=== PATIENT | male | born 1935 | race Caucasian/White ===

== ENCOUNTER 2016-06-16 11:21 | Emergency (ER) | payer OTHER, BC ==
[~2016-06-16] VITALS: Ht 182.9 cm; Wt 63.7 kg
[~2016-06-16 11:21] MED LIST: ASCA500 PO; CMD25 PO; METO50TA7 PO; MULT-506 PO
[2016-06-16 11:26] VITALS: TEMP 36.5; Ht 182.9 cm; Wt 63.7 kg
[2016-06-16] MEDS ORDERED: ASCO500T16 PO (11:44)
[2016-06-16] MEDS ORDERED: TAMS0.4C38 PO (11:44)
[2016-06-16] MEDS ORDERED: WARF-280 PO ×2 (11:44)
--- NOTE | 2016-06-16 12:15 | EMERGENCY ROOM VISIT NOTE ---
History Report prepared by Cindy: Terrence Freitas Under the Supervision of: Dr. Tonie Kaur M.D. First contact with patient: 11:52 Chief Complaint: URINARY SYMPTOMS Stated Complaint: URINATION PROBLEM History of Present Illness The patient is a 81 year old male who presents to the Emergency Room with complaints of urinary symptoms that began two days ago. He rates his current pain a 4/10 in severity. He states that today his symptoms are improving, but they are still present. He has been having increased trouble voiding his urine. He denies any fevers, vomiting, hematuria, and burning with urination. The patient has a past medical history of BPH. He takes Flomax daily. Source of History: patient Onset: two days ago Position: other () Symptom Intensity: Quality: pressure Timing: other (improving) Associated Symptoms: + abdominal pain, No fevers, No vomiting Note: He denies hematuria or urinary burning. Review of Systems See HPI for pertinent positives & negatives. A total of 10 systems reviewed and were otherwise negative. Past Medical & Surgical Medical Problems: (1) BPH (benign prostatic hyperplasia) Family History Omitted secondary to age. Social History Smoking Status: Never Smoker Smokeless Tobacco Use: No Marital Status: Housing Status: lives with family Occupation Status: retired Current/Historical Medications Scheduled Ascorbic Acid (Ascorbic Acid), 1,000 MG PO DAILY Metoprolol Succ (Toprol Xl) (Toprol-Xl), 50 MG PO QAM Multivitamin (Multivitamin), 1 TAB PO DAILY Tamsulosin Hcl (Flomax), 0.4 MG PO QPM Warfarin Sodium (Warfarin Sodium), 3.75 MG PO 2XWK Warfarin Sodium (Warfarin Sodium), 2.5 MG PO 5XWK Allergies Coded Allergies: No Known Allergies (Unverified , 06/16/16) Physical Exam Vital Signs Date Time Temp Pulse Resp B/P Pulse Ox O2 Delivery O2 Flow Rate FiO2 06/16/16 14:25 98 20 115/68 95 06/16/16 13:26 101 20 110/71 95 Room Air 06/16/16 11:26 36.5 123 18 101/65 96 Room Air Physical Exam Vital signs reviewed. General: Well-appearing elderly male, in no significant distress. HEENT: No scleral icterus, PERRLA, neck supple. Atraumatic. Cardiovascular: Regular rate and rhythm, no extra sounds. Pulmonary: Clear to auscultation bilaterally, normal work of breathing. Abdomen: Soft, nontender, mild distention in the suprapubic abdomen, positive bowel sounds. Musculoskeletal: Atraumatic, no peripheral edema. Neurologic: Patient awake alert and oriented x 3, full strength in all 4 extremities. Cranial nerves 2 through 12 grossly intact. Skin: Warm, dry, no rash Medical Decision & Procedures Laboratory Results Test 06/16/16 12:30 Urine Color DK YELLOW Urine Appearance CLEAR (CLEAR) Urine pH 5.5 (4.5-7.5) Urine Specific [place] 1.019 (1.000-1.030) Urine Protein NEG (NEG) Urine Glucose (UA) NEG (NEG) Urine Ketones TRACE (NEG) Urine Occult Blood TRACE (NEG) Urine Nitrite NEG (NEG) Urine Bilirubin NEG (NEG) Urine Urobilinogen NEG (NEG) Urine Leukocyte Esterase NEG (NEG) Urine WBC (Auto) 1-5 /hpf (0-5) Urine RBC (Auto) 5-10 /hpf (0-4) Urine Hyaline Casts (Auto) 1-5 /lpf (0-5) Urine Epithelial Cells (Auto) 10-20 /lpf (0-5) Urine Bacteria (Auto) NEG (NEG) Laboratory results per my review. ED Course 1152: Past medical records reviewed. The patient was evaluated in room C8. A complete history and physical examination was performed. 1400: Upon reevaluation, the patient appeared to have improvement of his symptoms. I discussed findings with him. He verbalized agreement of the treatment plan. He was discharged home. Medical Decision Differential diagnoses include BPH, UTI, prostatitis, diverticulitis, and kidney stone. This patient was evaluated and appeared to be in no significant distress. IV access was obtained and laboratory work was drawn. A bladder scan was performed and revealed significant urinary retention. A Strong catheter was placed and greater than 1 L was drained. The patient was discharged with a Strong catheter in place. There is no evidence of infection at this time. The patient was advised to follow-up with his urologist within the next week. He will return to the ER for worsening of symptoms or any medical concerns. Impression Primary Impression: Urinary retention Scribe Attestation The scribe's documentation has been prepared under my direction and personally reviewed by me in its entirety. I confirm that the note above accurately reflects all work, treatment, procedures, and medical decision making performed by me. Departure Information Dispostion Home / Self-Care Referrals Ruel Draper D.O. (PCP) Neal Sanchez MD, Urology Forms HOME CARE DOCUMENTATION FORM, IMPORTANT VISIT INFORMATION Patient Instructions My [facility] Additional Instructions Diagnosis: Urinary retention Strong catheter care as directed. Please follow-up with urology this week for reevaluation. Return to the emergency department for worsening of symptoms or any medical concerns.
[2016-06-16 12:57] LABS: URINE APPEARANCE CLEAR (CLEAR); URINE BILIRUBIN NEG (NEG); URINE COLOR DK YELLOW; URINE NITRITE NEG (NEG); URINE PH 5.5 (4.5-7.5); URINE SPECIFIC GRAVITY 1.019 (1.000-1.030); UROBILINOGEN NEG (NEG); ZZURINE CULT IF INDIC CATH NO
[2016-06-16 12:58] LABS: MANUAL MICROSCOPIC REQUIRED? NO; REVIEW REQ? NO
[2016-06-16 14:25] VITALS: BP 115/68; PULSE 98; O2SAT 95
[2016-07-30] MEDS ORDERED: LISINOPRIL HCTZ PO (13:45)
[2016-07-30] MEDS ORDERED: DUTA0.5C PO (13:45)
[2016-07-30] MEDS ORDERED: OMEG10007 PO (13:45)
[2016-08-13] MEDS ORDERED: PHEN-775 PO (09:30)
[2016-08-13] MEDS ORDERED: OXYC-57 PO (09:30)
== END 2016-06-16 14:30 | disposition home or self-care (01) ==
LOC: C.EDB 11:22 → C.EDC 14:30
DX: R33.9 Retention of urine, unspecified (principal); N40.0 Benign prostatic hyperplasia without lower urinary tract symptoms; R31.9 Hematuria, unspecified; I48.91 Unspecified atrial fibrillation; Z79.01 Long term (current) use of anticoagulants; Z79.899 Other long term (current) drug therapy

== ENCOUNTER 2016-06-16 15:47 | Emergency (ER) | payer OTHER, BC ==
[~2016-06-16] VITALS: Ht 182.9 cm; Wt 63.2 kg
[~2016-06-16 15:47] MED LIST changes: +ASCO500T16 PO; +TAMS0.4C38 PO; +WARF-280 PO
[2016-06-16 15:49] VITALS: TEMP 36.8; Ht 182.9 cm; Wt 63.2 kg
--- NOTE | 2016-06-16 16:56 | EMERGENCY ROOM VISIT NOTE ---
History Report prepared by Cindy: Ivan Garland Under the Supervision of: Dr. Rosa Knapp D.O. First contact with patient: 16:21 Chief Complaint: HEMATURIA Stated Complaint: URINARY PROBLEMS, BLOOD Nursing Triage Summary: pt was here earlier for urinary retention, had catheter placed, now has hematuria, wants evaluated. History of Present Illness The patient is an 81 year old male who presents to the Emergency Room with complaints of acute hematuria that he noticed earlier today. The patient had a catheter placed earlier today for urinary retention secondary to BPH. There were no complications initially. There was no blood when the catheter was first placed. He noticed blood in the catheter bag when he got home. The patient denies pain associated with the catheter or abdominal pain. He denies fevers or nausea. He is on Coumadin for a history of atrial fibrillation, last INR 2.4. He follows up with Urology for enlarged prostate. Source of History: patient Onset: today Position: other (urinary) Quality: other (hematuria) Timing: other (acute) Associated Symptoms: No fevers, No nausea Review of Systems See HPI for pertinent positives & negatives. A total of 10 systems reviewed and were otherwise negative. Past Medical & Surgical Medical Problems: (1) BPH (benign prostatic hyperplasia) Family History No pertinent family history Social History Smoking Status: Never Smoker Marital Status: Housing Status: lives with family Occupation Status: retired Current/Historical Medications Scheduled Ascorbic Acid (Ascorbic Acid), 1,000 MG PO DAILY Metoprolol Succ (Toprol Xl) (Toprol-Xl), 50 MG PO QAM Multivitamin (Multivitamin), 1 TAB PO DAILY Tamsulosin Hcl (Flomax), 0.4 MG PO QPM Warfarin Sodium (Warfarin Sodium), 3.75 MG PO 2XWK Warfarin Sodium (Warfarin Sodium), 2.5 MG PO 5XWK Allergies Coded Allergies: No Known Allergies (Unverified , 06/16/16) Physical Exam Vital Signs Date Time Temp Pulse Resp B/P Pulse Ox O2 Delivery O2 Flow Rate FiO2 06/16/16 20:12 98 128/80 99 06/16/16 19:02 104 18 135/84 97 Room Air 06/16/16 15:49 36.8 127 18 104/71 99 Room Air Physical Exam GENERAL: alert, well appearing, well nourished, no distress, non-toxic EYE EXAM: normal conjunctiva, PERRL and EOM's grossly intact OROPHARYNX: no exudate, no erythema, lips, buccal mucosa, and tongue normal and mucous membranes are moist NECK: supple, no nuchal rigidity, no adenopathy, non-tender LUNGS: Clear to auscultation. Normal chest wall mechanics HEART: no murmurs, S1 normal and S2 normal ABDOMEN: abdomen soft, non-tender, normo-active bowel sounds, no masses, no rebound or guarding. BACK: Back is symmetrical on inspection and there is no deformity, no midline tenderness, no CVA tenderness. SKIN: no rashes and no bruising UPPER EXTREMITIES: upper extremities are grossly normal. LOWER EXTREMITIES: No pitting edema. NEURO EXAM: Normal sensorium, cranial nerves II-XII grossly intact, normal speech, no gross weakness of arms, no gross weakness of legs. Gross sensation intact. GENITOURINARY: Gross hematuria noted in leg bag. Normal circumcised male genitalia. No inguinal lymphadenopathy. Medical Decision & Procedures ER Provider Diagnostic Interpretation: CT:Per my review, radiologist interpretation. ABDOMEN AND PELVIS CT WITHOUT CONTRAST CT DOSE: 276.33 mGy.cm HISTORY: Hematuria hematuria, s/p catheter placement TECHNIQUE: Multiaxial CT images of the abdomen and pelvis were performed without contrast. COMPARISON STUDY: None. FINDINGS: Minimal interstitial infiltrative change left and to lesser extent right base. Liver is unremarkable in configuration. Kidneys negative for calcification or hydronephrosis. The bowel pattern is considered nonobstructive throughout. There is atherosclerotic change of the abdominal aorta as well as iliac vasculature. There is been placement of a Strong catheter. There is mild bladder wall thickening. Bowel pattern within the pelvis is unremarkable. There is no evidence for abnormal collection. There are no obstructive characteristics. IMPRESSION: 1. Strong catheter. 2. Mild bladder wall thickening. 3. Otherwise negative abdomen and pelvis 4. Minimal interstitial infiltrative change left and to lesser extent right base. Electronically signed by: Juan Cowart M.D. 06/16/2016 6:32 PM Dictated Date/Time: 06/16/2016 6:31 PM Laboratory Results 06/16/16 17:10 Red Blood Count 4.18, Mean Corpuscular Volume 97.4, Mean Corpuscular Hemoglobin 33.0, Mean Corpuscular Hemoglobin Concent 33.9, Mean Platelet Volume 11.0, Neutrophils (%) (Auto) 83.3, Lymphocytes (%) (Auto) 9.6, Monocytes (%) (Auto) 6.1, Eosinophils (%) (Auto) 0.6, Basophils (%) (Auto) 0.2, Neutrophils # (Auto) 4.34, Lymphocytes # (Auto) 0.50, Monocytes # (Auto) 0.32, Eosinophils # (Auto) 0.03, Basophils # (Auto) 0.01 06/16/16 17:10 Test 06/16/16 17:10 White Blood Count 5.21 K/uL (4.8-10.8) Red Blood Count 4.18 M/uL (4.7-6.1) Hemoglobin 13.8 g/dL (14.0-18.0) Hematocrit 40.7 % (42-52) Mean Corpuscular Volume 97.4 fL (80-100) Mean Corpuscular Hemoglobin 33.0 pg (25-34) Mean Corpuscular Hemoglobin Concent 33.9 g/dl (32-36) Platelet Count 129 K/uL (130-400) Mean Platelet Volume 11.0 fL (7.4-10.4) Neutrophils (%) (Auto) 83.3 % Lymphocytes (%) (Auto) 9.6 % Monocytes (%) (Auto) 6.1 % Eosinophils (%) (Auto) 0.6 % Basophils (%) (Auto) 0.2 % Neutrophils # (Auto) 4.34 K/uL (1.4-6.5) Lymphocytes # (Auto) 0.50 K/uL (1.2-3.4) Monocytes # (Auto) 0.32 K/uL (0.11-0.59) Eosinophils # (Auto) 0.03 K/uL (0-0.5) Basophils # (Auto) 0.01 K/uL (0-0.2) RDW Standard Deviation 45.1 fL (36.4-46.3) RDW Coefficient of Variation 12.7 % (11.5-14.5) Immature Granulocyte % (Auto) 0.2 % Immature Granulocyte # (Auto) 0.01 K/uL (0.00-0.02) Prothrombin Time 15.4 SECONDS (9.0-12.0) Prothromb Time International Ratio 1.4 (0.9-1.1) Anion Gap 7.0 mmol/L (3-11) Est Creatinine Clear Calc Drug Dose 42.4 ml/min Estimated GFR () 64.9 Estimated GFR (Non- 56.0 BUN/Creatinine Ratio 13.8 (10-20) Calcium Level 8.9 mg/dl (8.5-10.1) Laboratory results per my review. ED Course 1635: The patient was evaluated in room B8. A complete history and physical exam was performed. 1757: The catheter bag now has light pink-colored urine without clots. He still has no pain on repeat examination. Updated him on all of the results thus far. 1906: No change in patient's condition. Catheter now draining gross hematuria once again. We'll re-irrigate. 1932: Discussed with Dr. Perdue, discussed patient's 2 visits to the ER today , labs and imaging, as well as drainage and the patient's catheter. He does not recommend placement of 3-way catheter and CBI at this time. States as long as the catheter is draining, patient can be discharged home in close follow-up in the office. Devises he should continue his regular medications and no new adjustments should be made patient's Coumadin regimen or additional bridging medication given. 1942: Discussed with patient and family conversation with urology. They verbalized understanding were agreeable with plan. Medical Decision Differential diagnosis includes traumatic catheter placement, mass, false track , kidney stone, UTI, nephritic syndrome, acute renal failure. Patient well-appearing here and has no complaints other than noticing gross hematuria draining into the Strong catheter. No pain, no fevers, no vomiting. Labs reassuring. Patient was alerted that his INR is subtherapeutic and will need close follow-up. Patient not given any bridging doses of Lovenox or additional Coumadin due to gross hematuria. Patient aware that this needs close follow-up with cardiology and discussion with urology. Encouraged patient to continue adequate oral intake and hydration and close follow-up as recommended by urology. Patient is aware that his case was discussed with urology and all labs and imaging were reviewed as well as attempts at irrigating to help improve hematuria. Discussed with patient and family at bedside symptoms to watch and return for, continued used of routine medications , adequate hydration, they verbalized understanding and were agreeable with plan. No evidence of renal failure, acute infection, stone, hydronephrosis, or abnormal placement of the catheter. No evidence of bacteremia/sepsis. Urinalysis sent upon original placement of catheter revealed no evidence of infection. Patient with stable vital signs, well-appearing throughout her time in the emergency room. Consults Time Called: 1926 Consulting Physician: Dr. Perdue Returned Call: 1932 Advised patient does not need CBI or 3-way catheter at this time. Can be discharged to close follow-up in the office. Impression Primary Impression: Hematuria Additional Impression: Strong catheter in place Scribe Attestation The scribe's documentation has been prepared under my direction and personally reviewed by me in its entirety. I confirm that the note above accurately reflects all work, treatment, procedures, and medical decision making performed by me. Departure Information Dispostion Home / Self-Care Referrals Ruel Draper D.O. (PCP) Patient Instructions [facility] Additional Instructions Please drink plenty of water to stay well-hydrated. Please continue regular medications as prescribed including her Coumadin. Please continue to monitor for any new or concerning symptoms including fevers, vomiting, abdominal pain, back pain. If you notice any new symptoms, noticed that the catheter is not draining appropriately, if you have any other concerns please return the emergency room. Please follow-up with urology the beginning of next week. Problem Qualifiers
[2016-06-16 17:21] LABS: BASO % 0.2 %; BASO ABS # 0.01 K/uL (0-0.2); COMPLETE YES; EOS % 0.6 %; HEMATOCRIT 40.7 % (42-52); IG% 0.2 %; LYMPH % 9.6 %; MEAN CELL VOLUME 97.4 fL (80-100); MEAN CORPUSCULAR HGB CONC 33.9 g/dl (32-36); MONO % 6.1 %; NEUT % 83.3 %; PLATELET COUNT 129 K/uL (130-400); RED BLOOD COUNT 4.18 M/uL (4.7-6.1); WHITE BLOOD COUNT 5.21 K/uL (4.8-10.8)
[2016-06-16 17:29] LABS: INR 1.4 (0.9-1.1); PROTHROMBIN TIME (PATIENT) 15.4 SECONDS (9.0-12.0)
[2016-06-16 17:35] LABS: BUN/CREATININE RATIO 13.8 (10-20); CALCIUM 8.9 mg/dl (8.5-10.1); CREATININE 1.2 mg/dl (0.60-1.40); POTASSIUM 4.1 mmol/L (3.5-5.1)
--- NOTE | 2016-06-16 18:34 | DIAGNOSTIC IMAGING REPORT ---
ABDOMEN AND PELVIS CT WITHOUT CONTRAST CT DOSE: 276.33 mGy.cm HISTORY: Hematuria hematuria, s/p catheter placement TECHNIQUE: Multiaxial CT images of the abdomen and pelvis were performed without contrast. COMPARISON STUDY: None. FINDINGS: Minimal interstitial infiltrative change left and to lesser extent right base. Liver is unremarkable in configuration. Kidneys negative for calcification or hydronephrosis. The bowel pattern is considered nonobstructive throughout. There is atherosclerotic change of the abdominal aorta as well as iliac vasculature. There is been placement of a Strong catheter. There is mild bladder wall thickening. Bowel pattern within the pelvis is unremarkable. There is no evidence for abnormal collection. There are no obstructive characteristics. IMPRESSION: 1. Strong catheter. 2. Mild bladder wall thickening. 3. Otherwise negative abdomen and pelvis 4. Minimal interstitial infiltrative change left and to lesser extent right base. Electronically signed by: Juan Cowart M.D. 06/16/2016 6:32 PM Dictated Date/Time: 06/16/2016 6:31 PM
[2016-06-16 20:12] VITALS: BP 128/80; PULSE 98; O2SAT 99
[2016-07-30] MEDS ORDERED: DUTA0.5C PO (13:45)
[2016-07-30] MEDS ORDERED: LISINOPRIL HCTZ PO (13:45)
[2016-07-30] MEDS ORDERED: OMEG10007 PO (13:45)
[2016-08-13] MEDS ORDERED: PHEN-775 PO (09:30)
[2016-08-13] MEDS ORDERED: OXYC-57 PO (09:30)
== END 2016-06-16 20:14 | disposition home or self-care (01) ==
LOC: C.EDB 15:48
DX: R31.9 Hematuria, unspecified (principal); I48.91 Unspecified atrial fibrillation; N40.0 Benign prostatic hyperplasia without lower urinary tract symptoms; Z79.01 Long term (current) use of anticoagulants; Z79.899 Other long term (current) drug therapy

== ENCOUNTER 2016-08-13 08:09 | Day surgery (SDC) | payer OTHER, BC ==
[2016-07-30 13:46] VITALS: BMI 19.0
--- NOTE | 2016-07-30 14:20 | PAT Medication Instructions ---
Service Date Jul 30, 2016. Current Home Medication List Ascorbic Acid (Ascorbic Acid), 1,000 MG PO QAM Dutasteride (Avodart), 0.5 MG PO QAM Fish Oil ([place]-3), 1 CAP PO TID Metoprolol Succ (Toprol Xl) (Toprol-Xl), 50 MG PO QAM Multivitamin (Multivitamin), 1 TAB PO QAM Tamsulosin Hcl (Flomax), 0.4 MG PO QPM Warfarin Sodium (Warfarin Sodium), 3.75 MG PO 2XWK Warfarin Sodium (Warfarin Sodium), 2.5 MG PO 5XWK [Lisinopril Hctz], 1 TAB PO QAM Medication Instructions For Your Scheduled Surgery - Follow surgeon/carousel operator instructions: Warfarin Sodium (Warfarin Sodium), 3.75 MG PO 2XWK Warfarin Sodium (Warfarin Sodium), 2.5 MG PO 5XWK - Hold the following medications starting 08/13/16: Fish Oil ([place]-3), 1 CAP PO TID - Hold the following medications the morning of surgery: [Lisinopril Hctz], 1 TAB PO QAM Multivitamin (Multivitamin), 1 TAB PO QAM Ascorbic Acid (Ascorbic Acid), 1,000 MG PO QAM Dutasteride (Avodart), 0.5 MG PO QAM - Take the following medications the morning of surgery with a sip of water: Metoprolol Succ (Toprol Xl) (Toprol-Xl), 50 MG PO QAM - Take the following medications as scheduled the night before surgery: Tamsulosin Hcl (Flomax), 0.4 MG PO QPM If you have any questions please call us at [phone] or [phone] or [phone]
--- NOTE | 2016-07-30 14:46 | DIAGNOSTIC IMAGING REPORT ---
CHEST PREADMISSION(PA/LAT) CLINICAL HISTORY: PAT preoperative evaluation COMPARISON STUDY: No previous studies for comparison. FINDINGS: The bones soft tissues and hemidiaphragms are normal. The cardiomediastinal silhouette is normal. The lungs are clear. The pulmonary vasculature is normal. IMPRESSION: Negative chest. Electronically signed by: Juan Cowart M.D. 07/30/2016 2:45 PM Dictated Date/Time: 07/30/2016 2:45 PM
[2016-07-30 15:00] LABS: BASO % 0.2 %; BASO ABS # 0.01 K/uL (0-0.2); COMPLETE YES; HEMATOCRIT 37.8 % (42-52); MEAN CELL VOLUME 94.5 fL (80-100); MEAN CORPUSCULAR HGB CONC 33.9 g/dl (32-36); MEAN PLATELET VOLUME 10.5 fL (7.4-10.4); MONO % 7.2 %; NEUT % 70.6 %; PLATELET COUNT 236 K/uL (130-400); WHITE BLOOD COUNT 5.25 K/uL (4.8-10.8)
[2016-07-30 15:04] LABS: URINE APPEARANCE CLOUDY (CLEAR); URINE BILIRUBIN NEG (NEG); URINE COLOR YELLOW; URINE EPITHELIAL CELL AUTO >30 /lpf (0-5); URINE NITRITE NEG (NEG); URINE PH 5.5 (4.5-7.5); UROBILINOGEN NEG (NEG)
[2016-07-30 15:05] LABS: MANUAL MICROSCOPIC REQUIRED? NO; REVIEW REQ? YES
[2016-07-30 15:58] LABS: BUN/CREATININE RATIO 14.6 (10-20); CREATININE 0.96 mg/dl (0.60-1.40)
[~2016-08-13] VITALS: Ht 180.3 cm; Wt 62.2 kg
[~2016-08-13 08:09] MED LIST changes: -ASCA500 PO; +ATROPINE SULFATE 0.1 MG/ML 5ML SYR IV PRN; +CIPROFLOXACIN / D5W 400 MG IV SCH; -CMD25 PO; +DUTA0.5C PO; +EpHEDrine SULFATE INJ 50 MG/ML AMP IV PRN; +FENTANYL CITRATE INJ 50 MCG/1 ML 2 ML VIAL IV PRN; +GENTAMICIN INJ 120 MG in DEXTROSE 5% 100ML 100 ML IV SCH; +HYDROmorphone INJ 1 MG/ML SYR IV PRN; +LACTATED RINGER'S 1000ML 1,000 ML IV SCH; +LISINOPRIL HCTZ PO; +OMEG10007 PO; +ONDANSETRON INJ 2 MG/ML 2 ML VIAL IV PRN
[2016-08-13] MEDS ORDERED: PROPOFOL IV EMULSION 10 MG/ML 20 ML VIAL IV ONE (08:55)
[2016-08-13] MEDS ORDERED: LIDOCAINE 2% 20 MG/ML 5ML SYR ONE (08:55)
[2016-08-13] MEDS ORDERED: FENTANYL CITRATE INJ 50 MCG/1 ML 2 ML VIAL ONE (08:55)
[2016-08-13 09:02] VITALS: BP 138/74; PULSE 77; TEMP 36.4; O2SAT 100; Ht 180.3 cm; Wt 62.2 kg
[2016-08-13] MEDS ORDERED: ONDANSETRON INJ 2 MG/ML 2 ML VIAL ONE (09:15)
[2016-08-13 09:20] LABS: INR 1.4 (0.9-1.1); PARTIAL THROMBOPLASTIN RATIO 1.2; PROTHROMBIN TIME (PATIENT) 14.9 SECONDS (9.0-12.0)
--- NOTE | 2016-08-13 09:24 | History & Physical Bridge Note ---
H&P Re-Evaluation Bridge Note: I have examined the patient, reviewed the History & Physical and in the interval since the performance of the History & Physical I have noted the following changes of clinical significance: No changes noted
[2016-08-13] MEDS ORDERED: PHEN-775 PO (09:30)
[2016-08-13] MEDS ORDERED: OXYC-57 PO (09:30)
--- NOTE | 2016-08-13 09:31 | Discharge Instructions ---
Discharge Instructions Date of Service Aug 13, 2016. Admission Reason for Admission: Benign Prostate Hypertrophy Discharge Discharge Diagnosis / Problem: BPH s/p GLTURP, bipolar TURP, bladder tumor s/p biopsy and fulguration Discharge Goals Goal(s): Improve function, Improve disease control, Therapeutic intervention Activity Recommendations Activity Limitations: per Instructions/Follow-up section Lifting Limitations: no more than 25 pounds, gradually increase as tolerated ( x 3-5 days) Exercise/Sports Limitations: rest today, gradually increase as tolerated (x3-5 days) May Resume Sexual Activity: after follow-up appointment Shower/Bathe: tomorrow (no tub bath with gallegos in place) . Instructions / Follow-Up Instructions / Follow-Up Complete Macrobid as provided Follow-up appointments as scheduled Discharge Diet Recommended Diet: Regular Diet (good fluid intake) Procedures Procedures Performed: GLTURP, bipolar TURP and button vaporization, bladder biopsy and fulguration Pending Studies Studies pending at discharge: yes List of pending studies: Pathology reports Medical Emergencies . Who to Call and When: Medical Emergencies: If at any time you feel your situation is an emergency, please call 911 immediately. . Non-Emergent Contact Non-Emergency issues call your: Urologist Call Non-Emergent contact if: you have a fever, temperature is above 101, your pain is not controlled, your pain is worsening, your pain is unusual for you, your pain is concerning you, wound has increased pain, you have any medication questions . . "Provider Documentation" section prepared by Neal Sanchez. . VTE Core Measure Inpt VTE Proph given/why not?: SCD's [place] Drug Monitoring Program Search Results: patient reviewed within database, no issues identified
[2016-08-13] MEDS ORDERED: BELLADONNA/OPIUM SUPP 60 MG SUPP PR ONE ×2 (09:46→10:18)
[2016-08-13] MEDS ORDERED: PHENYLEPHRINE 100MCG/ML 5ML SYR ONE ×2 (09:50→10:45)
[2016-08-13] MEDS ORDERED: DEXAMETHASONE SOD INJ 4 MG/ML VIAL ONE (09:59)
[2016-08-13] MEDS ORDERED: EpHEDrine SULFATE 50MG/5ML SYR ONE (10:49)
--- NOTE | 2016-08-13 11:35 | [facility] Post Operative Brief Note ---
Immediate Operative Summary Operative Date Aug 13, 2016. Pre-Operative Diagnosis Benign Prostatic Hypertrophy with urinary obstruction Post-Operative Diagnosis Benign Prostatic Hypertrophy with urinary retention and small bladder tumor Procedure(s) Performed GLTURP, bipolar TURP and button vaporization, bladder biopsy and fulguration Surgeon Dr Hamzah Sanchez Gas Collection System Operator Surgeon(s) NA Estimated Blood Loss 50 ml Findings Small bladder tumor superolateral to R UO, open fossa after resection with excellent hemostasis Specimens A. Right bladder neck tumor B. Posterior bladder wall C. Prostate chips Drains 26 fr 15 cc H2O Anesthesia GALMA Complication(s) None Disposition Recovery Room / PACU
--- NOTE | 2016-08-13 11:44 | [facility] Operative Report ---
Operative Report Operative Date Aug 13, 2016. Pre-Operative Diagnosis Benign Prostatic Hypertrophy with urinary obstruction Post-Operative Diagnosis BPH, retention, small bladder tumor Procedure(s) Performed Cystoscopy, bladder biopsy, fulguration, GLTURP, bipolar TURP and button vaporization of prostate Surgeon Dr Hamzah Sanchez Bicycle Fitter Surgeon(s) NA Estimated Blood Loss 50 ml Findings Small papillary BT superolateral to R UO, posterior wall edema likely due to gallegos, open fossa after resection, 38K J used Specimens A. Right bladder neck tumor B. Posterior bladder wall C. Prostate chips Drains 26 fr 15 cc H2O Anesthesia GALMA Complication(s) None Disposition Recovery Room / PACU Indications BPH and retention with indwelling gallegos Description of Procedure Cipro and Gent used IV, SCDs. Patient has been Rxed for prior UTI with Macrobid , currently taking. Gallegos removed, GALMA used, placed in dorsal lithotomy. GL laser scope introduced with visual obturator showing an enlarged, inflamed prostate with median lobe and trilobar intravesical extension. Small papillary BT noted superolateral to R UO, posterior wall edema appreciated, grade 3 trabeculation with cellules. Cold cup used to biopsy tumor, sent as R bladder tumor as well as posterior wall edema - sent separately. Bugbee used to fulgurate area after switching to Mannitol. Due to bleeding from prostate GLTURP was started. UOs noted in good position, uninjured throughout the case. Circumferential vaporization using the GL scope between 80 and 120 W was performed, but had to switch to bipolar TUR due to arterial bleeding. Median lobe resected flush with trigone, intravesical prostate resected and prostate chips irrigated free (sent for path as prostate chips). Bipolar button used to open prostatic fossa and obtain hemostasis. GLTURP was restarted for a portion but again TUR was required for hemostasis. Case was completed with bipolar TURP and button, button for majority of case. Areas of bladder biopsy were further fulgurated to ensure hemostasis, no bladder injury or perforation appreciated. After meticulous hemostasis fossa noted to be open and unobstructed. Gallegos placed with clear return, 15 cc H2O in balloon, isovolemic return, no tissue remaining in bladder. B&O provided then to RR in stable condition. I attest to the content of the Intraoperative Record and any orders documented therein. Any exceptions are noted below.
[2016-08-13] MEDS ORDERED: PHENAZOPYRIDINE HCL 200 MG TAB PO PRN (11:45)
[2016-08-13] MEDS ORDERED: OXYCODONE/ACETAMINOPHEN 5-325 TAB PO PRN (11:45)
[2016-08-13 11:58] VITALS: BP 137/71; PULSE 76; TEMP 36.5; O2SAT 99
--- NOTE | 2016-08-13 12:06 | Anesthesiology Progress Note ---
Anesthesia Post Op Note Date & Time Aug 13, 2016 at 12:06 Vital Signs Pain Intensity: 0 Vital Signs Past 12 Hours Date Time Temp Pulse Resp B/P (MAP) Pulse Ox O2 Delivery O2 Flow Rate FiO2 08/13/16 11:52 117/72 08/13/16 11:48 36.5 08/13/16 11:47 66 16 100 08/13/16 11:47 66 16 08/13/16 11:42 67 13 08/13/16 11:42 67 13 100 08/13/16 11:41 125/76 08/13/16 11:37 72 18 08/13/16 11:37 75 18 100 08/13/16 11:36 131/70 08/13/16 11:32 71 16 08/13/16 11:32 73 16 100 08/13/16 11:31 125/74 08/13/16 11:27 75 16 08/13/16 11:27 73 16 100 08/13/16 11:26 128/86 08/13/16 11:22 83 20 08/13/16 11:22 88 20 96 08/13/16 11:21 131/76 08/13/16 11:17 83 18 08/13/16 11:17 89 18 139/95 100 08/13/16 11:12 36.4 79 16 139/95 100 Mask 10 08/13/16 09:02 36.4 77 18 138/74 (95) 100 Room Air Notes Mental Status: alert / awake / arousable, participated in evaluation Pt Amnestic to Procedure: Yes Nausea / Vomiting: adequately controlled Pain: adequately controlled Airway Patency, RR, SpO2: stable & adequate BP & HR: stable & adequate Hydration State: stable & adequate Anesthetic Complications: no major complications apparent
[2016-08-13 12:30] VITALS: BP 127/66; PULSE 68; O2SAT 98
[2016-08-13 13:00] VITALS: BP 128/71; PULSE 80; TEMP 36.5; O2SAT 100
== END 2016-08-13 13:15 | disposition home or self-care (01) ==
LOC: C.ACU 08:09
PROVIDERS: ATTEND Urology
DX: N40.1 Benign prostatic hyperplasia with lower urinary tract symptoms (principal); N30.80 Other cystitis without hematuria; N41.1 Chronic prostatitis; R33.9 Retention of urine, unspecified; I10 Essential (primary) hypertension; Z87.440 Personal history of urinary (tract) infections; Z82.49 Family history of ischemic heart disease and other diseases of the circulatory system

== ENCOUNTER 2016-08-15 18:59 | Emergency (ER) | payer OTHER, BC ==
[~2016-08-15] VITALS: Ht 182.9 cm; Wt 63.0 kg
[~2016-08-15 18:59] MED LIST changes: -ATROPINE SULFATE 0.1 MG/ML 5ML SYR IV PRN; -CIPROFLOXACIN / D5W 400 MG IV SCH; -EpHEDrine SULFATE INJ 50 MG/ML AMP IV PRN; -FENTANYL CITRATE INJ 50 MCG/1 ML 2 ML VIAL IV PRN; -GENTAMICIN INJ 120 MG in DEXTROSE 5% 100ML 100 ML IV SCH; -HYDROmorphone INJ 1 MG/ML SYR IV PRN; -LACTATED RINGER'S 1000ML 1,000 ML IV SCH; -ONDANSETRON INJ 2 MG/ML 2 ML VIAL IV PRN; +OXYC-57 PO; +PHEN-775 PO
[2016-08-15 19:07] VITALS: TEMP 36.9; Ht 182.9 cm; Wt 63.0 kg
--- NOTE | 2016-08-15 19:09 | EMERGENCY ROOM VISIT NOTE ---
History Report prepared by Cindy: Yahaira Osborn Under the Supervision of: Dr. Scout Madrid M.D. 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 The patient states that he tripped today and fell to the ground and hit the back of his head on the concrete in the garage. He complains of pain where he cut the back of his head and notes that he was able to get up very shortly after the fall. He denies any history of falls and notes that he usually takes Coumadin but is off of it due to a prostate procedure 2 days ago. The patient notes a history of atrial fibrillation. He denies any loss of consciousness, chest pain, shortness of breath, headache, neck pain, hematuria, arm pain, leg pain, and weakness. 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 He denies any arm pain, leg pain. Review of Systems See HPI for pertinent positives & negatives. A total of 10 systems reviewed and were otherwise negative. Past Medical & Surgical Medical Problems: (1) BPH (benign prostatic hyperplasia) Family History No pertinent family history Social History Smoking Status: Former Smoker Marital Status: Housing Status: lives with family Occupation Status: retired Current/Historical Medications Scheduled Ascorbic Acid (Ascorbic Acid), 1,000 MG PO QAM Dutasteride (Avodart), 0.5 MG PO QAM Fish Oil ([place]-3), 1 CAP PO TID Hctz/Lisinopril (Lisinopril/Hctz 10/12.5 Mg), 1 TAB PO DAILY Metoprolol Succ (Toprol Xl) (Toprol-Xl), 50 MG PO QAM Multivitamin (Multivitamin), 1 TAB PO QAM Tamsulosin Hcl (Flomax), 0.4 MG PO QPM Warfarin Sodium (Warfarin Sodium), 3.75 MG PO 2XWK Warfarin Sodium (Warfarin Sodium), 2.5 MG PO 5XWK Scheduled PRN Oxycodone/Acetaminophen 5MG/325MG (Percocet 5MG/325MG), 1 TABLET PO Q4H PRN for Pain Phenazopyridine Hcl (Pyridium), 200 MG PO TID PRN for Bladder pain Allergies Coded Allergies: No Known Allergies (Unverified , 08/15/16) Physical Exam Vital Signs Date Time Temp Pulse Resp B/P (MAP) Pulse Ox O2 Delivery O2 Flow Rate FiO2 08/15/16 20:29 92 20 118/68 98 08/15/16 19:07 36.9 109 18 115/76 96 Room Air Physical Exam GENERAL: Patient is well appearing and in no acute distress. HEENT: 3.5 curving laceration with minimal bleeding of the left parietal scalp, mucous membranes moist, no nasal congestion, no scleral icterus. NECK: No stridor, no adenopathy, no meningismus, trachea is midline. LUNGS: No dyspnea. Clear to auscultation and equal bilaterally. No wheeze, no rhonchi. HEART: Irregular heartbeat. No murmurs, rubs, gallops appreciated. ABDOMEN: Soft, nontender, bowel sounds positive, no masses appreciated, no peritonitis. BACK: No midline tenderness, no CVA tenderness EXTREMITIES: Normal motion all extremities, no cyanosis, no edema. NEUROLOGIC: Alert and oriented, no acute motor or sensory deficits, no focal weakness, cranial nerves grossly intact. GCS 15. SKIN: No rash, no jaundice, no diaphoresis. Medical Decision & Procedures ER Provider Diagnostic Interpretation: Radiology results and stated below per my review and radiologist interpretation: CT OF THE HEAD WITHOUT CONTRAST FINDINGS: No acute intracranial hemorrhage, midline shift or mass effect is present. Ventricular system is unremarkable for age. There is moderate atrophy. Basilar cisterns are patent. There are no extra axial collections. There is a small left scalp contusion with no calvarial fracture. IMPRESSION: 1. No acute intracranial findings. 2. Left scalp contusion. No calvarial fracture. Electronically signed by: Mario Stokes M.D. 08/15/2016 7:39 PM Dictated Date/Time: 08/15/2016 7:38 PM Medications Administered Medications (Trade) Dose Ordered Sig/Nik Route Start Time Stop Time Status Last Admin Dose Admin Lidocaine/ Epinephrine (Xylocaine/Epine 1% Inj) 20 ml ONE ONCE INFIL 08/15/16 19:15 08/15/16 19:16 DC 08/15/16 19:21 20 ML Procedure Location: Scalp Total length: 3.5cm Complexity: Simple Verbal consent was obtained after the risks and benefits were explained, including but not limited to bleeding, scarring, infection, pain, and bone/ nerve damage. At this time, the risks of the procedure are less than the risks of NOT performing the procedure. A time out was taken and the correct patient and site identified. The scalp was prepped with betadine. The target area was anesthetized with 4 ml of 1% lidocaine without epinephrine. Copious irrigation was performed using saline. The skin was re-prepped with betadine, the hair cleared from the wound, and a sterile field set. The wound was explored for foreign bodies and none found. Debridement was not performed. The wound edges were approximated using 9 surgical peter in the standard fashion. Hemostasis and excellent approximation was achieved. Antibacterial ointment and a sterile dressing applied. Detailed wound care instructions and signs and symptoms of infection reviewed with the the patient. No complications and the patient tolerated the procedure well. ED Course 1899: The patient was evaluated in room C6. A complete history and physical exam was performed. 1914: Lidocaine/Epinephrine 20ml INFIL. 2002: I stapled the patient's head laceration. See procedure note. 2016: Reevaluated the patient. Discussed results and discharge instructions: He verbalized understanding and agreement. The patient is ready for discharge. Medical Decision Medication Reconciliation: I attest that I have personally reviewed the patient 's current medication list. Blood pressure screening: Patient was found to have normal blood pressure on screening and does not require follow-up. Pleasant 81 yr old male with mechanical fall (per him and ) who arrives for evaluation of posterior left scalp laceration. Fortuitously off Coumadin post prostate surgery a few days ago. Recent surgery may be why not as quite on feet though he is adamant no syncope, cp, sob, weakness, lightheadedness, etc. He has no neck pain, no TTP nor any neuro deficits. He is stable and in no distress. CT head negative. [place] placed in scalp with wound care discussed. Impression Primary Impression: Fall Additional Impressions: Scalp laceration Head injury, closed Scribe Attestation The scribe's documentation has been prepared under my direction and personally reviewed by me in its entirety. I confirm that the note above accurately reflects all work, treatment, procedures, and medical decision making performed by me. Departure Information Dispostion Home / Self-Care Referrals Ruel Draper D.O. (PCP) Forms HOME CARE DOCUMENTATION FORM, IMPORTANT VISIT INFORMATION Patient Instructions ED Laceration Scalp Stitch Or Stap, My [facility] Additional Instructions Peter will need to be removed by ED or Primary Provider in 7 to 10 days. Problem Qualifiers
[2016-08-15] MEDS ORDERED: LISI-729 PO (19:14)
[2016-08-15] MEDS ORDERED: LIDOCAINE/EPINEPHRINE 1% 20 ML VIAL INFIL ONE (19:15)
[2016-08-15] MEDS ORDERED: LSN/10125 PO (19:17)
--- NOTE | 2016-08-15 19:41 | DIAGNOSTIC IMAGING REPORT ---
CT OF THE HEAD WITHOUT CONTRAST CLINICAL HISTORY: fall, left scalp injury COMPARISON STUDY: No previous studies for comparison. CT DOSE: 601.98 mGy.cm TECHNIQUE: Helical axial images of the head were obtained without IV contrast. Automated exposure control was utilized for the study. FINDINGS: No acute intracranial hemorrhage, midline shift or mass effect is present. Ventricular system is unremarkable for age. There is moderate atrophy. Basilar cisterns are patent. There are no extra axial collections. There is a small left scalp contusion with no calvarial fracture. IMPRESSION: 1. No acute intracranial findings. 2. Left scalp contusion. No calvarial fracture. Electronically signed by: Mario Stokes M.D. 08/15/2016 7:39 PM Dictated Date/Time: 08/15/2016 7:38 PM
[2016-08-15 20:29] VITALS: BP 118/68; PULSE 92; O2SAT 98
== END 2016-08-15 20:30 | disposition home or self-care (01) ==
LOC: EDBD 18:59 → C.EDC 19:00
DX: S01.01XA Laceration without foreign body of scalp, initial encounter (principal); W01.198A Fall on same level from slipping, tripping and stumbling with subsequent striking against other object, initial encounter; I48.91 Unspecified atrial fibrillation; N40.0 Benign prostatic hyperplasia without lower urinary tract symptoms; Z87.891 Personal history of nicotine dependence; Z79.01 Long term (current) use of anticoagulants; Z79.899 Other long term (current) drug therapy

== ENCOUNTER 2023-01-12 18:27 | Inpatient (IN) ==
--- OUTSIDE RECORDS SUMMARY | 2023-01-12 18:33 | External Medical Summary | Summary of Care ---
Author Name Unknown Organization [facility] Address [address] [place] [address] Phone [phone] Care Team Providers Care Occupational Safety And Health Manager Name Role Phone Eulogio Garvin MD Primary Care Provider + Reason for Visit * Reason Comments Dosage Adjustment In Person (Anticoag Cl inic) Encounter Details Date Type Department Care Team (Latest Contact Info) Description 01/01/2023 11:00 AM EST Anticoagulation Pharmacy, [facility] [address] [place] [address] Pharmacist1, [facility] [address] [place] [address] Chronic atrial fibrillation (HCC)*; Anticoagulation management encounter; retirement current use of anticoagulant therapy Allergies Active Allergy Reactions Criticality Noted Date Comments Environmental 11/09/2008 documented as of this encounter (statuses as of 01/01/2023) Medications Medication Sig Dispensed Refills Start Date End Date Status MULTIVITAMINS PO TABS one daily 0 02/25/2007 Active VITAMIN C 500 MG PO TABS Take 1 Tablet by mouth in the morning. 0 Active omega-3 1000 MG CAPS Take by mouth 3 times a day. 0 Active Albuterol Sulfate HFA 108 (90 Base) MCG/ACT Inhalation Aerosol SolutionIndicatio ns:Mild intermittent reactive airway disease without complication Inhale by mouth 2 Puffs every 6 hours as needed for Cough, Shortness of Breath or Wheezing. 18 g 2 08/08/2021 Active Loratadine 10 MG Oral Tablet (Claritin) Take 1 Tablet by mouth daily as needed for Rhinitis. 0 Active T.E.D. Below Knee/S-Regular Wear stockings during the day. Take off at night. Compression 20-30 mmHg 2 Each 1 12/14/2021 Active Vitamin B Complex Oral Tablet Take 1 Tablet by mouth in the morning. 0 Active Furosemide 20 MG Oral Tablet (Lasix)Indication s:HTN, goal below 130/80,Leg edema Take 1 Tablet by mouth once a day on Saturday, Saturday, and Saturday only. 40 Tablet 3 08/01/2022 Active Dutasteride 0.5 MG Oral Capsule (Avodart)Indicati ons:Elevated prostate specific antigen (PSA) Take 1 Capsule by mouth every morning. 90 Capsule 3 08/01/2022 Active Warfarin Sodium 2.5 MG Oral Tablet (Coumadin)Indicat ions:Chronic atrial fibrillation (HCC) Take 1.5 tab by mouth Tues, Thur, Sat. Take 1 tab by mouth all other days. Or as directed by the anticoagulation clinic. For afib 120 Tablet 3 08/01/2022 Active Rosuvastatin Calcium 10 MG Oral Tablet (Crestor)Indicati ons:Mild vascular dementia without behavioral disturbance, psychotic disturbance, mood disturbance, or anxiety (HCC),HTN, goal below 130/80 Take 1 Tablet by mouth every night at bedtime. 90 Tablet 3 10/20/2022 Active Donepezil HCl 10 MG Oral Tablet (Aricept) Take 1 Tablet by mouth in the morning. Take with largest meal of the day.. 90 Tablet 2 11/20/2022 Active Metoprolol Succinate ER 25 MG Oral Tablet Extended Release 24 Hour (Toprol XL) Take 1.5 Tablets by mouth in the morning. 1325 Tablet 3 12/12/2022 Active Spironolactone 25 MG Oral Tablet (Aldactone) Take 0.5 Tablets by mouth in the morning. 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 HTN, goal below 130/80 12/05/2011 Anticoagulation management encounter 07/24/2010 retirement current use of anticoagulant therapy 0 07/24/2010 Overview: ICD-10 update of inactive term Elevated prostate specific antigen (PSA) 009 BPH without obstruction/lower urinary tract symp toms 03/03/2008 documented as of this encounter (statuses as of 01/01/2023) Resolved Problems Problem Noted Date Diagnosed Date Resolved Date UNILAT INGUINAL HERNIA- LEFT 07/31/2010 06/12/2017 Atrial fibrillation 07/24/2010 12/20/19 19 Benign neoplasm of colon 03/03/2008 FAMILY HX-GI MALIGNANCY 08/21/200511/13 Overview: Colonoscopy 08/13/05--tubular adenomas --repeat 3-5 years. documented as of this encounter (statuses as of 01/01/2023) Immunizations Name Administration Dates Next Due COVID-19 mRNA, LNP-s, No Pre serve, 2-Dose Series (Moderna) 04/13/2021,12/12/2020,04/08/2020,03/11 Covid-19, Mrna, Lnp-s, Pf, B ivalent, 30 Mcg, IM, 12 yrs and above ([facility]) 10/23/2021 DTaP HIB - Dipth/Tet/Acell Pert/HIB 07/12/2004 H1N1 2009 Influenza, IM 02/02/2009 HEP A - Hepatitis A (Adult > 18 yrs) 08/18/2007, 02/25/2007 Pneumococcal Conjugate Vacc, 13 Valent (Prevnar) 06/20/2015 Pneumococcal Conjugate Vacci ne, 7 Valent 01/11/2003 Pneumococcal Polysaccharide PPV23 (Pneumovax) 07/12/2005 SEASONAL INFLUENZA, PF, 6 M & Above, IM , (FLULAVAL or FLUZONE) 11/18/2017 Season Influenza, Quad, PF, Adjuvanted, 65+ Yrs, IM (FLUAD) 10/16/2019 Seasonal Influenza, Quadriva lent Hd (Fluzone Hd) 10/20/2020 Seasonal Influenza, Quadriva lent, No Preserve, IM 10/30/2016,12/08/2015,12/16/2014 Seasonal Influenza, Split, I IV3, With Preserve, Inj 12/10/2013,11/03/2012,11/06/2011,12/28,12/14/2009,10/19/2008,12/06/2007 ,11/11/2006 Seasonal Influenza, Trivalen t, Adjuvanted, 65+ yrs 11/12/2018 Seasonal Influenza, Trivalen t, High Dose, No Preserve, IM 11/01/2021 TD - Tetanus/Diptheria (ADULT) 05/12/2006,1994 TDAP (age 10 and older)(Boostrix) 03/09/2016 Varicella Zoster Vaccine (Adult) 04/11/2006 Zoster Vaccine Recombinant (Shingrix) 10/05/2018 ,08/05/2018 documented as of this encounter Social History Tobacco Use Types Packs/Day Years Used Date Smoking Tobacco: Former Cigarettes Q uit: 02/11/1962 Smokeless Tobacco: Never Alcohol Use Standard Drinks/Week Comments Yes 11.7 (1 standard drink = 0.6 oz pure alcohol) wine- 2-3 glass a day PHQ-2 Answer Date Recorded PHQ Adult Total Score 0 11/21/2021 Hunger Vital Sign Answer Date Recorded Within the past 12 months, y ou worried that your food would run out before you got the money to buy more. Never true 11/10/19 22 Within the past 12 months, t he food you bought just didn't last and you didn't have money to get more. Never true 11/09/2021 Sex and Gender Information Value Date Recorded Sex Assigned at Male 06/16/2018 10:42 AM EDT Gender Identity Male 06/16/2018 10:42 AM EDT Sexual Orientation Straight 06/16/2018 10 :42 AM EDT Job Start Date Occupation Industry Not on file Not on file Not on file documented as of this encounter Progress Notes * Stanley Webb RPh - 01/01/2023 11:19 AM EST Images from the original note were not included. Medication Therapy Disease Management - Anticoagulation Geovanny Thompson 1935 Description (Takes at 7AM every day) Patient Findings Negatives: Signs/symptoms of thrombosis, Signs/symptoms of bleeding, Change in health, Change in alcohol use, Change in activity, Upcoming invasive procedure, Missed doses, Extra doses, Change in medications, Change in diet/appetite, Bruising INR Result As of 01/01/2023 INR goal: 2.0-3.0 INR used for dosin.3 (01/01/2023) Warfarin Plan As of 01/01/2023 Full warfarin instructions: 01/01: Hold; Otherwise 2.5 mg every Mon, Fri; 1.25 mg all other days Next INR check: 02/01/2023 Repeat PT/INR in 4 week(s) Weekly dose: decreased Stanley Lincoln RPh, CACP, CDE Clinical Pharmacist Medication Therapy Management Clinic 01/01/2023 11:20 AM documented in this encounter Plan of Treatment Upcoming Encounters Date Type Department Care Team (Late st Contact Info) Description 02/01/2023 11:00 AM EST Anticoagulation Pharmacy, [facility] [address] [facility] [address] [place] [address] Pharmacist1, [facility] [address] [facility] [place] [id number] 03/06/2023 4:40 PM EST Office Visit General Internal Medicine [facility] [place] [address] [facility] [place] [phone] Eulogio Garvin MD [address] [facility] [place] [address] 03/11/2023 1:20 PM EST Office Visit Neurology [facility] [address] [facility] [place] [address] Renae Gandara PA-C [address] [facility] [place] [phone] 03/27/2023 4:20 PM EST Telemedicine Neurology, [place] Gibran Byrne [address] [place] [address] [place] [address] Poncho Wu MD [address] [facility] [address] 05/23/2023 10:00 AM EDT Office Visit Neurology [facility] [address] [facility] [place] [address] Renae Gandara PA-C [address] [facility] [place] [address] 06/13/2023 10:00 AM EDT Office Visit Cardiology, [facility] [address] [place] [address] Clara Fernandez PA-C [address] [place] [phone] 06/18/2023 10:20 AM EDT [facility] [address] [place] [address] Chuck Adame, [address] [place] [address] Health Maintenance Due Date Last Done Comments COVID-19 Vaccine (2022- season) 2022 10/23/2021, 04/13/2021, 12/12/2020, Additional history exists Influenza Vaccine (FLU shot) (#1) 2022 11/01/2021, 11/01/2021, 10/20/2020, Additional history exists Depression Screening 11/21/2022 11/21/2021 Albumin/Creatinine Ratio 11/21/2024 11/21/2021, 11/11 DTaP,Tdap,and Td Vaccines (4 - Td or Tdap) 03/09/2026 03/09/2016, 05/12/2006, 07/12/2004, Additional history exists Pneumococcal Vaccine: 65+ Years Completed 06/20/2015, 07/12/2005 Zoster Vaccines Completed 10/05/2018, 07/13, 04/11/2006 GARDASIL-HPV IMMUNIZATION SERIES Aged Out No longer eligible based on patient's age to complete this topic Hepatitis B Aged Out No longer eligi ble based on patient's age to complete this topic MENINGOCOCCAL (MENACTRA/MENVEO) Aged Out No longer eligible based on patient's age to complete this topic documented as of this encounter Medical Devices Implanted Type Area Compensation And Benefits Manager Device Identifier Shelf Expiration Date Model / Serial / Lot Mesh 3dmax 3.1x5.3in t Med - [id number] Implanted:Qty: 1 on 05/12/2018 by Jose Angel Parson MD at OR [facility] Right: Groin CR BARD : DAVOL 12/08/2022 [id number] / / [id number] Description:RIH repair documented as of this encounter Procedures Procedure Name Priority Date/Time Associated Diagnosis Comments INR FINGERSTICK, POINT OF CARE STAT 01/01/2023 10:53 AM EST Chronic atrial fibrillation (HCC) Anticoagulation management encounter terminal 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 anticoagulant therapy documented in this encounter Results * INR FINGERSTICK, POINT OF CARE (01/01/2023 10:53 AM EST) Fingerstick INR 4.3 INR 3 11:07 AM EST [facility] Blood 01/01/2023 10:5 3 AM EST 01/01/2023 11:07 AM EST Narrative [facility] - 01/01/2023 11:07 AM EST Therapeutic ranges for non-operative patients: Prophylaxsis/treatment of DVT: (Range:2.0-3.0) Treatment of pulmonary embolism:(Range:2.0-3.0) Prevention of systemic embolism from: -tissue heart valves -acute myocardial infarction -valvular heart disease -atrial fibrillation (Range: 2.0-3.0) Mechanical prosthetic valves: (Range: 2.5-3.5) Stanley Bhat RPh LAB POINT OF CARE TE ST DOCKED DEVICE UNSOLICITED RESULTS [facility] [place], [place] [id number] documented in this encounter Visit Diagnoses Diagnosis Chronic atrial fibrillation (HCC)- Primary Atrial fibrillation Anticoagulation management encounter Encounter for therapeutic drug monitoring terminal 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 anticoagulant therapy documented in this encounter Advance Directives Latest Code Status on File Code Status Date Activated Date Inactivated Comments Full Code 05/12/2018 9:34 AM 05/12/2018 4:54 PM This or yoanna reflects the patients wishes and were consensually agreed upon. Care Teams Occupational Safety And Health Manager Relationship Specialty Start Date End Date Eulogio Garvin MD [address] [place] [address] PCP - General Internal Medicine 11/30/20 documented as of this encounter
--- OUTSIDE RECORDS SUMMARY | 2023-01-12 18:33 | External Medical Summary | Summary of Care ---
Author Name Unknown Organization [facility] Address [address] [place] [address] Phone [phone] Care Team Providers Care Exceptional Student Education Aide Name Role Phone Eulogio Garvin MD Primary Care Provider + Reason for Visit * Reason Onset Date Comments Films 09/07/2022 Encounter Details Date Type Department Care Team Description 09/07/2022 Telephone Radiology Film File [address], [place] [id number] Caity Rm MD [address] [place] [address] Films Allergies Active Allergy Reactions Severity Noted Date Comments Environmental 11/09/2008 documented as of this encounter (statuses as of 09/07/2022) Medications Medication Sig Dispensed Refills Start Date End Date Status MULTIVITAMINS PO TABS one daily 0 02/25/2007 Active VITAMIN C 500 MG PO TABS Take 1 Tablet by mouth in the morning. 0 Active omega-3 1000 MG CAPS Take by mouth 3 times a day. 0 Active Albuterol Sulfate HFA 108 (90 Base) MCG/ACT Inhalation Aerosol SolutionIndication s:Mild intermittent reactive airway disease without complication Inhale by mouth 2 Puffs every 6 hours as needed for Cough, Shortness of Breath or Wheezing. 18 g 2 08/08/2021 Active Loratadine 10 MG Oral Tablet (Claritin) Take 1 Tablet by mouth daily as needed for Rhinitis. 0 Active Fluticasone Propionate 50 MCG/ACT Nasal Suspension (Flonase) Administer 1 [place] into nostril daily as needed for Rhinitis. 0 Active T.E.D. Below Knee/S-Regular Wear stockings during the day. Take off at night. Compression 20-30 mmHg 2 Each 1 12/14/2021 Active Vitamin B Complex Oral Tablet Take 1 Tablet by mouth in the morning. 0 Active Furosemide 20 MG Oral Tablet (Lasix)Indications :HTN, goal below 130/80,Leg edema Take 1 Tablet by mouth once a day on Saturday, Saturday, and Saturday only. 40 Tablet 3 08/01/2022 Active Metoprolol Succinate ER 50 MG Oral Tablet Extended Release 24 Hour (toPROL XL)Indications:HTN , goal below 130/80,Chronic atrial fibrillation (HCC) Take 1 Tablet by mouth in the morning. 90 Tablet 3 08/01/2022 Active Potassium Chloride [place] ER 10 MEQ Oral Tablet Extended ReleaseIndications :HTN, goal below 130/80,Leg edema,Chronic atrial fibrillation (HCC) Take 1 Tablet by mouth once a day on Saturday, Saturday, and Saturday only. With furosemide 40 Tablet 3 08/01/2022 Active Dutasteride 0.5 MG Oral Capsule (Avodart)Indicatio ns:Elevated prostate specific antigen (PSA) Take 1 Capsule by mouth every morning. 90 Capsule 3 08/01/2022 Active Warfarin Sodium 2.5 MG Oral Tablet (Coumadin)Indicati ons:Chronic atrial fibrillation (HCC) Take 1.5 tab by mouth Tues, Thur, Sat. Take 1 tab by mouth all other days. Or as directed by the anticoagulation clinic. For afib 120 Tablet 3 08/01/2022 Active Memantine HCl 5 MG Oral Tablet (Namenda) Take 1 Tablet by mouth 2 times a day with morning and evening meals. 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 HTN, goal below 130/80 12/05/2011 Anticoagulation management encounter skilled nursing current use of anticoagulant t herapy 07/24/2010 Overview: ICD-10 update of inactive term Elevated prostate specific antigen (PSA) 11/09/2008 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 documented as of this encounter (statuses as of 09/07/2022) Immunizations Name Administration Dates Next Due COVID-19 mRNA, LNP-s, No Pre serve, 2-Dose Series (Moderna) 04/13/2021,12/12/2020,04/08/2020,03/11 Covid-19, Mrna, Lnp-s, Pf, B ivalent, 30 Mcg, IM, 12 yrs and above (Percolate) 10/23/2021 DTaP HIB - Dipth/Tet/Acell Pert/HIB 07/12/2004 H1N1 2009 Influenza, IM 02/02/2009 HEP A - Hepatitis A (Adult > 18 yrs) 08/18/2007, 02/25/2007 Pneumococcal Conjugate Vacc, 13 Valent (Prevnar) 06/20/2015 Pneumococcal Conjugate Vacci ne, 7 Valent 01/11/2003 Pneumococcal Polysaccharide PPV23 (Pneumovax) 07/12/2005 Seasonal Influenza, Quadriva lent Hd (Fluzone Hd) 10/20/2020 Seasonal Influenza, Quadriva lent, No Preserve, 6 Mons & Above, IM 11/18/2017 Seasonal Influenza, Quadriva lent, No Preserve, Adjuvanted, 65+ Yrs, IM 10/16/2019 Seasonal Influenza, Quadriva lent, No Preserve, IM [...] pure alcohol) wine- 2-3 glass a day Food Insecurity Answer Date Recorded Within the past 12 months, y ou worried that your food would run out before you got money to buy more. Never true 11/09/2021 Within the past 12 months, t he food you bought just didn't last and you didn't have money to get more. Never true 11/09/2021 Sex Assigned at Date Recorded Male 06/16/2018 10:42 AM EDT Job Start Date Occupation Industry Not on file Not on file Not on file documented as of this encounter Miscellaneous Notes * Telephone Encounter - VAHE Juarez - 09/07/2022 9:55 AM EDT Patient requested for 04-27-22 Image(s) and report(s) be prepared and available for pickup at [facility] [employer] created and reports printed and placed at [employer] front office developer with Release of Information form Patient notified that disc ready for pickup - Spouse Lianne Thompson will be picking up disc documented in this encounter Plan of Treatment Upcoming Encounters Date Type Specialty Care Team Description 10/05/2022 Anticoagulation Pharmacy Pharmacist1, [facility] [address] [facility] [place] [address] 12/17/2022 Office Visit Cardiology Clara Fernandez PA-C [address] [place] [address] 03/06/2023 Office Visit Internal Medicine Eulogio Garvin MD [address] [facility] [place] [address] 03/11/2023 Office Visit Neurology Renae Gandara PA-C [address] [facility] [address] [place] [address] 03/27/2023 Telemedicine Neurology Poncho Wu MD [address] [place] [address] 06/18/2023 Office Visit Neurology Chuck Adame DO [address] [place] [address] Health Maintenance Due Date Last Done Comments Influenza Vaccine (FLU shot) (#1) 2022 11/01/2021, 10/20/2020, 10/16/2019, Additional history exists Depression Screening, Annual for Pts 12 and Over 11/21/2022 11/21/2021 Albumin/Creatinine Ratio 11/21/2024 11/21/2021, 11/11 DTaP,Tdap,and Td Vaccines (4 - Td or Tdap) 03/09/2026 03/09/2016, 05/12/2006, 07/12/2004, Additional history exists Pneumococcal Vaccine: 65+ Years Completed 06/20/2015, 07/12/2005 Zoster Vaccines Completed 10/05/2018, 07/13, 04/11/2006 COVID-19 Vaccine Completed 10/23/2021, 04/2021, 12/12/2020, Additional history exists GARDASIL-HPV IMMUNIZATION SERIES Aged Out No longer eligible based on patient's age to complete this topic Hepatitis B Aged Out No longer eligi ble based on patient's age to complete this topic MENINGOCOCCAL (MENACTRA/MENVEO) Aged Out No longer eligible based on patient's age to complete this topic documented as of this encounter Medical Devices Implanted Type Area Senior Program Analyst Device Identifier Shelf Expiration Date Model / Serial / Lot Mesh 3dmax 3.1x5.3in t Med - [id number] Implanted:Qty: 1 on 05/12/2018 by Jose Angel Parson MD at OR [facility] Right: Groin CR BARD : DAVOL 12/08/2022 [id number] / / [id number] Description:RIH repair documented as of this encounter Advance Directives Latest Code Status on File Code Status Date Activated Date Inactivated Comments Full Code 05/12/2018 9:34 AM 05/12/2018 4:54 PM This or yoanna reflects the patients wishes and were consensually agreed upon. Care Teams Exceptional Student Education Aide Relationship Specialty Start Date End Date Eulogio Garvin MD [address] [place] [phone] PCP - General Internal Medicine 11/30/20 documented as of this encounter
--- OUTSIDE RECORDS SUMMARY | 2023-01-12 18:33 | External Medical Summary | Summary of Care ---
Author Name Unknown Organization [facility] Address [address] [place] [address] Phone [phone] Care Team Providers Care Retail Loan Officer Name Role Phone Eulogio Garvin MD Primary Care Provider + Reason for Referral * Evaluate & Treat - Unlimited Visits (Within 10 days (routine)) - Authorized Specialty Diagnoses / Procedures Referred By Vin colin Referred To Contact Neurology Diagnoses Memory loss Vascular dementia without behavioral disturbance (HCC) AD (Alzheimer's disease) (HCC) Renae Gandara PA-C [address] [facility] [place] [address] Referral ID Status Reason Start Date Expiration Date Visits Requested Visits Authorized [id number] Authorized Specialty Services Required 09/06/[phone] Question Answer Referral Priority Within 10 days (routine) [facility] NEUROLOGY REFERRAL QUESTIONS Memory/Cognition Does the patient's condition allow them to wait to be seen by a specialist or should they be seen by first available provider? Or is this a follow up with established provider? Specialist Comments Dr Carrillo or his PA for evaluation of the new memory medications Reason for Visit * Reason Comments Return Neuro Encounter Details Date Type Department Care Team Description 09/06/2022 Office Visit Neurology State Jennifer Orellana [address] [place] [place] [address] Renae Gandara PA-C 200 [facility] [place] [phone] Memory loss*; Vascular dementia without behavioral disturbance (HCC); AD (Alzheimer's disease) (HCC) Allergies Active Allergy Reactions Severity Noted Date Comments Environmental 11/09/2008 documented as of this encounter (statuses as of 09/06/2022) Medications Medication Sig Dispensed Refills Start Date End Date Status MULTIVITAMINS PO TABS one daily 0 8 Active VITAMIN C 500 MG PO TABS Take 1 Tablet by mouth in the morning. 0 Active omega-3 1000 MG CAPS Take by mouth 3 times a day. 0 Active Albuterol Sulfate HFA 108 (90 Base) MCG/ACT Inhalation Aerosol SolutionIndicati ons:Mild intermittent reactive airway disease without complication Inhale by mouth 2 Puffs every 6 hours as needed for Cough, Shortness of Breath or Wheezing. 18 g 2 2 Active Loratadine 10 MG Oral Tablet (Claritin) Take 1 Tablet by mouth daily as needed for Rhinitis. 0 Active Fluticasone Propionate 50 MCG/ACT Nasal Suspension (Flonase) Administer 1 Hubert into nostril daily as needed for Rhinitis. 0 Active T.E.D. Below Knee/S-Regular Wear stockings during the day. Take off at night. Compression 20-30 mmHg 2 Each 1 2 Active Vitamin B Complex Oral Tablet Take 1 Tablet by mouth in the morning. 0 Active Furosemide 20 MG Oral Tablet (Lasix)Indicatio ns:HTN, goal below 130/80,Leg edema Take 1 Tablet by mouth once a day on Saturday, Saturday, and Saturday only. 40 Tablet 3 3 Active Metoprolol Succinate ER 50 MG Oral Tablet Extended Release 24 Hour (toPROL XL)Indications:H TN, goal below 130/80,Chronic atrial fibrillation (HCC) Take 1 Tablet by mouth in the morning. 90 Tablet 3 3 Active Potassium Chloride Belen ER 10 MEQ Oral Tablet Extended ReleaseIndicatio ns:HTN, goal below 130/80,Leg edema,Chronic atrial fibrillation (HCC) Take 1 Tablet by mouth once a day on Saturday, Saturday, and Saturday only. With furosemide 40 Tablet 3 3 Active Dutasteride 0.5 MG Oral Capsule (Avodart)Indicat ions:Elevated prostate specific antigen (PSA) Take 1 Capsule by mouth every morning. 90 Capsule 3 3 Active Warfarin Sodium 2.5 MG Oral Tablet (Coumadin)Indica tions:Chronic atrial fibrillation (HCC) Take 1.5 tab by mouth Tues, Thur, Sat. Take 1 tab by mouth all other days. Or as directed by the anticoagulation clinic. For afib 120 Tablet 3 3 Active Memantine HCl 5 MG Oral Tablet (Namenda) Take 1 Tablet by mouth 2 times a day with morning and evening meals. 180 Tablet 2 3 Active Memantine HCl 5 MG Oral Tablet (Namenda) Take 1 Tablet by mouth 2 times a day with morning and evening meals. 60 Tablet 2 3 023 Discontinued documented as of this encounter (statuses as of 09/06/2022) Active Problems Problem Noted Date 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, psychotic disturbance, mood disturbance, or anxiety 08/01/2022 Bilateral leg edema 12/14/2021 Pulmonary hypertension 11/21/2021 Reactive airway disease 08/08/2021 Chronic atrial fibrillation 12/19/2018 History of bladder cancer 08/17/2016 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 HTN, goal below 130/80 12/05/2011 Anticoagulation management encounter intermodal customer service current use of anticoagulant t herapy 07/24/2010 Overview: ICD-10 update of inactive term Elevated prostate specific antigen (PSA) 11/09/2008 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 documented as of this encounter (statuses as of 09/06/2022) Immunizations Name Administration Dates Next Due COVID-19 mRNA, LNP-s, No Pre serve, 2-Dose Series (Moderna) 04/13/2021,12/12/2020,04/08/2020,03/11 Covid-19, Mrna, Lnp-s, Pf, B ivalent, 30 Mcg, IM, 12 yrs and above (Pfizer) 10/23/2021 DTaP HIB - Dipth/Tet/Acell Pert/HIB 07/12/2004 [...] on file documented as of this encounter Last Filed Vital Signs Vital Sign Reading Time Taken Comments Blood Pressure 124/74 09/06/2022 10:39 AM EDT Pulse 86 09/06/2022 10:39 AM EDT Temperature 35.9 C (96.6 F) 09/06/2022 1 0:39 AM EDT Respiratory Rate - - Oxygen Saturation 100% 09/06/2022 10: 39 AM EDT Inhaled Oxygen Concentration - - Weight 66.6 kg (146 lb 12.8 oz) 023 10:39 AM EDT Height - - Body Mass Index 20.47 08/01/2022 1:51 PM EDT documented in this encounter Progress Notes * Renae Gandara PA-C - 09/06/2022 10:43 AM EDT HISTORY & PHYSICAL EXAMINATION - NEUROLOGY Name: Geovanny Thompson Date: 09/06/2022 Time: 10:43 AM Referring Provider: Eulogio Garvin MD Chief Complaint: Chief Complaint Patient presents with Return Neuro This is a 87 year old right handed gentleman returns today for follow up for dementia. HPI & Source of HPI The patient and spouse was the historian, and they are reliable. He has been having increased memory issues for several years. It was slow and progressive. He is still able to use the computer and read the newspapers on line and likes to play games on line. He no longer drives because he doesn't like their new car so driving is a non issue. His takes care of all the financials and day to day issues at home. He does help with some takes around the house. He sleeps very well usually goes to bed around 7:30 pm and awakes about 5-7 am but doesn't always getout of bed when he wakes. He has lost some weight over the years but no sudden weight loss in the past year. He had an MRI which showed a lot of white matter changes and some volume loss. 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 He is not getting up at night or wandering from home. No REM behavior or hallucinations. Non smoker, wine nightly, minimal caffeine no other drugs They are here today to obtain a referral for the new dementia medication. He is still doing well and is still able to play card and board games. He is no longer driving. Denies CP, SOB, abdominal pain, N, V, vision changes, falls. I have reviewed the patient's medications and allergies, past medical, surgical, social and family history, updating these as appropriate. See Histories section of the electronic medical record for adisplay of this information. Patient Active Problem List Diagnosis Code BPH without obstruction/lower urinary tract symptoms N40.0 Elevated prostate specific antigen (PSA) R97.20 Anticoagulation management encounter Z51.81, Z79.01 intermodal customer service current use of anticoagulant therapy Z79.01 HTN, goal below 130/80 I10 Mixed hypertriglyceridemia E78.2 History of bladder cancer Z85.51 Chronic atrial fibrillation (HCC) I48.20 Reactive airway disease J45.909 Pulmonary hypertension (HCC) I27.20 Bilateral leg edema R60.0 Mild vascular dementia without behavioral disturbance, psychotic disturbance, mood disturbance,or anxiety (HCC) F01.A0 Family History Problem Relation Age of Onset Cancer Father oral cancer Heart Disorder Mother Hypertension Mother Heart Disorder Grandmother (Maternal) Hypertension Grandmother (Maternal) Cancer Grandmother (Paternal) Medications: Are you taking your medications? yes Current Outpatient Medications Medication Sig Dispense Refill MULTIVITAMINS PO TABS one daily VITAMIN C 500 MG PO TABS Take 1 Tablet by mouth in the morning. omega-3 1000 MG CAPS Take by mouth 3 times a day. Albuterol Sulfate HFA 108 (90 Base) MCG/ACT Inhalation Aerosol Solution Inhale by mouth 2 Puffsevery 6 hours as needed for Cough, Shortness of Breath or Wheezing. 18 g 2 T.E.D. Below Knee/S-Regular Wear stockings during the day. Take off at night. Compression 20-30mmHg 2 Each 1 Vitamin B Complex Oral Tablet Take 1 Tablet by mouth in the morning. Furosemide 20 MG Oral Tablet (Lasix) Take 1 Tablet by mouth once a day on Saturday, Saturday, and Saturday only. 40 Tablet 3 Metoprolol Succinate ER 50 MG Oral Tablet Extended Release 24 Hour (toPROL XL) Take 1 Tablet bymouth in the morning. 90 Tablet 3 Potassium Chloride Belen ER 10 MEQ Oral Tablet Extended Release Take 1 Tablet by mouth once a day on Saturday, Saturday, and Saturday only. With furosemide 40 Tablet 3 Dutasteride 0.5 MG Oral Capsule (Avodart) Take 1 Capsule by mouth every morning. 90 Capsule 3 Warfarin Sodium 2.5 MG Oral Tablet (Coumadin) Take 1.5 tab by mouth Tues, Thur, Sat. Take 1 tabby mouth all other days. Or as directed by the anticoagulation clinic. For afib 120 Tablet 3 Memantine HCl 5 MG Oral Tablet (Namenda) Take 1 Tablet by mouth 2 times a day with morning and evening meals. 180 Tablet 2 Loratadine 10 MG Oral Tablet (Claritin) Take 1 Tablet by mouth daily as needed for Rhinitis. (Patient not taking: Reported on 09/06/2022) Fluticasone Propionate 50 MCG/ACT Nasal Suspension (Flonase) Administer 1 Hubert into nostril daily as needed for Rhinitis. (Patient not taking: Reported on 09/06/2022) No current facility-administered medications for this visit. Review of patient's allergies indicates: Allergen Reactions Environmental Review of Systems: A total number of 10 systems were reviewed pertinent negative and positives not addressed in HPI are listed in the following review. Physical Exam: Constitutional: BP 124/74 (BP Site: Right Arm, BP Position: Sitting, BP Cuff Size: Regular) | Pulse86 | Temp 35.9 C (96.6 F) (Tympanic) | Wt 66.6 kg (146 lb 12.8 oz) | SpO2 100% | BMI 20.47 kg/m | BSA 1.83 m , appearance nourished, healthy and normal Ears, Nose, Mouth and Throat: mucous membranes moist, no injection and skin normal, eyes normal Cardiovascular: normal S-1 and S-2 and regular rate and rhythm Respiratory: clear to auscultation (CTA) and no rales, ronchi or wheeze Musculoskeletal: no peripheral edema Skin: normal and intact Eyes: extraocular muscles intact (EOMI) NEUROLOGIC EXAMINATION: Mental status: Alert and interactive Oriented to person Speech fluent with no evidence of aphasia Cranial Nerves Normal findings for Cranial Nerves II - XII Gait/Stance: Posture normal. Gait normal: with steady with steps, base, arm swing and tandem gait. Motor: Negative for pronator drift of out stretched arms with eyes closed. Strength: Normal - 5/5 all extremities LABORATORY: Recent labs reviewed Review of prior Studies: MRI brain -Generalized parenchymal volume loss and sequelae of chronic small vessel ischemic gliosis without evidence of an acute intracranial abnormality nor suspicious lesion. Severe left maxillary sinusitis. Impression: Geovanny Thompson is a 87 year old gentleman with a history of vascular/Alzheimers dementia . His neurologic examination today reveals no new focal deficit. The history and examination are suggestive of diagnosis/problem list. Testing and Referrals ordered: referral ICD-10-CM 1. Memory loss R41.3 2. Vascular dementia without behavioral disturbance ([facility]) F01.50 3. AD (Alzheimer's disease) ([facility]) G30.9 F02.80 1. Return after evaluation with Dr Carrillo referral placed 2. Continue Namenda 5 mg (1 tab) twice daily - Aricept was not used because of his appetite and weight loss but his weight is now stable 3. Continue to keep as mentally and physically active as possible 4. Watch for wandering from home, and other safety issues 5. disabilities caregiver fatigue she will be seeing her PCP for advise 6. PCP for medical management 7. Call with questions concerns. Medical Decision Making (determined by lowest of 2 of 3 elements): The medical decision making element of the number and complexity of problems addressed includedat least 2 or more stable chronic illnesses (level 4). The medical decision making element of risk of complications, morbidity, and mortality of patient management is moderate (level 4) due to prescription drug management (moderate risk). The medical decision making element of the amount and complexity of data reviewed and analyzed included an independent interpretation of a test (level 4 at least). When 2 of 3 reach level 4, thenthis element is considered extensive (level 5). I personally spent a total of 30 minutes. This time was for a new office or established visit and was on the same calendar day. Education / Consultation - Topics covered as I spent 20 minutes, which is greater than 50% of this visit, counseling the patient on: 1. Diagnostic Results 2. Prognosis 3. Importance of compliance with chosen treatment options 4. Risk factor reductions 5. Patient and family education Consulted with physician: Faustino Harrison DO was available for direct supervision. Copy of note sent to PCP and Referring Provider. Total time of visit: 30 minutes. Renae Gandara PA-C Neurology Werner Guardado [place] 200 [facility] [place] [address] 09/06/2022 10:43 AM documented in this encounter Nursing Notes * Oumou Rios LPN - 09/06/2022 10:39 AM EDT Return patient documented in this encounter Plan of Treatment Upcoming Encounters Date Type Specialty Care Team Description 10/05/2022 Anticoagulation Pharmacy Pharmacist1, [facility] [address] [facility] [place] [address] 12/17/2022 Office Visit Cardiology Clara Fernandez PA-C [address] [place] [address] 03/06/2023 Office Visit Internal Medicine Eulogio Garvin MD [address] [facility] [address] [facility] [address] 03/11/2023 Office Visit Neurology Renae Gandara PA-C [address] [facility] [address] [place] [address] 03/27/2023 Telemedicine Neurology Poncho Wu MD [address] [place] [address] 06/18/2023 Office Visit Neurology Chuck Adame DO [address] [place] [address] Scheduled Referrals Name Type Priority Associated Diagnoses Orde r Schedule NEUROLOGY REFERRAL OP Referral Within 10 days (routine) Memory loss Vascular dementia without behavioral disturbance (HCC) AD (Alzheimer's disease) (HCC) Ordered: 09/06/2022 Health Maintenance Due Date Last Done Comments [...] this encounter Medical Devices Implanted Type Area Ink Jet Operator Device Identifier Shelf Expiration Date Model / Serial / Lot Mesh 3dmax 3.1x5.3in t Med - [id number] Implanted:Qty: 1 on 05/12/2018 by Jose Angel Parson MD at OR [facility] Right: Groin CR BARD : BLAYNE 12/08/2022 [id number] / / [id number] Description:RIH repair documented as of this encounter Visit Diagnoses Diagnosis Memory loss- Primary Vascular dementia without behavioral disturbance (HCC) Vascular dementia, uncomplicated AD (Alzheimer's disease) (HCC) Alzheimer's disease documented in this encounter Advance Directives Latest Code Status on File Code Status Date Activated Date Inactivated Comments Full Code 05/12/2018 9:34 AM 05/12/2018 4:54 PM This or yoanna reflects the patients wishes and were consensually agreed upon. Care Teams Retail Loan Officer Relationship Specialty Start Date End Date Eulogio Garvin MD [address] [place] [address] [place] [address] PCP - General Internal Medicine 11/30/20 documented as of this encounter"
--- OUTSIDE RECORDS SUMMARY | 2023-01-12 18:33 | External Medical Summary | Summary of Care ---
Author Name Unknown Organization [facility] Address [address] [place] [address] Phone [phone] Care Team Providers Care Cutter Helper Name Role Phone Eulogio Garvin MD Primary Care Provider + Reason for Visit * Reason Comments Outpatient Testing Encounter Details Date Type Department Care Team (Late st Contact Info) Description 01/07/2023 8:40 AM EST Laboratory Laboratory [facility] [address] [place] [id number] [facility] Lab [facility] [address] [facility] [place] [address] Chronic atrial fibrillation (HCC) Allergies Active Allergy Reactions Criticality Noted Date Comments Environmental 11/09/2008 documented as of this encounter (statuses as of 01/07/2023) Medications Medication Sig Dispensed Refills Start Date [...] as of this encounter (statuses as of 01/07/2023) Active Problems Problem Noted Date Diagnosed Date 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, psychotic disturbance, mood disturbance, or anxiety 08/01/2022 Bilateral leg edema 12/14/2021 Pulmonary hypertension 11/21/2021 Reactive airway disease 08/08/2021 Chronic atrial fibrillation 12/19/2018 History of bladder cancer 08/17/2016 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 HTN, goal below 130/80 12/05/2011 Anticoagulation management encounter 07/24/2010 skilled nursing current use of anticoagulant therapy 0 07/24/2010 Overview: ICD-10 update of inactive term Elevated prostate specific antigen (PSA) 009 BPH without obstruction/lower urinary tract symp toms 03/03/2008 documented as of this encounter (statuses as of 01/07/2023) Resolved Problems Problem Noted Date Diagnosed Date Resolved Date UNILAT INGUINAL HERNIA- LEFT 07/31/2010 06/12/2017 Atrial fibrillation 07/24/2010 12/20/19 19 Benign neoplasm of colon 03/03/2008 FAMILY HX-GI MALIGNANCY 08/21/200511/13 Overview: Colonoscopy 08/13/05--tubular adenomas --repeat 3-5 years. documented as of this encounter (statuses as of 01/07/2023) Immunizations Name Administration Dates Next Due COVID-19 mRNA, LNP-s, No Pre serve, 2-Dose Series (Moderna) 04/13/2021,12/12/2020,04/08/2020,03/11 Covid-19, Mrna, Lnp-s, Pf, B ivalent, 30 Mcg, IM, 12 yrs and above (Axxana) 10/23/2021 DTaP HIB - Dipth/Tet/Acell Pert/HIB 07/12/2004 [...] on file documented as of this encounter Plan of Treatment Upcoming Encounters Date Type Department Care Team (Late st Contact Info) Description 02/01/2023 11:00 AM EST Anticoagulation Pharmacy, State Jennifer Orellana [address] [place] [address] Pharmacist1, [facility] [address] [place] [address] 03/06/2023 4:40 PM EST Office Visit General Internal Medicine [facility] [address] [place] [address] Eulogio Garvin MD 200 [facility] [place] [address] 03/11/2023 1:20 PM EST Office Visit Neurology [facility] [place] [address] [facility] [place] [address] Renae Gandara PA-C 200 [facility] [place] [address] 03/27/2023 4:20 PM EST [facility] [address] [place] [address] [place] [address] Poncho Wu MD [address] [place] [address] 05/23/2023 10:00 AM EDT Office Visit Neurology [facility] 200 [facility] [place] [address] Renae Gandara PA-C 200 [facility] [place] [address] 06/13/2023 10:00 AM EDT Office Visit Cardiology, [facility] [address] [facility] [place] [address] Clara Fernandez [facility]C [facility] [place] [address] 06/18/2023 10:20 AM EDT Office Visit Neurology, [place] [address] [place] [address] Chuck Adame DO [address] [place], [place] [id number] Pending Results Name Type Priority Associated Diagnoses Date /Time BASIC METABOLIC PANEL Lab Routine Chronic atrial fibrillation (HCC) 01/07/2023 8:10 AM EST Health Maintenance Due Date Last Done Comments COVID-19 Vaccine ( season) 2022 10/23/2021, 04/13/2021, 12/12/2020, Additional history [...] this encounter Medical Devices Implanted Type Area Barrel Stave Inspector Device Identifier Shelf Expiration Date Model / Serial / Lot Mesh 3dmax 3.1x5.3in t Med - [id number] Implanted:Qty: 1 on 05/12/2018 by Jose Angel Parson MD at OR [facility] Right: Groin CR BARD : DAVOL 12/08/2022 [id number] / / [id number] Description:RIH repair documented as of this encounter Visit Diagnoses Diagnosis Chronic atrial fibrillation (HCC) Atrial fibrillation documented in this encounter Advance Directives Latest Code Status on File Code Status Date Activated Date Inactivated Comments Full Code 05/12/2018 9:34 AM 05/12/2018 4:54 PM This or yoanna reflects the patients wishes and were consensually agreed upon. Care Teams Cutter Helper Relationship Specialty Start Date End Date Eulogio Garvin MD 200 [facility] [place] [address] PCP - General Internal Medicine 11/30/20 documented as of this encounter
--- OUTSIDE RECORDS SUMMARY | 2023-01-12 18:33 | External Medical Summary | Summary of Care ---
Author Name Unknown Organization [facility] Address [address] [place] [address] Phone [phone] Care Team Providers Care Medical Coding Instructor Name Role Phone Eulogio Garvin MD Primary Care Provider + Reason for Visit * Reason Comments Dosage Adjustment In Person (Anticoag Cl inic) Encounter Details Date Type Department Care Team Description 10/05/2022 Anticoagulation Pharmacy, [facility] 200 [facility] [place] [address] Pharmacist1, [facility] 200 [facility] [place] [address] Chronic atrial fibrillation (HCC)*; Anticoagulation management encounter; nursing home current use of anticoagulant therapy Allergies Active Allergy Reactions Severity Noted Date Comments Environmental 11/09/2008 documented as of this encounter (statuses as of 10/05/2022) Medications Medication Sig Dispensed Refills Start Date [...] 50 MCG/ACT Nasal Suspension (Flonase) Administer 1 [place] into nostril daily as needed for Rhinitis. 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, psychotic disturbance, mood disturbance, or anxiety 08/01/2022 Bilateral leg edema 12/14/2021 Pulmonary hypertension 11/21/2021 Reactive airway disease 08/08/2021 Chronic atrial fibrillation 12/19/2018 History of bladder cancer 08/17/2016 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 HTN, goal below 130/80 12/05/2011 Anticoagulation management encounter nursing home current use of anticoagulant t herapy 07/24/2010 Overview: ICD-10 update of inactive term Elevated prostate specific antigen (PSA) 11/09/2008 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 documented as of this encounter (statuses as of 10/05/2022) Immunizations Name Administration Dates Next Due COVID-19 mRNA, LNP-s, No Pre serve, 2-Dose Series (Moderna) 04/13/2021,12/12/2020,04/08/2020,03/11 Covid-19, Mrna, Lnp-s, Pf, B ivalent, 30 Mcg, IM, 12 yrs and above (tagga) 10/23/2021 DTaP HIB - Dipth/Tet/Acell Pert/HIB 07/12/2004 H1N1 2009 Influenza, IM 02/02/2009 HEP A - Hepatitis A (Adult > 18 yrs) 08/18/2007, 02/25/2007 Pneumococcal Conjugate Vacc, 13 Valent (Prevnar) 06/20/2015 Pneumococcal Conjugate Vacci ne, 7 Valent 01/11/2003 Pneumococcal Polysaccharide PPV23 (Pneumovax) 07/12/2005 Season Influenza, Quad, PF, Adjuvanted, 65+ Yrs, IM (FLUAD) 10/16/2019 Seasonal Influenza, PF, 6 mo ns & Above, IM , (Flulaval) 11/18/2017 Seasonal Influenza, Quadriva lent Hd (Fluzone Hd) [...] of this encounter Progress Notes * Stanley Lincoln V, [facility] - 10/05/2022 10:45 AM EDT Images from the original note were not included. Medication Therapy Disease Management - Anticoagulation Geovanny Thompson 1935 Description (Takes at 7AM every day) Patient Findings Negatives: Signs/symptoms of thrombosis, Signs/symptoms of bleeding, Change in health, Change in alcohol use, Change in activity, Upcoming invasive procedure, Missed doses, Extra doses, Change in medications, Change in diet/appetite, Bruising INR Result As of 10/05/2022 INR goal: 2.0-3.0 INR used for dosin.5 (10/05/2022) Warfarin Plan As of 10/05/2022 Full warfarin instructions: 10/05: 5 mg; Otherwise 1.25 mg every Sun, Lulu; 2.5 mg all other days Next INR check: 11/06/2022 Repeat PT/INR in 4 week(s) Weekly dose: not changed Stanley Lincoln RPh, DIONNA, CDE Clinical Pharmacist [facility] 10/05/2022 10:51 AM documented in this encounter Plan of Treatment Upcoming Encounters Date Type Specialty Care Team Description 11/06/2022 Anticoagulation Pharmacy Pharmacist1, [facility] Sp [address] [place] [address] 12/17/2022 Office Visit Cardiology Clara Fernandez PA-C [address] [place] [address] 03/06/2023 Office Visit Internal Medicine Eulogio Garvin MD [address] [place] [address] 03/11/2023 Office Visit Neurology Renae Gandara PA-C [address] [place] [address] 03/27/2023 Telemedicine Neurology Poncho Wu MD [address] [place] [address] 06/18/2023 Office Visit Neurology Chuck Adame DO [address] [place] [address] Health Maintenance Due Date Last [...] this encounter Medical Devices Implanted Type Area Improvement Rn Device Identifier Shelf Expiration Date Model / Serial / Lot Mesh 3dmax 3.1x5.3in Rht Med - [id number] Implanted:Qty: 1 on 05/12/2018 by Jose Angel Parson MD at OR [facility] Right: Groin CR BARD : DAVOL 12/08/2022 [id number] / / [id number] Description:RIH repair documented as of this encounter Procedures Procedure Name Priority Date/Time Associated Diagnosis Comments INR FINGERSTICK, POINT OF CARE STAT 10/05/2022 10:48 AM EDT Chronic atrial fibrillation (HCC) Anticoagulation management encounter intermediate teacher current use of anticoagulant therapy documented in this encounter Results * INR FINGERSTICK, POINT OF CARE (10/05/2022 10:48 AM EDT) Fingerstick INR 1.5 INR 10:50 AM EDT [facility] 56-02 Blood 10/05/2022 10:4 8 AM EDT 10/05/2022 10:[address] [facility] 56-02 - 10/05/2022 10:50 AM EDT Therapeutic ranges for non-operative patients: Prophylaxsis/treatment of DVT: (Range:2.0-3.0) Treatment of pulmonary embolism:(Range:2.0-3.0) Prevention of systemic embolism from: -tissue heart valves -acute myocardial infarction -valvular heart disease -atrial fibrillation (Range: 2.0-3.0) Mechanical prosthetic valves: (Range: 2.5-3.5) Stanley Lincoln V, [facility] LAB POINT OF CARE TE ST DOCKED DEVICE UNSOLICITED RESULTS [facility] 56-[address] [place], [place] [address] [address] documented in this encounter Visit Diagnoses Diagnosis Chronic atrial fibrillation (HCC)- Primary Atrial fibrillation Anticoagulation management encounter Encounter for therapeutic drug monitoring intermediate teacher current use of anticoagulant therapy documented in this encounter Advance Directives Latest Code Status on File Code Status Date Activated Date Inactivated Comments Full Code 05/12/2018 9:34 AM 05/12/2018 4:54 PM This or yoanna reflects the patients wishes and were consensually agreed upon. Care Teams Medical Coding Instructor Relationship Specialty Start Date End Date Eulogio Garvin MD [facility] [address] PCP - General Internal Medicine 11/30/20 documented as of this encounter
--- OUTSIDE RECORDS SUMMARY | 2023-01-12 18:33 | External Medical Summary | Summary of Care ---
Author Name Unknown Organization [facility] Address [address] [place] [address] Phone [phone] Care Team Providers Care Shop Mechanic Name Role Phone Eulogio Garvin MD Primary Care Provider + Reason for Visit * Reason Comments Dosage Adjustment In Person (Anticoag Cl inic) Encounter Details Date Type Department Care Team Description 11/06/2022 Anticoagulation Pharmacy, [facility] 200 [facility] [place] [address] Pharmacist1, [facility] 200 [facility] [place] [address] Chronic atrial fibrillation (HCC)*; Anticoagulation management encounter; halfway current use of anticoagulant therapy Allergies Active Allergy Reactions Severity Noted Date Comments Environmental 11/09/2008 documented as of this encounter (statuses as of 11/06/2022) Medications Medication Sig Dispensed Refills Start Date [...] Active Rosuvastatin Calcium 10 MG Oral Tablet (Crestor)Indicatio ns:Mild vascular dementia without behavioral disturbance, psychotic disturbance, mood disturbance, or anxiety (HCC),HTN, goal below 130/80 Take 1 Tablet by mouth every night at bedtime. 90 Tablet 3 10/20/2022 Active Memantine HCl 5 MG Oral Tablet (Namenda) Decrease to 1 tab daily for 5 days then stop 5 Tablet 0 11/05/2022 Active Donepezil HCl 5 MG Oral Tablet (Aricept) Take 1 tablet with largest meal of the day. 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, psychotic disturbance, mood disturbance, or anxiety 08/01/2022 Bilateral leg edema 12/14/2021 Pulmonary hypertension 11/21/2021 Reactive airway disease 08/08/2021 Chronic atrial fibrillation 12/19/2018 History of bladder cancer 08/17/2016 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 HTN, goal below 130/80 12/05/2011 Anticoagulation management encounter halfway current use of anticoagulant t herapy 07/24/2010 Overview: ICD-10 update of inactive term Elevated prostate specific antigen (PSA) 11/09/2008 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 documented as of this encounter (statuses as of 11/06/2022) Immunizations Name Administration Dates Next Due COVID-19 [...] encounter Progress Notes * Stanley Lincoln V, [facility] - 11/06/2022 11:38 AM EDT Images from the original note were not included. Medication Therapy Disease Management - Anticoagulation Geovanny Thompson 1935 Description (Takes at 7AM every day) Patient Findings Negatives: Signs/symptoms of thrombosis, Signs/symptoms of bleeding, Change in health, Change in alcohol use, Change in activity, Upcoming invasive procedure, Missed doses, Extra doses, Change in medications, Change in diet/appetite, Bruising INR Result As of 11/06/2022 INR goal: 2.0-3.0 INR used for dosin.8 (11/06/2022) Warfarin Plan As of 11/06/2022 Full warfarin instructions: 11/07: Hold; 11/08: Hold; Otherwise 1.25 mg every Sun, Lulu; 2.5 mg all other days Next INR check: 12/04/2022 Repeat PT/INR in 4 week(s) Weekly dose: not changed Stanley Lincoln RPh, CACP, CDE Clinical Pharmacist Medication Therapy Management Clinic 11/06/2022 11:45 AM documented in this encounter Plan of Treatment Upcoming Encounters Date Type Specialty Care Team Description 11/20/2022 Office Visit Neurology Renae Gandara PA-C [address] [place] [address] [address] 12/04/2022 Anticoagulation Pharmacy Pharmacist1, [facility] [address] [place] [address] 12/17/2022 Office Visit Cardiology Clara Fernandez PA-C [address] [place] [address] 03/06/2023 Office Visit Internal Medicine Eulogio Garvin MD [address] [place] [address] [address] 03/11/2023 Office Visit Neurology Renae Gandara PA-C [address] [place] [address] [address] 03/27/2023 Telemedicine Neurology Poncho Wu MD [address] [place] [address] 06/18/2023 Office Visit Neurology Chuck Adame, DO [address] [place] [address] Health Maintenance Due Date Last Done Comments Influenza Vaccine (FLU shot) (#1) 2022 11/01/2021, 10/20/2020, 10/16/2019, Additional history exists Depression Screening 11/21/2022 11/21/2021 [...] this encounter Medical Devices Implanted Type Area Cafe Lead Device Identifier Shelf Expiration Date Model / Serial / Lot Mesh 3dmax 3.1x5.3in t Med - [id number] Implanted:Qty: 1 on 05/12/2018 by Jose Angel Parson MD at OR [facility] Right: Groin CR BARD : DAVOL 12/08/2022 [id number] / / [id number] Description:RIH repair documented as of this encounter Procedures Procedure Name Priority Date/Time Associated Diagnosis Comments INR FINGERSTICK, POINT OF CARE STAT 11/06/2022 11:42 AM EDT Chronic atrial fibrillation (HCC) Anticoagulation management encounter halfway current use of anticoagulant therapy documented in this encounter Results * INR FINGERSTICK, POINT OF CARE (11/06/2022 11:42 AM EDT) Fingerstick INR 4.8 INR 11:49 AM EDT [facility] 56-02 Blood 11/06/2022 11:4 2 AM EDT 11/06/2022 11:49 AM EDT Narrative [facility] 56-02 - 11/06/2022 11:49 AM EDT Therapeutic ranges for non-operative patients: Prophylaxsis/treatment of DVT: (Range:2.0-3.0) Treatment of pulmonary embolism:(Range:2.0-3.0) Prevention of systemic embolism from: -tissue heart valves -acute myocardial infarction -valvular heart disease -atrial fibrillation (Range: 2.0-3.0) Mechanical prosthetic valves: (Range: 2.5-3.5) Stanley Latonia V, RPh LAB POINT OF CARE TE ST DOCKED DEVICE UNSOLICITED RESULTS Performing Organization Address City/State/[facility] Co de Phone Number [facility] 56-02 [address] [facility] [address] documented in this encounter Visit Diagnoses Diagnosis Chronic atrial fibrillation (HCC)- Primary Atrial fibrillation Anticoagulation management encounter Encounter for therapeutic drug monitoring halfway current use of anticoagulant therapy documented in this encounter Advance Directives Latest Code Status on File Code Status Date Activated Date Inactivated Comments Full Code 05/12/2018 9:34 AM 05/12/2018 4:54 PM This or yoanna reflects the patients wishes and were consensually agreed upon. Care Teams Shop Mechanic Relationship Specialty Start Date End Date Eulogio Gar[facility] MD 200 [facility] [address] PCP - General Internal Medicine 11/30/20 documented as of this encounter
--- OUTSIDE RECORDS SUMMARY | 2023-01-12 18:33 | External Medical Summary ---
Author Name Unknown Address Unknown Organization K09:[facility] [address] Laboratory Report Ordering Provider Test Date Status NAVI RUBIO V 01/01/2023 10:53:09 Final Therapeutic ranges for non-o perative patients:
Prophylaxsis/treatment of DVT: (Range:2.0-3.0)
Treatment of pulmonary embolism:(Range:2.0-3.0)
Prevention of systemic embolism from:
-tissue heart valves
-acute myocardial infarction
-valvular heart disease
-atrial fibrillation
(Range: 2.0-3.0)
Mechanical prosthetic valves: (Range: 2.5-3.5) Observation Date Value Abnormality Reference (Units ) Status INR in Capillary blood by Coagulation assay 01/01/2023 10:53:09 4.3 (INR) Final Performing Location [facility] [address]
--- OUTSIDE RECORDS SUMMARY | 2023-01-12 18:33 | External Medical Summary ---
Author Name Unknown Address Unknown Organization K09:[facility] [place] [address] Laboratory Report Ordering Provider Test Date Status NAVI RUBIO V 10/05/2022 10:48:33 Final Therapeutic ranges for non-o perative patients:
Prophylaxsis/treatment of DVT: (Range:2.0-3.0)
Treatment of pulmonary embolism:(Range:2.0-3.0)
Prevention of systemic embolism from:
-tissue heart valves
-acute myocardial infarction
-valvular heart disease
-atrial fibrillation
(Range: 2.0-3.0)
Mechanical prosthetic valves: (Range: 2.5-3.5) Observation Date Value Abnormality Reference (Units ) Status INR in Capillary blood by Coagulation assay 10/05/2022 10:48:33 1.5 (INR) Final Performing Location [facility] [place] [facility] [address]
--- OUTSIDE RECORDS SUMMARY | 2023-01-12 18:33 | External Medical Summary | Summary of Care ---
Author Name Unknown Organization [facility] Address [address] [place] [address] Phone [phone] Care Team Providers Care Furnace Process Plant Operator Name Role Phone Eulogio Garvin MD Primary Care Provider + Reason for Visit * Reason Comments Dosage Adjustment In Person (Anticoag Cl inic) Encounter Details Date Type Department Care Team (Latest Contact Info) Description 12/04/2022 10:50 AM EDT Anticoagulation Pharmacy, [facility] 200 [place] [address] Pharmacist1, [facility] 200 [place] [address] Chronic atrial fibrillation (HCC)*; Anticoagulation management encounter; keno terminal operator current use of anticoagulant therapy Allergies Active Allergy Reactions Criticality Noted Date Comments Environmental 11/09/2008 documented as of this encounter (statuses as of 12/04/2022) Medications Medication Sig Dispensed Refills Start Date [...] then stop 5 Tablet 0 11/05/2022 Active Additional Information Patient not taking.Reported on 11/20/2022 Donepezil HCl 10 MG Oral Tablet (Aricept) Take 1 Tablet by mouth in the morning. Take with largest meal of the day.. 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 HTN, goal below 130/80 12/05/2011 Anticoagulation management encounter 07/24/2010 correction current use of anticoagulant therapy 0 07/24/2010 Overview: ICD-10 update of inactive term Elevated prostate specific antigen (PSA) 009 BPH without obstruction/lower urinary tract symp toms 03/03/2008 documented as of this encounter (statuses as of 12/04/2022) Resolved Problems Problem Noted Date Diagnosed Date Resolved Date UNILAT INGUINAL HERNIA- LEFT 07/31/2010 06/12/2017 Atrial fibrillation 07/24/2010 12/20/19 19 Benign neoplasm of colon 03/03/2008 FAMILY HX-GI MALIGNANCY 08/21/200511/13 Overview: Colonoscopy 08/13/05--tubular adenomas --repeat 3-5 years. documented as of this encounter (statuses as of 12/04/2022) Immunizations Name Administration Dates Next Due COVID-19 mRNA, LNP-s, No Pre serve, 2-Dose Series (Moderna) 04/13/2021,12/12/2020,04/08/2020,03/11 Covid-19, Mrna, Lnp-s, Pf, B ivalent, 30 Mcg, IM, 12 yrs and above ([employer] Funding) 10/23/2021 DTaP HIB - Dipth/Tet/Acell Pert/HIB 07/12/2004 [...] of this encounter Progress Notes * Stanley Bhat RPh - 12/04/2022 10:50 AM EDT Images from the original note were not included. Medication Therapy Disease Management - Anticoagulation Geovanny Thompson 1935 Description (Takes at 7AM every day) Patient Findings Negatives: Signs/symptoms of thrombosis, Signs/symptoms of bleeding, Change in health, Change in alcohol use, Change in activity, Upcoming invasive procedure, Missed doses, Extra doses, Change in medications, Change in diet/appetite, Bruising INR Result As of 12/04/2022 INR goal: 2.0-3.0 INR used for dosin.1 (12/04/2022) Warfarin Plan As of 12/04/2022 Full warfarin instructions: 12/04: Hold; Otherwise 2.5 mg every Mon, Wed, Fri; 1.25 mg all other days Next INR check: 01/01/2023 Repeat PT/INR in 4 week(s) Weekly dose: decreased Stanley Lincoln RPh, CACP, CDE Clinical Pharmacist Medication Therapy Management [facility] 12/04/2022 10:57 AM documented in this encounter Plan of Treatment Upcoming Encounters Date Type Department Care Team (Late st Contact Info) Description 12/12/2022 11:30 AM EDT Office Visit Cardiology, [facility] [address] [address] Saeed Mendieta MD [address] [place] [address] 01/01/2023 11:00 AM EST Anticoagulation Pharmacy, [facility] 200 [facility] [place] [address] Pharmacist1, [facility] [address] ON LICENSE OF [facility] [place] [address] 03/06/2023 4:40 PM EST Office Visit General Internal Medicine [facility] 200 [facility] [place] [address] Eulogio Garvin MD [address] [facility] [place] [address] 03/11/2023 1:20 PM EST Office Visit Neurology [facility] [address] [place] [address] Renae Gandara PA-C 200 [facility] [place] [address] 03/27/2023 4:20 PM EST [facility] [address] [place] [address] [place] [address] Poncho Wu MD [address] [place] [address] 05/23/2023 10:00 AM EDT Office Visit Neurology [facility] [address] [place] [address] Renae Gandara PA-C 200 [facility] [place] [address] 06/18/2023 10:20 AM EDT [facility] [address] [place] [address] Chuck Adame DO [address] [place] [address] Health Maintenance Due Date Last Done Comments COVID-19 Vaccine (2022-24 season) 2022 10/23/2021, 04/13/2021, 12/12/2020, Additional history [...] this encounter Medical Devices Implanted Type Area Lacrosse Coach Device Identifier Shelf Expiration Date Model / Serial / Lot Mesh 3dmax 3.1x5.3in Rht Med - [id number] Implanted:Qty: 1 on 05/12/2018 by Jose Angel Parson MD at OR [facility] Right: Groin CR BARD : DAVOL 12/08/2022 [id number] / / [id number] Description:RIH repair documented as of this encounter Procedures Procedure Name Priority Date/Time Associated Diagnosis Comments INR FINGERSTICK, POINT OF CARE STAT 12/04/2022 10:52 AM EDT Chronic atrial fibrillation (HCC) Anticoagulation management encounter keno terminal operator current use of anticoagulant therapy documented in this encounter Results * INR FINGERSTICK, POINT OF CARE (12/04/2022 10:52 AM EDT) Fingerstick INR 4.1 INR 10:59 AM EDT [facility] 56[facility]02 Blood 12/04/2022 10:5 2 AM EDT 12/04/2022 10:59 AM EDT Narrative [facility] 56-02 - 12/04/2022 10:59 AM EDT Therapeutic ranges for non-operative patients: Prophylaxsis/treatment of DVT: (Range:2.0-3.0) Treatment of pulmonary embolism:(Range:2.0-3.0) Prevention of systemic embolism from: -tissue heart valves -acute myocardial infarction -valvular heart disease -atrial fibrillation (Range: 2.0-3.0) Mechanical prosthetic valves: (Range: 2.5-3.5) Stanley Latonia V, RPh LAB POINT OF CARE TE ST DOCKED DEVICE UNSOLICITED RESULTS [facility] 56-02 200 [facility] [address] documented in this encounter Visit Diagnoses Diagnosis Chronic atrial fibrillation (HCC)- Primary Atrial fibrillation Anticoagulation management encounter Encounter for therapeutic drug monitoring correction current use of anticoagulant therapy documented in this encounter Advance Directives Latest Code Status on File Code Status Date Activated Date Inactivated Comments Full Code 05/12/2018 9:34 AM 05/12/2018 4:54 PM This or yoanna reflects the patients wishes and were consensually agreed upon. Care Teams Furnace Process Plant Operator Relationship Specialty Start Date End Date [facility]ulogio Garvin MD 200 [facility] [address] PCP - General Internal Medicine 11/30/20 documented as of this encounter
--- OUTSIDE RECORDS SUMMARY | 2023-01-12 18:33 | External Medical Summary | Summary of Care ---
Author Name Unknown Organization [facility] Address [address] [place] [address] Phone [phone] Care Team Providers Care Switchboard Operator Supervisor Name Role Phone Eulogio Garvin MD Primary Care Provider + Reason for Visit * Reason Comments Dosage Adjustment In Person (Anticoag Cl inic) Encounter Details Date Type Department Care Team Description 08/31/2022 Anticoagulation Pharmacy, [facility] [address] [facility] [place] [address] Pharmacist1, [facility] [address] [place] [address] Chronic atrial fibrillation (HCC)* Allergies Active Allergy Reactions Severity Noted Date Comments Environmental 11/09/2008 documented as of this encounter (statuses as of 08/31/2022) Medications Medication Sig Dispensed Refills Start Date [...] 50 MCG/ACT Nasal Suspension (Flonase) Administer 1 [place] into nostril daily as needed for Rhinitis. [...] morning and evening meals. 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, psychotic disturbance, mood disturbance, or anxiety 08/01/2022 Bilateral leg edema 12/14/2021 Pulmonary hypertension 11/21/2021 Reactive airway disease 08/08/2021 Chronic atrial fibrillation 12/19/2018 History of bladder cancer 08/17/2016 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 HTN, goal below 130/80 12/05/2011 Anticoagulation management encounter [facility] current use of anticoagulant t herapy 07/24/2010 Overview: ICD-10 update of inactive term Elevated prostate specific antigen (PSA) 11/09/2008 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 documented as of this encounter (statuses as of 08/31/2022) Immunizations Name Administration Dates Next Due COVID-19 mRNA, LNP-s, No Pre serve, 2-Dose Series (Moderna) 04/13/2021,12/12/2020,04/08/2020,03/11 Covid-19, Mrna, Lnp-s, Pf, B ivalent, 30 Mcg, IM, 12 yrs and above (Naymit) 10/23/2021 DTaP HIB - Dipth/Tet/Acell Pert/HIB 07/12/2004 [...] encounter Progress Notes * Stanley Lincoln V, [facility] - 08/31/2022 10:54 AM EDT Medication Therapy Disease Management - Anticoagulation Geovanny Thompson 1935 Description (Takes at 7AM every day) Patient Findings Negatives: Signs/symptoms of thrombosis, Signs/symptoms of bleeding, Change in health, Change in alcohol use, Change in activity, Upcoming invasive procedure, Missed doses, Extra doses, Change in medications, Change in diet/appetite, Bruising INR Result As of 08/31/2022 INR goal: 2.0-3.0 INR used for dosin.4 (08/31/2022) Warfarin Plan As of 08/31/2022 Full warfarin instructions: 1.25 mg every Sun, Lulu; 2.5 mg all other days No change documented: Stanley Bhat RPh Next INR check: 10/05/2022 Repeat PT/INR in 5 week(s) Weekly dose: not changed Stanley Lincoln RPh, CACP, CDE Clinical Pharmacist Medication Therapy Management [facility] 08/31/2022 10:59 AM documented in this encounter Plan of Treatment Upcoming Encounters Date Type Specialty Care Team Description 09/06/2022 [facility] Visit Neurology [facility] [address] 10/05/2022 Anticoagulation Pharmacy Pharmacist, [facility] [address] [facility] [address] 12/17/2022 Office Visit Cardiology Clara Fernandez PA-C [address] [place] [address] 03/06/2023 Office Visit Internal Medicine [facility] [address] Health Maintenance Due Date Last Done Comments [...] this encounter Medical Devices Implanted Type Area Certified Medical Biller Device Identifier Shelf Expiration Date Model / Serial / Lot Mesh 3dmax 3.1x5.3in Rht Med - [id number] Implanted:Qty: 1 on 05/12/2018 by Jose Angel Parson MD at OR [facility] Right: Groin CR BARD : DAVOL 12/08/2022 [id number] / / [id number] Description:RIH repair documented as of this encounter Procedures Procedure Name Priority Date/Time Associated Diagnosis Comments INR FINGERSTICK, POINT OF CARE YURY 08/31/2022 10:58 AM EDT documented in this encounter Results * INR FINGERSTICK, POINT OF CARE (08/31/2022 10:58 AM EDT) Fingerstick INR 2.4 INR 11:07 AM EDT [facility] Blood 08/31/2022 10:5 8 AM EDT 08/31/2022 11:07 AM EDT Narrative [facility]- - 08/31/2022 11:07 AM EDT Therapeutic ranges for non-operative patients: Prophylaxsis/treatment of DVT: (Range:2.0-3.0) Treatment of pulmonary embolism:(Range:2.0-3.0) Prevention of systemic embolism from: -tissue heart valves -acute myocardial infarction -valvular heart disease -atrial fibrillation (Range: 2.0-3.0) Mechanical prosthetic valves: (Range: 2.5-3.5) [facility] Pharmacist1 LAB POINT OF C ARE TEST DOCKED DEVICE UNSOLICITED RESULTS [facility] [address] [place] [address] documented in this encounter Visit Diagnoses Diagnosis Chronic atrial fibrillation (HCC)- Primary Atrial fibrillation documented in this encounter Advance Directives Latest Code Status on File Code Status Date Activated Date Inactivated Comments Full Code 05/12/2018 9:34 AM 05/12/2018 4:54 PM This or yoanna reflects the patients wishes and were consensually agreed upon. Care Teams Switchboard Operator Supervisor Relationship Specialty Start Date End Date Eulogio Garvin MD [address] [place] [address] PCP - General Internal Medicine 11/30/20 documented as of this encounter
--- OUTSIDE RECORDS SUMMARY | 2023-01-12 18:33 | External Medical Summary | Summary of Care ---
Author Name Unknown Organization [facility] Address [address] [place] [address] Phone [phone] Care Team Providers Care Oracle Pl Sql Developer Name Role Phone Eulogio Garvin MD Primary Care Provider + Reason for Visit * Reason Comments Follow Up Encounter Details Date Type Department Care Team (Late st Contact Info) Description 12/12/2022 11:30 AM EDT Office Visit Cardiology, [facility] [address] [place] [id number] Saeed Mendieta MD [address] [place] [id number] Chronic atrial fibrillation (HCC)* Allergies Active Allergy Reactions Criticality Noted Date Comments Environmental 11/09/2008 documented as of this encounter (statuses as of 12/12/2022) Medications Medication Sig Dispensed Refills Start Date [...] Saturday only. 40 Tablet 3 3 Active Dutasteride 0.5 MG Oral Capsule (Avodart)Indicati [...] For afib 120 Tablet 3 3 Active Rosuvastatin Calcium 10 MG Oral Tablet (Crestor)Indicati ons:Mild vascular dementia without behavioral disturbance, psychotic disturbance, mood disturbance, or anxiety (HCC),HTN, goal below 130/80 Take 1 Tablet by mouth every night at bedtime. 90 Tablet 3 3 Active Donepezil HCl 10 MG Oral Tablet (Aricept) Take 1 Tablet by mouth in the morning. Take with largest meal of the day.. 90 Tablet 2 3 Active Metoprolol Succinate ER 25 MG Oral Tablet Extended Release 24 Hour (Toprol XL) Take 1.5 Tablets by mouth in the morning. 1325 Tablet 3 3 Active Spironolactone 25 MG Oral Tablet (Aldactone) Take 0.5 Tablets by mouth in the morning. 50 Tablet 3 3 Active Metoprolol Succinate ER 50 MG Oral Tablet Extended Release 24 Hour (toPROL XL)Indications:HT N, goal below 130/80,Chronic atrial fibrillation (HCC) Take 1 Tablet by mouth in the morning. 90 Tablet 3 3 12/13/19 23 Discontinu ed(Medicat ion/Dose Changed) Potassium Chloride Belen ER 10 MEQ Oral Tablet Extended ReleaseIndication s:HTN, goal below 130/80,Leg edema,Chronic atrial fibrillation (HCC) Take 1 Tablet by mouth once a day on Saturday, Saturday, and Saturday only. 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, psychotic disturbance, mood disturbance, or anxiety 08/01/2022 Bilateral leg edema 12/14/2021 Pulmonary hypertension 11/21/2021 Reactive airway disease 08/08/2021 Chronic atrial fibrillation 12/19/2018 History of bladder cancer 08/17/2016 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 HTN, goal below 130/80 12/05/2011 Anticoagulation management encounter 07/24/2010 [facility] current use of anticoagulant therapy 0 07/24/2010 Overview: ICD-10 update of inactive term Elevated prostate specific antigen (PSA) 009 BPH without obstruction/lower urinary tract symp toms 03/03/2008 documented as of this encounter (statuses as of 12/12/2022) Resolved Problems Problem Noted Date Diagnosed Date Resolved Date UNILAT INGUINAL HERNIA- LEFT 07/31/2010 06/12/2017 Atrial fibrillation 07/24/2010 12/20/19 19 Benign neoplasm of colon 03/03/2008 FAMILY HX-GI MALIGNANCY 08/21/200511/13 Overview: Colonoscopy 08/13/05--tubular adenomas --repeat 3-5 years. documented as of this encounter (statuses as of 12/12/2022) Immunizations Name Administration Dates Next Due COVID-19 [...] Cigarettes Q uit: 02/11/1962 Smokeless Tobacco: Never Tobacco Cessation:Counseling Given: Not Answered Alcohol Use Standard Drinks/Week Comments Yes 11.7 [...] Sign Reading Time Taken Comments Blood Pressure 122/60 12/12/2022 11:29 AM EDT Pulse 66 12/12/2022 11:29 AM EDT Temperature - - Respiratory Rate 18 12/12/2022 11:29 AM EDT Oxygen Saturation - - Inhaled Oxygen Concentration - - Weight 68.1 kg (150 lb 3.2 oz) 12/12/2022 11:29 AM EDT Height - - Body Mass Index 20.95 08/01/2022 1:51 PM EDT documented in this encounter Progress Notes * Saeed Mendieta MD - 12/12/2022 11:30 AM EDT December 12, 2022 Cardiology Follow Up Referring Provider: PCP: [place] [address] [phone] Chief Complaint: Follow-up atrial fibrillation, diastolic heart failure SUBJECTIVE: Geovanny Thompson is a 87 year old year old male with ongoing cardiac issues 1. Chronic atrial fibrillation 2. Hypertension 3. Chronic diastolic heart failure with preserved ejection fraction 4. Vascular dementia/Alzheimer's disease Patient presents today for evaluation on request. He is accompanied by his Lianne Concerns raised regarding possible increase diastolic edema. Lower extremity edema has resolved butslight increase in weight and abdominal distention. No chest pains, shortness of breath, tachy palpitations. Occasional night sweats. Feels "cold" No fevers or chills. A Complete Review of Systems is as stated above or negative. Patient Active Problem List Diagnosis Code BPH without obstruction/lower urinary tract symptoms N40.0 Elevated prostate specific antigen (PSA) R97.20 Anticoagulation management encounter Z51.81, Z79.01 [facility] current use of anticoagulant therapy Z79.01 HTN, goal below 130/80 I10 Mixed hypertriglyceridemia E78.2 History of bladder cancer Z85.51 Chronic atrial fibrillation (HCC) I48.20 Reactive airway disease J45.909 Pulmonary hypertension (HCC) I27.20 Bilateral leg edema R60.0 Mild vascular dementia without behavioral disturbance, psychotic disturbance, mood disturbance, or anxiety (HCC) F01.A0 Review of patient's allergies indicates: Allergen Reactions Environmental Current Outpatient Medications Medication Sig Dispense Refill MULTIVITAMINS PO TABS one daily VITAMIN C 500 MG PO TABS Take 1 Tablet by mouth in the morning. omega-3 1000 MG CAPS Take by mouth 3 times a day. Albuterol Sulfate HFA 108 (90 Base) MCG/ACT Inhalation Aerosol Solution Inhale by mouth 2 Puffs every 6 hours as needed for Cough, Shortness of Breath or Wheezing. 18 g 2 T.E.D. Below Knee/S-Regular Wear stockings during the day. Take off at night. Compression 20-30 mmHg 2 Each 1 Vitamin B Complex Oral Tablet Take 1 Tablet by mouth in the morning. Furosemide 20 MG Oral Tablet (Lasix) Take 1 Tablet by mouth once a day on Saturday, Saturday, and Saturday only. 40 Tablet 3 Dutasteride 0.5 MG Oral Capsule (Avodart) Take 1 Capsule by mouth every morning. 90 Capsule 3 Warfarin Sodium 2.5 MG Oral Tablet (Coumadin) Take 1.5 tab by mouth , , Sat. Take 1 tab by mouth all other days. Or as directed by the anticoagulation clinic. For afib 120 Tablet 3 Rosuvastatin Calcium 10 MG Oral Tablet (Crestor) Take 1 Tablet by mouth every night at bedtime. 90 Tablet 3 Donepezil HCl 10 MG Oral Tablet (Aricept) Take 1 Tablet by mouth in the morning. Take with largest meal of the day.. 90 Tablet 2 Metoprolol Succinate ER 25 MG Oral Tablet Extended Release 24 Hour (Toprol XL) Take 1.5 Tablets by mouth in the morning. 1325 Tablet 3 Spironolactone 25 MG Oral Tablet (Aldactone) Take 0.5 Tablets by mouth in the morning. 50 Tablet 3 Loratadine 10 MG Oral Tablet (Claritin) Take 1 Tablet by mouth daily as needed for Rhinitis. (Patient not taking: Reported on 09/06/2022) No current facility-administered medications for this visit. OBJECTIVE/PHYSICAL EXAMINATION: BP 122/60 (BP Site: Left Arm, BP Position: Sitting, BP Cuff Size: Regular) | Pulse 66 | Resp 18 | Wt 68.1 kg (150 lb 3.2 oz) | BMI 20.95 kg/m | BSA 1.85 m General: Age appropriate malein no acute distress Head: normocephalic, no masses, lesions, tenderness or abnormalities Eyes: conjunctiva are pink and non-injected, sclera clear Throat: clear Nares: without discharge Neck: supple, no adenopathy, normal jugular venous pulse, no hepatojugular reflux, no carotid bruits Chest: normal shape and normal respiratory effort Lungs: clear to auscultation and percussion Cardiac Exam: - irregular irregular no murmur, gallop or rub - normal S-1, normal S-2 Abdomen: abdomen soft, non-tender, no abnormal masses, no hepatosplenomegaly, no abdominal bruit, no femoral bruit no hepatojugular reflux Musculoskeletal: no gait disturbance, no joint inflammation, no deforming arthritis Extremities: no edema, no cyanosis, pulses intact 2+/4 Neuro: grossly normal exam with reduced short-term memory Data: Lipid Panel Results: Results for orders placed or performed in visit on 04/05/11 LIPID PANEL Result Value Ref Range HOURS FASTING 12 hours Triglycerides 207 (H) <200 mg/dL Cholesterol 215 (H) <200 mg/dL HDL Cholesterol 56 40 - 59 mg/dL Cholesterol-HDL Ratio 3.8 LDL Cholesterol 118 0 - 129 mg/dL Results for orders placed or performed in visit on 08/30/22 LIPID PANEL WITH DIRECT LDL IF TG IS HIGH Result Value Ref Range Triglycerides 136 <=174 mg/dL Cholesterol 176 <200 mg/dL HDL Cholesterol 74 >39 mg/dL Non-HDL Cholesterol 102 <=159 mg/dL LDL Cholesterol 75 <=129 mg/dL Echocardiogram September 07, 2021 The qualitative LV ejection fraction is 60-64% (normal). The aortic valve is moderately calcified. There is aortic valve sclerosis without stenosis. Mild aortic valve regurgitation is present. Mild mitral regurgitation is present. Moderate tricuspid regurgitation is present. The estimated pulmonary artery systolic pressure is 38mm Hg. Compared to last available study changes are noted as follows: Mild pulmonary hypertension now present. ASSESSMENT: 87 year old year old male With issues as follows Chronic long-term persistent atrial fibrillation with heart rates trending slightly lower 2. Chronic diastolic heart failure currently compensated on exam PLAN: Will reduce metoprolol succinate to 37.5 mg per day given relative bradycardia on exam Discontinue potassium supplement Add spironolactone 12.5 mg 3 days per week with furosemide BMP 3 weeks Continue follow weights DISPOSITION: Return routinely 6 months Saeed Mendieta MD Cardiology, [facility] [address] [facility] [place] [address] I spent a total of 30-39 minutes (exact time 30 mins) on the date of service in preparation, delivery, and documentation of the care provided to Geovanny Thompson excluding any time spent in the performance of separately billed services. documented in this encounter Nursing Notes * Sheila Lipscomb CMA - 12/12/2022 11:24 AM EDT Examination Room: 14 Name: Geovanny Thompson Date of : (1935). Reason for Visit: 6M f/u Interim Hospitalization(s): none Problems/Concerns: Discuss fluid status. States LE edema is well-controlled with zipper compressionstockings. Chest Pain/SOB: denies [facility] Discussed: Not applicable [facility] is a way you can talk to your provider online through e-mail. Would you like to sign up? I can activate it for you? ALREADY ACTIVE Patient was instructed to not get up on the exam table until directed and assisted by their provider; patient is to remain seated in the chair/ wheelchair/ exam table for fall prevention and safety reasons. Patient is aware to have assistance to step down off exam table with personnel. Patient voiced full comprehension of instructions. documented in this encounter Plan of Treatment Upcoming Encounters Date Type Department Care Team (Late st Contact Info) Description 01/01/2023 11:00 AM EST Anticoagulation Pharmacy, [facility] [address] [facility] [place] [address] Pharmacist1, [facility] [address] [place] [address] 03/06/2023 4:40 PM EST Office Visit General Internal Medicine [facility] [address] [place] [address] Eulogio Garvin MD [address] [place] [address] 03/11/2023 1:20 PM EST Office Visit Neurology [facility] [address] [place] [address] Renae Gandara PA-C [address] [place] [address] 03/27/2023 4:20 PM EST [facility] Gibran Byrne [address] [place] [address] [place] [id number] Poncho Wu MD [address] [place] [address] 05/23/2023 10:00 AM EDT Office Visit Neurology [facility] [address] [place] [address] Renae Gandara PA-C 200 [facility] [place] [address] 06/13/2023 10:00 AM EDT Office Visit Cardiology, [facility] [address] [place] [address] Clara Fernandez PA-C [address] [address] 06/18/2023 10:20 AM EDT [facility] [address] [place] [address] Chuck Adame DO [address] [place] [address] Scheduled Orders Name Type Priority Associated Diagnoses Orde r Schedule BASIC METABOLIC PANEL Lab Routine Chronic atrial fibrillation (HCC) Expected: 01/02/2023 (Approximate), Expires: 12/13/2023 Health Maintenance Due Date Last Done Comments [...] this encounter Medical Devices Implanted Type Area Bobbin Drier Device Identifier Shelf Expiration Date Model / Serial / Lot Mesh 3dmax 3.1x5.3in t Med - [id number] Implanted:Qty: 1 on 05/12/2018 by Jose Angel Parson MD at OR [facility] Right: Groin CR BARD : DAVOL 12/08/2022 [id number] / / [id number] Description:RIH repair documented as of this encounter Visit Diagnoses Diagnosis Chronic atrial fibrillation (HCC)- Primary Atrial fibrillation documented in this encounter Advance Directives Latest Code Status on File Code Status Date Activated Date Inactivated Comments Full Code 05/12/2018 9:34 AM 05/12/2018 4:54 PM This or yoanna reflects the patients wishes and were consensually agreed upon. Care Teams Oracle Pl Sql Developer Relationship Specialty Start Date End Date Eulogio Garvin MD 200 [facility] [place] [address] PCP - General Internal Medicine 11/30/20 documented as of this encounter
--- OUTSIDE RECORDS SUMMARY | 2023-01-12 18:33 | External Medical Summary | Summary of Care ---
Author Name Unknown Organization [facility] Address [address] [place] [address] Phone [phone] Care Team Providers Care Svp Research And Strategic Analysis Name Role Phone Eulogio Garvin MD Primary Care Provider + Reason for Visit * Reason Comments Return Neuro Memory Loss Encounter Details Date Type Department Care Team Description 11/20/2022 Office Visit Neurology [facility] [place] [place] [address] [facility] [place] [address] Renae Gandara PA-C 200 [place] [address] Vascular dementia without behavioral disturbance (HCC)*; AD (Alzheimer's disease) (HCC) Allergies Active Allergy Reactions Severity Noted Date Comments Environmental 11/09/2008 documented as of this encounter (statuses as of 11/20/2022) Medications Medication Sig Dispensed Refills Start Date [...] Active Rosuvastatin Calcium 10 MG Oral Tablet (Crestor)Indicat ions:Mild vascular dementia without behavioral disturbance, psychotic disturbance, mood disturbance, or anxiety (HCC),HTN, goal below 130/80 Take 1 Tablet by mouth every night at bedtime. 90 Tablet 3 3 Active Memantine HCl 5 MG Oral Tablet (Namenda) Decrease to 1 tab daily for 5 days then stop 5 Tablet 0 3 Active Additional Information Patient not taking.Reported on 11/20/2022 Donepezil HCl 10 MG Oral Tablet (Aricept) Take 1 Tablet by mouth in the morning. Take with largest meal of the day.. 90 Tablet 2 3 Active Donepezil HCl 5 MG Oral Tablet (Aricept) Take 1 tablet with largest meal of the day. 30 Tablet 2 3 023 Discontinued documented as of this encounter (statuses as of 11/20/2022) Active Problems Problem Noted Date 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, psychotic disturbance, mood disturbance, or anxiety 08/01/2022 Bilateral leg edema 12/14/2021 Pulmonary hypertension 11/21/2021 Reactive airway disease 08/08/2021 Chronic atrial fibrillation 12/19/2018 History of bladder cancer 08/17/2016 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 HTN, goal below 130/80 12/05/2011 Anticoagulation management encounter residential current use of anticoagulant t herapy 07/24/2010 Overview: ICD-10 update of inactive term Elevated prostate specific antigen (PSA) 11/09/2008 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 documented as of this encounter (statuses as of 11/20/2022) Immunizations Name Administration Dates Next Due COVID-19 mRNA, LNP-s, No Pre serve, 2-Dose Series (Moderna) 04/13/2021,12/12/2020,04/08/2020,03/11 Covid-19, Mrna, Lnp-s, Pf, B ivalent, 30 Mcg, IM, 12 yrs and above ([employer]) 10/23/2021 DTaP HIB - Dipth/Tet/Acell Pert/HIB 07/12/2004 [...] Sign Reading Time Taken Comments Blood Pressure 126/70 11/20/2022 10:31 AM EDT Pulse 73 11/20/2022 10:31 AM EDT Temperature 36.3 C (97.3 F) 11/20/2022 10:31 AM E DT Respiratory Rate 16 11/20/2022 10:31 AM EDT Oxygen Saturation - - Inhaled Oxygen Concentration - - Weight 69.2 kg (152 lb 8 oz) 11/20/2022 10:31 AM EDT Height - - Body Mass Index 21.27 08/01/2022 1:51 PM EDT documented in this encounter Progress Notes * Renae Gandara PA-C - 11/20/2022 10:32 AM EDT HISTORY & PHYSICAL EXAMINATION - NEUROLOGY Name: Geovanny Thompson Date: 11/20/2022 Time: 10:32 AM Referring Provider: Eulogio Garvin MD Chief Complaint: Chief Complaint Patient presents with Return Neuro Memory Loss This is a 87 year old right [...] wine nightly, minimal caffeine no other drugs He is still doing well and is still able to play card and board games. He is no longer driving. He was started on Aricept 5 mg and is doing well on it. wants to increase it if possible. Is weight has been stable no GI upset. Denies CP, SOB, abdominal pain, N, V, [...] (PSA) R97.20 Anticoagulation management encounter Z51.81, Z79.01 residential current use of anticoagulant therapy Z79.01 HTN, goal below 130/80 I10 Mixed hypertriglyceridemia E78.2 History of bladder cancer Z85.51 Chronic atrial fibrillation (HCC) I48.20 Reactive airway disease J45.909 Pulmonary hypertension (HCC) I27.20 Bilateral leg edema R60.0 Mild vascular dementia without behavioral disturbance, psychotic disturbance, mood disturbance, or anxiety (HCC) F01.A0 Family History Problem Relation Age of Onset Cancer Father oral cancer Heart Disorder Mother Hypertension Mother Heart Disorder Grandmother (Maternal) Hypertension Grandmother (Maternal) Cancer Grandmother (Paternal) Medications: Are you taking your medications? yes Current Outpatient Medications Medication Sig Dispense Refill Donepezil HCl 10 MG Oral Tablet (Aricept) Take 1 Tablet by mouth in the morning. Take with largest meal of the day.. 90 Tablet 2 MULTIVITAMINS PO TABS one daily VITAMIN C 500 MG PO TABS Take 1 Tablet by mouth in the morning. omega-3 1000 MG CAPS Take by mouth 3 times a day. Albuterol Sulfate HFA 108 (90 Base) MCG/ACT Inhalation Aerosol Solution Inhale by mouth 2 Puffs every 6 hours as needed for Cough, Shortness of Breath or Wheezing. 18 g 2 Loratadine 10 MG Oral Tablet (Claritin) Take 1 Tablet by mouth daily as needed for Rhinitis. (Patient not taking: Reported on 09/06/2022) T.E.D. Below Knee/S-Regular Wear stockings during the [...] 24 Hour (toPROL XL) Take 1 Tablet by mouth in the morning. 90 Tablet 3 Potassium Chloride Belen ER 10 MEQ Oral Tablet Extended Release Take 1 Tablet by mouth once a day onSaturday, Saturday, and Saturday only. With furosemide 40 [...] every night at bedtime. 90 Tablet 3 Memantine HCl 5 MG Oral Tablet (Namenda) Decrease to 1 tab daily for 5 days then stop (Patient not taking: Reported on 11/20/2022) 5 Tablet 0 No current facility-administered medications for this visit. Review of patient's allergies indicates: Allergen Reactions Environmental Review of Systems: A total number of 10 systems were reviewed pertinent negative and positives not addressed in HPI are listed in the following review. Physical Exam: Constitutional: BP 126/70 | Pulse 73 | Temp 36.3 C (97.3 F) (Tympanic) | Resp 16 | Wt 69.2 kg (152 lb 8 oz) | BMI 21.27 kg/m | BSA 1.86 m , appearance nourished and healthy Ears, Nose, Mouth and Throat: mucous membranes moist, no injection and skin normal, eyes normal Cardiovascular: normal S-1 and S-2 and regular rate and rhythm Respiratory: clear to auscultation (CTA) and no rales, ronchi or wheeze Musculoskeletal: non pitting peripheral edema Skin: normal and intact Eyes: extraocular muscles intact (EOMI) NEUROLOGIC EXAMINATION: Mental status: Alert and interactive Oriented to full date and location Oriented to person Speech fluent with no evidence of aphasia Cranial Nerves Normal findings for Cranial Nerves II - XII Coordination: rapid alternating movements are intact: Bilateral and on [id number] Gait/Stance: Posture normal. Gait normal: with steady with steps, base, arm swing, and tandem gait. Motor: Negative for pronator drift of out stretched arms with eyes closed. Strength: Normal - 5/5 all extremities LABORATORY: Recent labs reviewed Review of prior Studies: No recent imaging available. Impression: Geovanny Thompson is a 87 year old gentleman with a history of dementia. His neurologicexamination today reveals no focal deficit. The history and examination are suggestive of diagnosis/problem list. Testing and Referrals ordered: none ICD-10-CM 1. Vascular dementia without behavioral disturbance (HCC) F01.50 2. AD (Alzheimer's disease) (HCC) G30.9 F02.80 Return in 6 months or sooner if needed Increase Aricept from 5 mg (1 tab) with largest meal of day to Aricept 10 mg (1 tab) Continue to monitor weight Keep physically and mentally active as possible Watch for wandering, leaving water running, leaving stove on PCP for medical management Call with questions concerns Medical Decision Making (determined by lowest of 2 of 3 elements): The medical decision making element of the number and complexity of problems addressed included at least 2 or more stable chronic illnesses [...] When 2 of 3 reach level 4, then this element is considered extensive (level 5). I personally spent a total of 30 minutes. This time was for a new office or established visit and was on the same calendar day. Education / Consultation - Topics covered as I spent 20 minutes, which is greater than 50% of this visit, counseling the patient on: Diagnostic Results Prognosis Risks and benefits of treatment options Risk factor reductions Patient and family education Consulted with physician: Faustino Harrison DO was available for direct supervision. Copy of note sent to PCP and Referring Provider. Total time of visit: 30 minutes. Renae Gandara PA-C [facility] [place] [address] [facility] [place] [address] 11/20/2022 10:32 AM documented in this encounter Nursing Notes * Samantha Rosen MED ASSIST - 11/20/2022 10:29 AM EDT Chief Complaint Patient presents with Return Neuro Memory Loss documented in this encounter Plan of Treatment Upcoming Encounters Date Type Specialty Care Team Description 12/04/2022 Anticoagulation Pharmacy Pharmacist1, [facility] [address] [facility] [place] [address] 12/12/2022 Office Visit Cardiology Saeed Mendieta MD [address] [place] [address] 03/06/2023 Office Visit Internal Medicine Eulogio Garvin MD [address] [facility] [address] [facility] [address] 03/11/2023 Office Visit Neurology Renae Gandara PA-C [address] [facility] [address] [place] [address] 03/27/2023 Telemedicine Neurology Poncho Wu MD [address] [place] [address] 05/23/2023 Office Visit Neurology Renae Gandara PA-C [address] [facility] [place] [address] 06/18/2023 Office Visit Neurology Chuck Adame DO [address] [place] [address] Health Maintenance Due Date Last [...] this encounter Medical Devices Implanted Type Area Crew Team Member Device Identifier Shelf Expiration Date Model / Serial / Lot Mesh 3dmax 3.1x5.3in t Med - [id number] Implanted:Qty: 1 on 05/12/2018 by Jose Angel Parson MD at OR [facility] Right: Groin CR BARD : DAVOL 12/08/2022 [id number] / / [id number] Description:RIH repair documented as of this encounter Visit Diagnoses Diagnosis Vascular dementia without behavioral disturbance (HCC)- Primary Vascular dementia, uncomplicated AD (Alzheimer's disease) (HCC) Alzheimer's disease documented in this encounter Advance Directives Latest Code Status on File Code Status Date Activated Date Inactivated Comments Full Code 05/12/2018 9:34 AM 05/12/2018 4:54 PM This or yoanna reflects the patients wishes and were consensually agreed upon. Care Teams Svp Research And Strategic Analysis Relationship Specialty Start Date End Date Eulogio Garvin MD 200 [place] [address] PCP - General Internal Medicine 11/30/20 documented as of this encounter"
--- OUTSIDE RECORDS SUMMARY | 2023-01-12 18:33 | External Medical Summary ---
Author Name Unknown Address Unknown Organization K09:[facility] [place] [address] Laboratory Report Ordering Provider Test Date Status NAVI RUBIO V 11/06/2022 11:42:01 Final Therapeutic ranges for non-o perative patients:
Prophylaxsis/treatment of DVT: (Range:2.0-3.0)
Treatment of pulmonary embolism:(Range:2.0-3.0)
Prevention of systemic embolism from:
-tissue heart valves
-acute myocardial infarction
-valvular heart disease
-atrial fibrillation
(Range: 2.0-3.0)
Mechanical prosthetic valves: (Range: 2.5-3.5) Observation Date Value Abnormality Reference (Units ) Status INR in Capillary blood by Coagulation assay 11/06/2022 11:42:01 4.8 (INR) Final Performing Location [facility] [place] [address]
--- OUTSIDE RECORDS SUMMARY | 2023-01-12 18:33 | External Medical Summary | Summary of Care ---
Author Name Unknown Organization [facility] Address [address] [place] [address] Phone [phone] Care Team Providers Care Administrative Resources Associate Name Role Phone Eulogio Garvin MD Primary Care Provider + Reason for Visit * Reason Onset Date Comments Test Results 01/07/2023 Encounter Details Date Type Department Care Team (Late st Contact Info) Description [facility] [address] [place] [facility] [place] [address] Saeed Mendieta MD [address] [place] [place] [address] Test Results Allergies Active Allergy Reactions Criticality Noted Date [...] below 130/80 12/05/2011 Anticoagulation management encounter 07/24/2010 intermediate current use of anticoagulant therapy 0 07/24/2010 [...] 30 Mcg, IM, 12 yrs and above ([employer]) 10/23/2021 DTaP HIB - Dipth/Tet/Acell Pert/HIB 07/12/2004 [...] encounter Miscellaneous Notes * Telephone Encounter - Samantha Griffith CMA - 01/07/2023 10:18 AM EST Portal message sent. * Telephone Encounter - Samantha Griffith CMA - 01/07/2023 10:17 AM EST ----- Message from Saeed Mendieta MD sent at 01/07/2023 10:12 AM EST ----- Electrolytes are normal. Continue current medications documented in this encounter Plan of Treatment Upcoming Encounters Date Type Department Care Team (Late st Contact Info) Description 02/01/2023 11:00 AM EST Anticoagulation Pharmacy, [facility] [address] [facility] [place] [address] Pharmacist1, [facility] [address] [place] [address] 03/06/2023 4:40 PM EST Office Visit General Internal Medicine [facility] [address] [facility] [place] [address] Eulogio Garvin MD [address] [facility] [place] [address] 03/11/2023 1:20 PM EST Office Visit Neurology [facility] [address] [facility] [place] [address] Renae Gandara PA-C [address] [facility] [place] [address] 03/27/2023 4:20 PM EST Telemedicine Neurology, [place] Gibran Byrne [address] [place] [address] [place] [address] Poncho Wu MD [address] [place] [address] 05/23/2023 10:00 AM EDT Office Visit Neurology [facility] [address] [place] [address] [address] Renae Gandara PA-C [address] [place] [address] [address] [address] 06/13/2023 10:00 AM EDT Office Visit Cardiology, [facility] [address] [place] [address] Clara Fernandez, PABLO [address] [place] [address] 06/18/2023 10:20 AM EDT Office Visit Neurology, [place] [address] [place] [address] Chuck Adame, [address] [place] [address] Health Maintenance Due Date Last Done Comments [...] this encounter Medical Devices Implanted Type Area Linux Developer Device Identifier Shelf Expiration Date Model / Serial / Lot Mesh 3dmax 3.1x5.3in t Med - [id number] Implanted:Qty: 1 on 05/12/2018 by Jose Angel Parson MD at OR [facility] Right: Groin CR BARD : DAVOL 12/08/2022 [id number] / / [id number] Description:RIH repair documented as of this encounter Advance Directives Latest Code Status on File Code Status Date Activated Date Inactivated Comments Full Code 05/12/2018 9:34 AM 05/12/2018 4:54 PM This or yoanna reflects the patients wishes and were consensually agreed upon. Care Teams Administrative Resources Associate Relationship Specialty Start Date End Date Eulogio Garvin MD 200 [facility], [place] [id number] PCP - General Internal Medicine 11/30/20 documented as of this encounter
--- OUTSIDE RECORDS SUMMARY | 2023-01-12 18:33 | External Medical Summary ---
Author Name Unknown Address Unknown Organization K09[facility] [place] [address] Laboratory Report Ordering Provider Test Date Status NAVI RUBIO V 12/04/2022 10:52:53 Final Therapeutic ranges for non-o perative patients:
Prophylaxsis/treatment of DVT: (Range:2.0-3.0)
Treatment of pulmonary embolism:(Range:2.0-3.0)
Prevention of systemic embolism from:
-tissue heart valves
-acute myocardial infarction
-valvular heart disease
-atrial fibrillation
(Range: 2.0-3.0)
Mechanical prosthetic valves: (Range: 2.5-3.5) Observation Date Value Abnormality Reference (Units ) Status INR in Capillary blood by Coagulation assay 12/04/2022 10:52:53 4.1 (INR) Final Performing Location [facility] [place] [address]
--- OUTSIDE RECORDS SUMMARY | 2023-01-12 18:33 | External Medical Summary ---
Author Name Unknown Address Unknown Organization K09:[facility] [place] [address] Laboratory Report Ordering Provider Test Date Status SIM NASSAR 01/07/2023 08:10:14 Final Observation Date Value Abnormality Reference (Units ) Status BUN 01/07/2023 08:10:14 13 6-20 (mg/dL) Final Creatinine 01/07/2023 08:10:14 1.0 0.6-1.2 (mg/dL) Final Glomerular filtration rate/1.73 sq M.predicted [Volume Rate/Area] in Serum, Plasma or Blood by Creatinine-based formula (CKD-EPI) 01/07/2023 08:10:14 72 >=60 (mL/min) Final eGFR is calculated based on the CKD-EPI 2020 equation SODIUM 01/07/2023 08:10:14 141 135-146 (m mol/L) Final Potassium 01/07/2023 08:10:14 4.4 3.5-5.1 (m mol/L) Final Cl 01/07/2023 08:10:14 104 98-107 (mm ol/L) Final CO2 01/07/2023 08:10:14 28 22-32 (mmo l/L) Final Anion gap 01/07/2023 08:10:14 9 7-15 (mmol /L) Final Glucose 01/07/2023 08:10:14 95 70-120 (mg /dL) Final Calcium 01/07/2023 08:10:14 9.2 8.4-10.2 ( mg/dL) Final Performing Location [facility] [place] [address]
--- OUTSIDE RECORDS SUMMARY | 2023-01-12 18:34 | External Medical Summary | Summary of Care ---
Author Name Unknown Organization [facility] Address [address] [place] [address] Phone [phone] Care Team Providers Care Slitter Creaser Slotter Helper Name Role Phone Eulogio Garvin MD Primary Care Provider + Reason for Visit * Reason Onset Date Comments Appointment 08/30/2022 Encounter Details Date Type Department Care Team Description 08/30/2022 Telephone Neurology [facility] 200 [facility] [place] [address] Renae Gandara PA-C [address] [facility] [place] [address] Appointment Allergies Active Allergy Reactions Severity Noted Date Comments Environmental 11/09/2008 documented as of this encounter (statuses as of 08/30/2022) Medications Medication Sig Dispensed Refills Start Date [...] 50 MCG/ACT Nasal Suspension (Flonase) Administer 1 [place] into nostril daily as needed for Rhinitis. 0 Active T.E.D. Below Knee/S-Regular Wear stockings during the day. Take off at night. Compression 20-30 mmHg 2 Each 1 12/14/2021 Active Vitamin B Complex Oral Tablet Take 1 Tablet by mouth in the morning. 0 Active Memantine HCl 5 MG Oral Tablet (Namenda) Take 1 Tablet by mouth 2 times a day with morning and evening meals. 60 Tablet 2 07/16/2022 Active Furosemide 20 MG Oral Tablet (Lasix)Indications [...] For afib 120 Tablet 3 08/01/2022 Active documented as of this encounter (statuses as of 08/30/2022) Active Problems Problem Noted Date 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, psychotic disturbance, mood disturbance, or anxiety 08/01/2022 Bilateral leg edema 12/14/2021 Pulmonary hypertension 11/21/2021 Reactive airway disease 08/08/2021 Chronic atrial fibrillation 12/19/2018 History of bladder cancer 08/17/2016 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 HTN, goal below 130/80 12/05/2011 Anticoagulation management encounter [facility] current use of anticoagulant t herapy 07/24/2010 Overview: ICD-10 update of inactive term Elevated prostate specific antigen (PSA) 11/09/2008 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 documented as of this encounter (statuses as of 08/30/2022) Immunizations Name Administration Dates Next Due COVID-19 mRNA, LNP-s, No Pre serve, 2-Dose Series ([employer]) 04/13/2021,12/12/2020,04/08/2020,03/11 Covid-19, Mrna, Lnp-s, Pf, B ivalent, 30 Mcg, IM, 12 yrs and above ([employer]) 10/23/2021 DTaP HIB - Dipth/Tet/Acell Pert/HIB 07/12/2004 [...] as of this encounter Miscellaneous Notes * Addendum Note - JORDON Brandt - 08/30/2022 9:08 AM EDT Addended by: KYLEE NUÑEZ on: 08/30/2022 09:08 AM Modules accepted: Orders * Telephone Encounter - VAHE Ramirez - 08/30/2022 9:05 AM EDT Pt was never cancelled! He was seen in June and was to come back in 6 mths which is Nov and he's scheduled for that. There are no other appointments that were scheduled or cancelled. Nursing can you call pt to see what refills he needs? * Telephone Encounter - Mikaela Tasha Olvera - 08/30/2022 7:35 AM EDT Pt came in and wanted to know why their appt had been canceled and pushed out another 9 weeks. Pt stated that they did not cancel their appt. Placed on wait list Pt is concerned that medication will be renewed. Please add refills documented in this encounter Plan of Treatment Upcoming Encounters Date Type Specialty Care Team Description 08/31/2022 Anticoagulation Pharmacy Pharmacist1, [facility] [place] [address] 12/17/2022 Office Visit Cardiology Clara Fernandez PA-C [address] [place] [address] 01/10/2023 Office Visit Neurology Renae Gandara PA-C [address] [facility] [place] [address] 03/06/2023 Office Visit Internal Medicine Eulogio Garvin MD [address] [facility] [place] [address] Health Maintenance Due Date Last Done Comments [...] this encounter Medical Devices Implanted Type Area Cloth Shrinking Supervisor Device Identifier Shelf Expiration Date Model / Serial / Lot Mesh 3dmax 3.1x5.3in Rht Med - [id number] Implanted:Qty: 1 on 05/12/2018 by Jose Angel Parson MD at OR [facility] Right: Groin CR BARD : DAVOL 12/08/2022 [id number] / / [id number] Description:RIH repair documented as of this encounter Advance Directives Latest Code Status on File Code Status Date Activated Date Inactivated Comments Full Code 05/12/2018 9:34 AM 05/12/2018 4:54 PM This or yoanna reflects the patients wishes and were consensually agreed upon. Care Teams Slitter Creaser Slotter Helper Relationship Specialty Start Date End Date Eulogio Garvin MD [address] [place] [address], [place] [address] PCP - General Internal Medicine 11/30/20 documented as of this encounter
--- OUTSIDE RECORDS SUMMARY | 2023-01-12 18:34 | External Medical Summary | Summary of Care ---
Author Name Unknown Organization [facility] Address [address] [place] [address] Phone [phone] Care Team Providers Care Ground Water Contractor Name Role Phone Eulogio Garvin MD Primary Care Provider + Reason for Visit * Reason Onset Date Comments Appointment 08/30/2022 Encounter Details Date Type Department Care Team Description 08/30/2022 Telephone Neurology [facility] [place] 200 [facility] [place] [address] Renae Montoya PA-C 200 [facility] [place] [address] Appointment Allergies Active Allergy Reactions Severity Noted [...] 50 MCG/ACT Nasal Suspension (Flonase) Administer 1 [place] into nostril daily as needed for Rhinitis. [...] and evening meals. 60 Tablet 2 3 Active Memantine HCl 5 MG Oral Tablet (Namenda) Take 1 Tablet by mouth 2 times a day with morning and evening meals. 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, psychotic disturbance, mood disturbance, or anxiety 08/01/2022 Bilateral leg edema 12/14/2021 Pulmonary hypertension 11/21/2021 Reactive airway disease 08/08/2021 Chronic atrial fibrillation 12/19/2018 History of bladder cancer 08/17/2016 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 HTN, goal below 130/80 12/05/2011 Anticoagulation management encounter assisted current use of anticoagulant t herapy 07/24/2010 [...] 30 Mcg, IM, 12 yrs and above ([employer]) 10/23/2021 DTaP HIB - Dipth/Tet/Acell Pert/HIB 07/12/2004 [...] encounter Miscellaneous Notes * Addendum Note - Renae Montoya PA-C - 08/31/2022 9:54 AM EDTAddended by: RENAE OMNTOYA on: 08/31/2022 09:54 AM Modules accepted: Orders * Addendum Note - Samantha Nuñez, MED ASSIST - 08/30/2022 9:08 AM EDT Addended by: SAMANTHA NUÑEZ on: 08/30/2022 09:08 AM Modules accepted: [...] he needs? * Telephone Encounter - Mikaela Olvera - 08/30/2022 7:35 AM EDT Pt [...] Care Team Description 08/31/2022 Anticoagulation Pharmacy Pharmacist1, [facility] [address] [place] [address] 09/06/2022 Office Visit Neurology Renae Montoya PA-C [address] [place] [address] 12/17/2022 Office Visit Cardiology Clara Fernandez PA-C [address] [place] [address] 03/06/2023 Office Visit Internal Medicine Eulogio Garvin MD [address] [place] [address] Health Maintenance Due Date Last Done Comments [...] this encounter Medical Devices Implanted Type Area Tack Cleaner Device Identifier Shelf Expiration Date Model / Serial / Lot Mesh 3dmax 3.1x5.3in t Med - [id number] Implanted:Qty: 1 on 05/12/2018 by Jose Angel Parson MD at OR [facility] Right: Groin CR BARD : DAVOL 12/08/2022 [id number] / / [id number] Description:RIH repair documented as of this encounter Advance Directives Latest Code Status on File Code Status Date Activated Date Inactivated Comments Full Code 05/12/2018 9:34 AM 05/12/2018 4:54 PM This or yoanna reflects the patients wishes and were consensually agreed upon. Care Teams Ground Water Contractor Relationship Specialty Start Date End Date Eulogio Garvin MD [address] [place] [address], [place] [address] PCP - General Internal Medicine 11/30/20 documented as of this encounter
--- OUTSIDE RECORDS SUMMARY | 2023-01-12 18:34 | External Medical Summary | Summary of Care ---
Author Name Unknown Organization [facility] Address [address] [place] [address] Phone [phone] Care Team Providers Care Barrel Line Operator Name Role Phone Eulogio Garvin MD Primary Care Provider + Reason for Visit * Reason Onset Date Comments Appointment 08/30/2022 Encounter Details Date Type Department Care Team Description 08/30/2022 Telephone Neurology [facility] [place] 200 [facility] [place] [address] Renae Gandara PA-C 200 [facility] [place] [address] Appointment Allergies Active Allergy Reactions Severity Noted [...] 50 MCG/ACT Nasal Suspension (Flonase) Administer 1 [place] into nostril daily as needed for Rhinitis. [...] goal below 130/80 12/05/2011 Anticoagulation management encounter shelter current use of anticoagulant t herapy 07/24/2010 [...] 30 Mcg, IM, 12 yrs and above ([email or web address]) 10/23/2021 DTaP HIB - Dipth/Tet/Acell Pert/HIB 07/12/2004 [...] Miscellaneous Notes * Telephone Encounter - VAHE Ramirez - [...] Anticoagulation Pharmacy [facility]1, [facility] [place] [address] 12/17/2022 Office Visit Cardiology Clara Fernandez PA-C [address] [place] [address] 01/10/2023 Office Visit Neurology Renae Gandara PA-C 200 [facility] [place] [address] 03/06/2023 Office Visit Internal Medicine Eulogio Garvin MD 200 [facility] [place] [address] Health Maintenance Due Date Last Done Comments [...] this encounter Medical Devices Implanted Type Area Computational Biologist Device Identifier Shelf Expiration Date Model / Serial / Lot Mesh 3dmax 3.1x5.3in Rht Med - [id number] Implanted:Qty: 1 on 05/12/2018 by Jose Angel Parson MD at OR [facility] Right: Groin CR BARD : DAVOL 12/08/2022 [id number] / / [id number] Description:RIH repair documented as of this encounter Advance Directives Latest Code Status on File Code Status Date Activated Date Inactivated Comments Full Code 05/12/2018 9:34 AM 05/12/2018 4:54 PM This or yoanna reflects the patients wishes and were consensually agreed upon. Care Teams Barrel Line Operator Relationship Specialty Start Date End Date Eulogio Garvin MD [address] [place] [address], [place] [address] PCP - General Internal Medicine 11/30/20 documented as of this encounter
--- OUTSIDE RECORDS SUMMARY | 2023-01-12 18:34 | External Medical Summary ---
Author Name Unknown Address Unknown Organization K09:[facility] [place] [address] Laboratory Report Ordering Provider Test Date Status NAVI RUBIO V 08/03/2022 11:06:59 Final Therapeutic ranges for non-o perative patients:
Prophylaxsis/treatment of DVT: (Range:2.0-3.0)
Treatment of pulmonary embolism:(Range:2.0-3.0)
Prevention of systemic embolism from:
-tissue heart valves
-acute myocardial infarction
-valvular heart disease
-atrial fibrillation
(Range: 2.0-3.0)
Mechanical prosthetic valves: (Range: 2.5-3.5) Observation Date Value Abnormality Reference (Units ) Status INR in Capillary blood by Coagulation assay 08/03/2022 11:06:59 2.7 (INR) Final Performing Location [facility] [place] [address]
--- OUTSIDE RECORDS SUMMARY | 2023-01-12 18:34 | External Medical Summary ---
Author Name Unknown Address Unknown Organization K01:[facility] [place] - [address] [facility] [address] Laboratory Report Ordering Provider Test Date Status DO DRAAGNIJEOMA 08/30/2022 07:30:46 Final Observation Date Value Abnormality Reference (Units ) Status Triglyceride 08/30/2022 07:30:46 136 <=174 ( mg/dL) Final Triglyceride Reference Range s (mg/dL):
<150 Acceptable
150-174 Borderline high
175-499 High
>=500 Very high Cholesterol 08/30/2022 07:30:46 176 <200 (mg /dL) Final Total Cholesterol Reference Ranges (mg/dL):
<200 Desirable
200-239 Borderline high
>=240 High HDL 08/30/2022 07:30:46 74 >39 (mg/dL ) Final HDL Cholesterol Reference Ra nges (mg/dL):
>=60 High (Desirable)
<50 Low (Undesirable) For Females
<40 Low (Undesirable) For Males NON-HDL CHOLESTEROL 08/30/2022 07:30:46 102 <=159 (mg/dL) Final Non-HDL Cholesterol Referenc e Range (mg/dL):
<100 Target level for high risk ASCVD patient
<130 Optimal for general population
130-159 Near optimal for general population
160-189 Borderline High
190-219 High
>=220 Very High LDL, (calculated) 08/30/2022 07:30:46 75 <= 129 (mg/dL) Final LDL Cholesterol Reference Ra nges (mg/dL):
<70 Target level for high risk ASCVD patient
<100 Optimal for general population
100-129 Near optimal for general population
130-159 Borderline high
160-189 High
>=190 Very high Performing Location [facility] [place] - [address] [facility] [address]
--- OUTSIDE RECORDS SUMMARY | 2023-01-12 18:34 | External Medical Summary | Summary of Care ---
Author Name Unknown Organization [facility] Address [address] [place] [address] Phone [phone] Care Team Providers Care Court Operations Clerk Name Role Phone Eulogio Garvin MD Primary Care Provider + Reason for Visit * Reason Comments Outpatient Testing Encounter Details Date Type Department Care Team Description 08/30/2022 Laboratory [facility] [place] [address] [place] [address] [place], Lab Scenery [address] [place], [place] [address] HTN, goal below 130/80; Mixed hypertriglyceridemia Allergies Active Allergy Reactions Severity Noted Date [...] 50 MCG/ACT Nasal Suspension (Flonase) Administer 1 [place] into nostril daily as needed for Rhinitis. [...] goal below 130/80 12/05/2011 Anticoagulation management encounter custodial current use of anticoagulant t herapy 07/24/2010 [...] 30 Mcg, IM, 12 yrs and above ([employer]) 10/23/2021 DTaP HIB - Dipth/Tet/Acell Pert/HIB 07/12/2004 [...] Anticoagulation Pharmacy Pharmacist1, [facility] [address] [place] [address] 12/17/2022 Office Visit Cardiology Clara Fernandez PA-C [address] [place] [address] 01/10/2023 Office Visit Neurology Renae Gandara PA-C [address] [place] [address] [address] 03/06/2023 [facility] 200 [place] [address] Pending Results Name Type Priority Associated Diagnoses Date /Time COMPREHENSIVE METABOLIC PANEL Lab Routine HTN, goal below 130/80 Mixed hypertriglyceridemia 08/30/2022 7:30 AM EDT LIPID PANEL WITH DIRECT LDL IF TG IS HIGH Lab Routine HTN, goal below 130/80 Mixed hypertriglyceridemia 08/30/2022 7:30 AM EDT Health Maintenance Due Date Last Done Comments [...] this encounter Medical Devices Implanted Type Area Packing Machine Tender Device Identifier Shelf Expiration Date Model / Serial / Lot Mesh 3dmax 3.1x5.3in t Med - [id number] Implanted:Qty: 1 on 05/12/2018 by Jose Angel Parson MD at OR [facility] Right: Groin CR BARD : DAVOL 12/08/2022 [id number] / / [id number] Description:RIH repair documented as of this encounter Visit Diagnoses Diagnosis HTN, goal below 130/80 Unspecified essential hypertension Mixed hypertriglyceridemia Mixed hyperlipidemia documented in this encounter Advance Directives Latest Code Status on File Code Status Date Activated Date Inactivated Comments Full Code 05/12/2018 9:34 AM 05/12/2018 4:54 PM This or yoanna reflects the patients wishes and were consensually agreed upon. Care Teams Court Operations Clerk Relationship Specialty Start Date End Date Eulogio Garvin MD [address] [place] [address], [place] [address] PCP - General Internal Medicine 11/30/20 documented as of this encounter
--- OUTSIDE RECORDS SUMMARY | 2023-01-12 18:34 | External Medical Summary | Summary of Care ---
Author Name Unknown Organization [facility] Address [address] [place] [address] Phone [phone] Care Team Providers Care Political Geographer Name Role Phone Eulogio Garvin MD Primary Care Provider + Reason for Visit * Reason Comments Dosage Adjustment In Person (Anticoag Cl inic) Encounter Details Date Type Department Care Team Description 08/03/2022 Anticoagulation Pharmacy, [facility] 200 [place] [address] Pharmacist1, [facility] 200 [facility] [place] [address] Chronic atrial fibrillation (HCC)*; Anticoagulation management encounter; [facility] current use of anticoagulant therapy Allergies Active Allergy Reactions Severity Noted Date Comments Environmental 11/09/2008 documented as of this encounter (statuses as of 08/03/2022) Medications Medication Sig Dispensed Refills Start Date [...] MCG/ACT Nasal Suspension (Flonase) Administer 1 [place] into nostril daily as needed for Rhinitis. 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, psychotic disturbance, mood disturbance, or anxiety 08/01/2022 Bilateral leg edema 12/14/2021 Pulmonary hypertension 11/21/2021 Reactive airway disease 08/08/2021 Chronic atrial fibrillation 12/19/2018 History of bladder cancer 08/17/2016 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 HTN, goal below 130/80 12/05/2011 Anticoagulation management encounter termite helper current use of anticoagulant t herapy 07/24/2010 Overview: ICD-10 update of inactive term Elevated prostate specific antigen (PSA) 11/09/2008 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 documented as of this encounter (statuses as of 08/03/2022) Immunizations Name Administration Dates Next Due COVID-19 mRNA, LNP-s, No Pre serve, 2-Dose Series (Moderna) 04/13/2021,12/12/2020,04/08/2020,03/11 Covid-19, Mrna, Lnp-s, Pf, B ivalent, 30 Mcg, IM, 12 yrs and above ([employer]) 10/23/2021 DTaP HIB - Dipth/Tet/Acell Pert/HIB 07/12/2004 [...] Notes * Stanley Lincoln V, [facility] - 08/03/2022 11:01 AM EDT Medication Therapy Disease Management - Anticoagulation Geovanny Thompson 1935 Description (Takes at 7AM every day) Patient Findings Negatives: Signs/symptoms of thrombosis, Signs/symptoms of bleeding, Change in health, Change in alcohol use, Change in activity, Upcoming invasive procedure, Missed doses, Extra doses, Change in medications, Change in diet/appetite, Bruising INR Result As of 08/03/2022 INR goal: 2.0-3.0 INR used for dosin.7 (08/03/2022) Warfarin Plan As of 08/03/2022 Full warfarin instructions: 1.25 mg every Sun, Lulu; 2.5 mg all other days No change documented: Stanley Bhat RPh Next INR check: 08/31/2022 Repeat PT/INR in 4 week(s) Weekly dose: not changed Stanley Lincoln RPh, CACP, CDE Clinical Pharmacist Medication Therapy Management [facility] 08/03/2022 11:08 AM documented in this encounter Plan of Treatment Upcoming Encounters Date Type Specialty Care Team Description 08/31/2022 Anticoagulation Pharmacy Pharmacist1, [facility] 200 [facility] [place] [address] 12/17/2022 Office Visit Cardiology Clara Fernandez PA-C [address] [place] [address] 01/10/2023 Office Visit Neurology Renae Gandara PA-C 200 [facility] [place] [address] 03/06/2023 Office Visit Internal Medicine Eulogio Garvin MD 200 [place] [address] Health Maintenance Due Date Last Done Comments Depression Screening, Annual for Pts 12 and Over 11/21/2022 11/21/2021 Albumin/Creatinine Ratio 11/21/2024 11/21/2021, 11/11 DTaP,Tdap,and Td Vaccines (4 - Td or Tdap) 03/09/2026 03/09/2016, 05/12/2006, 07/12/2004, Additional history exists Pneumococcal Vaccine: 65+ Years Completed 06/20/2015, 07/12/2005 Zoster Vaccines Completed 10/05/2018, 07/13, 04/11/2006 COVID-19 Vaccine Completed 10/23/2021, 04/2021, 12/12/2020, Additional history exists Influenza Vaccine (FLU shot) Completed , 10/20/2020, 10/16/2019, Additional history exists GARDASIL-HPV IMMUNIZATION SERIES Aged Out No longer eligible based on patient's age to complete this topic Hepatitis B Aged Out No longer eligi ble based on patient's age to complete this topic MENINGOCOCCAL (MENACTRA/MENVEO) Aged Out No longer eligible based on patient's age to complete this topic documented as of this encounter Medical Devices Implanted Type Area Senior Front End Developer Device Identifier Shelf Expiration Date Model / Serial / Lot Mesh 3dmax 3.1x5.3in Rht Med - [id number] Implanted:Qty: 1 on 05/12/2018 by Jose Angel Parson MD at OR [facility] Right: Groin CR BARD : DAVOL 12/08/2022 [id number] / / [id number] Description:RIH repair documented as of this encounter Procedures Procedure Name Priority Date/Time Associated Diagnosis Comments INR FINGERSTICK, POINT OF CARE STAT 08/03/2022 11:06 AM EDT Chronic atrial fibrillation (HCC) Anticoagulation management encounter termite helper current use of anticoagulant therapy documented in this encounter Results * INR FINGERSTICK, POINT OF CARE (08/03/2022 11:06 AM EDT) Fingerstick INR 2.7 INR 11:08 AM EDT [facility] Blood 08/03/2022 11:0 6 AM EDT 08/03/2022 11:08 AM EDT Narrative [facility] - 08/03/2022 11:08 AM EDT Therapeutic ranges for non-operative patients: Prophylaxsis/treatment of DVT: (Range:2.0-3.0) Treatment of pulmonary embolism:(Range:2.0-3.0) Prevention of systemic embolism from: -tissue heart valves -acute myocardial infarction -valvular heart disease -atrial fibrillation (Range: 2.0-3.0) Mechanical prosthetic valves: (Range: 2.5-3.5) Stanley Lincoln V [facility] LAB POINT OF CARE TE ST DOCKED DEVICE UNSOLICITED RESULTS [facility]02 200 [place] [address] documented in this encounter Visit Diagnoses Diagnosis Chronic atrial fibrillation (HCC)- Primary Atrial fibrillation Anticoagulation management encounter Encounter for therapeutic drug monitoring [facility] current use of anticoagulant therapy documented in this encounter Advance Directives Latest Code Status on File Code Status Date Activated Date Inactivated Comments Full Code 05/12/2018 9:34 AM 05/12/2018 4:54 PM This or yoanna reflects the patients wishes and were consensually agreed upon. Care Teams Political Geographer Relationship Specialty Start Date End Date Eulogio Garvin MD 200 [facility] [address] PCP - General Internal Medicine 11/30/20 documented as of this encounter
--- OUTSIDE RECORDS SUMMARY | 2023-01-12 18:34 | External Medical Summary | Summary of Care ---
Author Name Unknown Organization [facility] Address [address] [place] [address] Phone [phone] Care Team Providers Care Chief Engineer'S Helper Name Role Phone Eulogio Garvin MD Primary Care Provider + Reason for Visit * Reason Onset Date Comments Appointment 08/30/2022 Encounter Details Date Type Department Care Team Description 08/30/2022 Telephone Neurology [facility] [place] 200 [facility] [place] [address] Renae Gandara PA-C 200 [facility] [place] [address] Appointment Allergies Active Allergy Reactions Severity Noted [...] 50 MCG/ACT Nasal Suspension (Flonase) Administer 1 [place] into nostril daily as needed for Rhinitis. [...] goal below 130/80 12/05/2011 Anticoagulation management encounter [facility] current use of anticoagulant t herapy 07/24/2010 [...] 30 Mcg, IM, 12 yrs and above ([employer]) 10/23/2021 DTaP HIB - Dipth/Tet/Acell Pert/HIB 07/12/2004 [...] encounter Miscellaneous Notes * Telephone Encounter - Mikaela Olvera - [...] Care Team Description 08/31/2022 Anticoagulation Pharmacy Pharmacist1, [facility] [address] [place] [address] 12/17/2022 Office Visit Cardiology Clara Fernandez PA-C [address] [place] [address] 01/10/2023 Office Visit Neurology Renae Gandara PA-C 200 [facility] [place] [address] 03/06/2023 Office Visit Internal Medicine Eulogio Garvin MD 200 [facility] [place] [address] Health Maintenance Due Date Last Done Comments [...] encounter Medical Devices Implanted Type Area Senior Compliance Officer Device Identifier Shelf Expiration Date Model / Serial / Lot Mesh 3dmax 3.1x5.3in t Med - [id number] Implanted:Qty: 1 on 05/12/2018 by Jose Angel Parson MD at OR [facility] Right: Alli THOMAS BARD : BLAYNE 12/08/2022 [id number] / / [id number] Description:RIH repair documented as of this encounter Advance Directives Latest Code Status on File Code Status Date Activated Date Inactivated Comments Full Code 05/12/2018 9:34 AM 05/12/2018 4:54 PM This or yoanna reflects the patients wishes and were consensually agreed upon. Care Teams Chief Engineer'S Helper Relationship Specialty Start Date End Date Eulogio Garvin MD [address] [place] [address], [place] [address] PCP - General Internal Medicine 11/30/20 documented as of this encounter
--- OUTSIDE RECORDS SUMMARY | 2023-01-12 18:34 | External Medical Summary | Summary of Care ---
Author Name Unknown Organization [facility] Address [address] [place] [address] Phone [phone] Care Team Providers Care National Secretary Name Role Phone Eulogio Garvin MD Primary Care Provider + Reason for Visit * Reason Comments Follow Up 6 month follow up. Suyapa luna presents with concerns for nasal congestion and cough since baby sitting his grandson over the weekend. Patient states other smith he has been doing well. Denied any other concerns. Encounter Details Date Type Department Care Team Description 08/01/2022 Office Visit General Internal Medicine Werner [facility] [place] [facility] [address] [place] [address] Eulogio Garvin MD [address] [place] [address] HTN, goal below 130/80*; Chronic atrial fibrillation (HCC); Mild vascular dementia without behavioral disturbance, psychotic disturbance, mood disturbance, or anxiety (HCC); Leg edema; Mixed hypertriglyceridemia; Elevated prostate specific antigen (PSA); Acute URI Allergies Active Allergy Reactions Severity Noted Date Comments Environmental 11/09/2008 documented as of this encounter (statuses as of 08/01/2022) Medications Medication Sig Dispensed Refills Start Date [...] 50 MCG/ACT Nasal Suspension (Flonase) Administer 1 [place] into nostril daily as needed for Rhinitis. [...] evening meals. 60 Tablet 2 3 Active Furosemide 20 MG Oral Tablet (Lasix)Indication [...] For afib 120 Tablet 3 3 Active dutasteride (AVODART) 0.5 MG Capsule Take 1 Capsule by mouth every morning. 0 7 08/02/19 23 Discontinu ed(Refill) Furosemide 20 MG Oral Tablet (Lasix)Indication s:HTN, goal below 130/80,Leg edema,Atrial fibrillation (HCC) Take by mouth 1 Tablet once a day on Saturday, Saturday, and Saturday only . 40 Tablet 3 2 08/02/19 23 Discontinu ed(Refill) Potassium Chloride Belen ER 10 MEQ Oral Tablet Extended ReleaseIndication s:HTN, goal below 130/80,Leg edema Take by mouth 1 Tablet once a day on Saturday, Saturday, and Saturday only . With furosemide 40 Tablet 3 2 08/02/19 23 Discontinu ed(Refill) Warfarin Sodium 2.5 MG Oral Tablet (Coumadin)Indicat ions:Chronic atrial fibrillation (HCC) Take 1.5 tab by mouth Tues, Thur, Sat. Take 1 tab by mouth all other days. Or as directed by the anticoagulation clinic. For afib 120 Tablet 3 2 08/02/19 23 Discontinu ed(Refill) Metoprolol Succinate ER 50 MG Oral Tablet Extended Release 24 Hour (toPROL XL)Indications:At rial fibrillation (HCC),HTN, goal below 130/80 Take by mouth 1 Tablet in the morning. 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 documented as of this encounter (statuses as of 08/01/2022) Immunizations Name Administration Dates Next Due COVID-19 mRNA, LNP-s, No Pre serve, 2-Dose Series (Moderna) 04/13/2021,12/12/2020,04/08/2020,03/11 Covid-19, Mrna, Lnp-s, Pf, B ivalent, 30 Mcg, IM, 12 yrs and above (Vocent) 10/23/2021 DTaP HIB - Dipth/Tet/Acell Pert/HIB 07/12/2004 [...] Sign Reading Time Taken Comments Blood Pressure 126/68 08/01/2022 1:51 PM EDT Pulse 84 08/01/2022 1:51 PM EDT Temperature 36.4 C (97.6 F) 08/01/2022 1:51 PM ED T Respiratory Rate - - Oxygen Saturation 99% 08/01/2022 1:51 PM EDT Inhaled Oxygen Concentration - - Weight 65 kg (143 lb 4.8 oz) 08/01/2022 1:51 PM EDT Height 180.3 cm (5' 11") 08/01/2022 1:51 PM EDT Body Mass Index 19.99 08/01/2022 1:51 PM EDT documented in this encounter Progress Notes * Eulogio Garvin MD - 08/01/2022 2:08 PM EDT Chief Complaint Patient presents with Follow Up 6 month follow up. Patient presents with concerns for nasal congestion and cough since baby sittinghis grandson over the weekend. Patient states other smith he has been doing well. Denied any other concerns. SUBJECTIVE: Geovanny Thompson is a 87 year old male with PMH as below who presents for follow up htn, atrial fib, elevated psa. No cp, sob, coleman. Just getting over uri he and had started last weekend after babysitting grandkids who are/were ill. All getting better. No fevers. Memory decreased, dx with dementia, taking Namenda and seeing neurology. Doesn't drive, no wondering, getting lost. handles finances. No other concerns. 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 omega-3 1000 MG CAPS Take by mouth 3 times a day. Loratadine 10 MG Oral Tablet (Claritin) Take 1 Tablet by mouth daily as needed for Rhinitis. T.E.D. Below Knee/S-Regular Wear stockings during the day. Take off at night. Compression 20-30mmHg 2 Each 1 Vitamin B Complex Oral Tablet Take 1 Tablet by mouth in the morning. Memantine HCl 5 MG Oral Tablet (Namenda) Take 1 Tablet by mouth 2 times a day with morning and evening meals. 60 Tablet 2 Furosemide 20 MG Oral Tablet (Lasix) Take [...] anticoagulation clinic. For afib 120 Tablet 3 Albuterol Sulfate HFA 108 (90 Base) MCG/ACT Inhalation Aerosol Solution Inhale by mouth 2 Puffsevery 6 hours as needed for Cough, Shortness of Breath or Wheezing. 18 g 2 Fluticasone Propionate 50 MCG/ACT Nasal Suspension (Flonase) Administer 1 [place] into nostril daily as needed for Rhinitis. No current facility-administered medications for this visit. Review of patient's allergies indicates: Allergen Reactions Environmental There are no preventive care reminders to display for this patient. ROS: CONSTITUTIONAL: No change in weight, No weakness and No fevers, sweats, or chills EYE: No recent significant change in vision and No eye pain, redness, discharge EARS: No ear pain, No drainage, No tinnitus or vertigo and No recent change in hearing PULMONARY: No wheezing, No rales, No shortness of breath, No recent change in breathing and very mild cough with uri CARDIOVASCULAR: No chest pain, No shortness of breath, No dyspnea on exertion, No orthopnea, No paroxysmal nocturnal dyspnea, No edema, No palpitations and No syncope GASTROINTESTINAL: No abdominal pain, No change in bowel habits, No significant heartburn, No significant change in appetite, No nausea, vomiting, diarrhea, or constipation, No hematemesis, No blood in stools or black tarry stools, No abdominal bloating or early satiety and No dysphagia ALL OTHER SYSTEMS NEGATIVE I reviewed social, PMH, PSH, and family history and updated where needed. 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 Tobacco Use Smoking status: Former Types: Cigarettes Quit date: 02/11/1962 Years since quittin.5 Smokeless tobacco: Never Vaping Use Vaping Use: Never used Substance and Sexual Activity Alcohol use: Yes Alcohol/week: 11.7 standard drinks Types: 14 5 oz of wine per week Comment: wine- 2-3 glass a day Drug use: No Sexual activity: Yes Other Topics Concern Not on file Social History Narrative Not on file Social Determinants of Health Financial Resource Strain: Not on file Food Insecurity: No Food Insecurity Worried About Running Out of Food in the Last Year: Never true Ran Out of Food in the Last Year: Never true Transportation Needs: Not on file Physical Activity: Not on file Stress: Not on file Social Connections: Not on file Intimate Partner Violence: Not on file Housing Stability: Not on file Past Medical History: Diagnosis Date Atrial fibrillation (HCC) 07/24/2010 BPH W/O OBST OR OTHER LOW URINARY SX 03/03/2008 Diverticulosis of colon 08/13/05 HTN, goal below 130/80 12/05/2011 LONG-TERM USE OF ANTICOAGULANTS 07/24/2010 Malignant neoplasm of bladder neck (HCC) 08/17/2016 Mild vascular dementia without behavioral disturbance, psychotic disturbance, mood disturbance,or anxiety (HCC) 08/01/2022 Past Surgical History: Procedure Laterality Date COLONOSCOPY, DIAGNOSTIC (RECTUM) 10/01/2013 diverticulosis COLONOSCOPY, DIAGNOSTIC (RECTUM) 10/01/2013 COLONOSCOPY FLEXIBLE PROXIMAL DIAGNOSTIC performed by Yunior Hart MD at ENDOSCOPY [facility] COLONOSCOPY, GI REFERRAL OP 08/13/05 3-5 year repeat colonoscopy COLORECTAL CANCER SCREEN; COLON 08/23/08 diverticulosis LAP;REPAIR RECURRENT HERNIA Right 05/12/2018 LAPAROSCOPIC REPAIR INGUINAL HERNIA RECURRENT performed by Jose Angel Parson MD at OR [facility] REPAIR INITIAL INGUINAL HERNIA REDUCIBLE AGE 5 OR MORE 10/05/2010 Left Inguinal hernia repair with mesh 10/05/2010 Dr West [facility] THROAT SURGERY PROCEDURE NEC 1940 Tonsils and adnoids removed 1939 Family History Problem Relation Age of Onset Cancer Father oral cancer Heart Disorder Mother Hypertension Mother Heart Disorder Grandmother (Maternal) Hypertension Grandmother (Maternal) Cancer Grandmother (Paternal) OBJECTIVE: PHYSICAL EXAM: BP 126/68 | Pulse 84 | Temp 36.4 C (97.6 F) | Ht 1.803 m (5' 11") | Wt 65 kg (143 lb 4.8 oz) | SpO2 99% | BMI 19.99 kg/m | BSA 1.8 m General: alert, healthy and no distress Head: Normocephalic, No masses, lesions, tenderness or abnormalities Eye Exam: conjunctiva are pink and non-injected, sclera clear Ears: External ears normal, Canals clear, TM's Normal Heart: no murmur, no gallops, irregularly irregular, PMI non-displaced, S-1 normal and S-2 normal Lungs: normal respiratory rate and rhythm, lungs clear to auscultation Psych: normal affect, no flight of ideas or tangential thought, good eye contact, no pressured speech I reviewed last inr, gfr, cbc, tsh, lft ASSESSMENT: I10 HTN, goal below 130/80 (primary encounter diagnosis) I48.20 Chronic atrial fibrillation (HCC) F01.A0 Mild vascular dementia without behavioral disturbance, psychotic disturbance, mood disturbance, or anxiety (HCC) R60.0 Leg edema E78.2 Mixed hypertriglyceridemia R97.20 Elevated prostate specific antigen (PSA) J06.9 Acute URI PLAN: HTN, goal below 130/80 (Primary) - Furosemide 20 MG Oral Tablet (Lasix); Take 1 Tablet by mouth once a day on Saturday, Saturday, andSaturday only. - Metoprolol Succinate ER 50 MG Oral Tablet Extended Release 24 Hour (toPROL XL); Take 1 Tablet by mouth in the morning. - Potassium Chloride Belen ER 10 MEQ Oral Tablet Extended Release; Take 1 Tablet by mouth once a dayon Saturday, Saturday, and Saturday only. With furosemide - COMPREHENSIVE METABOLIC PANEL; Future; Expected date: 08/01/2022 - LIPID PANEL WITH DIRECT LDL IF TG IS HIGH; Future; Expected date: 08/01/2022 Buffy metoprolol, lasix Labs soon Chronic atrial fibrillation (HCC) - Metoprolol Succinate ER 50 MG Oral Tablet Extended Release 24 Hour (toPROL XL); Take 1 Tablet by mouth in the morning. - Potassium Chloride Belen ER 10 MEQ Oral Tablet Extended Release; Take 1 Tablet by mouth once a dayon Saturday, Saturday, and Saturday only. With furosemide - Warfarin Sodium 2.5 MG Oral Tablet (Coumadin); Take 1.5 tab by mouth Tues, Thur, Sat. Take 1 tab by mouth all other days. Or as directed by the anticoagulation clinic. For afib Cont med Sees cardiology Mild vascular dementia without behavioral disturbance, psychotic disturbance, mood disturbance, or anxiety (HCC) Cont memantine Follow Follow up neurology Leg edema - Furosemide 20 MG Oral Tablet (Lasix); Take 1 Tablet by mouth once a day on Saturday, Saturday, andSaturday only. - Potassium Chloride Belen ER 10 MEQ Oral Tablet Extended Release; Take 1 Tablet by mouth once a dayon Saturday, Saturday, and Saturday only. With furosemide Stable Mixed hypertriglyceridemia - COMPREHENSIVE METABOLIC PANEL; Future; Expected date: 08/01/2022 - LIPID PANEL WITH DIRECT LDL IF TG IS HIGH; Future; Expected date: 08/01/2022 Recheck On omeg 3 Elevated prostate specific antigen (PSA) - Dutasteride 0.5 MG Oral Capsule (Avodart); Take 1 Capsule by mouth every morning. Cont f/u urology Acute URI Improving follow Follow Up: Return in about 6 months (around 01/31/2023), or if symptoms worsen or fail to improve, for Fasting Labs Soon. | For: Fasting Labs Soon Eulogio Garvin MD documented in this encounter Nursing Notes * Mariluz Raya CMA - 08/01/2022 1:50 PM EDT Chief Complaint Patient presents with Follow Up 6 month follow up. Patient presents with concerns for nasal congestion and cough since baby sittinghis grandson over the weekend. Patient states other smith he has been doing well. Denied any other concerns. documented in this encounter Plan of Treatment Upcoming Encounters Date Type Specialty Care Team Description 08/03/2022 Anticoagulation Pharmacy Pharmacist1, [facility] [address] [place] [address] 12/17/2022 Office Visit Cardiology Clara Fernandez PA-C [address] [place] [address] 01/10/2023 Office Visit Neurology Renae Gandara PA-C [address] [facility] [place] [address] 03/06/2023 Office Visit Internal Medicine [email or web address] Eulogio Lin MD [address] [place] [address] Scheduled Orders Name Type Priority Associated Diagnoses Orde r Schedule COMPREHENSIVE METABOLIC PANEL Lab Routine HTN, goal below 130/80 Mixed hypertriglyceridemia Expected: 08/01/2022 (Approximate), Expires: 08/01/2023 LIPID PANEL WITH DIRECT LDL IF TG IS HIGH Lab Routine HTN, goal below 130/80 Mixed hypertriglyceridemia Expected: 08/01/2022, Expires: 08/02/2023 Health Maintenance Due Date Last Done Comments [...] this encounter Medical Devices Implanted Type Area Supervisor Diagnostic Device Identifier Shelf Expiration Date Model / Serial / Lot Mesh 3dmax 3.1x5.3in t Med - [id number] Implanted:Qty: 1 on 05/12/2018 by Jose Angel Parson MD at OR [facility] Right: Groin CR BARD : DAVOL 12/08/2022 [id number] / / [id number] Description:RIH repair documented as of this encounter Visit Diagnoses Diagnosis HTN, goal below 130/80- Primary Unspecified essential hypertension Chronic atrial fibrillation (HCC) Atrial fibrillation Mild vascular dementia without behavioral disturbance, psychotic disturbance, mood disturbance, or anxiety (HCC) Leg edema Edema Mixed hypertriglyceridemia Mixed hyperlipidemia Elevated prostate specific antigen (PSA) Acute URI Acute upper respiratory infections of unspecified site documented in this encounter Advance Directives Latest Code Status on File Code Status Date Activated Date Inactivated Comments Full Code 05/12/2018 9:34 AM 05/12/2018 4:54 PM This or yoanna reflects the patients wishes and were consensually agreed upon. Care Teams National Secretary Relationship Specialty Start Date End Date Eulogio Garvin MD [address] [place] [address] PCP - General Internal Medicine 11/30/20 documented as of this encounter
--- OUTSIDE RECORDS SUMMARY | 2023-01-12 18:34 | External Medical Summary ---
Author Name Unknown Address Unknown Organization K09:[facility] [place] [place] [address] Laboratory Report Ordering Provider Test Date Status DO DRAGANIJEOMA 08/30/2022 07:30:46 Final Observation Date Value Abnormality Reference (Units ) Status BUN 08/30/2022 07:30:46 17 6-20 (mg/dL) Final Creatinine 08/30/2022 07:30:46 1.1 0.6-1.2 (mg/dL) Final Glomerular filtration rate/1.73 sq M.predicted [Volume Rate/Area] in Serum, Plasma or Blood by Creatinine-based formula (CKD-EPI) 08/30/2022 07:30:46 65 >=60 (mL/min) Final eGFR is calculated based on the CKD-EPI 2020 equation SODIUM 08/30/2022 07:30:46 141 135-146 (m mol/L) Final Potassium 08/30/2022 07:30:46 4.2 3.5-5.1 (m mol/L) Final Cl 08/30/2022 07:30:46 105 98-107 (mm ol/L) Final CO2 08/30/2022 07:30:46 28 22-32 (mmo l/L) Final Anion gap 08/30/2022 07:30:46 8 7-15 (mmol /L) Final Glucose 08/30/2022 07:30:46 94 70-120 (mg /dL) Final Albumin 08/30/2022 07:30:46 3.8 3.8-5.0 (g /dL) Final AST (Aspartate aminotransferase) 08/30/2022 07:30:46 20 10-50 (U/L) Final Alk Phos 08/30/2022 07:30:46 55 35-130 (U/ L) Final Bilirubin, Total 08/30/2022 07:30:46 0.7 <=1 .2 (mg/dL) Final Calcium 08/30/2022 07:30:46 9.1 8.4-10.2 ( mg/dL) Final Protein 08/30/2022 07:30:46 6.6 6.0-8.3 (g /dL) Final ALT (Alanine aminotransferase) 08/30/2022 07:30:46 16 10-50 (U/L) Final Performing Location [facility] [address] [place] [address]
--- OUTSIDE RECORDS SUMMARY | 2023-01-12 18:34 | External Medical Summary ---
Author Name Unknown Address Unknown Organization K09:[facility] [place] [address] Laboratory Report Ordering Provider Test Date Status MARY KATE MCINTOSH1 08/31/2022 10:58:02 Final Therapeutic ranges for non-o perative patients:
Prophylaxsis/treatment of DVT: (Range:2.0-3.0)
Treatment of pulmonary embolism:(Range:2.0-3.0)
Prevention of systemic embolism from:
-tissue heart valves
-acute myocardial infarction
-valvular heart disease
-atrial fibrillation
(Range: 2.0-3.0)
Mechanical prosthetic valves: (Range: 2.5-3.5) Observation Date Value Abnormality Reference (Units ) Status INR in Capillary blood by Coagulation assay 08/31/2022 10:58:02 2.4 (INR) Final Performing Location [facility] [place] [id number]
--- NOTE | 2023-01-12 18:46 | Emergency Department Note ---
Impression & Plan Syncope and collapse ED Provider Note NAME: JEAN CANNON AGE: 87 SEX: Male INFORMANT: Patient and family ED PROVIDER(S): Omer Schroeder MD CHIEF COMPLAINT: Syncope PLAN: Disposition: Admitted Outpatient prescription management: none Referral: None MEDICAL DECISION MAKING: He was evaluated. He had a nonfocal neurologic examination. Patient was without complaints. No trauma was noted. Patient had a notably normal physical examination. Patient presented because of reported syncopal episode. Laboratory testing, ECG, chest x-ray and CT performed. Thankfully the patient's laboratory testing was unremarkable. CT imaging did not reveal any acute findings. Patient INR therapeutic. Bio fire testing was negative. Given the patient's episode I am concerned that he requires further monitoring and management in the hospital. Discussed this with the patient's and patient. Patient in agreement. Consultation was made with Dr. Jer Maya, [facility] hospitalist service. Patient was evaluated in the ER and admitted for further management Care/management discussed with: process excellence manager Level of care consideration(s): After review of the information above and other included data, I feel the patient requires escalation of care to admission Triage Nursing notes: reviewed and agree them. Vital Signs: reviewed and remarkable for no significant abnormalities Additional History obtained from: Patient's . By her description it sounds like the patient was very close to syncope Chronic Medical/Social Conditions affecting care: Dementia Prior/ Outside/ External records reviewed: none Differential Diagnosis: Vasovagal event, dehydration, infection, hypoglycemia, electrolyte abnormalities, cardiac sources, intracerebral event, pulmonary embolism, seizure, toxicologic, neurologic, as well as other pathologies. Diagnostics, independently interpreted by me: ECG: Twelve-lead ECG reveals atrial fibrillation at 60 bpm. Left axis deviation. Incomplete right bundle branch block. Cardiac Monitoring: Cardiac monitoring ordered by me: The patient was placed on continuous cardiac monitoring and observed. It revealed a normal sinus rhythm at 63 beats per minute without ectopy or evidence of dysrhythmia. Medical decision rules: none Imaging studies: Head CT: A noncontrast CT scan of the head was performed and was negative for tumor, fracture, intracranial hemorrhage, or other acute pathology. Chest x-ray. Findings: A chest x-ray was performed and revealed no pneumothorax, effusion, infiltrate, pulmonary edema, free air under the diaphragm, or wide mediastinum. Impression: No acute disease. HPI: 87 year old Male arrives for evaluation of syncopal episode. Patient was out with family this evening. He reportedly slumped over and was unresponsive. No trauma reported and patient denies any injury. He does not remember any details from the event. Patient does carry a history of dementia. Pt denies LOC, headache, fevers, chills, diaphoresis, visual changes, neck pain, chest pain, breathing difficulties, nausea, vomiting, abdominal pain, back pain, melena, hematochezia, urinary symptoms, numbness, weakness, lymphadenopathy, rash, or other complaints.. PAST MEDICAL HISTORY: See Below, BPH PAST SURGICAL HISTORY: See Below, SOCIAL HISTORY: See Below, lives with family HOME MEDICATIONS: See Below ALLERGIES: See Below VITALS: See Below PHYSICAL EXAMINATION: GENERAL: Awake, alert, well-appearing, in no distress HENT: Normocephalic, atraumatic. Oropharynx unremarkable. EYES: Normal conjunctiva. Sclera non-icteric. PERRLA. EOMI NECK: Inspection normal. Non-tender. Supple. No nuchal rigidity. FROM. No masses. RESPIRATORY: Clear to auscultation. No wheezes. No rales. Normal respiratory effort. CARDIAC: Normal rate. Irregular rhythm. No murmurs. No rubs. Extremities warm and well perfused. Pulses equal. No JVD. GI: Soft, non-distended. No tenderness to palpation. No rebound or guarding. No masses. RECTAL: Deferred. MUSCULOSKELETAL: Atraumatic. Chest examination reveals no tenderness. The back is symmetrical on inspection without obvious abnormality. There is no CVA tenderness to palpation. No joint edema. LOWER EXTREMITIES: Calves are equal size bilaterally and non-tender. No edema. No discoloration. NEURO: Relatively normal sensorium with slight memory impairment. No sensory or motor deficits noted. Cranial nerves II to XII intact. No drift. Normal rapid alternating movements. SKIN: No rash or jaundice noted. PROCEDURES: none CRITICAL CARE: none OBSERVATION NOTE: none Past Med/Surg History Medical History (Updated 01/12/23 @ 23:58 by Jer Maya MD) Cataract Hypertension Atrial fibrillation Surgical History History of bladder surgery CANCEROUS LESION REMOVED History of prostate surgery 2017 History of colonoscopy Hx of hernia repair X2 History of adenoidectomy History of tonsillectomy Family History (Updated 09/03/19 @ 11:19 by Jose Angel Paulson) Father Cancer Other Heart disease Hypertension Social History Smoking Status: Former smoker Second Hand Exposure: No; Do You Dip or Chew Tobacco: No; Hx Alcohol Use: Yes Alcohol type: wine Hx Substance Use: No Preferred Language: Lithuanian Communication Ability: Impaired Communication Ability Comment: [facility] [employer] Vault Attendant Required: No Beliefs That Will Affect Care: None Current Living Situation: Spouse Feels Safe at Home: Yes Safety Concerns: Feels Safe At This Time Assistive Devices: Hearing Aid - Bilateral Allergies Allergies Allergy/AdvReac Type Severity Reaction Status Date / Time No Known Allergies Allergy Verified 01/12/23 20:14 Home Meds Home Medications Medication Instructions Recorded Confirmed ascorbic acid (vitamin C) 500 mg 500 mg PO QAM 09/02/18 01/12/23 tablet (Vitamin C) omega-3 fatty acids-fish oil 360 1 cap PO QAM 09/02/18 01/12/23 mg-1,200 mg capsule (Fish Oil) cyanocobalamin (vitamin B-12) 1,000 mcg PO DAILY 01/12/23 01/12/23 1,000 mcg tablet (Vitamin B-12) donepezil 10 mg tablet 10 mg PO QDD 01/12/23 01/12/23 furosemide 20 mg tablet 20 mg PO Q3D 01/12/23 01/12/23 metoprolol succinate 25 mg 37.5 mg PO DAILY 01/12/23 01/12/23 tablet,extended release 24 hr aydfjvskzxoh-yxnygftc-hilxms tablet 1 tab PO DAILY 01/12/23 01/12/23 rosuvastatin 10 mg tablet 10 mg PO QDD 01/12/23 01/12/23 spironolactone 25 mg tablet 12.5 mg PO DAILY 01/12/23 01/12/23 Previous Rx's Medication Instructions Recorded dutasteride 0.5 mg capsule 0.5 mg PO DAILY #90 caps 09/05/21 Results & Data (ED) Vital Signs Vital Signs - 24 hr 01/12/23 18:36 01/12/23 18:39 01/12/23 18:40 Temperature 36.6 C Temperature Source Oral Pulse Rate 71 69 73 Pulse Rate from SpO2 Sensor 74 Respiratory Rate 18 19 Respiratory Depth Normal Blood Pressure 118/66 Blood Pressure Mean 83 Pulse Oximetry 96 96 Oxygen Delivery Method Room Air Sepsis New/Unexplained Change in Mental Status No Sepsis Action Taken by Nursing No Action Required 01/12/23 18:46 01/12/23 19:07 01/12/23 19:30 Temperature Temperature Source Pulse Rate 81 74 Pulse Rate from SpO2 Sensor Respiratory Rate 23 18 Respiratory Depth Blood Pressure Blood Pressure Mean Pulse Oximetry 99 97 97 Oxygen Delivery Method Room Air Room Air Sepsis New/Unexplained Change in Mental Status Sepsis Action Taken by Nursing 01/12/23 19:30 01/12/23 20:00 01/12/23 20:30 Temperature Temperature Source Pulse Rate 66 70 67 Pulse Rate from SpO2 Sensor 64 71 73 Respiratory Rate 14 22 20 Respiratory Depth Blood Pressure 117/70 110/65 Blood Pressure Mean 85 80 Pulse Oximetry 96 97 95 Oxygen Delivery Method Sepsis New/Unexplained Change in Mental Status Sepsis Action Taken by Nursing 01/12/23 21:00 01/12/23 21:30 01/12/23 21:38 Temperature Temperature Source Pulse Rate 76 72 72 Pulse Rate from SpO2 Sensor 73 72 67 Respiratory Rate 22 17 18 Respiratory Depth Blood Pressure 124/60 Blood Pressure Mean 81 Pulse Oximetry 96 96 96 Oxygen Delivery Method Sepsis New/Unexplained Change in Mental Status Sepsis Action Taken by Nursing 01/12/23 22:00 Temperature Temperature Source Pulse Rate 63 Pulse Rate from SpO2 Sensor 68 Respiratory Rate 18 Respiratory Depth Blood Pressure 104/57 L Blood Pressure Mean 72 Pulse Oximetry 97 Oxygen Delivery Method Sepsis New/Unexplained Change in Mental Status Sepsis Action Taken by Nursing Laboratory Data 01/12/23 18:43 01/12/23 18:43 Lab Results 01/12/23 01/12/23 Range/Units 18:43 18:47 WBC 5.54 (4.8-10.8) K/ul RBC 4.40 L (4.70-6.10) M/uL Hgb 14.0 (14.0-18.0) g/dl Hct 41.5 L (42.0-52.0) % MCV 94.3 (80.0-100.0) fL MCH 31.8 (25.0-34.0) pg MCHC 33.7 (32.0-36.0) g/dL RDW Std Deviation 42.4 (36.4-46.3) fL RDW Coeff of [place] 12.1 (11.5-14.5) % Plt Count 202 (130-400) K/uL MPV 10.0 (9.4-12.4) fL Immature Gran % (Auto) 0.2 % Neut % (Auto) 57.3 % Lymph % (Auto) 28.5 % [place] % (Auto) 7.9 % Eos % (Auto) 5.6 % Baso % (Auto) 0.5 % Neut # (Auto) 3.17 (1.40-6.50) K/uL Lymph # (Auto) 1.58 (1.20-3.40) K/uL [place] # (Auto) 0.44 (0.11-0.59) K/uL Eos # (Auto) 0.31 (0.00-0.50) K/uL Baso # (Auto) 0.03 (0.00-0.20) K/uL Immature Gran # (Auto) 0.01 (0.01-0.20) K/uL PT 21.2 H (9.0-12.0) Seconds INR 2.0 H (0.9-1.1) Sodium 138 (136-145) mmol/L Potassium 3.9 (3.5-5.1) mmol/L Chloride 105 (98-107) mmol/L Carbon Dioxide 22 (21-32) mmol/L Anion Gap 11 (3-11) BUN 15 (6-23) mg/dl Creatinine 0.99 (0.6-1.4) mg/dl Est Cr Clr Drug Dosing 50.2 ml/min Est GFR ( Amer) 78.5 ml/min Est GFR (Non-Af Amer) 67.7 ml/min BUN/Creatinine Ratio 15.2 (10-20) Glucose 113 H (70-99(Fasting)) mg/dl Estimat Average Glucose 111 mg/dl Hemoglobin A1c 5.5 (4.5-5.6) % Calcium 8.9 (8.6-10.3) mg/dl Magnesium 1.9 (1.7-2.4) mg/dl Total Bilirubin 0.4 (0.2-1.0) mg/dl AST 31 (13-39) U/L ALT 32 (7-52) U/L Alkaline Phosphatase 53 (34-104) U/L Troponin I High Sens 5.6 (0-20) pg/ml Total Protein 6.9 (6.0-8.3) gm/dl Albumin 3.9 (3.4-5.0) gm/dl Globulin 3.0 (2.5-4.0) gm/dl Albumin/Globulin Ratio 1.3 (0.9-2) TSH 2.316 (0.300-4.500) uIu/ml Ethyl Alcohol mg/dL 149.6 H (<10.0) mg/dl Administered Medications Discontinued Medications Aspirin (Aspirin 81 Mg Ectab) 81 mg PO NOW STA Stop: 01/13/23 00:01 Last Admin: 01/13/23 00:15 Dose: 81 mg Documented By: TESSA Potassium Chloride/Sodium Chloride (Normal Saline W/20 Meq Kcl) 20 meq in 1,000 mls @ 60 mls/hr IV .[id number] ONE; Protocol Stop: 01/13/23 13:37 Last Admin: 01/12/23 21:28 Dose: Not Given Documented By: ALEXANDER Magnesium Sulfate/Dextrose (Magnesium Sulfate / D5w) 1 gm in 100 mls @ 50 mls/hr IV ONE ONE Stop: 01/12/23 23:14 Last Infusion: 01/12/23 23:35 Dose: Infused Documented By: Admin: 01/12/23 21:27 Dose: 50 mls/hr Documented By: ALEXANDER Albumin Human (Albumin 25%) 12.5 gm in 50 mls @ 50 mls/hr IV ONE ONE Stop: 01/12/23 22:34 Last Infusion: 01/13/23 00:35 Dose: Infused Documented By: Admin: 01/12/23 23:35 Dose: 50 mls/hr Documented By: TESSA Warfarin Sodium (Warfarin Sod 1 Mg Tab) 1 mg PO NOW ONE Stop: 01/12/23 22:46 Last Admin: 01/12/23 23:34 Dose: 1 mg Documented By: TESSA Imaging Data Radiologist's Impression: Chest X-Ray 01/12/23 18:39 XR chest 1V portable CLINICAL HISTORY: Syncope. COMPARISON STUDY: Chest radiograph 07/30/2016. FINDINGS: Patient is rotated. Lung volumes are normal. Lungs are clear. There is no pneumothorax or pleural effusion. Cardiac size is normal. Mediastinal contours are normal. There is no evidence for pulmonary edema. IMPRESSION: No acute cardiopulmonary findings. ACT 112: Negative or not required by law. Electronically signed by: Mario Stokes M.D. 01/12/2023 7:[address] 01/12/23 18:40 CT OF THE HEAD WITHOUT CONTRAST CLINICAL HISTORY: Syncope. COMPARISON STUDY: Head CT August 15, 2016. CT DOSE: 625.8 mGy.cm TECHNIQUE: Helical axial images of the head were obtained without IV contrast. Automated exposure control was utilized for the study. A dose lowering technique was utilized adhering to the principles of ALARA. FINDINGS: No acute intracranial hemorrhage, midline shift or mass effect is present. White matter hypodensities favor small vessel disease. The ventricular system is unremarkable. The basal cisterns are patent. No extra-axial collections are present. There are no findings to suggest acute dural sinus thrombosis or acute territorial infarct. There are no acute calvarial fractures. Left maxillary sinus is nearly entirely opacified. Left anterior ethmoid sinuses are opacified. IMPRESSION: 1. No acute intracranial findings. 2. No acute calvarial fractures. 3. Sinus opacification, as above. ACT 112: Negative or not required by law. Electronically signed by: Mario Stokes M.D. 01/12/2023 7:08 PM Discharge Plan Visit Data Chief Complaint: Syncope ED Provider: Omer Schroeder Discharge Problem: Syncope and collapse Patient Disposition: Admitted As Inpatient Discharge Instructions Interventions: ED Discharge Assessment Last Done: 01/13/23 00:20
[2023-01-12 19:03] LABS: Basophils # (auto) 0.03 K/uL (0.00-0.20); Basophils % (auto) 0.5 %; Eosinophils # (auto) 0.31 K/uL (0.00-0.50); Eosinophils % (auto) 5.6 %; Hematocrit (blood only) 41.5 % (42.0-52.0); Immature Granulocytes # (auto) 0.01 K/uL (0.01-0.20); Immature Granulocytes % (auto) 0.2 %; Lymphocytes # (auto) 1.58 K/uL (1.20-3.40); Lymphocytes % (auto) 28.5 %; Mean Corpuscular Hemoglobin 31.8 pg (25.0-34.0); Mean Corpuscular Hgb Conc 33.7 g/dL (32.0-36.0); Mean Corpuscular Volume 94.3 fL (80.0-100.0); Monocytes # (auto) 0.44 K/uL (0.11-0.59); Monocytes % (auto) 7.9 %; Neutrophils # (auto) 3.17 K/uL (1.40-6.50); Neutrophils % (auto) 57.3 %; Platelet Count 202 K/uL (130-400); RDW Coefficient of Variation 12.1 % (11.5-14.5); RDW Standard Deviation 42.4 fL (36.4-46.3); White Blood Count 5.54 K/ul (4.8-10.8)
--- NOTE | 2023-01-12 19:10 | CT Scan Report ---
CT OF THE HEAD WITHOUT CONTRAST CLINICAL HISTORY: Syncope. COMPARISON STUDY: Head CT August 15, 2016. CT DOSE: 625.8 mGy.cm TECHNIQUE: Helical axial images of the head were obtained without IV contrast. Automated exposure con trol was utilized for the study. A dose lowering technique was utilized adhering to the principles o f ALARA. FINDINGS: No acute intracranial hemorrhage, midline shift or mass effect is present. White matter hyp odensities favor small vessel disease. The ventricular system is unremarkable. The basal cisterns are patent. No extra-axial collections are present. There are no findings to suggest acute dural sinus t hrombosis or acute territorial infarct. There are no acute calvarial fractures. Left maxillary sinus is nearly entirely opacified. Left anterior ethmoid sinuses are opacified. IMPRESSION: 1. No acute intracranial findings. 2. No acute calvarial fractures. 3. Sinus opacification, as above. ACT 112: Negative or not required by law. Electronically signed by: Mario Stokes M.D. 01/12/2023 7:08 PM
[2023-01-12 19:19] LABS: Albumin Globulin Ratio 1.3 (0.9-2); Albumin Level 3.9 gm/dl (3.4-5.0); BUN Creatinine Ratio 15.2 (10-20); Bilirubin,Total 0.4 mg/dl (0.2-1.0); Calcium 8.9 mg/dl (8.6-10.3); Creatinine Clr Calc Pharmacy 50.2 ml/min; Est GFR (African American) 78.5 ml/min; Est GFR (Non-African American) 67.7 ml/min; Magnesium 1.9 mg/dl (1.7-2.4); Potassium 3.9 mmol/L (3.5-5.1); Total Protein 6.9 gm/dl (6.0-8.3)
[2023-01-12 19:24] LABS: Prothrombin Time 21.2 Seconds (9.0-12.0)
[2023-01-12 19:25] LABS: Troponin I High Sensitivity 5.6 pg/ml (0-20)
--- NOTE | 2023-01-12 19:26 | XRay Report ---
XR chest 1V portable CLINICAL HISTORY: Syncope. COMPARISON STUDY: Chest radiograph 07/30/2016. FINDINGS: Patient is rotated. Lung volumes are normal. Lungs are clear. There is no pneumothorax or p leural effusion. Cardiac size is normal. Mediastinal contours are normal. There is no evidence for pu lmonary edema. IMPRESSION: No acute cardiopulmonary findings. ACT 112: Negative or not required by law. Electronically signed by: Mario Stokes M.D. 01/12/2023 7:24 PM
[2023-01-12 19:34] LABS: Thyroid Stimulating Hormone 2.316 uIu/ml (0.300-4.500)
[2023-01-12 20:31] LABS: Adenovirus PCR Not Detected (NotDetected); Bordetella parapertussis PCR Not Detected (NotDetected); Bordetella pertussis PCR Not Detected (NotDetected); Chlamydia pneumoniae PCR Not Detected (NotDetected); Coronavirus 229E PCR Not Detected (NotDetected); Coronavirus CoV-2 (COVID19)PCR Not Detected (NotDetected); Coronavirus HKU1 PCR Not Detected (NotDetected); Coronavirus NL63 PCR Not Detected (NotDetected); Coronavirus OC43PCR Not Detected (NotDetected); Human Metapneumovirus PCR Not Detected (NotDetected); Influenza A PCR Not Detected (NotDetected); Influenza B PCR Not Detected (NotDetected); Mycoplasma pneumoniae PCR Not Detected (NotDetected); Parainfluenza Virus 1 PCR Not Detected (NotDetected); Parainfluenza Virus 2 PCR Not Detected (NotDetected); Parainfluenza Virus 3 PCR Not Detected (NotDetected); Parainfluenza Virus 4 PCR Not Detected (NotDetected); Respiratory Syncytial VirusPCR Not Detected (NotDetected); Rhinovirus/Enterovirus PCR Not Detected (NotDetected)
[2023-01-12] MEDS ORDERED: NSS + 20MEQ KCL 20 MEQ/1,000 ML BAG IV ONE (20:58)
[2023-01-12] MEDS ORDERED: MAGNESIUM SULFATE / D5W 1 GM/100 ML BAG IV ONE (21:15)
[2023-01-12] MEDS ORDERED: ALBUMIN 25% 12.5 GM/50 ML VIAL IV ONE (21:35)
--- NOTE | 2023-01-12 22:01 | History & Physical Report ---
Date of Service January 12, 2023 Assessment & Plan (1) TIA (transient ischemic attack): Plan: ? Presenting as transient aphasia chronic diastolic heart failure (EF 60 to 64%, TTE 2021), patient euvolemic A-fib on Coumadin, rate controlled, INR therapeutic valvular heart disease (mild AR/MR, moderate TR) pulmonary hypertension Hypertension, BP stable Hyperlipidemia on statin Rxreactive airway disease as per records dementia, patient mentation back to baseline BPH/bladder cancer status post surgery, patient follows with [facility] Daily wine intake without abuse concerns as per family Hyperglycemia rule out DM OBS Medical telemetry Neurochecks Aspirin for secondary stroke prevention in addition to Coumadin for now MRI/MRA brain Additional stroke work-up and Neurology consultation contingent on MRI results Check hemoglobin A1c DVT prophylaxis. Coumadin INR goal between 2 and 3 Full code Patient requesting updates providers. Ms. Lianne Thompson, contact #[phone]. Text document was generated using WritePath voice recognition software. It may contain grammatical or spelling errors. Kindly contact undersigned for clarification of any documentation item in question. History of Present Illness Chief Complaint: I do not know as per patient Not talking for minutes as per family Primary Care Provider: Eulogio Garvin MD History obtained from patient, family, and records. Limited history from patient secondary to dementia. Medical history significant for chronic diastolic heart failure (EF 60 to 64%, TTE 2021), A-fib on Coumadin, valvular heart disease (mild AR/MR, moderate TR), pulmonary hypertension, hypertension, hyperlipidemia, reactive airway disease as per records, dementia, BPH, bladder cancer status post surgery, past tobacco abuse. Patient was at a local restaurant with family tonight when he was noted to have decreased responsiveness. Patient slumped to a chair but did not lose consciousness or pass out as per . Patient not talking a lot for minutes. Usual daily wine intake as per without concerns for abuse. No witnessed seizures or incontinence. No prior episodes. Patient brought to the ER for evaluation. Patient currently back to baseline as per . Patient has no recollection of events prior to ER transport. 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 Allergies Allergy/AdvReac Type Severity Reaction Status Date / Time No Known Allergies Allergy Verified 01/12/23 20:14 Home Medications Medication Instructions Recorded Confirmed Type ascorbic acid (vitamin C) 500 mg 500 mg PO QAM 09/02/18 01/12/23 History tablet (Vitamin C) omega-3 fatty acids-fish oil 360 1 cap PO QAM 09/02/18 01/12/23 History mg-1,200 mg capsule (Fish Oil) dutasteride 0.5 mg capsule 0.5 mg PO DAILY #90 caps 09/05/21 01/12/23 Rx cyanocobalamin (vitamin B-12) 1,000 mcg PO DAILY 01/12/23 01/12/23 History 1,000 mcg tablet (Vitamin B-12) donepezil 10 mg tablet 10 mg PO QDD 01/12/23 01/12/23 History furosemide 20 mg tablet 20 mg PO Q3D 01/12/23 01/12/23 History metoprolol succinate 25 mg 37.5 mg PO DAILY 01/12/23 01/12/23 History tablet,extended release 24 hr nekddmlwvqkl-vvulrtbw-sapits tablet 1 tab PO DAILY 01/12/23 01/12/23 History rosuvastatin 10 mg tablet 10 mg PO QDD 01/12/23 01/12/23 History spironolactone 25 mg tablet 12.5 mg PO DAILY 01/12/23 01/12/23 History Past Med/Surg History Medical History (Updated 01/12/23 @ 23:58 by Jer Maya MD) Cataract Hypertension Atrial fibrillation Surgical History History of bladder surgery CANCEROUS LESION REMOVED History of prostate surgery 2017 History of colonoscopy Hx of hernia repair X2 History of adenoidectomy History of tonsillectomy Family History (Updated 09/03/19 @ 11:19 by Jose Angel Paulson) Father Cancer Other Heart disease Hypertension Social History Smoking Status: Former smoker Second Hand Exposure: No; Do You Dip or Chew Tobacco: No; Hx Alcohol Use: Yes Alcohol type: wine Hx Substance Use: No Preferred Language: Swazi Communication Ability: Effective Wall Steamer Required: No Beliefs That Will Affect Care: None Current Living Situation: Spouse Feels Safe at Home: Yes Assistive Devices: Glasses and Hearing Aid - Bilateral Review of Systems Review of Systems: Could not be reliably obtained due to dementia Physical Exam Physical Exam: GENERAL: Demented, comfortable, pleasant, no respiratory distress SKIN: Normal color, warm HEENT: [place] palpebral conjunctivae, no ptosis, dry buccal mucosa NECK : Supple, no tenderness CHEST : CTA, no tenderness HEART : Irregular, systolic murmur ABDOMEN: Some distention, nontender EXTREMITIES : Minimal LE swelling, no LE tenderness, no other conspicuous deformities noted NEUROLOGIC : Demented, no facial asymmetry, no other gross focality Results & Data Results & Data Vital Signs (Past 12 Hours) Vital Signs Temp Pulse Resp BP Pulse Ox O2 Del Method 01/12/23 21:38 72 18 124/60 96 01/12/23 21:30 72 17 96 01/12/23 21:00 76 22 96 01/12/23 20:30 67 20 110/65 95 01/12/23 20:00 70 22 97 01/12/23 19:30 66 14 117/70 96 01/12/23 19:30 74 18 97 Room Air 01/12/23 19:07 81 23 97 01/12/23 18:46 99 Room Air 01/12/23 18:40 73 01/12/23 18:39 69 19 96 01/12/23 18:36 36.6 C 71 18 118/66 96 Room Air Laboratory Results Laboratory Results WBC 5.54 K/ul (4.8-10.8) 01/12/23 18:43 RBC 4.40 M/uL (4.70-6.10) L 01/12/23 18:43 Hgb 14.0 g/dl (14.0-18.0) 01/12/23 18:43 Hct 41.5 % (42.0-52.0) L 01/12/23 18:43 MCV 94.3 fL (80.0-100.0) 01/12/23 18:43 MCH 31.8 pg (25.0-34.0) 01/12/23 18:43 MCHC 33.7 g/dL (32.0-36.0) 01/12/23 18:43 RDW Std Deviation 42.4 fL (36.4-46.3) 01/12/23 18:43 RDW Coeff of [place] 12.1 % (11.5-14.5) 01/12/23 18:43 Plt Count 202 K/uL (130-400) 01/12/23 18:43 MPV 10.0 fL (9.4-12.4) 01/12/23 18:43 Immature Gran % (Auto) 0.2 % 01/12/23 18:43 Neut % (Auto) 57.3 % 01/12/23 18:43 Lymph % (Auto) 28.5 % 01/12/23 18:43 [place] % (Auto) 7.9 % 01/12/23 18:43 Eos % (Auto) 5.6 % 01/12/23 18:43 Baso % (Auto) 0.5 % 01/12/23 18:43 Neut # (Auto) 3.17 K/uL (1.40-6.50) 01/12/23 18:43 Lymph # (Auto) 1.58 K/uL (1.20-3.40) 01/12/23 18:43 [place] # (Auto) 0.44 K/uL (0.11-0.59) 01/12/23 18:43 Eos # (Auto) 0.31 K/uL (0.00-0.50) 01/12/23 18:43 Baso # (Auto) 0.03 K/uL (0.00-0.20) 01/12/23 18:43 Immature Gran # (Auto) 0.01 K/uL (0.01-0.20) 01/12/23 18:43 PT 21.2 Seconds (9.0-12.0) H 01/12/23 18:43 INR 2.0 (0.9-1.1) H 01/12/23 18:43 Sodium 138 mmol/L (136-145) 01/12/23 18:43 Potassium 3.9 mmol/L (3.5-5.1) 01/12/23 18:43 Chloride 105 mmol/L (98-107) 01/12/23 18:43 Carbon Dioxide 22 mmol/L (21-32) 01/12/23 18:43 Anion Gap 11 (3-11) 01/12/23 18:43 BUN 15 mg/dl (6-23) 01/12/23 18:43 Creatinine 0.99 mg/dl (0.6-1.4) 01/12/23 18:43 Est Cr Clr Drug Dosing 50.2 ml/min 01/12/23 18:43 Est GFR ( Amer) 78.5 ml/min 01/12/23 18:43 Est GFR (Non-Af Amer) 67.7 ml/min 01/12/23 18:43 BUN/Creatinine Ratio 15.2 (10-20) 01/12/23 18:43 Glucose 113 mg/dl (70-99(Fasting)) H 01/12/23 18:43 Calcium 8.9 mg/dl (8.6-10.3) 01/12/23 18:43 Magnesium 1.9 mg/dl (1.7-2.4) 01/12/23 18:43 Total Bilirubin 0.4 mg/dl (0.2-1.0) 01/12/23 18:43 AST 31 U/L (13-39) 01/12/23 18:43 ALT 32 U/L (7-52) 01/12/23 18:43 Alkaline Phosphatase 53 U/L (34-104) 01/12/23 18:43 Troponin I High Sens 5.6 pg/ml (0-20) 01/12/23 18:43 Total Protein 6.9 gm/dl (6.0-8.3) 01/12/23 18:43 Albumin 3.9 gm/dl (3.4-5.0) 01/12/23 18:43 Globulin 3.0 gm/dl (2.5-4.0) 01/12/23 18:43 Albumin/Globulin Ratio 1.3 (0.9-2) 01/12/23 18:43 TSH 2.316 uIu/ml (0.300-4.500) 01/12/23 18:43 Adenovirus (PCR) Not Detected (NotDetected) 01/12/23 Unknown B. pertussis DNA (PCR) Not Detected (NotDetected) 01/12/23 Unknown B.parapertussis DNA PCR Not Detected (NotDetected) 01/12/23 Unknown C. pneumoniae DNA (PCR) Not Detected (NotDetected) 01/12/23 Unknown Coronavirus OC43 (PCR) Not Detected (NotDetected) 01/12/23 Unknown Coronavirus HKU1 (PCR) Not Detected (NotDetected) 01/12/23 Unknown Coronavirus 229E (PCR) Not Detected (NotDetected) 01/12/23 Unknown SARS-CoV-2 (PCR) Not Detected (NotDetected) 01/12/23 Unknown Coronavirus NL63 (PCR) Not Detected (NotDetected) 01/12/23 Unknown Human Metapneumovir PCR Not Detected (NotDetected) 01/12/23 Unknown Influenza Type A (PCR) Not Detected (NotDetected) 01/12/23 Unknown Influenza Type B (PCR) Not Detected (NotDetected) 01/12/23 Unknown M. pneumoniae (PCR) Not Detected (NotDetected) 01/12/23 Unknown Parainfluenza 1 (PCR) Not Detected (NotDetected) 01/12/23 Unknown Parainfluenza 2 (PCR) Not Detected (NotDetected) 01/12/23 Unknown Parainfluenza 3 (PCR) Not Detected (NotDetected) 01/12/23 Unknown Parainfluenza 4 (PCR) Not Detected (NotDetected) 01/12/23 Unknown RSV (PCR) Not Detected (NotDetected) 01/12/23 Unknown Entero/Rhino (PCR) Not Detected (NotDetected) 01/12/23 Unknown Impressions Chest X-Ray 01/12/23 18:39 XR chest 1V portable CLINICAL HISTORY: Syncope. COMPARISON STUDY: Chest radiograph 07/30/2016. FINDINGS: Patient is rotated. Lung volumes are normal. Lungs are clear. There is no pneumothorax or pleural effusion. Cardiac size is normal. Mediastinal contours are normal. There is no evidence for pulmonary edema. IMPRESSION: No acute cardiopulmonary findings. ACT 112: Negative or not required by law. Electronically signed by: Mario Stokes M.D. 01/12/2023 7:[address] 01/12/23 18:40 CT OF THE HEAD WITHOUT CONTRAST CLINICAL HISTORY: Syncope. COMPARISON STUDY: Head CT August 15, 2016. CT DOSE: 625.8 mGy.cm TECHNIQUE: Helical axial images of the head were obtained without IV contrast. Automated exposure control was utilized for the study. A dose lowering technique was utilized adhering to the principles of ALARA. FINDINGS: No acute intracranial hemorrhage, midline shift or mass effect is present. White matter hypodensities favor small vessel disease. The ventricular system is unremarkable. The basal cisterns are patent. No extra-axial collections are present. There are no findings to suggest acute dural sinus thrombosis or acute territorial infarct. There are no acute calvarial fractures. Left maxillary sinus is nearly entirely opacified. Left anterior ethmoid sinuses are opacified. IMPRESSION: 1. No acute intracranial findings. 2. No acute calvarial fractures. 3. Sinus opacification, as above. ACT 112: Negative or not required by law. Electronically signed by: Mario Stokes M.D. 01/12/2023 7:08 PM Diagnostic Findings EKG as per my interpretation : Rate 60, A-fib, LAD, LAFB, incomplete RBBB, T wave abnormality septal leads
[2023-01-12 22:36] LABS: Estimated Average Glucose 111 mg/dl; Hemoglobin A1C 5.5 % (4.5-5.6)
[2023-01-12] MEDS ORDERED: WARFARIN SOD 1 MG TAB PO ONE (22:45)
[2023-01-13] MEDS ORDERED: ASPIRIN 81 MG ECTAB PO STA
[2023-01-13] MEDS ORDERED: PHARMACIST DISCHARGE MED REC CONSULT PRN (00:36)
[2023-01-13] MEDS ORDERED: ACETAMINOPHEN 325 MG TAB PO PRN (00:36)
[2023-01-13 06:25] LABS: Basophils # (auto) 0.03 K/uL (0.00-0.20); Basophils % (auto) 0.7 %; Eosinophils # (auto) 0.37 K/uL (0.00-0.50); Eosinophils % (auto) 8.1 %; Hematocrit (blood only) 37.7 % (42.0-52.0); Hemoglobin 12.8 g/dl (14.0-18.0); Immature Granulocytes # (auto) 0.01 K/uL (0.01-0.20); Immature Granulocytes % (auto) 0.2 %; Lymphocytes # (auto) 1.44 K/uL (1.20-3.40); Lymphocytes % (auto) 31.7 %; Mean Corpuscular Hemoglobin 31.7 pg (25.0-34.0); Mean Corpuscular Volume 93.3 fL (80.0-100.0); Mean Platelet Volume 10.1 fL (9.4-12.4); Monocytes # (auto) 0.39 K/uL (0.11-0.59); Monocytes % (auto) 8.6 %; Neutrophils % (auto) 50.7 %; Platelet Count 177 K/uL (130-400); RDW Coefficient of Variation 12.1 % (11.5-14.5); Red Blood Count 4.04 M/uL (4.70-6.10); White Blood Count 4.54 K/ul (4.8-10.8)
[2023-01-13 06:58] LABS: BUN Creatinine Ratio 16.5 (10-20); Calcium 8.4 mg/dl (8.6-10.3); Chol HDL Ratio 2.1 (0-5); Creatinine Clr Calc Pharmacy 52.4 ml/min; Est GFR (African American) 86.9 ml/min; Potassium 4.2 mmol/L (3.5-5.1)
[2023-01-13 07:20] LABS: INR 2.2 (0.9-1.1); Prothrombin Time 23.4 Seconds (9.0-12.0)
[2023-01-13] MEDS: FINASTERIDE 5 MG TAB PO SCH (09:25)
[2023-01-13] MEDS: METOPROLOL SUCC 25MG EXT REL TAB PO SCH (09:25)
[2023-01-13] MEDS: SPIRONOLACTONE 12.5 MG TAB PO SCH (09:25)
--- NOTE | 2023-01-13 10:59 | Magnetic Resonance Report ---
MRA OF THE INTRACRANIAL CIRCULATION WITHOUT CONTRAST CLINICAL HISTORY: Transient ischemic attack. COMPARISON STUDY: Head CT January 12, 2023. TECHNIQUE: Utilizing a 1.5 Fifi magnet and 3-D [id number]-zskcuw technique, unenhanced MRA of the intra cranial circulation was obtained. FINDINGS: The left maxillary sinus is opacified. There is also opacification of the left anterior eth moid air cells. These findings are better depicted on the MRI of the brain which will be reported sep arately. The bilateral M1, M2, A1 and A2 segment are patent. There is no intracranial aneurysm. No ve ssel occlusion is noted. Posterior circulation is intact. Left vertebral artery is dominant. IMPRESSION: Unremarkable MRA of the head. No vessel occlusion. No intracranial aneurysm. ACT 112: Negative or not required by law. Electronically signed by: Mario Stokes M.D. 01/13/2023 10:56 AM
--- NOTE | 2023-01-13 11:17 | Magnetic Resonance Report ---
MRI OF THE BRAIN WITHOUT CONTRAST CLINICAL HISTORY: Transient ischemic attack. COMPARISON STUDY: Head CT January 12, 2023. TECHNIQUE: Utilizing a 1.5 Fifi magnet and dedicated coil, multiplanar, multiecho imaging of the bra in was performed without IV contrast. FINDINGS: There are no foci of restricted diffusion to suggest acute infarct. No acute intracranial h emorrhage, midline shift or mass effect is present. There is moderate atrophy. White matter T2 hyperi ntense foci suggest moderate small vessel disease. Ventricular system is unremarkable. Basal cisterns are patent. There are no extra-axial collections. Flow-voids for the major intracranial vessels are present. No intracranial masses identified on unenhanced exam. Calvarial signal is normal. Left maxil julissa sinus is opacified. Left anterior ethmoid sinuses are opacified. IMPRESSION: 1. No acute intracranial findings. 2. Opacified left maxillary sinus and left anterior ethmoid air cells. ACT 112: Negative or not required by law. Electronically signed by: Mario Stokes M.D. 01/13/2023 11:15 AM
[2023-01-13 12:16] LABS: Appearance Urine Clear (Clear); Bilirubin Urine Negative (Negative); Blood Urine Negative (Negative); Color Urine Yellow; Glucose Urine UA Negative (Negative); Ketones Urine Trace (Negative); Leukocyte Esterase Urine Negative (Negative); Nitrite Urine Negative (Negative); Protein Urine Negative (Negative); Specific Gravity Urine 1.022 (1.000-1.030); Urobilinogen Urine Negative (Negative); pH Urine 6.5 (4.5-7.5)
--- NOTE | 2023-01-13 13:24 | Electrocardiogram Report ---
Test Reason : Blood Pressure : / mmHG Vent. Rate : 060 BPM Atrial Rate : 000 BPM P-R Int : 000 ms QRS Dur : 102 ms QT Int : 396 ms P-R-T Axes : 000 -44 019 degrees QTc Int : 396 ms Atrial fibrillation Left axis deviation Incomplete right bundle branch block Abnormal ECG No previous ECGs available Confirmed by Yunior Mascorro ([id number]) on 01/13/2023 1:23:48 PM Referred By: REFERRED SELF Confirmed By:Yunior Mascorro
--- NOTE | 2023-01-13 13:40 | Hospitalist Progress Note ---
Date of Service January 13, 2023 Assessment & Plan (1) TIA (transient ischemic attack): Plan: Presenting as transient aphasia Brain MRI, MRA: unrevealing Neurologist consulted- awaiting recommendations continue Coumadin r/o Arrhythmia none so far on panel monitor monitor closely check Echo chronic diastolic heart failure (EF 60 to 64%, TTE 2021) patient euvolemic on Lasix 20mg q3d, Spironolactone daily A-fib on Metoprolol on Coumadin, rate controlled, INR therapeutic valvular heart disease (mild AR/MR, moderate TR) pulmonary hypertension Hypertension, BP stable Hyperlipidemia on statin Rxreactive airway disease as per records dementia, patient mentation back to baseline BPH/bladder cancer status post surgery, patient follows with [facility] DVT prophylaxis. Coumadin INR goal between 2 and 3 Full code plan of care discussed with patient and his Lianne in detail and at length all questions answered they are understanding, agreeable, comfortable with the plan of care Admission and Anticipated Discharge Date Admission Date: January 12, 2023 Subjective ff up for episode of possible TIA, etc seen resting in bed, comfortable in good spirits Lianne visiting states he feels fine overall no recurrence of similar episode from yesterday no chest pain, dyspnea, palpitations, dizziness no neurologic symptoms Review of Systems Review of Systems: all noted and negative except for above Physical Exam Physical Exam: General- oriented x 3, not in distress, speaks in sentences with no effort or accessory muscle use Head- atraumatic Eyes- PERRL, EOMI, anicteric ENT- oropharynx clear Neck- supple, no JVD, no adenopathy, no thyromegaly; carotids +2/2, no bruits appreciated Lungs- clear to auscultation bilaterally, no rales/wheezes Heart- normal rate, irregularly irregular rhythm; no murmur, no gallop, no rub appreciated Abdomen- normal bowel sounds, nondistended, soft, nontender, no masses or hepatosplenomegaly Extremities- no pretibial edema, no calf tenderness; peripheral pulses intact Neuro- alert, oriented x 3; CN 2-12 grossly intact; motor 5/5 bilaterally;sensation 100% on all extremities; no other gross focal neurologic deficits Skin- warm & dry Results & Data Results & Data Vital Signs (Past 12 Hours) Vital Signs Temp Pulse Pulse Resp BP Pulse Ox O2 Del Method 01/13/23 11:11 36.5 C 65 18 137/80 97 Room Air 01/13/23 08:00 69 01/13/23 07:32 36.8 C 75 16 117/67 97 Room Air all noted and reviewed including below
[2023-01-13] MEDS ORDERED: WARFARIN SOD 2.5 MG TAB PO SCH (16:00)
[2023-01-13] MEDS ORDERED: DONEPEZIL HCL 10 MG TAB PO SCH (16:30)
[2023-01-13] MEDS ORDERED: ROSUVASTATIN CALCIUM 10 MG TAB PO SCH (16:30)
--- NOTE | 2023-01-13 17:20 | Neurology Consultation ---
Date of Consultation January 13, 2023 Assessment & Plan (1) TIA (transient ischemic attack): Suspect features of reported aphasia are consistent with TIA Recommend continue full anticoagulation, EKG-AFIB, ECHO without evidence of reduced EF Increase rosuvastatin dose to 40mg PO daily Continue to monitor neurological assessments Metabolic workup ongoing Therapy services to eval and tx VTE prophylaxis if not fully anticoagulated Telehealth Consultation Telehealth Information Telehealth Information: I performed this visit using a real-time telehealth connection between my location and the patients location ([facility]). After connecting through interactive tele-video, patient was identified by name and date of and/or wristband check.Patient (or authorized healthcare repres entative) was informed that this was a telemedicine visit and it was being conducted confidentially over secure lines. My office door was closed and no one else was present in the room with me.Patient (or authorized healthcare roofing sales representative) provided consent to proceed with the visit, expressed an understanding of privacy and security of the telemedicine visit, and gave permission to have a hospital roofing sales representative in the room in order to assist with the visit and to conduct portions of the visit, as needed. I informed the patient (or authorized healthcare roofing sales representative) that I reviewed their record and presented the opportunity for them to ask any questions regarding the visit today. The patient agreed to participate. History of Present Illness Reason for Consultation: Concern for sudden onset changes in mentation question possible TIA Requesting Physician: Dr. Rodriguez Attending Physician: Joni Rodriguez MD History of Present Illness Performed televideo consultation- patient having difficulty answering questions appropriately. Lianne at bedside helpful as historian. She describes patient as having significant dementia but all was normal/baseline yesterday awoke had no events throughout day and went out to dinner. She reports he ordered a [place] drink and had about half then when eating suddenly began to act differently and would not respond correctly to her. She denies any loss of consciousness but states he was unable to get up. He required help from the staff and patrons at the restaurant. She reports he will typically drink wine daily so the alcohol is not of a significant change from his typical daily routine. Concern for features of aphasia prompted stroke workup. He has undergone CT brain without contrast upon arrival revealing no acute process and MRI MRA which reveal no evidence of stroke of significant/flow limiting stenosis. Fortunately at this time she reports finding him "back to himself" back to his baseline. He is maintained on warfarin INR therapeutic. reports he dose not drive. Has seen a memory clinic at [facility] but is maintained on donepezil. She reports their son is a physician for [employer]. She also note patient recently has a tooth pulled but did not stop warfarin for this procedure. There is no report of blank staring or seizure like activity. No reported clinical signs of seizure. No report of loss of bowel or bladder. No evidence of tongue biting at this time. She denies recent illness or sick contacts. Patient is awake throughout interview and is able to follow simple commands yielding non lateralizing nonfocal neurological exam in terms of motor strength and coordination. When asked questions he will consistently look to Lianne for answers. He is able to smile and interact with friendly appropriate affect. Waldo pain. Lianne would like patient to take daily ASA. She reports no concern for risk of falls as I mentioned he should remain on full anticoagulation for his history of AFIB. She is able to verbalize understanding of risk/benefits of additional antiplatelet medication. Recommend EC coated 81mg and increase dose of rosuvastatin to 40mg. Allergies Allergy/AdvReac Type Severity Reaction Status Date / Time No Known Allergies Allergy Verified 01/12/23 20:14 Home Medications Medication Instructions Recorded Confirmed Type ascorbic acid (vitamin C) 500 mg 500 mg PO QAM 09/02/18 01/12/23 History tablet (Vitamin C) omega-3 fatty acids-fish oil 360 1 cap PO QAM 09/02/18 01/12/23 History mg-1,200 mg capsule (Fish Oil) dutasteride 0.5 mg capsule 0.5 mg PO DAILY #90 caps 09/05/21 01/12/23 Rx cyanocobalamin (vitamin B-12) 1,000 mcg PO DAILY 01/12/23 01/12/23 History 1,000 mcg tablet (Vitamin B-12) donepezil 10 mg tablet 10 mg PO QDD 01/12/23 01/12/23 History furosemide 20 mg tablet 20 mg PO Q3D 01/12/23 01/12/23 History metoprolol succinate 25 mg 37.5 mg PO DAILY 01/12/23 01/12/23 History tablet,extended release 24 hr tsbckceopbaa-aczptwhx-iabsbs tablet 1 tab PO DAILY 01/12/23 01/12/23 History rosuvastatin 10 mg tablet 10 mg PO QDD 01/12/23 01/12/23 History spironolactone 25 mg tablet 12.5 mg PO DAILY 01/12/23 01/12/23 History Patient History Medical History (Updated 01/12/23 @ 23:58 by Jer Maya MD) Cataract Hypertension Atrial fibrillation Surgical History History of bladder surgery CANCEROUS LESION REMOVED History of prostate surgery 2017 History of colonoscopy Hx of hernia repair X2 History of adenoidectomy History of tonsillectomy Family History (Updated 09/03/19 @ 11:19 by Jose Angel Paulson) Father Cancer Other Heart disease Hypertension Social History Smoking Status: Former smoker Second Hand Exposure: No; Do You Dip or Chew Tobacco: No; Hx Alcohol Use: Yes Alcohol type: wine Hx Substance Use: No Preferred Language: Bermudian Communication Ability: Impaired Communication Ability Comment: [facility] Rn Case Management Required: No Beliefs That Will Affect Care: None Current Living Situation: Spouse Feels Safe at Home: Yes Safety Concerns: Feels Safe At This Time Assistive Devices: Hearing Aid - Bilateral Physical Exam Neurological Examination: Mental Status: Awake Fluency slowed Has difficulty with answering orientation questions He will follow simple commands consistently. Affect remains appropriate. CN testing: I: Denies changes in ability to smell II:Reports no changes in visual acuity III/IV/: No evidence of gaze preference, hippus, nystagmus or roving eye movements V: Facial sensation reportedly grossly intact to light touch bilaterally VII: Facial movements appear without evidence of asymmetry VIII: Hearing appears grossly intact to loud voice bilaterally IX/X: Palate is unable to be accurately visualized XI: Shoulder shrug appears symmetric/ grossly intact bilaterally XII: Tongue protrudes midline without evidence of biting Motor exam: Strength appears grossly intact/symmetric in all extremities Sensory: Sensation is reportedly grossly intact throughout Coordination: Finger to nose and heel to smith were intact. No apparent evidence of dysmetria or dysdiadochokinesia Reflexes: Deferred Gait: Deferred Results & Data Vital Signs (Past 12 Hours) Vital Signs Temp Pulse Pulse Resp BP Pulse Ox O2 Del Method 01/13/23 16:00 74 01/13/23 11:11 36.5 C 65 18 137/80 97 Room Air 01/13/23 08:00 69 01/13/23 07:32 36.8 C 75 16 117/67 97 Room Air Laboratory Results Abnormal lab results 01/12/23 01/12/23 01/13/23 Range/Units 18:43 18:47 05:39 WBC 4.54 L (4.8-10.8) K/ul RBC 4.40 L 4.04 L (4.70-6.10) M/uL Hgb 12.8 L (14.0-18.0) g/dl Hct 41.5 L 37.7 L (42.0-52.0) % PT 21.2 H 23.4 H (9.0-12.0) Seconds INR 2.0 H 2.2 H (0.9-1.1) Chloride 108 H (98-107) mmol/L Glucose 113 H (70-99(Fasting)) mg/dl Calcium 8.4 L (8.6-10.3) mg/dl Urine Ketones (Negative) Ethyl Alcohol mg/dL 149.6 H (<10.0) mg/dl 01/13/23 Range/Units Unknown WBC (4.8-10.8) K/ul RBC (4.70-6.10) M/uL Hgb (14.0-18.0) g/dl Hct (42.0-52.0) % PT (9.0-12.0) Seconds INR (0.9-1.1) Chloride (98-107) mmol/L Glucose (70-99(Fasting)) mg/dl Calcium (8.6-10.3) mg/dl Urine Ketones Trace H (Negative) Ethyl Alcohol mg/dL (<10.0) mg/dl Diagnostic Findings Chest X-Ray 01/12/23 18:39 XR chest 1V portable CLINICAL HISTORY: Syncope. COMPARISON STUDY: Chest radiograph 07/30/2016. FINDINGS: Patient is rotated. Lung volumes are normal. Lungs are clear. There is no pneumothorax or pleural effusion. Cardiac size is normal. Mediastinal contours are normal. There is no evidence for pulmonary edema. IMPRESSION: No acute cardiopulmonary findings. ACT 112: Negative or not required by law. Electronically signed by: Mario Stokes M.D. 01/12/2023 7:[address] 01/12/23 18:40 CT OF THE HEAD WITHOUT CONTRAST CLINICAL HISTORY: Syncope. COMPARISON STUDY: Head CT August 15, 2016. CT DOSE: 625.8 mGy.cm TECHNIQUE: Helical axial images of the head were obtained without IV contrast. Automated exposure control was utilized for the study. A dose lowering technique was utilized adhering to the principles of ALARA. FINDINGS: No acute intracranial hemorrhage, midline shift or mass effect is present. White matter hypodensities favor small vessel disease. The ventricular system is unremarkable. The basal cisterns are patent. No extra-axial collections are present. There are no findings to suggest acute dural sinus thrombosis or acute territorial infarct. There are no acute calvarial fractures. Left maxillary sinus is nearly entirely opacified. Left anterior ethmoid sinuses are opacified. IMPRESSION: 1. No acute intracranial findings. 2. No acute calvarial fractures. 3. Sinus opacification, as above. ACT 112: Negative or not required by law. Electronically signed by: Mario Stokes M.D. 01/12/2023 7:08 PM Brain MRI 01/13/23 00:36 MRI OF THE BRAIN WITHOUT CONTRAST CLINICAL HISTORY: Transient ischemic attack. COMPARISON STUDY: Head CT January 12, 2023. TECHNIQUE: Utilizing a 1.5 Fifi magnet and dedicated coil, multiplanar, multiecho imaging of the brain was performed without IV contrast. FINDINGS: There are no foci of restricted diffusion to suggest acute infarct. No acute intracranial hemorrhage, midline shift or mass effect is present. There is moderate atrophy. White matter T2 hyperintense foci suggest moderate small vessel disease. Ventricular system is unremarkable. Basal cisterns are patent. There are no extra-axial collections. Flow-voids for the major intracranial vessels are present. No intracranial masses identified on unenhanced exam. Calvarial signal is normal. Left maxillary sinus is opacified. Left anterior ethmoid sinuses are opacified. IMPRESSION: 1. No acute intracranial findings. 2. Opacified left maxillary sinus and left anterior ethmoid air cells. ACT 112: Negative or not required by law. Electronically signed by: Mario Stokes M.D. 01/13/2023 11:15 AM Head MRA 01/13/23 00:36 MRA OF THE INTRACRANIAL CIRCULATION WITHOUT CONTRAST CLINICAL HISTORY: Transient ischemic attack. COMPARISON STUDY: Head CT January 12, 2023. TECHNIQUE: Utilizing a 1.5 Ffii magnet and 3-D thso-sd-saccbo technique, unenhanced MRA of the intracranial circulation was obtained. FINDINGS: The left maxillary sinus is opacified. There is also opacification of the left anterior ethmoid air cells. These findings are better depicted on the MRI of the brain which will be reported separately. The bilateral M1, M2, A1 and A2 segment are patent. There is no intracranial aneurysm. No vessel occlusion is noted. Posterior circulation is intact. Left vertebral artery is dominant. IMPRESSION: Unremarkable MRA of the head. No vessel occlusion. No intracranial aneurysm. ACT 112: Negative or not required by law. Electronically signed by: Mario Stokes M.D. 01/13/2023 10:56 AM Medications Administered Home Medications Medication Instructions Recorded Confirmed Last Taken ascorbic acid (vitamin C) 500 mg 500 mg PO QAM 09/02/18 01/12/23 01/12/23 tablet (Vitamin C) omega-3 fatty acids-fish oil 360 1 cap PO QAM 09/02/18 01/12/23 01/12/23 mg-1,200 mg capsule (Fish Oil) dutasteride 0.5 mg capsule 0.5 mg PO DAILY #90 caps 09/05/21 01/12/23 01/12/23 cyanocobalamin (vitamin B-12) 1,000 mcg PO DAILY 01/12/23 01/12/23 01/12/23 1,000 mcg tablet (Vitamin B-12) donepezil 10 mg tablet 10 mg PO QDD 01/12/23 01/12/23 01/11/23 furosemide 20 mg tablet 20 mg PO Q3D 01/12/23 01/12/23 Unknown metoprolol succinate 25 mg 37.5 mg PO DAILY 01/12/23 01/12/23 01/12/23 tablet,extended release 24 hr fvqugnjeljov-irjhkbot-eafxkt tablet 1 tab PO DAILY 01/12/23 01/12/23 01/12/23 rosuvastatin 10 mg tablet 10 mg PO QDD 01/12/23 01/12/23 01/11/23 spironolactone 25 mg tablet 12.5 mg PO DAILY 01/12/23 01/12/23 01/12/23 Active Medications Generic Name Dose Route Start Last Admin Trade Name Freq PRN Reason Stop Dose Admin Donepezil HCl 10 mg 01/13/23 16:30 01/13/23 16:10 Donepezil Hcl 10 Mg Tab PO 02/12/23 16:29 10 mg QDD THUY Administration Finasteride 5 mg 01/13/23 09:00 01/13/23 09:25 Finasteride 5 Mg Tab PO 02/12/23 08:59 5 mg DAILY THUY Administration Metoprolol Succinate 37.5 mg 01/13/23 09:00 01/13/23 09:25 Metoprolol Succ 25mg Ext Rel Tab PO 02/12/23 08:59 37.5 mg DAILY THUY Administration Rosuvastatin Calcium 10 mg 01/13/23 16:30 01/13/23 16:10 Rosuvastatin Calcium 10 Mg Tab PO 02/12/23 16:29 10 mg QDD THUY Administration Spironolactone 12.5 mg 01/13/23 09:00 01/13/23 09:25 Spironolactone 12.5 Mg Tab PO 02/12/23 08:59 12.5 mg DAILY THUY Administration Warfarin Sodium 2.5 mg 01/13/23 16:00 01/13/23 16:10 Warfarin Sod 2.5 Mg Tab PO 02/12/23 15:59 2.5 mg [id number]@1600 THUY Administration
[2023-01-14 07:46] LABS: Basophils # (auto) 0.02 K/uL (0.00-0.20); Basophils % (auto) 0.5 %; Eosinophils # (auto) 0.37 K/uL (0.00-0.50); Eosinophils % (auto) 8.8 %; Hematocrit (blood only) 39.8 % (42.0-52.0); Hemoglobin 13.2 g/dl (14.0-18.0); Immature Granulocytes # (auto) 0.01 K/uL (0.01-0.20); Immature Granulocytes % (auto) 0.2 %; Lymphocytes # (auto) 1.26 K/uL (1.20-3.40); Lymphocytes % (auto) 29.9 %; Mean Corpuscular Hemoglobin 31.4 pg (25.0-34.0); Mean Corpuscular Hgb Conc 33.2 g/dL (32.0-36.0); Mean Corpuscular Volume 94.5 fL (80.0-100.0); Mean Platelet Volume 10.1 fL (9.4-12.4); Monocytes # (auto) 0.39 K/uL (0.11-0.59); Monocytes % (auto) 9.3 %; Neutrophils # (auto) 2.16 K/uL (1.40-6.50); Neutrophils % (auto) 51.3 %; Platelet Count 172 K/uL (130-400); RDW Coefficient of Variation 12.3 % (11.5-14.5); RDW Standard Deviation 42.6 fL (36.4-46.3); Red Blood Count 4.21 M/uL (4.70-6.10); White Blood Count 4.21 K/ul (4.8-10.8)
[2023-01-14 07:56] LABS: BUN Creatinine Ratio 14.3 (10-20); Calcium 8.8 mg/dl (8.6-10.3); Creatinine Clr Calc Pharmacy 47.8 ml/min; Est GFR (African American) 79.5 ml/min; Est GFR (Non-African American) 68.6 ml/min; Potassium 4.3 mmol/L (3.5-5.1)
[2023-01-14 08:03] LABS: INR 2.2 (0.9-1.1); Prothrombin Time 23.3 Seconds (9.0-12.0)
[2023-01-14] MEDS: FINASTERIDE 5 MG TAB PO SCH (08:39)
[2023-01-14] MEDS: METOPROLOL SUCC 25MG EXT REL TAB PO SCH (08:39)
[2023-01-14] MEDS: SPIRONOLACTONE 12.5 MG TAB PO SCH (08:39)
[2023-01-14] MEDS ORDERED: ASPIRIN 81 MG ECTAB PO SCH (09:00)
--- NOTE | 2023-01-14 10:34 | Hospitalist Progress Note ---
Date of Service January 14, 2023 Assessment & Plan (1) TIA (transient ischemic attack): Plan: Presenting as transient aphasia Brain MRI, MRA: unrevealing Neurologist consulted-recommend aspirin 81 mg p.o. daily, increasing rosuvastatin to 40 mg daily continue Coumadin Remain in atrial fibrillation, rate controlled on telemetry Echo: Mild concentric LVH, left ventricular wall motion is normal, EF 55 to 60%, no significant aortic valvular stenosis, moderate tricuspid regurgitation Negative for orthostasis chronic diastolic heart failure (EF 60 to 64%, TTE 2021) patient euvolemic on Lasix 20mg q3d, Spironolactone daily A-fib on Metoprolol on Coumadin, rate controlled, INR therapeutic valvular heart disease (mild AR/MR, moderate TR) pulmonary hypertension Hypertension, BP stable Hyperlipidemia on statin Rx reactive airway disease as per records dementia, patient mentation back to baseline BPH/bladder cancer status post surgery, patient follows with [facility] Urology DVT prophylaxis. Coumadin INR goal between 2 and 3 Full code plan of care discussed with patient and his Lianne in detail and at length all questions answered they are understanding, agreeable, comfortable with the plan of care Discharge to Home Follow-up primary care physician 1 week Admission and Anticipated Discharge Date Admission Date: January 13, 2023 Subjective Follow-up for possible TIA, etc. Seen resting in bed, comfortable, not in distress Patient is awake and alert, in good spirits States he feels fine overall Denies neurologic symptoms no chest pain, dyspnea, palpitations, dizziness No recurrence of symptoms No other new symptoms States he is ready for discharge today Patient's at the bedside also visiting Review of Systems Review of Systems: all noted and negative except for above Physical Exam Physical Exam: General- oriented x 3, not in distress, speaks in sentences with no effort or accessory muscle use Eyes- anicteric Neck- no JVD Lungs- clear breath sounds bilaterally, no rales/wheezes Heart- normal rate, regular rhythm; no murmurs Abdomen- normal bowel sounds, nondistended, soft, nontender Extremities- no pretibial edema, no calf tenderness Neuro- alert, oriented x 3; no gross focal neurologic deficits Skin- warm & dry Results & Data Results & Data Vital Signs (Past 12 Hours) Vital Signs Temp Pulse Pulse Pulse Resp BP Pulse Ox 01/14/23 07:40 36.5 C 59 L 16 110/60 98 12/04/23 07:31 47 L 01/14/23 03:12 36.5 C 82 20 103/61 99 01/13/23 23:20 36.9 C 68 18 115/64 96 O2 Del Method 01/14/23 07:40 Room Air 01/14/23 07:31 01/14/23 03:12 Room Air 01/13/23 23:20 Room Air all noted and reviewed including below
[2023-01-14] MEDS ORDERED: STROKE PATIENT DISCHARGE STA (10:40)
--- NOTE | 2023-01-14 10:43 | Pharmacy Report ---
- Date of Service January 14, 2023 - Pharmacy CVA/TIA Medication Review Medications to Prevent Stroke handout has been added to the patients discharge packet. Antiplatelet(s) * aspirin EC 81mg daily Cholesterol * High intensity statin: rosuvastatin 40 mg daily DVT Prophylaxis * on therapeutic anticoagulation Therapeutic Anticoagulation * Hx Afib/Aflutter noted, and patient is currently receiving warfarin INR goal between 2 and 3, INR therapeutic today. Type 2 Diabetes * Patient does not have T2DM
[2023-01-14] MEDS ORDERED: ROSUVASTATIN CALCIUM 20 MG TAB PO SCH (16:30)
--- NOTE | 2023-01-15 10:34 | Pharmacy Report ---
Pharmacist Stroke Counseling - Date of Service January 15, 2023 - Scope: Pharmacy has been consulted to provide medication discharge counseling for this patient admitted with transient ischemic attack as per the Pharmacist Discharge Counseling for Stroke Patients Protocol. - Medications on Discharge: Home Medications Medication Instructions Recorded Confirmed ascorbic acid (vitamin C) 500 mg 500 mg PO QAM 09/02/18 01/12/23 tablet (Vitamin C) omega-3 fatty acids-fish oil 360 1 cap PO QAM 09/02/18 01/12/23 mg-1,200 mg capsule (Fish Oil) cyanocobalamin (vitamin B-12) 1,000 mcg PO DAILY 01/12/23 01/12/23 1,000 mcg tablet (Vitamin B-12) donepezil 10 mg tablet 10 mg PO QDD 01/12/23 01/12/23 furosemide 20 mg tablet 20 mg PO Q3D 01/12/23 01/12/23 metoprolol succinate 25 mg 37.5 mg PO DAILY 01/12/23 01/12/23 tablet,extended release 24 hr rojtmqdpnisp-mbmwqboy-ajfmkt tablet 1 tab PO DAILY 01/12/23 01/12/23 spironolactone 25 mg tablet 12.5 mg PO DAILY 01/12/23 01/12/23 New Rx's Medication Instructions Recorded dutasteride 0.5 mg capsule 0.5 mg PO DAILY #90 caps 09/05/21 aspirin 81 mg tablet,delayed 81 mg PO DAILY 30 days #30 tabs 01/14/23 release rosuvastatin 20 mg tablet (Crestor) 40 mg (2 x 20 mg) PO QDD 30 days 01/14/23 #60 tabs warfarin 2.5 mg tablet 3.75 mg (1.5 x 2.5 mg) PO 01/14/23 TuThSa@1600 #30 tabs warfarin 2.5 mg tablet (Jantoven) 2.5 mg PO SuMoWeFr@1600 #30 tabs 01/14/23 - Action: The above medications, specifically ones for stroke treatment/prophylaxis, have been reviewed in detail with the patient and/or patient representatives via telephone within 72 hours of discharge. This includes indication, common adverse reactions, drug interactions, and medication administration. Medication counseling has been employed using the teach-back method to ensure understanding. - Outcome: The patient and/or patient representatives have demonstrated understanding of the medications. Additional comments: * Patient with advanced dementia, so counseling was done with , Lianne, who takes care of his medications. * She has used baby aspirin for years so very understanding of medication and side effects to be cautious of. Counseled to return to ER with any falls and questionable strikes to head. * Confirmed it is okay to use up Crestor 10 mg tabs for the 40 mg dose until go ne. * Discussed Coumadin dosing. Has follow up appointment with [facility] clinic on 02/01/23. Patient recently has had trouble with INR being > 4 a few times per and my review of [facility] records. Instructed to return to previously prescribed warfarin dosing per the coumadin clinic (2.5 mg MF and 1.25 mg rest of week). said discharge instructions showed to give dose at 4 pm. Explained this is our hospital protocol so if patient/her are more comfortable with morning dosing then fine to return to AM dosing. Thank you for allowing pharmacy to be involved in the care of this patient. Please call [phone] with any additional questions
[2023-01-15] MEDS ORDERED: WARFARIN SOD 1.25 MG TAB PO SCH (16:00)
== END 2023-01-14 11:16 | disposition home or self-care (01) | DRG 69 ==
LOC: 2N 18:27 → ED 18:27 → 2N 01-13 00:20

== ENCOUNTER 2023-05-20 06:29 | Inpatient (IN) ==
--- OUTSIDE RECORDS SUMMARY | 2023-05-20 06:35 | External Medical Summary | Summary of Care ---
Author Name Unknown Organization [facility] Address [address] [place] [address] Phone [phone] Care Team Providers Care Cloth Napping Supervisor Name Role Phone Eulogio Garvin MD Primary Care Provider + Reason for Visit * Reason Comments Outpatient Testing Encounter Details Date Type Department Care Team (Late st Contact Info) Description 02/26/2023 7:20 AM EST Laboratory Laboratory [facility] [address] [place] [phone] [facility] [address] [place] [address] Mild vascular dementia without behavioral disturbance, psychotic disturbance, mood disturbance, or anxiety (HCC); HTN, goal below 130/80; History of TIA (transient ischemic attack); Mixed hypertriglyceridemia; Decreased hemoglobin Allergies Active Allergy Reactions Criticality Noted Date Comments Environmental 11/09/2008 documented as of this encounter (statuses as of 02/26/2023) Medications Medication Sig Dispensed Refills Start Date End Date Status MULTIVITAMINS PO TABS one daily 0 02/25/19 08 Active VITAMIN C 500 MG PO TABS Take 1 Tablet by mouth in the morning. 0 Active omega-3 1000 MG CAPS Take by mouth 3 times a day. 0 Active Albuterol Sulfate HFA 108 (90 Base) MCG/ACT Inhalation Aerosol SolutionIndications:Mild intermittent reactive airway disease without complication Inhale by mouth 2 Puffs every 6 hours as needed for Cough, Shortness of Breath or Wheezing. 18 g 2 08/09/19 22 Active Loratadine 10 MG Oral Tablet (Claritin) Take 1 Tablet by mouth daily as needed for Rhinitis. 0 Active T.E.D. Below Knee/S-Regular Wear stockings during the day. Take off at night. Compression 20-30 mmHg 2 Each 1 12/15/19 22 Active Vitamin B Complex Oral Tablet Take 1 Tablet by mouth in the morning. 0 Active Furosemide 20 MG Oral Tablet (Lasix)Indications:HTN, goal below 130/80,Leg edema Take 1 Tablet by mouth once a day on Saturday, Saturday, and Saturday only. 40 Tablet 3 08/02/19 23 Active Dutasteride 0.5 MG Oral Capsule (Avodart)Indications:Shilpa vated prostate specific antigen (PSA) Take 1 Capsule by mouth every morning. 90 Capsule 3 08/02/19 23 Active Warfarin Sodium 2.5 MG Oral Tablet (Coumadin)Indications:Ch ronic atrial fibrillation (HCC) Take 1.5 tab by mouth Sunil Lanza, Sat. Take 1 tab by mouth all other days. Or as directed by the anticoagulation clinic. For afib 120 Tablet 3 08/02/19 23 Active Metoprolol Succinate ER 25 MG Oral Tablet Extended Release 24 Hour (Toprol XL) Take 1.5 Tablets by mouth in the morning. 1325 Tablet 3 12/13/19 23 Active Spironolactone 25 MG Oral Tablet (Aldactone) Take 0.5 Tablets by mouth in the morning. 50 Tablet 3 12/13/19 23 Active Aspirin 81 MG Oral Tablet Delayed Release Take 1 Tablet by mouth in the morning. 0 Active Thiamine HCl 100 MG Oral Tablet (vitamin B-1)Indications:Alcohol ingestion, 1-4 drinks per day Take 1 Tablet by mouth in the morning. 90 Tablet 1 01/26/20 23 Active Rosuvastatin Calcium 40 MG Oral Tablet (Crestor)Indications:His tory of TIA (transient ischemic attack),Mixed hypertriglyceridemia Take 1 Tablet by mouth in the morning. 90 Tablet 3 01/26/20 23 Active Donepezil HCl 10 MG Oral Tablet (Aricept) Take 1 Tablet by mouth in the morning. Take with largest meal of the day.. 90 Tablet 1 02/13/19 24 Active documented as of this encounter (statuses as of 02/26/2023) Active Problems Problem Noted Date Diagnosed Date History of TIA (transient ischemic attack) 01/25 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, psychotic disturbance, mood disturbance, or anxiety 08/01/2022 Bilateral leg edema 12/14/2021 Pulmonary hypertension 11/21/2021 Reactive airway disease 08/08/2021 Chronic atrial fibrillation 12/19/2018 History of bladder cancer 08/17/2016 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 HTN, goal below 130/80 12/05/2011 Anticoagulation management encounter 07/24/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 documented as of this encounter (statuses as of 02/26/2023) Immunizations Name Administration Dates Next Due COVID-19 mRNA, LNP-s, No Pre serve, 2-Dose Series (Moderna) 04/13/2021,12/12/2020,04/08/2020,03/11 COVID-19, MRNA-LNP, 23-24, P F, 30 MCG/0.3 mL, 12 YRS AND ABOVE, IM (PFIZER-Comirnaty) 11/01/2022 Covid-19, Mrna, Lnp-s, Pf, B ivalent, 30 Mcg, IM, 12 yrs and above (Pfizer) 10/23/2021 DTaP HIB - Dipth/Tet/Acell Pert/HIB 07/12/2004 H1N1 2009 Influenza, IM 02/02/2009 HEP A - Hepatitis A (Adult > 18 yrs) 08/18/2007, 02/25/2007 Pneumococcal Conjugate Vacc, 13 Valent (Prevnar) 06/20/2015 Pneumococcal Conjugate Vacci ne, 7 Valent 07/12/2005,01/11/2003 Pneumococcal Polysaccharide PPV23 (Pneumovax) 07/12/2005 Season Influenza, Quad, PF, Adjuvanted, 65+ Yrs, IM (FLUAD) 11/01/2021,10/16/2019 Seasonal Influenza, PF, 6 M & above, IM , (FluLaval or Fluzone) 11/01/2022,11/18/2017 Seasonal Influenza, Quadriva lent Hd (Fluzone Hd) 10/20/2020 Seasonal Influenza, Quadriva lent, No Preserve, IM 10/30/2016,12/08/2015,12/16/2014 Seasonal Influenza, Split, I IV3, With Preserve, Inj 12/10/2013,11/03/2012,11/06/2011,12/28,12/14/2009,10/19/2008,12/06/2007 ,11/11/2006 Seasonal Influenza, Trivalen t, Adjuvanted, 65+ yrs 11/12/2018 Seasonal Influenza, Trivalen t, High Dose, No Preserve, IM 11/01/2021 TD - Tetanus/Diptheria (ADULT) 05/12/2006,1994 TD, Preservative Free 05/12/2006,09/18/1994 TDAP (age 10 and older)(Boostrix) 03/09/2016 Varicella Zoster Vaccine (Adult) 04/11/2006 Zoster Vaccine Recombinant (Shingrix) 10/05/2018 ,08/05/2018,05/26/2018 documented as of this encounter Social History Tobacco Use Types Packs/Day Years Used Date Smoking Tobacco: Former Cigarettes Q uit: 02/11/1962 Smokeless Tobacco: Never Alcohol Use Standard Drinks/Week Comments Yes 11.7 (1 standard drink = 0.6 oz pure alcohol) wine- 2-3 glass a day PHQ-2 Answer Date Recorded PHQ Adult Total Score 0 01/22/2023 Hunger Vital Sign Answer Date Recorded Within the past 12 months, y ou worried that your food would run out before you got the money to buy more. Never true 01/23/20 23 Within the past 12 months, t he food you bought just didn't last and you didn't have money to get more. Never true 01/22/2023 Sex and Gender Information Value Date Recorded [...] Care Team (Late st Contact Info) Description 03/06/2023 4:40 PM EST Office Visit General Internal Medicine [facility] [address] [place] [address] [address] Eulogio Garvin MD [address] [facility] [place] [address] 03/07/2023 11:00 AM EST Anticoagulation Pharmacy, [facility] [place] [address] [address] Pharmacist1, [facility] [address] [place] [address] 03/11/2023 1:20 PM EST Office Visit Neurology [facility] [place] [address] [place] [address] Renae Gandara PA-C [address] [place] [address] 03/27/2023 4:20 PM EST Telemedicine Neurology, [facility]an Byrne [address] [place] [address] [place] [address] Poncho Wu MD [address] [place] [address] 05/23/2023 10:00 AM EDT Office Visit Neurology [facility] [place] [address] [place] [address] Renae Gandara PA-C [address] [place] [address] 06/13/2023 10:00 AM EDT Office Visit Cardiology, [facility] [address] [place] [address] Clara Fernandez, PABLO [address] [place] [place] [address] 06/18/2023 10:20 AM EDT Office Visit Neurology, [place] [address] [place] [address] Chuck Adame, [address] [place] [address] Pending Results Name Type Priority Associated Diagnoses Date /Time LIPID PANEL WITH DIRECT LDL IF TG IS HIGH Lab Routine Mild vascular dementia without behavioral disturbance, psychotic disturbance, mood disturbance, or anxiety (HCC) HTN, goal below 130/80 02/26/2023 7:24 AM EST HEPATIC FUNCTION PANEL Lab Routine Mild vascular dementia without behavioral disturbance, psychotic disturbance, mood disturbance, or anxiety (HCC) 02/26/2023 7:24 AM EST CBC WITH WBC DIFFERENTIAL Lab Routine Decreased hemoglobin 02/26/2023 7:24 AM EST CBC Lab Routine Decreased hemoglobin 02/26/2023 7:24 AM EST DIFFERENTIAL, AUTOMATED Lab Routine Decreased hemoglobin 02/26/2023 7:24 AM EST Health Maintenance Due Date Last Done Comments Depression Screening 01/23/2024 01/22/2023 Albumin/Creatinine Ratio 11/21/2024 11/21/2021, 11/11 DTaP,Tdap,and Td Vaccines (5 - Td or Tdap) 03/09/2026 03/09/2016, 05/12/2006, 05/12/2006, Additional history exists Pneumococcal Vaccine: 65+ Years Completed 06/20/2015, 07/12/2005 Zoster Vaccines Completed 10/05/2018, 07/13, 05/26/2018, Additional history exists COVID-19 Vaccine Completed 11/01/2022, 01/2022, 04/13/2021, Additional history exists Influenza Vaccine (FLU shot) Completed , 11/01/2021, 11/01/2021, Additional history exists GARDASIL-HPV IMMUNIZATION SERIES Aged Out No longer eligible based on patient's age to complete this topic Hepatitis B Aged Out No longer eligi ble based on patient's age to complete this topic MENINGOCOCCAL (MENACTRA/MENVEO) Aged Out No longer eligible based on patient's age to complete this topic documented as of this encounter Medical Devices Implanted Type Area Solar Sales Associate Device Identifier Shelf Expiration Date Model / Serial / Lot Mesh 3dmax 3.1x5.3in Rht Med - [id number] Implanted:Qty: 1 on 05/12/2018 by Jose Angel Parson MD at OR [facility] Right: Groin CR BARD : DAVOL 12/08/2022 [id number] / / [id number] Description:RIH repair documented as of this encounter Visit Diagnoses Diagnosis Mild vascular dementia without behavioral disturbance, psychotic disturbance, mood disturbance, or anxiety (HCC) HTN, goal below 130/80 Unspecified essential hypertension History of TIA (transient ischemic attack) Transient ischemic attack (TIA), 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 Healthcare Agents on File Name Relationship Healthcare Agent Relationship Communication Lianne Thompson Spouse First Alternate Health Care Agent (per Health Care Power of Pre Sales Architect document) Gee Romero MD Adult Child Second Alternat e Health Care Agent (per Health Care Power of Pre Sales Architect document) Care Teams Cloth Napping Supervisor Relationship Specialty Start Date End Date Eulogio Garvin MD 200 [place] [address] PCP - General Internal Medicine 11/30/20 documented as of this encounter
--- OUTSIDE RECORDS SUMMARY | 2023-05-20 06:35 | External Medical Summary | Summary of Care ---
Author Name Unknown Organization [facility] Address [address] [place] [address] Phone [phone] Care Team Providers Care Freezing Machine Operator Name Role Phone Eulogio Garvin MD Primary Care Provider + Reason for Visit * Reason Comments Dosage Adjustment In Person (Anticoag Cl inic) Encounter Details Date Type Department Care Team (Latest Contact Info) Description 04/10/2023 11:10 AM EST Anticoagulation Pharmacy, [facility] [address] [place] [address] Pharmacist1, [facility] [address] [place] [address] Chronic atrial fibrillation (HCC)*; Anticoagulation management encounter; senior care current use of anticoagulant therapy Allergies Active Allergy Reactions Criticality Noted Date Comments Environmental 11/09/2008 documented as of this encounter (statuses as of 04/10/2023) Medications Medication Sig Dispensed Refills Start Date [...] Wheezing. 18 g 2 08/09/19 22 Active T.E.D. 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 documented as of this encounter (statuses as of 04/10/2023) Immunizations Name Administration Dates Next Due COVID-19 [...] Progress Notes * Stanley Webb RPh - 04/10/2023 11:15 AM EST Medication Therapy Disease Management - Anticoagulation Geovanny Thompson 1935 Description (Takes at 7AM every day) Patient Findings Negatives: Signs/symptoms of thrombosis, Signs/symptoms of bleeding, Change in health, Change in alcohol use, Change in activity, Upcoming invasive procedure, Missed doses, Extra doses, Change in medications, Change in diet/appetite, Bruising INR Result As of 04/10/2023 INR goal: 2.0-3.0 INR used for dosin.9 (04/10/2023) Warfarin Plan As of 04/10/2023 Full warfarin instructions: 2.5 mg every Mon, Fri; 1.25 mg all other days No change documented: Stanley Webb RPh Next INR check: 05/07/2023 Repeat PT/INR in 4 week(s) Weekly dose: not changed Stanley Lincoln RPh, DIONNA, CDE Clinical Pharmacist Medication Therapy Management Clinic 04/10/2023 11:19 AM documented in this encounter Plan of Treatment Upcoming Encounters Date Type Department Care Team (Late st Contact Info) Description 05/07/2023 10:50 AM EDT Anticoagulation Pharmacy, [facility] [address] [address] Pharmacist1, [facility] [address] [place] [address] 05/23/2023 10:00 AM EDT Office Visit Neurology [facility] [address] [address] Renae Gandara PA-C [address] [address] 06/13/2023 10:00 AM EDT Office Visit Cardiology, [facility] [address] [place] [address] Clara Fernandez PA-C [address] [place] [address] 06/18/2023 10:20 AM EDT [facility] [address] [place] [phone] Chuck Adame, [address] [place] [address] 09/11/2023 10:00 AM EDT Office Visit General Internal Medicine [facility] 200 [facility] [place] [address] Eulogio Garvin MD 200 [facility] [place] [address] 09/11/2023 1:20 PM EDT Office Visit Neurology [facility] [address] [facility] [place] [address] Renae Gandara PA-C 200 [facility] [place] [address] Health Maintenance Due Date Last Done Comments [...] this encounter Medical Devices Implanted Type Area Cattle Care Worker Device Identifier Shelf Expiration Date Model / Serial / Lot Mesh 3dmax 3.1x5.3in t Med - [id number] Implanted:Qty: 1 on 05/12/2018 by Jose Angel Parson MD at OR [facility] Right: Groin CR BARD : DAVOL 12/08/2022 [id number] / / [id number] Description:RIH repair documented as of this encounter Procedures Procedure Name Priority Date/Time Associated Diagnosis Comments INR FINGERSTICK, POINT OF CARE STAT 04/10/2023 11:17 AM EST Chronic atrial fibrillation (HCC) 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 documented in this encounter Results * INR FINGERSTICK, POINT OF CARE (04/10/2023 11:17 AM EST) Fingerstick INR 2.9 INR 11:19 AM EST [facility] 56-02 Blood 04/10/2023 11:1 7 AM EST 04/10/2023 11:18 AM EST Narrative [facility] 56-02 - 04/10/2023 11:19 AM EST Therapeutic ranges for non-operative patients: Prophylaxsis/treatment of DVT: (Range:2.0-3.0) Treatment of pulmonary embolism:(Range:2.0-3.0) Prevention of systemic embolism from: -tissue heart valves -acute myocardial infarction -valvular heart disease -atrial fibrillation (Range: 2.0-3.0) Mechanical prosthetic valves: (Range: 2.5-3.5) Stanley Lincoln V [facility] POINT OF CARE TE ST DOCKED DEVICE UNSOLICITED RESULTS [facility] [address]- [address] [place] [address] documented in this encounter Visit Diagnoses Diagnosis Chronic atrial fibrillation (HCC)- Primary Atrial fibrillation Anticoagulation management encounter Encounter for therapeutic drug monitoring senior care current use of anticoagulant therapy documented in [...] Care Agent (per Health Care Power of Registered Mail Clerk document) Gee Romero MD Adult Child Second Alternat e Health Care Agent (per Health Care Power of Registered Mail Clerk document) Care Teams Freezing Machine Operator Relationship Specialty Start Date End Date Eulogio Garvin MD [address] [place] [address] PCP - General Internal Medicine 11/30/20 documented as of this encounter
--- OUTSIDE RECORDS SUMMARY | 2023-05-20 06:35 | External Medical Summary ---
Author Name Unknown Address Unknown Organization [id number][facility] [place] [place] [address] Laboratory Report Ordering Provider Test Date Status NAVI RUBIO V 03/07/2023 10:54:47 Final Therapeutic ranges for non-o perative patients:
Prophylaxsis/treatment of DVT: (Range:2.0-3.0)
Treatment of pulmonary embolism:(Range:2.0-3.0)
Prevention of systemic embolism from:
-tissue heart valves
-acute myocardial infarction
-valvular heart disease
-atrial fibrillation
(Range: 2.0-3.0)
Mechanical prosthetic valves: (Range: 2.5-3.5) Observation Date Value Abnormality Reference (Units ) Status INR in Capillary blood by Coagulation assay 03/07/2023 10:54:47 2.2 (INR) Final Performing Location [facility] [place] [address]
--- OUTSIDE RECORDS SUMMARY | 2023-05-20 06:35 | External Medical Summary | Summary of Care ---
Author Name Unknown Organization [facility] Address [address] [place] [address] Phone [phone] Care Team Providers Care Airborne Missions Systems Name Role Phone Eulogio Garvin MD Primary Care Provider + Reason for Visit * Reason Onset Date Comments Medication Refill 04/28/2023 Encounter Details Date Type Department Care Team (Late st Contact Info) Description 04/28/2023 Refill General Internal Medicine [facility] [address] [place] [address] Eulogio Garvin MD [address] [place] [address] History of TIA (transient ischemic attack); Mixed hypertriglyceridemia Allergies Active Allergy Reactions Criticality Noted Date Comments Environmental 11/09/2008 documented as of this encounter (statuses as of 04/29/2023) Medications Medication Sig Dispensed Refills Start Date [...] as of this encounter (statuses as of 04/29/2023) Active Problems Problem Noted Date Diagnosed Date History of TIA (transient ischemic attack) 01/25 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, psychotic disturbance, mood disturbance, or anxiety 08/01/2022 Bilateral leg edema 12/14/2021 Pulmonary hypertension 11/21/2021 Reactive airway disease 08/08/2021 Chronic atrial fibrillation 12/19/2018 History of bladder cancer 08/17/2016 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 HTN, goal below 130/80 12/05/2011 Anticoagulation management encounter 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 documented as of this encounter (statuses as of 04/29/2023) Immunizations Name Administration Dates Next Due COVID-19 [...] Description 05/07/2023 10:50 AM EDT Anticoagulation Pharmacy, [facility] [place] [address] [address] Pharmacist1, [facility] [address] [place] [address] [address] 05/23/2023 10:00 AM EDT Office Visit Neurology [facility] [place] [address] [place] [address] Renae Gandara PA-C [address] [address] 06/18/2023 10:20 AM EDT Office Visit Neurology, [facility] [address] [place] [phone] Chuck Adame [address] [place] [address] 06/24/2023 9:00 AM EDT Office Visit Cardiology, [facility] 132 [facility] [place] [place] [address] Clara Fernandez PA-C 132 [facility] [place] [place] [address] 09/11/2023 10:00 AM EDT Office Visit General Internal Medicine [facility] [place] [address] [place] [address] Eulogio Garvin MD [address] [address] 09/11/2023 1:20 PM EDT Office Visit Neurology [facility] [place] [address] [place] [address] Renae Gandara PA-C [address] [address] Health Maintenance Due Date Last Done Comments [...] this encounter Medical Devices Implanted Type Area Affirmative Action Officer Device Identifier Shelf Expiration Date Model / Serial / Lot Mesh 3dmax 3.1x5.3in t Med - [id number] Implanted:Qty: 1 on 05/12/2018 by Jose Angel Parson MD at OR 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 [address] PCP - General Internal Medicine 11/30/20 documented as of this encounter
--- OUTSIDE RECORDS SUMMARY | 2023-05-20 06:35 | External Medical Summary ---
Author Name Unknown Address Unknown Organization K09:[facility] [place] [address] Laboratory Report Ordering Provider Test Date Status NAVI RUBIO V 04/10/2023 11:17:59 Final Therapeutic ranges for non-o perative patients:
Prophylaxsis/treatment of DVT: (Range:2.0-3.0)
Treatment of pulmonary embolism:(Range:2.0-3.0)
Prevention of systemic embolism from:
-tissue heart valves
-acute myocardial infarction
-valvular heart disease
-atrial fibrillation
(Range: 2.0-3.0)
Mechanical prosthetic valves: (Range: 2.5-3.5) Observation Date Value Abnormality Reference (Units ) Status INR in Capillary blood by Coagulation assay 04/10/2023 11:17:59 2.9 (INR) Final Performing Location [facility] [place] [address]
--- OUTSIDE RECORDS SUMMARY | 2023-05-20 06:35 | External Medical Summary | Summary of Care ---
Author Name Unknown Organization [facility] Address [address] [place] [address] Phone [phone] Care Team Providers Care Software Design Engineer Name Role Phone Eulogio Garvin MD Primary Care Provider + Reason for Visit * Reason Comments Dosage Adjustment In Person (Anticoag Cl inic) Encounter Details Date Type Department Care Team (Latest Contact Info) Description 03/07/2023 11:00 AM EST Anticoagulation Pharmacy, [facility] [address] [place] [address] Pharmacist1, [facility] [address] [place] [address] Chronic atrial fibrillation (HCC)*; Anticoagulation management encounter; buttermaker helper current use of anticoagulant therapy Allergies Active Allergy Reactions Criticality Noted Date Comments Environmental 11/09/2008 documented as of this encounter (statuses as of 03/07/2023) Medications Medication Sig Dispensed Refills Start Date [...] Wheezing. 18 g 2 08/09/19 22 Active Additional Information Patient not taking.Reported on 03/06/2023 T.E.D. Below Knee/S-Regular Wear stockings during the day. Take off at night. 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 HTN, goal below 130/80 12/05/2011 Anticoagulation management encounter 07/24/2010 buttermaker helper current use of anticoagulant therapy 0 07/24/2010 Overview: ICD-10 update of inactive term Elevated prostate specific antigen (PSA) 009 BPH without obstruction/lower urinary tract symp toms 03/03/2008 documented as of this encounter (statuses as of 03/07/2023) Resolved Problems Problem Noted Date Diagnosed Date Resolved Date UNILAT INGUINAL HERNIA- LEFT 07/31/2010 06/12/2017 Atrial fibrillation 07/24/2010 12/20/19 19 Benign neoplasm of colon 03/03/2008 FAMILY HX-GI MALIGNANCY 08/21/200511/13 Overview: Colonoscopy 08/13/05--tubular adenomas --repeat 3-5 years. documented as of this encounter (statuses as of 03/07/2023) Immunizations Name Administration Dates Next Due COVID-19 [...] Progress Notes * Stanley Webb RPh - 03/07/2023 10:50 AM EST Medication Therapy Disease Management - Anticoagulation Geovanny Thompson 1935 Description (Takes at 7AM every day) Patient Findings Negatives: Signs/symptoms of thrombosis, Signs/symptoms of bleeding, Change in health, Change in alcohol use, Change in activity, Upcoming invasive procedure, Missed doses, Extra doses, Change in medications, Change in diet/appetite, Bruising INR Result As of 03/07/2023 INR goal: 2.0-3.0 INR used for dosin.2 (03/07/2023) Warfarin Plan As of 03/07/2023 Full warfarin instructions: 2.5 mg every Mon, Fri; 1.25 mg all other days No change documented: Stanley Webb RPh Next INR check: 04/10/2023 Repeat PT/INR in 5 week(s) Weekly dose: not changed Stanley Lincoln RPh, AMYP, CDE Clinical Pharmacist [facility] 03/07/2023 10:56 AM documented in this encounter Plan of Treatment Upcoming Encounters Date Type Department Care Team (Late st Contact Info) Description 03/11/2023 1:20 PM EST Office Visit Neurology [facility] Deb[facility] [place] [address] [facility] [place] [address] Renae Gandara PA-C [address] [place] [address] 03/27/2023 4:20 PM EST Telemedicine Neurology, [facility]ne [address] [place] [address] [place] [address] Poncho Wu MD [address] [place] [address] 04/10/2023 11:10 AM EST Anticoagulation Pharmacy, [facility] [address] [facility] [place] [address] Pharmacist1, [facility] [address] [place] [address] 05/23/2023 10:00 AM EDT Office Visit Neurology [facility] [place] [address] [facility] [place] [address] Renae Gandara PANavaC [address] [facility] [place] [address] 06/13/2023 10:00 AM EDT Office Visit Cardiology, [facility] [address] [facility] [place] [address] Clara Fernandez PANavaC [address] [facility] [place] [address] 06/18/2023 10:20 AM EDT Office Visit Neurology, [place] [address] [place] [id number] Chuck Adame, [address] [place], [place] [id number] 09/11/2023 10:00 AM EDT Office Visit General Internal Medicine [facility] [address] [facility] [place] [address] Eulogio Garvin MD [address] [facility] [place] [address] Health Maintenance Due Date Last Done Comments [...] this encounter Medical Devices Implanted Type Area Technical Writer And Editor Device Identifier Shelf Expiration Date Model / Serial / Lot Mesh 3dmax 3.1x5.3in Rht Med - [id number] Implanted:Qty: 1 on 05/12/2018 by Jose Angel Parson MD at OR [facility] Right: Groin CR BARD : DAVOL 12/08/2022 [id number] / / [id number] Description:RIH repair documented as of this encounter Procedures Procedure Name Priority Date/Time Associated Diagnosis Comments INR FINGERSTICK, POINT OF CARE STAT 03/07/2023 10:54 AM EST Chronic atrial fibrillation (HCC) Anticoagulation management encounter buttermaker helper current use of anticoagulant therapy documented in this encounter Results * INR FINGERSTICK, POINT OF CARE (03/07/2023 10:54 AM EST) Fingerstick INR 2.2 INR 10:56 AM EST [facility] 56-02 Blood 03/07/2023 10:5 4 AM EST 03/07/2023 10:56 AM EST [facility] [employer] [place] 56-02 - 03/07/2023 10:56 AM EST Therapeutic ranges for non-operative patients: Prophylaxsis/treatment of DVT: (Range:2.0-3.0) Treatment of pulmonary embolism:(Range:2.0-3.0) Prevention of systemic embolism from: -tissue heart valves -acute myocardial infarction -valvular heart disease -atrial fibrillation (Range: 2.0-3.0) Mechanical prosthetic valves: (Range: 2.5-3.5) Stanley Lincoln V, RPh LAB POINT OF CARE TE ST DOCKED DEVICE UNSOLICITED RESULTS [facility] 56-02 [address] [place] [address] documented in this encounter Visit Diagnoses Diagnosis Chronic atrial fibrillation (HCC)- Primary Atrial fibrillation Anticoagulation management encounter Encounter for therapeutic drug monitoring buttermaker helper current use of anticoagulant therapy documented [...] Care Agent (per Health Care Power of Data Management Specialist document) Gee Romero MD Adult Child Second Alternat e Health Care Agent (per Health Care Power of Data Management Specialist document) Care Teams Software Design Engineer Relationship Specialty Start Date End Date Eulogio Garvin MD [address] [place] [address] PCP - General Internal Medicine 11/30/20 documented as of this encounter
--- OUTSIDE RECORDS SUMMARY | 2023-05-20 06:35 | External Medical Summary | Summary of Care ---
Author Name Unknown Organization [facility] Address [address] [place] [address] Phone [phone] Care Team Providers Care Inclusion Internship Name Role Phone Eulogio Garvin MD Primary Care Provider + Reason for Visit * Reason Comments Dosage Adjustment In Person (Anticoag Cl inic) Encounter Details Date Type Department Care Team (Latest Contact Info) Description 05/07/2023 10:50 AM EDT Anticoagulation Pharmacy, [facility] [address] [place] [address] Pharmacist1, [facility] [address] [place] [address] Chronic atrial fibrillation (HCC)*; Anticoagulation management encounter; intermodal customer service current use of anticoagulant therapy Allergies Active Allergy Reactions Criticality Noted Date Comments Environmental 11/09/2008 documented as of this encounter (statuses as of 05/07/2023) Medications Medication Sig Dispensed Refills Start Date [...] as of this encounter (statuses as of 05/07/2023) Active Problems Problem Noted Date Diagnosed Date History of TIA (transient ischemic attack) 01/25 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, psychotic disturbance, mood disturbance, or anxiety 08/01/2022 Bilateral leg edema 12/14/2021 Pulmonary hypertension 11/21/2021 Reactive airway disease 08/08/2021 Chronic atrial fibrillation 12/19/2018 History of bladder cancer 08/17/2016 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 HTN, goal below 130/80 12/05/2011 Anticoagulation management encounter 07/24/2010 intermodal customer service current use of anticoagulant therapy 0 07/24/2010 Overview: ICD-10 update of inactive term Elevated prostate specific antigen (PSA) 009 BPH without obstruction/lower urinary tract symp toms 03/03/2008 documented as of this encounter (statuses as of 05/07/2023) Resolved Problems Problem Noted Date Diagnosed Date Resolved Date UNILAT INGUINAL HERNIA- LEFT 07/31/2010 06/12/2017 Atrial fibrillation 07/24/2010 12/20/19 19 Benign neoplasm of colon 03/03/2008 FAMILY HX-GI MALIGNANCY 08/21/200511/13 Overview: Colonoscopy 08/13/05--tubular adenomas --repeat 3-5 years. documented as of this encounter (statuses as of 05/07/2023) Immunizations Name Administration Dates Next Due COVID-19 [...] Progress Notes * Stanley Webb RPh - 05/07/2023 10:43 AM EDT Images from the original note were not included. Medication Therapy Disease Management - Anticoagulation Geovanny Thompson 1935 Description (Takes at 7AM every day) Patient Findings Negatives: Signs/symptoms of thrombosis, Signs/symptoms of bleeding, Change in health, Change in alcohol use, Change in activity, Upcoming invasive procedure, Missed doses, Extra doses, Change in medications, Change in diet/appetite, Bruising INR Result As of 05/07/2023 INR goal: 2.0-3.0 INR used for dosin.2 (05/07/2023) Warfarin Plan As of 05/07/2023 Full warfarin instructions: 05/07: Hold; Otherwise 2.5 mg every Mon, Fri; 1.25 mg all other days Next INR check: 06/06/2023 Repeat PT/INR in 4 week(s) Weekly dose: not changed Stanley Lincoln RPh, CACP, CDE Clinical Pharmacist Medication Therapy Management [facility] 05/07/2023 10:59 AM documented in this encounter Plan of Treatment Upcoming Encounters Date Type Department Care Team (Late st Contact Info) Description 05/23/2023 10:00 AM EDT Office Visit Neurology [facility] [place] [address] [place] [address] [address] Renae Gandara PA-C [address] [place] [address] [address] 06/06/2023 11:00 AM EDT Anticoagulation Pharmacy, [facility] Debby [place] [address] [facility] [place] [address] Pharmacist1, [facility] [address] [place] [address] [address] 06/18/2023 10:20 AM EDT Office Visit Neurology, [place] [address] [place] [address] WendiChuck, DO [address] [place] [address] 06/24/2023 9:00 AM EDT Office Visit Cardiology, [facility] [address] [place] [address] Clara Fernandez PA-C [address] [place] [address] 09/11/2023 10:00 AM EDT Office Visit General Internal Medicine [facility] 200 [facility] [place] [address] Eulogio Garvin MD 200 [facility] [place] [address] 09/11/2023 1:20 PM EDT Office Visit Neurology [facility] 200 [facility] [place] [address] Renae Gandara PA-C [address] [facility] [place] [address] Health Maintenance Due Date Last Done Comments [...] this encounter Medical Devices Implanted Type Area Paper Cup Handle Machine Operator Device Identifier Shelf Expiration Date Model / Serial / Lot Mesh 3dmax 3.1x5.3in Rht Med - [id number] Implanted:Qty: 1 on 05/12/2018 by Jose Angel Parson MD at OR [facility] Right: Groin CR BARD : DAVOL 12/08/2022 [id number] / / [id number] Description:RIH repair documented as of this encounter Procedures Procedure Name Priority Date/Time Associated Diagnosis Comments INR FINGERSTICK, POINT OF CARE STAT 05/07/2023 10:57 AM EDT Chronic atrial fibrillation (HCC) Anticoagulation management encounter intermodal customer service current use of anticoagulant therapy documented in this encounter Results * INR FINGERSTICK, POINT OF CARE (05/07/2023 10:57 AM EDT) Fingerstick INR 3.2 INR 10:58 AM EDT [facility] 56 Blood 05/07/2023 10:5 7 AM EDT 05/07/2023 10:58 AM EDT Narrative [facility] 56- - 05/07/2023 10:58 AM EDT Therapeutic ranges for non-operative patients: Prophylaxsis/treatment of DVT: (Range:2.0-3.0) Treatment of pulmonary embolism:(Range:2.0-3.0) Prevention of systemic embolism from: -tissue heart valves -acute myocardial infarction -valvular heart disease -atrial fibrillation (Range: 2.0-3.0) Mechanical prosthetic valves: (Range: 2.5-3.5) Stanley Lincoln V, RPh LAB POINT OF CARE TE ST DOCKED DEVICE UNSOLICITED RESULTS [facility] [address] [place] [address] documented in this encounter Visit Diagnoses Diagnosis Chronic atrial fibrillation (HCC)- Primary Atrial fibrillation Anticoagulation management encounter Encounter for therapeutic drug monitoring intermodal customer service current use of anticoagulant therapy documented in [...] Care Agent (per Health Care Power of Chemical Plant Manager document) Gee Romero MD Adult Child Second Alternat e Health Care Agent (per Health Care Power of Chemical Plant Manager document) Care Teams Inclusion Internship Relationship Specialty Start Date End Date Eulogio Garvin MD [address] [facility] [place] [address] PCP - General Internal Medicine 11/30/20 documented as of this encounter
--- OUTSIDE RECORDS SUMMARY | 2023-05-20 06:35 | External Medical Summary | Summary of Care ---
Author Name Unknown Organization [facility] Address [address] [place] [address] Phone [phone] Care Team Providers Care Shoe Shanker Name Role Phone Eulogio Garvin MD Primary Care Provider + Reason for Visit * Reason Comments Follow Up 6 month follow up. P atient denied any new concerns. Encounter Details Date Type Department Care Team (Late st Contact Info) Description 03/06/2023 4:40 PM EST Office Visit General Internal Medicine [facility] [address] [facility] [place] [address] Eulogio Garvin MD [address] [place] [address] Mild vascular dementia without behavioral disturbance, psychotic disturbance, mood disturbance, or anxiety (HCC)*; Chronic atrial fibrillation (HCC); Pulmonary hypertension (HCC); BPH without obstruction/lower urinary tract symptoms; Mixed hypertriglyceridemia; History of TIA (transient ischemic attack); Risk and functional assessment; HTN, goal below 130/80 Allergies Active Allergy Reactions Criticality Noted Date Comments Environmental 11/09/2008 documented as of this encounter (statuses as of 03/06/2023) Medications Medication Sig Dispensed Refills Start Date End Date Status MULTIVITAMINS PO TABS one daily 0 008 Active VITAMIN C 500 MG PO TABS Take 1 Tablet by mouth in the morning. 0 Active omega-3 1000 MG CAPS Take by mouth 3 times a day. 0 Active Albuterol Sulfate HFA 108 (90 Base) MCG/ACT Inhalation Aerosol SolutionIndications:Mil d intermittent reactive airway disease without complication Inhale by mouth 2 Puffs every 6 hours as needed for Cough, Shortness of Breath or Wheezing. 18 g 2 022 Active Additional Information Patient not taking.Reported on 03/06/2023 T.E.D. Below Knee/S-Regular Wear stockings during the day. Take off at night. Compression 20-30 mmHg 2 Each 1 022 Active Vitamin B Complex Oral Tablet Take 1 Tablet by mouth in the morning. 0 Active Furosemide 20 MG Oral Tablet (Lasix)Indications:HTN, goal below 130/80,Leg edema Take 1 Tablet by mouth once a day on Saturday, Saturday, and Saturday only. 40 Tablet 3 023 Active Dutasteride 0.5 MG Oral Capsule (Avodart)Indications:El evated prostate specific antigen (PSA) Take 1 Capsule by mouth every morning. 90 Capsule 3 023 Active Warfarin Sodium 2.5 MG Oral Tablet (Coumadin)Indications:C hronic atrial fibrillation (HCC) Take 1.5 tab by mouth Tues, Thur, Sat. Take 1 tab by mouth all other days. Or as directed by the anticoagulation clinic. For afib 120 Tablet 3 023 Active Metoprolol Succinate ER 25 MG Oral Tablet Extended Release 24 Hour (Toprol XL) Take 1.5 Tablets by mouth in the morning. 1325 Tablet 3 023 Active Spironolactone 25 MG Oral Tablet (Aldactone) Take 0.5 Tablets by mouth in the morning. 50 Tablet 3 023 Active Aspirin 81 MG Oral Tablet Delayed Release Take 1 Tablet by mouth in the morning. 0 Active Thiamine HCl 100 MG Oral Tablet (vitamin B-1)Indications:Alcohol ingestion, 1-4 drinks per day Take 1 Tablet by mouth in the morning. 90 Tablet 1 023 Active Rosuvastatin Calcium 40 MG Oral Tablet (Crestor)Indications:Hi story of TIA (transient ischemic attack),Mixed hypertriglyceridemia Take 1 Tablet by mouth in the morning. 90 Tablet 3 023 Active Donepezil HCl 10 MG Oral Tablet (Aricept) Take 1 Tablet by mouth in the morning. Take with largest meal of the day.. 90 Tablet 1 024 Active Loratadine 10 MG Oral Tablet (Claritin) Take 1 Tablet by mouth daily as needed for Rhinitis. 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 documented as of this encounter (statuses as of 03/06/2023) Immunizations Name Administration Dates Next Due COVID-19 mRNA, LNP-s, No Pre serve, 2-Dose Series (Moderna) 04/13/2021,12/12/2020,04/08/2020,03/11 COVID-19, MRNA-LNP, 23-24, P F, 30 MCG/0.3 mL, 12 YRS AND ABOVE, IM ([facility]) 11/01/2022 Covid-19, Mrna, Lnp-s, Pf, B ivalent, [...] Sign Reading Time Taken Comments Blood Pressure 118/62 03/06/2023 4:40 PM EST Pulse 73 03/06/2023 4:40 PM EST Temperature 36.5 C (97.7 F) 03/06/2023 4:40 PM ES T Respiratory Rate - - Oxygen Saturation 99% 03/06/2023 4:40 PM EST Inhaled Oxygen Concentration - - Weight 66 kg (145 lb 9.6 oz) 03/06/2023 4:40 PM EST Height 180.3 cm (5' 11") 03/06/2023 4:40 PM EST Body Mass Index 20.31 03/06/2023 4:40 PM EST documented in this encounter Patient Instructions * Patient Instructions* Mariluz Raya CMA - 03/06/2023 4:42 PM EST Patient Instructions - Fall Prevention (This education is for all patients over 65 regardless of symptoms) Remember to take your current medications as prescribed. In order to prevent falls, you are encouraged to: Exercise Utilize assistive/adaptive devices Avoid multifocal lenses when walking Avoid hazards in home Maintain a regular toileting schedule Any questions please contact our office. Preventing Falls in the Home (This education is for all patients over 65 regardless of symptoms) As you get older, falls are more likely. Thats because your reaction time slows. Your muscles and joints may also get stiffer, making them less flexible. Illness, medications, and vision changes can also affect your balance. A fall could leave you unable to live on your own. To make your home safer, follow these tips: Floors Put nonskid pads under area rugs Remove throw rugs Replace worn floor coverings Tack carpets firmly to each step on carpeted stairs. Put nonskid strips on the edges of uncarpeted stairs Keep floors and stairs free of clutter and cords Arrange furniture so there are clear pathways Clean up any spills right away Bathrooms Install grab bars in the tub or shower Apply nonskid strips or put a nonskid rubber mat in the tub or shower Sit on a bath chair to bathe Use bathmats with nonskid backing Lighting Keep a flashlight in each room Put a nightlight along the pathway between the bedroom and the bathroom Jimmy Patient Education Copyright 2008 - 2010 Jimmy except where otherwise noted Preventing Falls: Exercises to Improve Balance, Flexibility, Strength, and Staying Power (This education is for all patients over 65 regardless of symptoms) Certain types of exercises may help make you less likely to fall. Try the ones below. Or do other exercises that your healthcare provider suggests. Depending on your health, you may need to start slowly. Dont let that stop you. Even small amounts of exercise can help you. Be sure to talk to yourhealthcare provider before starting any exercise program. Improve Balance Many types of exercise can help improve balance. Perez chi and yoga are good examples. Heres another one to try. You can do it anytime and almost anywhere. Stand next to a counter or solid support. Push yourself up onto your tiptoes. Hold for 5 seconds. If you start to lose your balance, hold on to the counter. Rest and repeat 5 times. Work up to holding for 20 to 30 seconds, if you can. Increase Flexibility Being more flexible makes it easier for you to move around safely. Try exercises like the seated hamstring stretch. Sit in a chair and put one foot on a stool. Straighten your leg and reach with both hands down either side of your leg. Reach as far down your leg as you can. Hold for about 20 seconds. Go back to the starting position. Then repeat 5 times. Switch legs. Build Strength Resistance exercises help build strength. You can do them without equipment. Or you can use weights, elastic bands, or special machines. One such exercise is called the biceps curl. You can hold a 1 pound weight or even a can of soup. Do this exercise at least 3 times a week. Strive for everyday. Sit up straight in a chair. Keep your elbow close to your body and your wrist straight. Bend your arm, moving your hand up to your shoulder. Then slowly lower your arm. Repeat 5 times. Switch to the other arm. Build Your Staying Power Aerobic exercises make your heart and lungs stronger so you can keep moving longer. Walking and swimming are two of the best types of exercises you can do. Using a stationary bike is great, too. Find an aerobic exercise that you enjoy. Start slowly and build up. Even 5 minutes is helpful. Aimfor a goal of 30 minutes, at least 3 times a week. You dont have to do 30 minutes in one session. Break it up and walk a little throughout the day. More Helpful Tips Start easy. Slowly work up to doing more. Talk with your healthcare provider about the best exercises for you. Call senior centers or health clubs about exercise programs. If needed, have a family member watch you walk every so often to check your stability. Exercise with a friend. Choose an activity you both enjoy. Try exercises that you can do anytime, anywhere. Here are two examples. Have someone with you when you first try these: Practice walking by placing one foot right in front of the other. Stand up and sit down 10 times. Repeat this throughout the day. Jimmy Patient Education Copyright 2009 - 2010 Jimmy except where otherwise noted. Preventing Falls: Moving Safely Using a Cane or Walker (This education is for all patients over 65 regardless of symptoms) Keep the cane away from your feet so you dont trip. A walking aid, such as a cane or walker, can help you stay more independent and avoid falls. Remember to keep your walking aid within easy reach when youre in a chair or in bed. And learn how to use it safely so you dont injure yourself. Using a Cane If you have a stronger side, hold the cane on that side. Get your balance. Move the cane and your weaker leg forward. Support your weight on both the cane and your weaker side. Step with your stronger leg. Start again from step 1. If youre using a folding walker, be sure you know how to lock it open. Check that its locked open before each use. Using a Walker Roll the walker (or lift it, if youre using one without wheels) forward about 12 inches. Step forward with your weaker leg first. Use the walker to help keep your balance. Bring your other foot forward to the center of the walker. Start again from step 1. Helpful Tips Check with your healthcare provider about the right walking aid to use. Ask about a walker with a seat attached. Check the tips of your cane or walker to make sure they have nonskid covers. Move slowly from room to room. Dont morris. Sit down to get dressed. Use a shelai pack or backpack to keep your hands free. Get help for jobs that mean climbing, even on a stepstool. [employer] Patient Education Copyright 2008 - 2010 [employer] except where otherwise noted. Treating Urinary Incontinence in Men (This education is for all patients over 65 regardless of symptoms) You can't always control the release of urine. You may leak urine. Or you may not be able to hold your urine until you can get to a bathroom. This is called urinary incontinence. The problem can be managed. Talk to your doctor about your treatment options. Taking Medications Prescription medications may help you. They may: Help the sphincter to work better. (This is the muscle that closes to keep urine from leaking out of the bladder.) Help stop the bladder from zita too often to push urine out. Help the bladder muscles contract with more force. Help relax the sphincter muscle and allow urine to flow more freely. Making Changes to Your Routine Certain changes in your daily routine may help. These include: Avoiding caffeine and alcohol. Using timed voiding. This is following a schedule for drinking fluids and urinating. Doing Kegel exercises daily. These exercises involve tightening the muscles in your sphincter and around your bladder to help strengthen them. Your doctor can explain how to do them. Using a Catheter A catheter is a narrow tube that is inserted through the urethra into the bladder. It drains urine.A condom catheter covers the penis. It channels urine into a collection bag. It is worn most of thetime. Intermittent catheterization means inserting a catheter to drain the bladder, then removing it. This is done on a regular schedule. Having Surgery If other options don't work, surgery may be recommended. If surgery is an option, your healthcare provider can discuss it with you and explain its risks and benefits. Healing After Prostate Surgery Surgery on the prostate gland can cause incontinence. Most often, the incontinence is only for a short time. It clears up when healing is complete. Very rarely, prostate surgery can result in permanent incontinence. documented in this encounter Progress Notes * Eulogio Garvin MD - 03/06/2023 4:49 PM EST Chief Complaint Patient presents with Follow Up 6 month follow up. Patient denied any new concerns. SUBJECTIVE: Geovanny Thompson is a 87 year old male with PMH as below who presents for follow up dementia, atrial fib, htn no cp, sob, coleman. Memory stable, sees neurology, no further er visits or tia symptoms since last visit 01/2023. Tolerating statin fine. 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 omega-3 1000 MG CAPS Take by mouth 3 times a day. T.E.D. Below Knee/S-Regular Wear stockings during the [...] anticoagulation clinic. For afib 120 Tablet 3 Metoprolol Succinate ER 25 MG Oral Tablet Extended Release 24 Hour (Toprol XL) Take 1.5 Tablets by mouth in the morning. 1325 Tablet 3 Spironolactone 25 MG Oral Tablet (Aldactone) Take 0.5 Tablets by mouth in the morning. 50 Tablet 3 Aspirin 81 MG Oral Tablet Delayed Release Take 1 Tablet by mouth in the morning. Thiamine HCl 100 MG Oral Tablet (vitamin B-1) Take 1 Tablet by mouth in the morning. 90 Tablet 1 Rosuvastatin Calcium 40 MG Oral Tablet (Crestor) Take 1 Tablet by mouth in the morning. 90 Tablet 3 Donepezil HCl 10 MG Oral Tablet (Aricept) Take 1 Tablet by mouth in the morning. Take with largest meal of the day.. 90 Tablet 1 Albuterol Sulfate HFA 108 (90 Base) MCG/ACT Inhalation Aerosol Solution Inhale by mouth 2 Puffs every 6 hours as needed for Cough, Shortness of Breath or Wheezing. (Patient not taking: Reported on 03/06/2023) 18 g 2 No current facility-administered medications for this visit. Review of patient's allergies indicates: Allergen Reactions Environmental There are no preventive care reminders to display for this patient. ROS: CONSTITUTIONAL: No change in weight, No weakness, and No fevers, sweats, or chills EYE: No recent significant change in vision, No eye pain, redness, discharge, and No diplopia EARS: No ear pain, No drainage, No tinnitus or vertigo, and No recent change in hearing PULMONARY: No cough, sputum, or hemoptysis, No wheezing, No rales, No shortness of breath, and No recent change in breathing CARDIOVASCULAR: No chest pain, No shortness of breath, No dyspnea on exertion, No orthopnea, No paroxysmal nocturnal dyspnea, No edema, No palpitations, and No syncope GASTROINTESTINAL: No abdominal pain, No change in bowel habits, No significant heartburn, No significant change in appetite, No nausea, vomiting, diarrhea, or constipation, No hematemesis, No blood in stools or black tarry stools, No abdominal bloating or early satiety, and No dysphagia ALL OTHER SYSTEMS NEGATIVE I reviewed social, PMH, PSH, and family history and updated where needed. 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 Tobacco Use Smoking status: Former Types: Cigarettes Quit date: 02/11/1962 Years since quittin.1 Smokeless tobacco: Never Vaping Use Vaping Use: Never used Substance and Sexual Activity Alcohol use: Yes Alcohol/week: 11.7 standard drinks of alcohol Types: 14 5 oz of wine per week Comment: wine- 2-3 glass a day Drug use: No Sexual activity: Yes Other Topics Concern Not on file Social History Narrative Not on file Social Determinants of Health Financial Resource Strain: Not on file Food Insecurity: No Food Insecurity (01/22/2023) Hunger Vital Sign Worried About Running Out of Food in [...] psychotic disturbance, mood disturbance, or anxiety (HCC) 08/01/2022 Past Surgical History: Procedure Laterality Date COLONOSCOPY, DIAGNOSTIC (RECTUM) 10/01/2013 diverticulosis COLONOSCOPY, DIAGNOSTIC (RECTUM) 10/01/2013 COLONOSCOPY FLEXIBLE PROXIMAL DIAGNOSTIC performed by Yunior Hart MD at ENDOSCOPY [facility] COLONOSCOPY, GI REFERRAL OP 08/13/05 3-5 year repeat colonoscopy COLORECTAL CANCER SCREEN; COLON 08/23/08 diverticulosis LAP;REPAIR RECURRENT HERNIA Right 05/12/2018 LAPAROSCOPIC REPAIR INGUINAL HERNIA RECURRENT performed by Jose Angel Parson MD at OR [facility] REPAIR INITIAL INGUINAL HERNIA REDUCIBLE AGE 5 OR MORE 10/05/2010 Left Inguinal hernia repair with mesh 10/05/2010 Dr [place] [facility] THROAT SURGERY PROCEDURE NEC 1940 Tonsils and adnoids removed 1939 Family History Problem Relation Age of Onset Cancer Father oral cancer Heart Disorder Mother Hypertension Mother Heart Disorder Grandmother (Maternal) Hypertension Grandmother (Maternal) Cancer Grandmother (Paternal) OBJECTIVE: PHYSICAL EXAM: BP 118/62 | Pulse 73 | Temp 36.5 C (97.7 F) | Ht 1.803 m (5' 11") | Wt 66 kg (145 lb 9.6 oz) | SpO2 99% | BMI 20.31 kg/m | BSA 1.82 m General: alert, healthy, and no distress Head: Normocephalic, No masses, lesions, tenderness or abnormalities Eye Exam: conjunctiva are pink and non-injected, sclera clear Ears: External ears with aids in Heart: no murmur, no gallops, irregularly irregular, PMI non-displaced, S-1 normal, and S-2 normal Lungs: normal respiratory rate and rhythm, lungs clear to auscultation Psych: normal affect, no flight of ideas or tangential thought, good eye contact, no pressured speech I reviewed last lipid, gfr, lft ASSESSMENT: F01.A0 Mild vascular dementia without behavioral disturbance, psychotic disturbance, mood disturbance, or anxiety (HCC) (primary encounter diagnosis) I48.20 Chronic atrial fibrillation (HCC) I27.20 Pulmonary hypertension (HCC) N40.0 BPH without obstruction/lower urinary tract symptoms E78.2 Mixed hypertriglyceridemia Z86.73 History of TIA (transient ischemic attack) Z13.9 Risk and functional assessment I10 HTN, goal below 130/80 PLAN: Mild vascular dementia without behavioral disturbance, psychotic disturbance, mood disturbance, or anxiety (HCC) (Primary) Seems controlled Cont donepezil Chronic atrial fibrillation (HCC) Cont metoprolol, coumadin Pulmonary hypertension (HCC) Seems controlled BPH without obstruction/lower urinary tract symptoms Cont dutasteride, Mixed hypertriglyceridemia Controlled History of TIA (transient ischemic attack) Cont statin Cont asa Risk and functional assessment HTN, goal below 130/80 Controlled Cont metoprolol, aldactone lasix Follow Up: Return in about 6 months (around 09/04/2023), or if symptoms worsen or fail to improve. Eulogio Garvin MD documented in this encounter Nursing Notes * Mariluz Raya CMA - 03/06/2023 4:39 PM EST Chief Complaint Patient presents with Follow Up 6 month follow up. Patient denied any new concerns. documented in this encounter Plan of Treatment Upcoming Encounters Date Type Department Care Team (Late st Contact Info) Description 03/07/2023 11:00 AM EST Anticoagulation Pharmacy, [facility] [address] [facility] [place] [address] Pharmacist1, [facility] [address] [facility] [place] [address] 03/11/2023 1:20 PM EST Office Visit Neurology [facility] [address] [facility] [place] [address] Renae Gandara PA-C [address] [facility] [place] [address] 03/27/2023 4:20 PM EST Telemedicine Neurology, [facility] [address] [place] [address] [place] [address] Poncho Wu MD [address] [place] [address] 05/23/2023 10:00 AM EDT Office Visit Neurology [facility] [address] [facility] [place] [phone] Renae Gandara PA-C [address] [facility] [place] [phone] 06/13/2023 10:00 AM EDT Office [facility] [place] [address] Clara Fernandez PA-C [address] [place] [address] 06/18/2023 10:20 AM EDT [facility] [address] [place] [address] Chuck Adame DO [address] [place] [address] 09/11/2023 10:00 AM EDT Office Visit General Internal Medicine [facility] [place] [address] [facility] [place] [address] [facility] [address] Health Maintenance Due Date Last Done Comments [...] this encounter Medical Devices Implanted Type Area Retinal Surgeon Device Identifier Shelf Expiration Date Model / Serial / Lot Mesh 3dmax 3.1x5.3in t Med - [id number] Implanted:Qty: 1 on 05/12/2018 by Jose Angel Parson MD at OR [facility] Right: Groin CR BARD : DAVOL 12/08/2022 [id number] / / [id number] Description:RIH repair documented as of this encounter Visit Diagnoses Diagnosis Mild vascular dementia without behavioral disturbance, psychotic disturbance, mood disturbance, or anxiety (HCC)- Primary Chronic atrial fibrillation (HCC) Atrial fibrillation Pulmonary hypertension (HCC) Other chronic pulmonary heart diseases BPH without obstruction/lower urinary tract symptoms Hypertrophy of prostate without urinary obstruction and other lower urinary tract symptoms (LUTS) Mixed hypertriglyceridemia Mixed hyperlipidemia History of TIA (transient ischemic attack) Transient ischemic attack (TIA), and cerebral infarction without residual deficits Risk and functional assessment Screening for unspecified condition HTN, goal below 130/80 Unspecified essential hypertension documented in this encounter Advance Directives Latest Code Status on File Code Status Date Activated Date Inactivated Comments Full Code 05/12/2018 9:34 AM 05/12/2018 4:54 PM This or yoanna reflects the patients wishes and were consensually agreed upon. Healthcare Agents on File Name Relationship Healthcare Agent Relationship Communication Lianne Thompson Spouse First Alternate Health Care Agent (per Health Care Power of Toggle Press Folder And Feeder document) Gee Romero MD Adult Child Second Alternat e Health Care Agent (per Health Care Power of Toggle Press Folder And Feeder document) Care Teams Shoe Shanker Relationship Specialty Start Date End Date Eulogio Garvin MD [address] [place] [address] PCP - General Internal Medicine 11/30/20 documented as of this encounter
--- OUTSIDE RECORDS SUMMARY | 2023-05-20 06:35 | External Medical Summary ---
Author Name Unknown Address Unknown Organization K09:[facility] [place] [place] [address] Laboratory Report Ordering Provider Test Date Status NAVI RUBIO V 05/07/2023 10:57:57 Final Therapeutic ranges for non-o perative patients:
Prophylaxsis/treatment of DVT: (Range:2.0-3.0)
Treatment of pulmonary embolism:(Range:2.0-3.0)
Prevention of systemic embolism from:
-tissue heart valves
-acute myocardial infarction
-valvular heart disease
-atrial fibrillation
(Range: 2.0-3.0)
Mechanical prosthetic valves: (Range: 2.5-3.5) Observation Date Value Abnormality Reference (Units ) Status INR in Capillary blood by Coagulation assay 05/07/2023 10:57:57 3.2 (INR) Final Performing Location [facility] [place] [address]
--- OUTSIDE RECORDS SUMMARY | 2023-05-20 06:35 | External Medical Summary | Summary of Care ---
Author Name Unknown Organization [facility] Address [address] [place] [address] Phone [phone] Care Team Providers Care Compliance Advisor Name Role Phone Eulogio Garvin MD Primary Care Provider + Reason for Visit * Reason Comments Return Neuro Encounter Details Date Type Department Care Team (Late st Contact Info) Description 03/11/2023 1:20 PM EST Office Visit Neurology [facility] [address] [place] [address] Renae Gandara PA-C 200 [facility] [place] [address] Vascular dementia without behavioral disturbance (HCC)*; Memory loss Allergies Active Allergy Reactions Criticality Noted Date Comments Environmental 11/09/2008 documented as of this encounter (statuses as of 03/11/2023) Medications Medication Sig Dispensed Refills Start Date [...] as of this encounter (statuses as of 03/11/2023) Active Problems Problem Noted Date Diagnosed Date History of TIA (transient ischemic attack) 01/25 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, psychotic disturbance, mood disturbance, or anxiety 08/01/2022 Bilateral leg edema 12/14/2021 Pulmonary hypertension 11/21/2021 Reactive airway disease 08/08/2021 Chronic atrial fibrillation 12/19/2018 History of bladder cancer 08/17/2016 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 HTN, goal below 130/80 12/05/2011 Anticoagulation management encounter 07/24/2010 [facility] current use of anticoagulant therapy 0 07/24/2010 Overview: ICD-10 update of inactive term Elevated prostate specific antigen (PSA) 009 BPH without obstruction/lower urinary tract symp toms 03/03/2008 documented as of this encounter (statuses as of 03/11/2023) Resolved Problems Problem Noted Date Diagnosed Date Resolved Date UNILAT INGUINAL HERNIA- LEFT 07/31/2010 06/12/2017 Atrial fibrillation 07/24/2010 12/20/19 19 Benign neoplasm of colon 03/03/2008 FAMILY HX-GI MALIGNANCY 08/21/200511/13 Overview: Colonoscopy 08/13/05--tubular adenomas --repeat 3-5 years. documented as of this encounter (statuses as of 03/11/2023) Immunizations Name Administration Dates Next Due COVID-19 [...] Sign Reading Time Taken Comments Blood Pressure 112/58 03/11/2023 1:36 PM EST Pulse 69 03/11/2023 1:36 PM EST Temperature 36.7 C (98 F) 03/11/2023 1:36 PM EST Respiratory Rate - - Oxygen Saturation 100% 03/11/2023 1:36 PM EST Inhaled Oxygen Concentration - - Weight 66.1 kg (145 lb 12.8 oz) 03/11/2023 1:36 PM EST Height - - Body Mass Index 20.33 03/06/2023 4:40 PM EST documented in this encounter Progress Notes * Renae Gandara PA-C - 03/11/2023 1:40 PM EST HISTORY & PHYSICAL EXAMINATION - NEUROLOGY Name: Geovanny Thompson Date: 03/11/2023 Time: 1:40 PM Referring Provider: Eulogio Garvin MD Chief Complaint: [...] at home. He does help with some tasks around the house. He sleeps very well [...] wandering from home. No REM behavior or hallucinations, actually very passive which is a changefor him. Non smoker, wine nightly, minimal caffeine no other drugs He is still like play card and board games.He is on Aricept 10 mg daily is did not cause further upset or GI issues.Denies CP, SOB, abdominal pain, N, V, vision [...] (PSA) R97.20 Anticoagulation management encounter Z51.81, Z79.01 penitentiary current use of anticoagulant therapy Z79.01 HTN, goal below 130/80 I10 Mixed hypertriglyceridemia E78.2 History of bladder cancer Z85.51 Chronic atrial fibrillation (HCC) I48.20 Reactive airway disease J45.909 Pulmonary hypertension (HCC) I27.20 Bilateral leg edema R60.0 Mild vascular dementia without behavioral disturbance, psychotic disturbance, mood disturbance, or anxiety (HCC) F01.A0 History of TIA (transient ischemic attack) Z86.73 Family History Problem Relation Age of Onset [...] meal of the day.. 90 Tablet 1 No current facility-administered medications for this visit. Review of patient's allergies indicates: Allergen Reactions Environmental Review of Systems: A total number of 10 systems were reviewed pertinent negative and positives not addressed in HPI are listed in the following review. Physical Exam: Constitutional: BP 112/58 (BP Site: Right Arm, BP Position: Sitting, BP Cuff Size: Regular) | Pulse69 | Temp 36.7 C (98 F) (Tympanic) | Wt 66.1 kg (145 lb 12.8 oz) | SpO2 100% | BMI 20.33 kg/m| BSA 1.82 m , appearance nourished and healthy Ears, Nose, Mouth and Throat: mucous membranes moist, no injection and skin normal, eyes normal Cardiovascular: normal S-1 and S-2 and regular rate and rhythm Respiratory: clear to auscultation (CTA) and no rales, ronchi or wheeze Musculoskeletal: no peripheral edema Skin: normal and intact Eyes: extraocular muscles intact (EOMI) and pupils equal, round and reactive to light (PERRL) NEUROLOGIC EXAMINATION: Mental status: Alert and interactive Oriented to person Speech fluent with no evidence of aphasia Cranial Nerves Normal findings for Cranial Nerves II - XII Coordination: rapid alternating movements are intact: Bilateral and on [id number] Gait/Stance: Posture normal. Gait normal: with steady with steps, base, arm swing, and tandem gait. Motor: Negative for pronator drift of out stretched arms with eyes closed. Strength: Normal - 5/5 all extremities LABORATORY: Recent labs reviewed Review of prior Studies: No recent imaging available. Impression: Geovanny Thompson is a 87 year old gentleman with a history of vascular dementia . His neurologic examination today reveals no new focal deficit. The history and examination are suggestive of diagnosis/problem list. Testing and Referrals ordered: ICD-10-CM 1. Vascular dementia without behavioral disturbance (HCC) F01.50 2. Memory loss R41.3 Return in 6 months or sooner if needed Continue Aricept 10 mg (1 tab) with largest meal Watch weight and GI issues Keep as physically and mentally active as possible Driving has been stopped by patient would not go back to driving PCP for medical management Call with questions or concerns Medical Decision Making (determined by lowest of 2 of 3 elements): The medical decision making element of the number and complexity of problems addressed included at least 1 or more chronic illnesses with exacerbation, progression, or side effects of treatment (level 4). The medical decision making element [...] counseling the patient on: Diagnostic Results Prognosis Importance of compliance with chosen treatment options Risk factor reductions Patient and family education Consulted with physician: Omer Andrew MD was available for direct supervision. Copy of note sent toPCP and Referring Provider. Total time of visit: 30 minutes. Renae Gandara PA-C Neurology [facility] [place] [address] [facility] [place] [address] 03/11/2023 1:40 PM documented in this encounter Nursing Notes * Oumou Rios LPN - 03/11/2023 1:35 PM EST Return patient- pt/ family stated no new concerns today documented in this encounter Plan of Treatment Upcoming Encounters Date Type Department Care Team (Late st Contact Info) Description 03/27/2023 4:20 PM EST Telemedicine Neurology, [place] [facility] [address] [place] [address] [place] [address] Poncho Wu MD [address], [place] [id number] 04/10/2023 11:10 AM EST Anticoagulation Pharmacy, [facility] [place] [address] Pharmacist1, [facility] 200 [facility] [place] [address] 05/23/2023 10:00 AM EDT Office Visit Neurology [facility] 200 [facility] [place] [address] Renae Gandara PA-C 200 [facility] [place] [address] 06/13/2023 10:00 AM EDT Office Visit Cardiology, [facility] [address] [facility] [place] [address] Clara Fernandez PA-C [address] [place] [address] 06/18/2023 10:20 AM EDT Office Visit Neurology, [place] [address] [place] [address] Chuck Adame DO [address] [place], [place] [id number] 09/11/2023 10:00 AM EDT Office Visit General Internal Medicine [facility] 200 [facility] [place] [address] Eulogio Garvin MD 200 [facility] [place] [address] 09/11/2023 1:20 PM EDT Office Visit Neurology [facility] 200 [facility] [place] [address] Renae Gandara PA-C 200 [facility] [place] [address] Health Maintenance Due Date Last Done Comments [...] this encounter Medical Devices Implanted Type Area Dielectric Tester Device Identifier Shelf Expiration Date Model / Serial / Lot Mesh 3dmax 3.1x5.3in t Med - [id number] Implanted:Qty: 1 on 05/12/2018 by Jose Angel Parson MD at OR [facility] Right: Groin CR BARD : DAVOL 12/08/2022 [id number] / / [id number] Description:RIH repair documented as of this encounter Visit Diagnoses Diagnosis Vascular dementia without behavioral disturbance (HCC)- Primary Vascular dementia, uncomplicated Memory loss documented in this encounter Advance Directives Latest Code Status on File Code Status Date Activated Date Inactivated Comments Full Code 05/12/2018 9:34 AM 05/12/2018 4:54 PM This or yoanna reflects the patients wishes and were consensually agreed upon. Healthcare Agents on File Name Relationship Healthcare Agent Relationship Communication Lianne Thompson Spouse First Alternate Health Care Agent (per Health Care Power of Information Security Associate document) Gee Romero MD Adult Child Second Alternat e Health Care Agent (per Health Care Power of Information Security Associate document) Care Teams Compliance Advisor Relationship Specialty Start Date End Date Eulogio Garvin MD [address] [place] [address] PCP - General Internal Medicine 11/30/20 documented as of this encounter"
--- OUTSIDE RECORDS SUMMARY | 2023-05-20 06:35 | External Medical Summary | Summary of Care ---
Author Name Unknown Organization [facility] Address [address] [place] [address] Phone [phone] Care Team Providers Care Compressor Station Chief Engineer Name Role Phone Eulogio Garvin MD Primary Care Provider + Reason for Visit * Evaluate & Treat - Unlimited Visits (Within 10 days (routine)) - Closed Specialty Diagnoses / Procedures Referred By Vin t Referred To Contact Neurology Diagnoses Memory loss Vascular dementia without behavioral disturbance (HCC) AD (Alzheimer's disease) (HCC) Renae Gandara PA-C [address] [place] [address] Referral ID Status Reason Start Date Expiration Date V isits Requested Visits Authorized [id number] Closed Specialty Services Required 09/06/[phone] Encounter Details Date Type Department Care Team (Latest Contact Info) Description 03/27/2023 4:20 PM EST Telemedicine Neurology, [place] [facility] [address] [place] [address] [place] [address] Poncho Wu MD [address] [place] [address] Major neurocognitive disorder (HCC)* Allergies Active Allergy Reactions Criticality Noted Date Comments Environmental 11/09/2008 documented as of this encounter (statuses as of 04/17/2023) Medications Medication Sig Dispensed Refills Start Date [...] as of this encounter (statuses as of 04/17/2023) Active Problems Problem Noted Date Diagnosed Date History of TIA (transient ischemic attack) 01/25 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, psychotic disturbance, mood disturbance, or anxiety 08/01/2022 Bilateral leg edema 12/14/2021 Pulmonary hypertension 11/21/2021 Reactive airway disease 08/08/2021 Chronic atrial fibrillation 12/19/2018 History of bladder cancer 08/17/2016 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 HTN, goal below 130/80 12/05/2011 Anticoagulation management encounter 07/24/2010 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 documented as of this encounter (statuses as of 04/17/2023) Immunizations Name Administration Dates Next Due COVID-19 mRNA, LNP-s, No Pre serve, 2-Dose Series (Moderna) 04/13/2021,12/12/2020,04/08/2020,03/11 COVID-19, MRNA-LNP, 23-24, P F, 30 MCG/0.3 mL, 12 YRS AND ABOVE, IM ([facility]) 11/01/2022 Covid-19, Mrna, Lnp-s, Pf, B ivalent, [...] as of this encounter Progress Notes * Poncho Wu MD - 04/17/2023 9:45 PM EST Patient location: HOME. I was in a hospital or clinic location. After connecting through [employer],patient was verified with two unique identifiers. Patient (or authorized legal termite control representative) was then informed that this was a Telemedicine visit and being conducted confidentially over secure lines. Methods to assure confidentiality were taken. Patient acknowledged consent and understanding of pr ivacy and security of the Telemedicine visit. The patient agreed to participate. SUBJECTIVE: Geovanny Thompson is a 87 year old male. No chief complaint on file. HPI: he is seen for evaluation of cognitive impairment. He is able to answer questions and provide some history himself. He is accompanied by his who provides some additional history. He currently lives with his in [place]. 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 When asked about his memory he says it is "not as crystal clear as it used to be". He feels like this is a "minor problem". He thinks it started about 5 years ago. He feels like it is about the same as when he first started to notice issues. He says he is just not as sharp as he used to be. He sayshe does things like forgetting dates. He says he mostly spends his time on the computer following sports. He was evaluated in the Neurology clinic in [place], initially on 07/05/22. At that timehe was started on memantine. This was stopped in October based on recommendation from a Neurologist in [facility]. He was started on donepezil in October. There are no reports of any improvements with this medications but he does seem to be tolerating it well. He was initially referred here for possible lecanemab treatment. However, as above he was seen in [facility] in the interim and was not felt to be a candidate for lecanemab. He was seen by Dr. Cody on 10/16/2022 and it is documentedthat he had a MoCA of 23. He had imaging with an MRI on 04/27/2022 which showed: Generalized parenchymal volume loss and sequelae of chronic small vessel ischemic gliosis without evidence of an acute intracranial abnormality nor suspicious lesion His has been managing the medications. She has been doing this for the past 6 months. He stopped driving about 2-3 years ago. His handles the finances now. When asked about cooking he says "I help around the kitchen" but I do not think he cooks on his own. He uses a computer without difficulty. He does not smoke. He drinks red wine about 1-2 glasses a day. He describes his mood as "pretty stable". Patient Active Problem List Diagnosis Code BPH without obstruction/lower urinary tract symptoms N40.0 Elevated prostate specific antigen (PSA) R97.20 Anticoagulation management encounter Z51.81, Z79.01 alf current use of anticoagulant therapy Z79.01 HTN, [...] of patient's allergies indicates: Allergen Reactions Environmental OBJECTIVE: There were no vitals taken for this visit. PHYSICAL EXAM: General: alert, healthy, and no distress Speech-clear and fluent Telephone MoCA Attention--Immediate Recall: Face Velvet Restoration Julianne Red 1 0 1 1 1 (1 point for each word correctly recalled in first trial) 4/5 Executive functions/ language 1-min semantic verbal fluency (animal category) (0.5 point for each correct output) 07/20 Orientation Date Month Year Day Place Town/City 0 0 1 0 1 1 1 point for each correct response 3/6 Memory/Delayed recall: Face [place] Spontaneous 0 0 0 0 0 Category Cue 0 0 0 0 1 Mult. Choice Cue 1 1 1 0 2 points for each of the word spontaneously recalled; 1 point for each word by cued recall or recognition but not spontaneously recalled 05/21 TOTAL: ASSESSMENT: 87 year old male with dementia. PLAN: I discussed with him and his that I agree he is a poor candidate for lecanemab primarily due to advanced age and the likelihood of very little benefit. I also agree that the use of anticoagulation and the possibility of a vascular dementia would also play a role. I also would be concerned thathe may already be beyond the stage at which lecanemab would be of benefit,. Although he scored a 23on MoCA previously he did much worse on phone MoCA which is generally easier. He is on donepezil which is reasonable to continue but difficult to say if it is really providing any benefit He has good support from his . They are considering downsizing and we discussed possible higherlevel of care in the future Follow up as needed. He is already scheduled to see Dr. Adame which is reasonable Poncho Wu MD Video was from 4:16-4:58 with 5 minutes of chart review I spent a total of 40-54 minutes (exact time 47 mins) on the date of service in preparation, delivery, and documentation of the care provided to Geovanny Thompson excluding any time spent in the performance of separately billed services. documented in this encounter Plan of Treatment Upcoming Encounters Date Type Department Care Team (Late st Contact Info) Description 05/07/2023 10:50 AM EDT Anticoagulation Pharmacy, [facility] [address] [facility] [place] [address] Pharmacist1, [facility] [address] [facility] [place] [address] 05/23/2023 10:00 AM EDT Office Visit Neurology [facility] [place] [facility] [place] [address] Renae Gandara PA-C [address] [facility] [place] [address] 06/18/2023 10:20 AM EDT [facility] [address] [place] [address] Chuck Adame, [address], [place] [phone] 06/24/2023 9:00 AM EDT Office Visit Cardiology, [facility] [address] [place] [address] Clara Fernandez PAJordan [address] [place] [address] 09/11/2023 10:00 AM EDT Office Visit General Internal Medicine [facility] [address] [facility] [place] [address] Eulogio Garvin MD [address] [facility] [place] [address] 09/11/2023 1:20 PM EDT Office Visit Neurology [facility] [address] [facility] [place] [address] Renae Gandara PA-C [address] [facility] [place] [address] Scheduled Referrals Name Type Priority Associated Diagnoses [...] this encounter Medical Devices Implanted Type Area Traffic Counter Device Identifier Shelf Expiration Date Model / Serial / Lot Mesh 3dmax 3.1x5.3in Rht Med - [id number] Implanted:Qty: 1 on 05/12/2018 by Jose Angel Parson MD at OR [facility] Right: Alli CR BARD : DAVOL 12/08/2022 [id number] / / [id number] Description:RIH repair documented as of this encounter Visit Diagnoses Diagnosis Major neurocognitive disorder (HCC)- Primary documented in this encounter Advance Directives Latest Code Status on File Code Status Date Activated Date Inactivated Comments Full Code 05/12/2018 9:34 AM 05/12/2018 4:54 PM This or yoanna reflects the patients wishes and were consensually agreed upon. Healthcare Agents on File Name Relationship Healthcare Agent Relationship Communication Lianne Thompson Spouse First Alternate Health Care Agent (per Health Care Power of Senior Business Development Analyst document) Gee Romero MD Adult Child Second Alternat e Health Care Agent (per Health Care Power of Senior Business Development Analyst document) Care Teams Compressor Station Chief Engineer Relationship Specialty Start Date End Date Eulogio Garvin MD [address] [place] [address] PCP - General Internal Medicine 11/30/20 documented as of this encounter
--- OUTSIDE RECORDS SUMMARY | 2023-05-20 06:35 | External Medical Summary ---
Author Name Unknown Address Unknown Organization K01:[facility] - [address] [facility] [address] Laboratory Report Ordering Provider Test Date Status DO DRAGANTYLERZAYDA 02/26/2023 07:24:04 Final Observation Date Value Abnormality Reference (Units ) Status SYNC LEUKOCYTES IN BLOOD BY AUTOMATED COUNT 02/26/2023 07:24:04 6.25 4.00-10.80 (K/uL) Final Segs 02/26/2023 07:24:04 42.5 40.0-75.0 (%) Final Lymphs % 02/26/2023 07:24:04 42.2 Above high normal 18.0-42.0 (%) Final Monos 02/26/2023 07:24:04 8.2 1.0-11.0 (%) Final Eosinophils 02/26/2023 07:24:04 6.6 Above high normal 0.0-6.0 (%) Final Basos 02/26/2023 07:24:04 0.3 0.0-2.0 (%) Final Immature Granulocyte, Percent 02/26/2023 07:24:04 0.2 0.0-2.0 (%) Final Absolute Segs 02/26/2023 07:24:04 2.66 1.80-7.70 (K/uL) Final Lymphs, absolute 02/26/2023 07:24:04 2.64 1.00-4.80 (K/ul) Final Monos, Abs 02/26/2023 07:24:04 0.51 0.00-1.10 (K/uL) Final Eos, Abs 02/26/2023 07:24:04 0.41 0.00-0.70 (K/uL) Final Basos, Abs 02/26/2023 07:24:04 0.02 0.00-0.20 (K/uL) Final Immature Granulocytes, Number 02/26/2023 07:24:04 0.01 0.00-0.20 (K/uL) Final Performing Location [facility] - [facility] N [address] [place]. [facility] [address]
--- OUTSIDE RECORDS SUMMARY | 2023-05-20 06:36 | External Medical Summary | Summary of Care ---
Author Name Unknown Organization [facility] Address [address] [place] [address] Phone [phone] Care Team Providers Care Buying Agent Name Role Phone Eulogio Garvin MD Primary Care Provider + Reason for Visit * Reason Comments New Med Request Encounter Details Date Type Department Care Team (Late st Contact Info) Description 02/11/2023 Refill Neurology [facility] [place] [address] [place] [address] Renae Gandara PA-C [address] [facility] [place] [address] Allergies Active Allergy Reactions Criticality Noted Date Comments Environmental 11/09/2008 documented as of this encounter (statuses as of 02/13/2023) Medications Medication Sig Dispensed Refills Start Date [...] 23 Active Dutasteride 0.5 MG Oral Capsule (Avodart)Indications:El [...] day.. 90 Tablet 1 02/13/19 24 Active Donepezil HCl 10 MG Oral Tablet (Aricept) Take 1 Tablet by mouth in the morning. Take with largest meal of the day.. 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, psychotic disturbance, mood disturbance, or anxiety 08/01/2022 Bilateral leg edema 12/14/2021 Pulmonary hypertension 11/21/2021 Reactive airway disease 08/08/2021 Chronic atrial fibrillation 12/19/2018 History of bladder cancer 08/17/2016 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 HTN, goal below 130/80 12/05/2011 Anticoagulation management encounter 07/24/2010 group home current use of anticoagulant therapy 0 07/24/2010 Overview: ICD-10 update of inactive term Elevated prostate specific antigen (PSA) 009 BPH without obstruction/lower urinary tract symp toms 03/03/2008 documented as of this encounter (statuses as of 02/13/2023) Resolved Problems Problem Noted Date Diagnosed Date Resolved Date UNILAT INGUINAL HERNIA- LEFT 07/31/2010 06/12/2017 Atrial fibrillation 07/24/2010 12/20/19 19 Benign neoplasm of colon 03/03/2008 FAMILY HX-GI MALIGNANCY 08/21/200511/13 Overview: Colonoscopy 08/13/05--tubular adenomas --repeat 3-5 years. documented as of this encounter (statuses as of 02/13/2023) Immunizations Name Administration Dates Next Due COVID-19 mRNA, LNP-s, No Pre serve, 2-Dose Series (Moderna) 04/13/2021,12/12/2020,04/08/2020,03/11 COVID-19, MRNA-LNP, 23-24, P F, 30 MCG/0.3 mL, 12 YRS AND ABOVE, IM (PFIZER-Comirnat) 11/01/2022 Covid-19, Mrna, Lnp-s, Pf, B ivalent, [...] encounter Miscellaneous Notes * Telephone Encounter - Marcos Friedman RPh - 02/13/2023 3:56 PM ESTSigned Prescriptions: Disp Refills Donepezil HCl 10 MG Oral Tablet (Aricept) 90 Tab*1 Sig: Take 1 Tablet by mouth in the morning. Take with largest meal of the day..Authorizing Provider: RENAE GANDARA User: MARCOS FRIEDMANRefangie Prescriptions: Disp Refills Donepezil HCl 5 MG Oral Tablet (Aricept) 0 Refused By: Joelle FRIEDMAN for Refusal:Other (comment below) documented in this encounter Plan of Treatment Upcoming Encounters Date Type Department Care Team (Late st Contact Info) Description 03/06/2023 4:40 PM EST Office Visit General Internal Medicine [place] [facility] Orell[place] [address] [place] [address] Eulogio Garvin MD [address] [place] [address] [address] 03/07/2023 11:00 AM EST Anticoagulation Pharmacy, [place] [facility] Orellana [address] [place] [address] Pharmacist1, [facility] [address] [place] [address] 03/11/2023 1:20 PM EST Office Visit Neurology [facility] [address] [place] [address] Renae Gandara PA-C [address] [place] [address] 03/27/2023 4:20 PM EST Telemedicine Neurology, [place]an Byrne [address] [place] [address] [place] [address] Poncho Wu MD [address] [place] [address] 05/23/2023 10:00 AM EDT Office Visit Neurology [facility] [address] [place] [address] Renae Gandara PA-C [address] [place] [address] 06/13/2023 10:00 AM EDT Office Visit Cardiology, [facility] [address] [facility] [place] [address] Clara Fernandez PA-C [address] [facility] [place] [address] 06/18/2023 10:20 AM EDT [facility] [address] [place] [address] Chuck Adame DO [address] [place] [address] Health Maintenance Due Date Last [...] this encounter Medical Devices Implanted Type Area Gyn Physician Device Identifier Shelf Expiration Date Model / Serial / Lot Mesh 3dmax 3.1x5.3in Rht Med - [id number] Implanted:Qty: 1 on 05/12/2018 by Jose Angel Parson MD at OR [facility] Right: Tatyin MARTHA BARD : DAVOL 12/08/2022 [id number] / / [id number] Description:RIH repair documented as of this encounter [...] Care Agent (per Health Care Power of Foreign Service Officer document) Gee Romero MD Adult Child Second Alternat e Health Care Agent (per Health Care Power of Foreign Service Officer document) Care Teams Buying Agent Relationship Specialty Start Date End Date Eulogio Garvin MD [address] [place] [address], [place] [address] PCP - General Internal Medicine 11/30/20 documented as of this encounter
--- OUTSIDE RECORDS SUMMARY | 2023-05-20 06:36 | External Medical Summary | Summary of Care ---
Author Name Unknown Organization [facility] Address [address] [place] [address] Phone [phone] Care Team Providers Care Wax Blender Name Role Phone Eulogio Garvin MD Primary Care Provider + Reason for Visit * Reason Onset Date Comments Hospital Follow-Up [facility] d/c 01/14 Hospital Follow-Up 01/25/2023 Encounter Details Date Type Department Care Team (Late st Contact Info) Description 01/25/2023 12:00 PM EST Office Visit General Internal Medicine [facility] [place] [address] [place] [address] Eulogio Garvin MD [address] [place] [address] Hospital discharge follow-up*; History of TIA (transient ischemic attack); HTN, goal below 130/80; Chronic atrial fibrillation (HCC); Mild vascular dementia without behavioral disturbance, psychotic disturbance, mood disturbance, or anxiety (HCC); Alcohol ingestion, 1-4 drinks per day; Mixed hypertriglyceridemia; Decreased hemoglobin Allergies Active Allergy Reactions Criticality Noted Date Comments Environmental 11/09/2008 documented as of this encounter (statuses as of 01/25/2023) Medications Medication Sig Dispensed Refills Start Date [...] afib 120 Tablet 3 08/02/19 23 Active Donepezil HCl 10 MG Oral Tablet (Aricept) Take 1 Tablet by mouth in the morning. Take with largest meal of the day.. 90 Tablet 2 11/21/19 23 Active Metoprolol Succinate ER 25 MG [...] morning. 90 Tablet 3 01/26/20 23 Active Rosuvastatin Calcium 10 MG Oral Tablet (Crestor)Indications:Mi ld vascular dementia without behavioral disturbance, psychotic disturbance, mood disturbance, or anxiety (HCC),HTN, goal below 130/80 Take 1 Tablet by mouth every night at bedtime. 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, psychotic disturbance, mood disturbance, or anxiety 08/01/2022 Bilateral leg edema 12/14/2021 Pulmonary hypertension 11/21/2021 Reactive airway disease 08/08/2021 Chronic atrial fibrillation 12/19/2018 History of bladder cancer 08/17/2016 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 HTN, goal below 130/80 12/05/2011 Anticoagulation management encounter 07/24/2010 half-way current use of anticoagulant therapy 0 07/24/2010 Overview: ICD-10 update of inactive term Elevated prostate specific antigen (PSA) 009 BPH without obstruction/lower urinary tract symp toms 03/03/2008 documented as of this encounter (statuses as of 01/25/2023) Resolved Problems Problem Noted Date Diagnosed Date Resolved Date UNILAT INGUINAL HERNIA- LEFT 07/31/2010 06/12/2017 Atrial fibrillation 07/24/2010 12/20/19 19 Benign neoplasm of colon 03/03/2008 FAMILY HX-GI MALIGNANCY 08/21/200511/13 Overview: Colonoscopy 08/13/05--tubular adenomas --repeat 3-5 years. documented as of this encounter (statuses as of 01/25/2023) Immunizations Name Administration Dates Next Due COVID-19 [...] Sign Reading Time Taken Comments Blood Pressure 110/66 01/25/2023 11:50 AM EST Pulse 60 01/25/2023 11:50 AM EST Temperature 36.6 C (97.8 F) 01/25/2023 1 1:50 AM EST Respiratory Rate - - Oxygen Saturation 98% 01/25/2023 11: 50 AM EST Inhaled Oxygen Concentration - - Weight 66.2 kg (145 lb 14.4 oz) 023 11:50 AM EST Height - - Body Mass Index 20.35 08/01/2022 1:51 PM EDT documented in this encounter Progress Notes * Eulogio Garvin MD - 01/25/2023 11:55 AM EST Chief Complaint Patient presents with Hospital Follow-Up [facility] d/c 01/14/23 Hospital Follow-Up SUBJECTIVE: Geovanny Thompson is a 87 year old male with PMH as below who presents for hospital follow up. Admitted 01/13-01/14 to [facility]. Was at [employer] for dinner, had 1 drink, then couldn't move, didn't feel well, couldn't move legs, was not able to communicate. Was taken by ambulance to ER, had MRI brain, MRA, told fine was seen by neurology dx with TIA as symptoms abated quickly. He was back to baseline next day. No cp, sob, coleman, no symptoms since. Drinks 2 glasses wine/day, tolerating higher dose statin ok. No n/v/d. 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 For afib 120 Tablet 3 Donepezil HCl 10 MG Oral [...] mouth in the morning. 90 Tablet 3 Albuterol Sulfate HFA 108 (90 Base) MCG/ACT Inhalation Aerosol Solution Inhale by mouth 2 Puffs every 6 hours as needed for Cough, Shortness of Breath or Wheezing. 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 Tobacco Use Smoking status: Former Types: Cigarettes Quit date: 02/11/1962 Years since quittin.9 Smokeless tobacco: Never Vaping Use Vaping Use: [...] performed by Yunior Hart MD at ENDOSCOPY [facility] COLONOSCOPY, GI REFERRAL OP 08/13/05 3-5 year repeat colonoscopy COLORECTAL CANCER SCREEN; COLON 08/23/08 diverticulosis LAP;REPAIR RECURRENT HERNIA Right 05/12/2018 LAPAROSCOPIC REPAIR INGUINAL HERNIA RECURRENT performed by Jose Angel Parson MD at OR [facility] REPAIR INITIAL INGUINAL HERNIA REDUCIBLE AGE 5 OR MORE 10/05/2010 Left Inguinal hernia repair with mesh 10/05/2010 Dr [place] [facility] THROAT SURGERY PROCEDURE NEC 1940 Tonsils and adnoids removed 1939 Family History Problem Relation Age of Onset Cancer Father oral cancer Heart Disorder Mother Hypertension Mother Heart Disorder Grandmother (Maternal) Hypertension Grandmother (Maternal) Cancer Grandmother (Paternal) OBJECTIVE: PHYSICAL EXAM: BP 110/66 | Pulse 60 | Temp 36.6 C (97.8 F) (Tympanic) | Wt 66.2 kg (145 lb 14.4 oz) | SpO2 98%| BMI 20.35 kg/m | BSA 1.82 m General: alert, healthy, and no distress Head: Normocephalic, No masses, lesions, tenderness or abnormalities Eye Exam: conjunctiva are pink and non-injected, sclera clear Lungs: CTAB normal respiratory rate Heart: irregularly irregular, S1, S2 Extremities: no edema, no clubbing, no cyanosis Neuro Exam: alert with fluent speech stands on own, normal gait to table w/o aid Psych: normal affect, no flight of ideas or tangential thought, good eye contact, no pressured speech No d/c summary in [facility] Last day note: (1) TIA (transient ischemic attack): Plan: Presenting as transient aphasia Brain MRI, MRA: unrevealing Neurologist consulted-recommend aspirin 81 mg p.o. daily, increasing rosuvastatin to 40 mg daily continue Coumadin Remain in atrial fibrillation, rate controlled on telemetry Echo: Mild concentric LVH, left ventricular wall motion is normal, EF 55 to 60%, no significant aortic valvular stenosis, moderate tricuspid regurgitation Negative for orthostasis chronic diastolic heart failure (EF 60 to 64%, TTE 2021) patient euvolemic on Lasix 20mg q3d, Spironolactone daily A-fib on Metoprolol on Coumadin, rate controlled, INR therapeutic valvular heart disease (mild AR/MR, moderate TR) pulmonary hypertension Hypertension, BP stable Hyperlipidemia on statin Rx reactive airway disease as per records dementia, patient mentation back to baseline BPH/bladder cancer status post surgery, patient follows with [facility] Urology DVT prophylaxis. Coumadin INR goal between 2 and 3 Full code plan of care discussed with patient and his Lianne in detail and at length all questions answered they are understanding, agreeable, comfortable with the plan of care Neurology note: Suspect features of reported aphasia are consistent with TIA Recommend continue full anticoagulation, EKG-AFIB, ECHO without evidence of reduced EF Increase rosuvastatin dose to 40mg PO daily Continue to monitor neurological assessments Metabolic workup ongoing Therapy services to eval and tx VTE prophylaxis if not fully anticoagulated MRA: Unremarkable MRA of the head. No vessel occlusion. No intracranial aneurysm. MRI brain: 1. No acute intracranial findings. 2. Opacified left maxillary sinus and left anterior ethmoid air cells. Ethanol: 149.6 ASSESSMENT: Z09 Hospital discharge follow-up (primary encounter diagnosis) Z86.73 History of TIA (transient ischemic attack) I10 HTN, goal below 130/80 I48.20 Chronic atrial fibrillation (HCC) F01.A0 Mild vascular dementia without behavioral disturbance, psychotic disturbance, mood disturbance, or anxiety (HCC) Z78.9 Alcohol ingestion, 1-4 drinks per day E78.2 Mixed hypertriglyceridemia R71.0 Decreased hemoglobin PLAN: Hospital discharge follow-up (Primary) - DISCH MED RECON CUR MED LIS Resolved History of TIA (transient ischemic attack) - LIPID PANEL WITH DIRECT LDL IF TG IS HIGH; Future; Expected date: 02/25/2023 - HEPATIC FUNCTION PANEL; Future; Expected date: 02/25/2023 - Rosuvastatin Calcium 40 MG Oral Tablet (Crestor); Take 1 Tablet by mouth in the morning. Possible vs Ethanol intoxication given level as above Discussed cutting back alcohol, no more then 1 serving/day, they will try, monitor for withdrawal Add thiamine Cont rosuvastatin HTN, goal below 130/80 Cont metoprolol, aldactone, lasix Chronic atrial fibrillation (HCC) Cont coumadin, metoprolol Mild vascular dementia without behavioral disturbance, psychotic disturbance, mood disturbance, or anxiety (HCC) Cont donepezil per neurology Alcohol ingestion, 1-4 drinks per day - Thiamine HCl 100 MG Oral Tablet (vitamin B-1); Take 1 Tablet by mouth in the morning. As above Mixed hypertriglyceridemia - LIPID PANEL WITH DIRECT LDL IF TG IS HIGH; Future; Expected date: 02/25/2023 - Rosuvastatin Calcium 40 MG Oral Tablet (Crestor); Take 1 Tablet by mouth in the morning. Cont med Labs 1 month Decreased hemoglobin - CBC WITH WBC DIFFERENTIAL; Future; Expected date: 02/25/2023 Hgb 13.2 at [facility], recheck 1 month Alcohol as above Follow Up: Return if symptoms worsen or fail to improve and as scheduled. Eulogio Garvin MD documented in this encounter Nursing Notes * Laura Jaeger LPN - 01/25/2023 11:49 AM EST Chief Complaint Patient presents with Hospital Follow-Up [facility] d/c 01/14/23 documented in this encounter Plan of Treatment Upcoming Encounters Date Type Department Care Team (Late st Contact Info) Description 02/01/2023 11:00 AM EST Anticoagulation Pharmacy, [facility] [place] [address] [place] [address] Pharmacist1, [facility] [address] [place] [address] 03/06/2023 4:40 PM EST Office Visit General Internal Medicine [facility] [address] [place] [address] Eulogio Garvin MD [address] [facility] [place] [address] 03/11/2023 1:20 PM EST Office Visit Neurology [facility] [address] [place] [address] Renae Gandara PA-C [address] [place] [address] 03/27/2023 4:20 PM EST [facility] Byrne [address] [place] [address] [place] [address] Poncho Wu MD [address] [place], [place] [id number] 05/23/2023 10:00 AM EDT Office Visit Neurology [facility] [address] [place] [address] Renae Gandara PA-C 200 [facility] [place] [address] 06/13/2023 10:00 AM EDT Office Visit [facility]iology, [facility] [place] [address] Clara Fernandez PA-C [address] [place] [address] 06/18/2023 10:20 AM EDT [facility] [address] [place] [address] Chuck Adame DO [address] [place] [address] Scheduled Orders Name Type Priority Associated Diagnoses Orde r Schedule LIPID PANEL WITH DIRECT LDL IF TG IS HIGH Lab Routine History of TIA (transient ischemic attack) Mixed hypertriglyceridemia Expected: 02/25/2023, Expires: 01/26/2024 HEPATIC FUNCTION PANEL Lab Routine History of TIA (transient ischemic attack) Expected: 02/25/2023 (Approximate), Expires: 01/26/2024 CBC WITH WBC DIFFERENTIAL Lab Routine Decreased hemoglobin Expected: 02/25/2023 (Approximate), Expires: 01/26/2024 Health Maintenance Due Date Last Done Comments [...] this encounter Medical Devices Implanted Type Area Outreach Associate Device Identifier Shelf Expiration Date Model / Serial / Lot Mesh 3dmax 3.1x5.3in t Med - [id number] Implanted:Qty: 1 on 05/12/2018 by Jose Angel Parson MD at OR [facility] Right: Groin CR BARD : DAVOL 12/08/2022 [id number] / / [id number] Description:RIH repair documented as of this encounter Visit Diagnoses Diagnosis Hospital discharge follow-up- Primary Other follow-up examination History of TIA (transient ischemic attack) Transient ischemic attack (TIA), and cerebral infarction without residual deficits HTN, goal below 130/80 Unspecified essential hypertension Chronic atrial fibrillation (HCC) Atrial fibrillation Mild vascular dementia without behavioral disturbance, psychotic disturbance, mood disturbance, or anxiety (HCC) Alcohol ingestion, 1-4 drinks per day Other problems related to lifestyle Mixed hypertriglyceridemia Mixed hyperlipidemia Decreased hemoglobin Anemia, [...] Care Agent (per Health Care Power of Wax Blender document) Gee Romero MD Adult Child Second Alternat e Health Care Agent (per Health Care Power of Wax Blender document) Care Teams Wax Blender Relationship Specialty Start Date End Date Eulogio Garvin MD 200 [facility] [place] [address] PCP - General Internal Medicine 11/30/20 documented as of this encounter"
--- OUTSIDE RECORDS SUMMARY | 2023-05-20 06:36 | External Medical Summary ---
Author Name Unknown Address Unknown Organization [id number]:[facility] - [address] [place] [place] [address] Laboratory Report Ordering Provider Test Date Status DO DRAGANIJEOMA 02/26/2023 07:24:04 Final Observation Date Value Abnormality Reference (Units ) Status Triglyceride 02/26/2023 07:24:04 131 <=174 ( mg/dL) Final Triglyceride Reference Range s (mg/dL):
<150 Acceptable
150-174 Borderline high
175-499 High
>=500 Very high Cholesterol 02/26/2023 07:24:04 147 <200 (mg /dL) Final Total Cholesterol Reference Ranges (mg/dL):
<200 Desirable
200-239 Borderline high
>=240 High HDL 02/26/2023 07:24:04 76 >39 (mg/dL ) Final HDL Cholesterol Reference Ra nges (mg/dL):
>=60 High (Desirable)
<50 Low (Undesirable) For Females
<40 Low (Undesirable) For Males NON-HDL CHOLESTEROL 02/26/2023 07:24:04 71 <=159 (mg/dL) Final Non-HDL Cholesterol Referenc e Range (mg/dL):
<100 Target level for high risk ASCVD patient
<130 Optimal for general population
130-159 Near optimal for general population
160-189 Borderline High
190-219 High
>=220 Very High LDL, (calculated) 02/26/2023 07:24:04 45 <= 129 (mg/dL) Final LDL Cholesterol Reference Ra nges (mg/dL):
<70 Target level for high risk ASCVD patient
<100 Optimal for general population
100-129 Near optimal for general population
130-159 Borderline high
160-189 High
>=190 Very high Performing Location [facility] - [address] [facility] [address]
--- OUTSIDE RECORDS SUMMARY | 2023-05-20 06:36 | External Medical Summary ---
Author Name Unknown Address Unknown Organization K01:[facility] - [address] [place] [address] Laboratory Report Ordering Provider Test Date Status GINGER ARCHIBALD 02/26/2023 07:24:04 Final Observation Date Value Abnormality Reference (Units ) Status WBC, Total 02/26/2023 07:24:04 6.25 4.00-10.80 (K/uL) Final RBC 02/26/2023 07:24:04 4.64 4.50-5.25 (M/uL) Final Hemoglobin 02/26/2023 07:24:04 14.9 14.0-16.8 (g/dL) Final HCT 02/26/2023 07:24:04 45.2 40.0-48.4 (%) Final MCV 02/26/2023 07:24:04 97.4 82.0-99.5 (fL) Final MCH 02/26/2023 07:24:04 32.1 27.0-34.0 (pg) Final MCHC 02/26/2023 07:24:04 33.0 32.0-36.0 (g/dL) Final RDW 02/26/2023 07:24:04 12.3 11.5-15.5 (%) Final Platelets 02/26/2023 07:24:04 198 140-400 (K/uL) Final MPV 02/26/2023 07:24:04 10.5 6.6-11.1 (fL) Final Nucleated erythrocytes/100 leukocytes [Ratio] in Blood by Automated count 02/26/2023 07:24:04 0 <=0 (/100 WBCs) Final Performing Location LABORATORY [facility] - [address] [place] [address]
--- OUTSIDE RECORDS SUMMARY | 2023-05-20 06:36 | External Medical Summary | Summary of Care ---
Author Name Unknown Organization [facility] Address [address] [place] [address] Phone [phone] Care Team Providers Care Outside Residential Sales Professional Name Role Phone Eulogio Garvin MD Primary Care Provider + Reason for Visit * Reason Comments Dosage Adjustment In Person (Anticoag Cl inic) Encounter Details Date Type Department Care Team (Latest Contact Info) Description 02/01/2023 11:00 AM EST Anticoagulation Pharmacy, [facility] [address] [place] [address] Pharmacist1, [facility] [address] [place] [address] Chronic atrial fibrillation (HCC)*; Anticoagulation management encounter; intermediate current use of anticoagulant therapy Allergies Active Allergy Reactions Criticality Noted Date Comments Environmental 11/09/2008 documented as of this encounter (statuses as of 02/01/2023) Medications Medication Sig Dispensed Refills Start Date [...] morning. 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, psychotic disturbance, mood disturbance, or anxiety 08/01/2022 Bilateral leg edema 12/14/2021 Pulmonary hypertension 11/21/2021 Reactive airway disease 08/08/2021 Chronic atrial fibrillation 12/19/2018 History of bladder cancer 08/17/2016 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 HTN, goal below 130/80 12/05/2011 Anticoagulation management encounter 07/24/2010 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 documented as of this encounter (statuses as of 02/01/2023) Immunizations Name Administration Dates Next Due COVID-19 [...] Progress Notes * Stanley Webb RPh - 02/01/2023 10:51 AM EST Medication Therapy Disease Management - Anticoagulation Geovanny Thompson 1935 Description (Takes at 7AM every day) Patient Findings Negatives: Signs/symptoms of thrombosis, Signs/symptoms of bleeding, Change in health, Change in alcohol use, Change in activity, Upcoming invasive procedure, Missed doses, Extra doses, Change in medications, Change in diet/appetite, Bruising INR Result As of 02/01/2023 INR goal: 2.0-3.0 INR used for dosin.6 (02/01/2023) Warfarin Plan As of 02/01/2023 Full warfarin instructions: 2.5 mg every Mon, Fri; 1.25 mg all other days No change documented: Stanley Webb RPh Next INR check: 03/07/2023 Repeat PT/INR in 5 week(s) Weekly dose: not changed Stanley Lincoln RPh, DIONNA, CDE Clinical Pharmacist Medication Therapy Management [facility] 02/01/2023 10:58 AM documented in this encounter Plan of Treatment Upcoming Encounters Date Type Department Care Team (Late st Contact Info) Description 03/06/2023 4:40 PM EST Office Visit General Internal Medicine [facility] [place] [address], [place] [address] Eulogio Garvin MD [address] [place] [address] 03/07/2023 11:00 AM EST Anticoagulation Pharmacy, [facility] [place] [address] [place] [address] [address] Pharmacist, [facility] [address] [place] [address] 03/11/2023 1:20 PM EST Office Visit Neurology [facility] [address] [place] [address] Renae Gandara PA-C 200 [facility] [place] [address] 03/27/2023 4:20 PM EST Telemedicine Neurology, [place] Gibran Byrne [address] [place] [address] [place] [address] Poncho Wu MD [address] [place], [place] [id number] 05/23/2023 10:00 AM EDT Office Visit Neurology [facility] [address] [place] [address] Renae Gandara PA-C 200 [facility] [place] [address] 06/13/2023 10:00 AM EDT Office Visit [facility]iology, [facility] [address] [facility] [address] Clara Fernandez [facility]-C [facility] [place] [address] 06/18/2023 10:20 AM EDT [facility] [address] [place] [address] Chuck Adame DO [address] [place], [place] [phone] Health Maintenance Due Date Last Done Comments [...] this encounter Medical Devices Implanted Type Area Reel Tender Device Identifier Shelf Expiration Date Model / Serial / Lot Mesh 3dmax 3.1x5.3in Rht Med - [id number] Implanted:Qty: 1 on 05/12/2018 by Jose Angel Parson MD at OR [facility] Right: Groin CR BARD : DAVOL 12/08/2022 [id number] / / [id number] Description:RIH repair documented as of this encounter Procedures Procedure Name Priority Date/Time Associated Diagnosis Comments INR FINGERSTICK, POINT OF CARE STAT 02/01/2023 10:56 AM EST Chronic atrial fibrillation (HCC) Anticoagulation management encounter intermediate current use of anticoagulant therapy documented in this encounter Results * INR FINGERSTICK, POINT OF CARE (02/01/2023 10:56 AM EST) Fingerstick INR 2.6 INR 10:59 AM EST [employer]ient 56-02 Blood 02/01/2023 10:5 6 AM EST 02/01/2023 10:59 AM EST [facility] Getting-in 56-02 - 02/01/2023 10:59 AM EST Therapeutic ranges for non-operative patients: Prophylaxsis/treatment of DVT: (Range:2.0-3.0) Treatment of pulmonary embolism:(Range:2.0-3.0) Prevention of systemic embolism from: -tissue heart valves -acute myocardial infarction -valvular heart disease -atrial fibrillation (Range: 2.0-3.0) Mechanical prosthetic valves: (Range: 2.5-3.5) Stanley Lincoln V [facility] LAB POINT OF CARE TE ST DOCKED DEVICE UNSOLICITED RESULTS [facility] 56-02 [address] [place] [address] documented in this encounter Visit Diagnoses Diagnosis Chronic atrial fibrillation (HCC)- Primary Atrial fibrillation Anticoagulation management encounter Encounter for therapeutic drug monitoring intermediate current use of anticoagulant therapy documented in [...] Care Agent (per Health Care Power of Manager Company document) Gee Romero MD Adult Child Second Alternat e Health Care Agent (per Health Care Power of Manager Company document) Care Teams Outside Residential Sales Professional Relationship Specialty Start Date End Date Eulogio Garvin MD 200 [place] [address] PCP - General Internal Medicine 11/30/20 documented as of this encounter
--- OUTSIDE RECORDS SUMMARY | 2023-05-20 06:36 | External Medical Summary ---
Author Name Unknown Address Unknown Organization K09:[facility] [place] [address] Laboratory Report Ordering Provider Test Date Status NAVI RUBIO V 02/01/2023 10:56:29 Final Therapeutic ranges for non-o perative patients:
Prophylaxsis/treatment of DVT: (Range:2.0-3.0)
Treatment of pulmonary embolism:(Range:2.0-3.0)
Prevention of systemic embolism from:
-tissue heart valves
-acute myocardial infarction
-valvular heart disease
-atrial fibrillation
(Range: 2.0-3.0)
Mechanical prosthetic valves: (Range: 2.5-3.5) Observation Date Value Abnormality Reference (Units ) Status INR in Capillary blood by Coagulation assay 02/01/2023 10:56:29 2.6 (INR) Final Performing Location [facility] [place] [address]
--- OUTSIDE RECORDS SUMMARY | 2023-05-20 06:36 | External Medical Summary ---
Author Name Unknown Address Unknown Organization K09:[facility] [address] Laboratory Report Ordering Provider Test Date Status DO DRAGANIJEOMA 02/26/2023 07:24:04 Final Observation Date Value Abnormality Reference (Units ) Status Albumin 02/26/2023 07:24:04 4.1 3.8-5.0 (g/dL) Final AST (Aspartate aminotransferase) 02/26/2023 07:24:04 35 10-50 (U/L) Final Alk Phos 02/26/2023 07:24:04 60 35-130 (U/L) Final ALT (Alanine aminotransferase) 02/26/2023 07:24:04 49 10-50 (U/L) Final Bilirubin, Total 02/26/2023 07:24:04 0.5 <=1.2 (mg/dL) Final Bilirubin, Direct 02/26/2023 07:24:04 <0.2 0.0-0.3 (mg/dL) Final Protein 02/26/2023 07:24:04 6.9 6.0-8.3 (g/dL) Final Performing Location [facility] [place] [address]
--- OUTSIDE RECORDS SUMMARY | 2023-05-20 06:36 | External Medical Summary | Summary of Care ---
Author Name Unknown Organization [facility] Address [address] [place] [address] Phone [phone] Care Team Providers Care Subsurface Augmentee Operator Name Role Phone Eulogio Garvin MD Primary Care Provider + Reason for Visit * Reason Onset Date Comments Hospital Follow-Up 01/14/2023 Encounter Details Date Type Department Care Team (Late st Contact Info) Description 01/14/2023 Telephone General Internal Medicine [facility] [address] [place] [address] Eulogio Garvin MD [address] [place] [address] Hospital Follow-Up Allergies Active Allergy Reactions Criticality Noted Date Comments Environmental 11/09/2008 documented as of this encounter (statuses as of 01/15/2023) Medications Medication Sig Dispensed Refills Start Date [...] as of this encounter (statuses as of 01/15/2023) Active Problems Problem Noted Date Diagnosed Date 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, psychotic disturbance, mood disturbance, or anxiety 08/01/2022 Bilateral leg edema 12/14/2021 Pulmonary hypertension 11/21/2021 Reactive airway disease 08/08/2021 Chronic atrial fibrillation 12/19/2018 History of bladder cancer 08/17/2016 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 HTN, goal below 130/80 12/05/2011 Anticoagulation management encounter 07/24/2010 [facility] current use of anticoagulant therapy 0 07/24/2010 Overview: ICD-10 update of inactive term Elevated prostate specific antigen (PSA) 009 BPH without obstruction/lower urinary tract symp toms 03/03/2008 documented as of this encounter (statuses as of 01/15/2023) Resolved Problems Problem Noted Date Diagnosed Date Resolved Date UNILAT INGUINAL HERNIA- LEFT 07/31/2010 06/12/2017 Atrial fibrillation 07/24/2010 12/20/19 19 Benign neoplasm of colon 03/03/2008 FAMILY HX-GI MALIGNANCY 08/21/200511/13 Overview: Colonoscopy 08/13/05--tubular adenomas --repeat 3-5 years. documented as of this encounter (statuses as of 01/15/2023) Immunizations Name Administration Dates Next Due COVID-19 mRNA, LNP-s, No Pre serve, 2-Dose Series (Moderna) 04/13/2021,12/12/2020,04/08/2020,03/11 Covid-19, Mrna, Lnp-s, Pf, B ivalent, 30 Mcg, IM, 12 yrs and above ([place]) 10/23/2021 DTaP HIB - Dipth/Tet/Acell Pert/HIB 07/12/2004 [...] encounter Miscellaneous Notes * Telephone Encounter - Jenny Bobby OSA - 01/15/2023 1:40 PM EST Scheduled 01/25 with pcp . * Telephone Encounter - Renee Moe OSA - 01/14/2023 11:51 AM EST No Appointments Available Patient declined appointments?: No What Visit Type is needed? Hospital Discharge If Acute Visit Type is needed, were surrounding clinics offered to patient (Yes/No)? N/A Was patient offered appointments with other available providers (Yes/No)? N/A See Call Details? (Yes or No): Yes documented in this encounter Plan of Treatment Upcoming Encounters Date Type Department Care Team (Late st Contact Info) Description 01/25/2023 12:00 PM EST Office Visit General Internal Medicine [facility] [address] [place] [address] Eulogio Garvin MD [address] [facility] [place] [address] 02/01/2023 11:00 AM EST Anticoagulation Pharmacy, [facility] Debby [place] [address] [facility] [place] [address] Pharmacist1, [facility] [address] [place] [address] [address] 03/06/2023 4:40 PM EST Office Visit General Internal Medicine [facility] [place] [address] [place] [address] Eulogio Garvin MD [address] [facility] [place] [address] 03/11/2023 1:20 PM EST Office Visit Neurology [facility] [place] [address] [facility] [place] [address] Renae Gandara PA-C [address] [facility] [place] [address] 03/27/2023 4:20 PM EST Telemedicine Neurology, [place] [address] [place] [address] [place] [address] Poncho Wu MD [address] [facility] [address] 05/23/2023 10:00 AM EDT Office Visit Neurology [facility] [address] [facility] [place] [address] Renae Gandara PA-C [address] [facility] [place] [address] 06/13/2023 10:00 AM EDT Office Visit Cardiology, [facility] [address] [place] [address] Clara Fernandez PA-C [address] [place] [address] 06/18/2023 10:20 AM EDT [facility] [address] [place] [address] Chuck Adame, [address] [place], [place] [phone] Health Maintenance Due Date Last Done Comments [...] Completed 10/05/2018, 07/13, 05/26/2018, Additional history exists GARDASIL-HPV IMMUNIZATION SERIES Aged Out No longer eligible based on patient's age to complete this topic Hepatitis B Aged Out No longer eligi ble based on patient's age to complete this topic MENINGOCOCCAL (MENACTRA/MENVEO) Aged Out No longer eligible based on patient's age to complete this topic documented as of this encounter Medical Devices Implanted Type Area Gaming Investigator Device Identifier Shelf Expiration Date Model / Serial / Lot Mesh 3dmax 3.1x5.3in Rht Med - [id number] Implanted:Qty: 1 on 05/12/2018 by Jose Angel Parson MD at OR [facility] Right: Groin CR BARD : DAVOL 12/08/2022 [id number] / / [id number] Description:RIH repair documented as of this encounter Advance Directives Latest Code Status on File Code Status Date Activated Date Inactivated Comments Full Code 05/12/2018 9:34 AM 05/12/2018 4:54 PM This or yoanna reflects the patients wishes and were consensually agreed upon. Care Teams Subsurface Augmentee Operator Relationship Specialty Start Date End Date Eulogio Garvin MD [address] [place] [address] PCP - General Internal Medicine 11/30/20 documented as of this encounter
--- NOTE | 2023-05-20 06:39 | Emergency Department Note ---
Impression & Plan Multifocal pneumonia, Diarrhea, Weakness, Transaminitis ED Provider Note NAME: JEAN CANNON AGE: 87 SEX: M : 1935 ARRIVES VIA: Ambulance INFORMANT: Patient ED PROVIDER(S): Dr. Ang Adams CHIEF COMPLAINT: Abdominal pain HPI: Patient is an 87-year-old male with a past medical history of TIA, BPH, syncope, bladder cancer who presents to the ER for increased confusion, weakness and persistent diarrhea which has been present for the past several days associated with some blood in his stool. Per report from EMS he is pleasantly demented. Patient denies all complaints and no additional history is obtainable from him as he denies everything. Additional history obtained from who presented after he arrived. She does he has had diarrhea mainly at night for the past 3 days. Today she notes that he could not get up around and walk as he was too weak and consequently she brought him in. She also notes that he has been more confused. ADDITIONAL HISTORY OBTAINED: Per HPI Chronic Medical/Social Conditions Affecting Care: Per HPI PAST MEDICAL HISTORY:See Below PAST SURGICAL HISTORY:See Below FAMILY HISTORY:See Below SOCIAL HISTORY:See Below HOME MEDICATIONS:See Below ALLERGIES:See Below VITALS:See Below PHYSICAL EXAMINATION: GENERAL: Sitting up in bed, alert, well appearing, well nourished, no distress, non-toxic EYE EXAM: normal conjunctiva. OROPHARYNX:mucous membranes are moist NECK: supple, no nuchal rigidity, no adenopathy, non-tender LUNGS: Clear to auscultation. Normal chest wall mechanics HEART: no murmurs, S1 normal and S2 normal ABDOMEN: abdomen soft, non-tender, normo-active bowel sounds, no masses, no rebound or guarding. UPPER EXTREMITIES: upper extremities are grossly normal. LOWER EXTREMITIES: No pitting edema. NEURO EXAM: Normal sensorium, cranial nerves II-XII grossly intact, normal speech, no gross weakness of arms, no gross weakness of legs. MEDICAL DECISION MAKING: Patient is an 87-year-old male who presents ER for above-stated complaint. IV was established blood work was obtained. Labs show an no significant leukocytosis or anemia. Mild thrombocytopenia at 122. INR was therapeutic at 2.1. BMP was unremarkable. Bilirubin was normal. Mild transaminitis. Lipase unremarkable. UA slightly contaminated. Patient was given IV antibiotics and IV fluids following his chest x-ray and CT abdomen pelvis which showed a multifocal pneumonia. Discussed with the hospitalist for further evaluation management treatment. Consults/Care Managements Discussions: Per MDM Triage Nursing notes reviewed. Limited review of prior medical records performed Vital Signs: reviewed and remarkable for no significant abnormalities Differential diagnosis: Differential diagnoses includes but is not limited to gastritis, peptic ulcer disease, GERD, gallbladder disease, pancreatitis, small bowel obstruction, appendicitis, diverticulitis, hernia, urinary tract infection, torsion, perforation, trauma, infectious. ER treatment provided: See below Diagnostics interpreted by me include EKG and cardiac monitoring as listed below: -Cardiac Monitoring: An order was placed for continuous cardiac monitoring. The monitor shows a rate of 90 with sinus rhythm. -ECG: none -Laboratory studies:Interpreted by me as stated above in MDM and shown below. Imaging studies: Xrays: As interpreted by me: Portable AP upright 1 view chest shows faint opacities in bilateral bases CTs show: CT abdomen pelvis per radiology shows multifocal pneumonia Procedures:none Critical Care: None Past Med/Surg History Medical History Vascular dementia Pulmonary hypertension Dyslipidemia shelter current use of anticoagulant therapy Reactive airway disease TIA (transient ischemic attack) Bladder cancer Elevated PSA BPH (benign prostatic hyperplasia) Cataract Hypertension Atrial fibrillation Surgical History History of bladder surgery CANCEROUS LESION REMOVED History of prostate surgery 2017 History of colonoscopy Hx of hernia repair X2 History of adenoidectomy History of tonsillectomy Family History Father Cancer Other Heart disease Hypertension Social History Smoking Status: Former smoker Second Hand Exposure: No; Do You Dip or Chew Tobacco: No; Hx Alcohol Use: Yes Alcohol type: wine Hx Substance Use: No Preferred Language: Dominican Communication Ability: Impaired Communication Ability Comment: [facility] Casting Tester Required: No Beliefs That Will Affect Care: None Current Living Situation: Spouse current occupational status: retired Feels Safe at Home: Yes Assistive Devices: Hearing Aid - Bilateral Allergies Allergies Allergy/AdvReac Type Severity Reaction Status Date / Time No Known Allergies Allergy Verified 01/12/23 20:14 Home Meds Home Medications Medication Instructions Recorded Confirmed ascorbic acid (vitamin C) 500 mg 500 mg PO QAM 09/02/18 05/20/23 tablet (Vitamin C) omega-3 fatty acids-fish oil 360 1 cap PO QAM 09/02/18 05/20/23 mg-1,200 mg capsule (Fish Oil) donepezil 10 mg tablet 10 mg PO QDD 01/12/23 05/20/23 furosemide 20 mg tablet 20 mg PO 3XWK 01/12/23 05/20/23 metoprolol succinate 25 mg 37.5 mg PO DAILY 01/12/23 05/20/23 tablet,extended release 24 hr ptcdxvursovj-vlxvcysn-emwiua tablet 1 tab PO DAILY 01/12/23 05/20/23 spironolactone 25 mg tablet 12.5 mg PO DAILY 01/12/23 05/20/23 aspirin 81 mg tablet,delayed 81 mg PO PM 05/20/23 05/20/23 release thiamine HCl (vitamin B1) 100 mg 100 mg PO DAILY 05/20/23 05/20/23 tablet vitamin B complex 1 tab PO DAILY 05/20/23 05/20/23 warfarin 2.5 mg tablet 1.25 mg PO UD 05/20/23 05/20/23 warfarin 2.5 mg tablet (Jantoven) 2.5 mg PO UD 05/20/23 05/20/23 Previous Rx's Medication Instructions Recorded dutasteride 0.5 mg capsule 0.5 mg PO DAILY #90 caps 09/05/21 rosuvastatin 20 mg tablet (Crestor) 40 mg (2 x 20 mg) PO QDD 30 days 01/14/23 #60 tabs Results & Data (ED) Vital Signs Vital Signs - 24 hr 05/20/23 06:35 05/20/23 06:35 05/20/23 06:45 Temperature 37.5 C Temperature Source Oral Pulse Rate 94 H 116 H 97 H Pulse Rate [Right Finger] Pulse Rhythm [Right Finger] Pulse Strength [Right Finger] Respiratory Rate 28 H 28 H Respiratory Effort / Characteristics Respiratory Depth Respiratory Pattern Blood Pressure 125/88 Blood Pressure [Right Arm] Blood Pressure Mean 100 Blood Pressure Mean [Right Arm] Blood Pressure Position [Right Arm] Pulse Oximetry 93 92 Oxygen Delivery Method Room Air Room Air Sepsis Recent Fever Within 48 Hours No Sepsis New/Unexplained Change in Mental Status No Sepsis Action Taken by Nursing No Action Required 05/20/23 07:12 Temperature 37.5 C Temperature Source Oral Pulse Rate Pulse Rate [Right Finger] 92 H Pulse Rhythm [Right Finger] Regular Pulse Strength [Right Finger] Normal Respiratory Rate 22 Respiratory Effort / Characteristics Non-Labored Spontaneous Respiratory Depth Normal Respiratory Pattern Regular Blood Pressure Blood Pressure [Right Arm] 127/80 Blood Pressure Mean Blood Pressure Mean [Right Arm] 95 Blood Pressure Position [Right Arm] Semi-fowlers Pulse Oximetry 92 Oxygen Delivery Method Room Air Sepsis Recent Fever Within 48 Hours Sepsis New/Unexplained Change in Mental Status Sepsis Action Taken by Nursing Laboratory Data 05/20/23 06:42 05/20/23 06:42 Lab Results 05/20/23 05/20/23 Range/Units 06:42 07:37 WBC 5.04 (4.8-10.8) K/ul RBC 5.01 (4.70-6.10) M/uL Hgb 15.4 (14.0-18.0) g/dl Hct 46.8 (42.0-52.0) % MCV 93.4 (80.0-100.0) fL MCH 30.7 (25.0-34.0) pg MCHC 32.9 (32.0-36.0) g/dL RDW Std Deviation 44.0 (36.4-46.3) fL RDW Coeff of [place] 12.8 (11.5-14.5) % Plt Count 122 L (130-400) K/uL MPV 10.6 (9.4-12.4) fL Immature Gran % (Auto) 0.4 % Neut % (Auto) 90.4 % Lymph % (Auto) 5.2 % [place] % (Auto) 4.0 % Eos % (Auto) 0.0 % Baso % (Auto) 0.0 % Neut # (Auto) 4.56 (1.40-6.50) K/uL Lymph # (Auto) 0.26 L (1.20-3.40) K/uL [place] # (Auto) 0.20 (0.11-0.59) K/uL Eos # (Auto) 0.00 (0.00-0.50) K/uL Baso # (Auto) 0.00 (0.00-0.20) K/uL Immature Gran # (Auto) 0.02 (0.01-0.20) K/uL Polychromasia 1+ PT 22.1 H (9.0-12.0) Seconds INR 2.1 H (0.9-1.1) Sodium 138 (136-145) mmol/L Potassium 3.7 (3.5-5.1) mmol/L Chloride 103 (98-107) mmol/L Carbon Dioxide 24 (21-32) mmol/L Anion Gap 11 (3-11) BUN 23 (6-23) mg/dl Creatinine 1.19 (0.6-1.4) mg/dl Est Cr Clr Drug Dosing 43.2 ml/min Est GFR ( Amer) 62.8 ml/min Est GFR (Non-Af Amer) 54.2 ml/min BUN/Creatinine Ratio 19.3 (10-20) Glucose 92 (70-99(Fasting)) mg/dl Calcium 9.3 (8.6-10.3) mg/dl Total Bilirubin 0.5 (0.2-1.0) mg/dl AST 94 H (13-39) U/L ALT 90 H (7-52) U/L Alkaline Phosphatase 45 (34-104) U/L Total Protein 7.6 (6.0-8.3) gm/dl Albumin 4.1 (3.4-5.0) gm/dl Globulin 3.5 (2.5-4.0) gm/dl Albumin/Globulin Ratio 1.2 (0.9-2) Lipase 57 (11-82) U/L Urine Color Yellow Urine Appearance Clear (Clear) Urine pH 5.0 (4.5-7.5) Ur Specific [place] >= 1.030 (1.000-1.030) Urine Protein 2+ H (Negative) Urine Glucose (UA) Negative (Negative) Urine Ketones 1+ H (Negative) Urine Blood 1+ H (Negative) Urine Nitrite Negative (Negative) Urine Bilirubin Negative (Negative) Urine Urobilinogen Negative (Negative) Ur Leukocyte Esterase Negative (Negative) Urine RBC 5-10 H (0-4) /hpf Urine WBC 5-10 H (0-5) /hpf Ur Epithelial Cells 5-10 H (0-5) /lpf Amorphous Sediment Present A (None Prsent) Urine Bacteria Negative (Negative) Hyaline Casts 0-5 (0-5) /lpf Urine Mucus Present A (None Prsent) Administered Medications Metronidazole (Flagyl) 500 mg in 100 mls @ 100 mls/hr IV Q8H [facility]; Protocol Stop: 05/27/23 10:29 Last Infusion: 05/20/23 11:52 Dose: Infused Documented By: [id number] Admin: 05/20/23 10:37 Dose: 100 mls/hr Documented By: CHERYL Discontinued Medications Sodium Chloride (Nss) 1,000 mls @ 999 mls/hr IV .Q1H1M ONE Stop: 05/20/23 07:36 Last Infusion: 05/20/23 10:32 Dose: Infused Documented By: Admin: 05/20/23 07:05 Dose: 999 mls/hr Documented By: CHERYL Ceftriaxone Sodium (Rocephin) 2,000 mg in 50 mls @ 100 mls/hr IV NOW STA Stop: 05/20/23 09:37 Last Infusion: 05/20/23 10:32 Dose: Infused Documented By: Admin: 05/20/23 09:26 Dose: 100 mls/hr Documented By: CHERYL Azithromycin 500 mg/ Dextrose 255 mls @ 125 mls/hr IV NOW ONE Stop: 05/20/23 11:10 Last Admin: 05/20/23 10:32 Dose: 125 mls/hr Documented By: CHERYL Ioversol (Optiray 320 100ml) 94 ml IV ONCE ONE Stop: 05/20/23 08:03 Last Admin: 05/20/23 08:02 Dose: 94 ml Documented By: LUDWIN Imaging Data Radiologist's Impression: Abdomen/Pelvis CT 05/20/23 06:[address] WITH IV CONTRAST CT DOSE: 543.53 mGy.cm HISTORY: Generalized abdominal pain. TECHNIQUE: Multiaxial CT images of the abdomen and pelvis were performed following the use of intravenous contrast. A dose lowering technique was utilized adhering to the principles of ALARA. COMPARISON STUDY: Abdomen and pelvis CT 06/16/2016. FINDINGS: The right middle lobe airspace opacity. There is also groundglass airspace opacity within the base of the left lower lobe with partial opacification of the distal left lower lobe bronchi. Additional small groundglass airspace opacities within the lingula. These findings are consistent with a multifocal pneumonia and could be due to prior aspiration. No pneumoperitoneum. No pneumatosis. No suspicious lytic are blastic osseous lesions. There is a small hiatal hernia. The heart is mildly enlarged. Evidence for prior bilateral inguinal hernia repair. Tiny fat-containing supraumbilical hernia. No hepatic or splenic masses. The adrenal glands and gallbladder are unremarkable. Hypodense focus within the pancreatic head remain stable and may represent a duodenal diverticulum or cystic lesion such as a serous cystadenoma or side branch intraductal papillary mucinous neoplasm. This measures 1.8 cm and remains stable. Therefore, this is of doubtful clinical significance. Otherwise, the pancreas is unremarkable. The kidneys enhance normally. There is mild bilateral perinephric edema. There is mild fullness within the bilateral renal collecting system without rosmery hydronephrosis. This is likely secondary to the distended bladder. There are few punctate stones within the bladder. No bladder wall thickening. The main portal vein is patent. Moderate calcified plaque within the aorta and iliac arteries. No retroperitoneal or pelvic lymphadenopathy. No pelvic free fluid. Mildly enlarged and heterogeneous prostate gland. Colonic diverticulosis. No evidence for acute diverticulitis. No bowel wall thickening or obstruction. Normal appendix. Fluid-filled nondilated loops of large and small bowel seen throughout the abdomen. This suggests a gastroenteritis/diarrheal illness. IMPRESSION: 1. Bibasilar airspace opacities as described above consistent with a multifocal pneumonia. This could be due to aspiration. 2. No bowel wall thickening or obstruction. 3. Fluid filled nondilated loops of large and small bowel seen throughout the abdomen. This suggests a gastroenteritis/diarrheal illness. 4. Mild fullness within the bilateral renal collecting systems without rosmery hydronephrosis. This is likely due to the distended bladder. Recommend Strong catheterization for decompression. 5. A few small bladder stones. 6. Additional findings as described above. ACT 112: Negative or not required by law. Electronically signed by: Nemesio Henderson M.D. 05/20/2023 8:27 AM Chest X-Ray 05/20/23 07:01 XR chest 1V portable HISTORY: weakness COMPARISON: Chest 01/12/2023. FINDINGS: No pneumothorax. The heart remains borderline enlarged. No pleural effusions. Mild interstitial thickening within the right medial lung base. Otherwise, lungs are clear. No evidence for pulmonary edema. No acute fractures. IMPRESSION: Mild interstitial thickening within the right medial lung base which may be due to vascular crowding. This will be assessed on the same day abdomen and pelvis CT. Otherwise, no acute process within the chest. ACT 112: Negative or not required by law. Electronically signed by: Nemesio Henderson M.D. 05/20/2023 7:59 AM Discharge Plan Visit Data Chief Complaint: Diarrhea Stated Complaint: Diarrhea, Dehydration, Weakness ED Provider: Ang Adams Discharge Problem: Multifocal pneumonia, Diarrhea, Weakness, Transaminitis Patient Disposition: Admitted As Inpatient Discharge Instructions Interventions: ED Discharge Assessment Last Done: 05/20/23 10:55 Discharge Problem: Diarrhea Qualifiers: Diarrhea type: unspecified type Qualified Code(s): R19.7 - Diarrhea, unspecified
[2023-05-20] MEDS: SODIUM CHLORIDE 0.9% 1,000 ML IV ONE (07:05)
[2023-05-20 07:24] LABS: Albumin Globulin Ratio 1.2 (0.9-2); Albumin Level 4.1 gm/dl (3.4-5.0); BUN Creatinine Ratio 19.3 (10-20); Bilirubin,Total 0.5 mg/dl (0.2-1.0); Calcium 9.3 mg/dl (8.6-10.3); Creatinine Clr Calc Pharmacy 43.2 ml/min; Est GFR (African American) 62.8 ml/min; Est GFR (Non-African American) 54.2 ml/min; Globulin 3.5 gm/dl (2.5-4.0); Potassium 3.7 mmol/L (3.5-5.1); Total Protein 7.6 gm/dl (6.0-8.3)
[2023-05-20 07:26] LABS: Hematocrit (blood only) 46.8 % (42.0-52.0); Hemoglobin 15.4 g/dl (14.0-18.0); INR 2.1 (0.9-1.1); Immature Granulocytes # (auto) 0.02 K/uL (0.01-0.20); Immature Granulocytes % (auto) 0.4 %; Lymphocytes # (auto) 0.26 K/uL (1.20-3.40); Lymphocytes % (auto) 5.2 %; Mean Corpuscular Hemoglobin 30.7 pg (25.0-34.0); Mean Corpuscular Hgb Conc 32.9 g/dL (32.0-36.0); Mean Corpuscular Volume 93.4 fL (80.0-100.0); Mean Platelet Volume 10.6 fL (9.4-12.4); Neutrophils # (auto) 4.56 K/uL (1.40-6.50); Neutrophils % (auto) 90.4 %; Platelet Count 122 K/uL (130-400); Polychromasia 1+; Prothrombin Time 22.1 Seconds (9.0-12.0); RDW Coefficient of Variation 12.8 % (11.5-14.5); Red Blood Count 5.01 M/uL (4.70-6.10); White Blood Count 5.04 K/ul (4.8-10.8)
[2023-05-20 07:53] LABS: Appearance Urine Clear (Clear); Bilirubin Urine Negative (Negative); Blood Urine 1+ (Negative); Color Urine Yellow; Glucose Urine UA Negative (Negative); Ketones Urine 1+ (Negative); Leukocyte Esterase Urine Negative (Negative); Nitrite Urine Negative (Negative); Protein Urine 2+ (Negative); Specific Gravity Urine >= 1.030 (1.000-1.030); Urobilinogen Urine Negative (Negative)
[2023-05-20] MEDS: OPTIRAY 320 100ml IV ONE (08:02)
--- NOTE | 2023-05-20 08:02 | XRay Report ---
XR chest 1V portable HISTORY: weakness COMPARISON: Chest 01/12/2023. FINDINGS: No pneumothorax. The heart remains borderline enlarged. No pleural effusions. Mild intersti tial thickening within the right medial lung base. Otherwise, lungs are clear. No evidence for pulmon [place]lin edema. No acute fractures. IMPRESSION: Mild interstitial thickening within the right medial lung base which may be due to vascular crowding. This will be assessed on the same day abdomen and pelvis CT. Otherwise, no acute process within the chest. ACT 112: Negative or not required by law. Electronically signed by: Nemesio Henderson M.D. 05/20/2023 7:59 AM
[2023-05-20 08:11] LABS: Mucus Urine Present (None Prsent)
[2023-05-20 08:13] LABS: Amorphous Sediment Urine Present (None Prsent); Hyaline Casts Urine 0-5 /lpf (0-5)
[2023-05-20 08:14] LABS: Bacteria Urine Negative (Negative)
--- NOTE | 2023-05-20 08:29 | CT Scan Report ---
ABDOMEN AND PELVIS CT WITH IV CONTRAST CT DOSE: 543.53 mGy.cm HISTORY: Generalized abdominal pain. TECHNIQUE: Multiaxial CT images of the abdomen and pelvis were performed following the use of intrave nous contrast. A dose lowering technique was utilized adhering to the principles of ALARA. COMPARISON STUDY: Abdomen and pelvis CT 06/16/2016. FINDINGS: The right middle lobe airspace opacity. There is also groundglass airspace opacity within t he base of the left lower lobe with partial opacification of the distal left lower lobe bronchi. Gregory tional small groundglass airspace opacities within the lingula. These findings are consistent with a multifocal pneumonia and could be due to prior aspiration. No pneumoperitoneum. No pneumatosis. No michel spicious lytic are blastic osseous lesions. There is a small hiatal hernia. The heart is mildly enlar ged. Evidence for prior bilateral inguinal hernia repair. Tiny fat-containing supraumbilical hernia. No hepatic or splenic masses. The adrenal glands and gallbladder are unremarkable. Hypodense focus wi thin the pancreatic head remain stable and may represent a duodenal diverticulum or cystic lesion suc h as a serous cystadenoma or side branch intraductal papillary mucinous neoplasm. This measures 1.8 c m and remains stable. Therefore, this is of doubtful clinical significance. Otherwise, the pancreas i s unremarkable. The kidneys enhance normally. There is mild bilateral perinephric edema. There is mil d fullness within the bilateral renal collecting system without rosmery hydronephrosis. This is likely secondary to the distended bladder. There are few punctate stones within the bladder. No bladder wall thickening. The main portal vein is patent. Moderate calcified plaque within the aorta and iliac art eries. No retroperitoneal or pelvic lymphadenopathy. No pelvic free fluid. Mildly enlarged and hetero geneous prostate gland. Colonic diverticulosis. No evidence for acute diverticulitis. No bowel wall t hickening or obstruction. Normal appendix. Fluid-filled nondilated loops of large and small bowel see n throughout the abdomen. This suggests a gastroenteritis/diarrheal illness. IMPRESSION: 1. Bibasilar airspace opacities as described above consistent with a multifocal pneumonia. This could be due to aspiration. 2. No bowel wall thickening or obstruction. 3. Fluid filled nondilated loops of large and small bowel seen throughout the abdomen. This suggests a gastroenteritis/diarrheal illness. 4. Mild fullness within the bilateral renal collecting systems without rosmery hydronephrosis. This is likely due to the distended bladder. Recommend Strong catheterization for decompression. 5. A few small bladder stones. 6. Additional findings as described above. ACT 112: Negative or not required by law. Electronically signed by: Nemesio Henderson M.D. 05/20/2023 8:27 AM
--- NOTE | 2023-05-20 09:22 | History & Physical Report ---
Date of Service May 20, 2023 Assessment & Plan (1) Multifocal pneumonia: Plan: This is an 87 y/o male with chronic afib, on chronic AC w/ warfarin, vascular dementia, pulmonary HTN, dyslipidemia, HTN, prior TIA, prior bladder CA, BPH, and other history as outlined below who presents to the ED today with diarrhea x 1 week, increased lethargy, confusion, and weakness since yesterday. He has also had a productive cough for the last 1-2 weeks. Work-up in the ED seems most consistent with multifocal pneumonia with possible aspiration, and presumed infectious diarrhea. He was also noted to have urinary retention on CT. - Admit to med telemetry - Continue coverage for pneumonia and possible UTI - add metronidazole to cover for anaerobes, continue ceftriaxone - Speech evaluation due to concern for aspiration - Not currently requiring O2 but will monitor closely (2) Diarrhea: Plan: Presumed infectious etiology. No recent antibiotics so C. diff less likely. 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 Negrete. Plan of care discussed and as outlined above. Code Status: Full code DVT Prophylaxis: on chronic warfarin, INR therapeutic today Esha Carbajal PA-C History of Present Illness Chief Complaint: diarrhea, weakness Primary Care Provider: Eulogio Garvin MD This is an 87 y/o male with chronic afib, on chronic AC w/ warfarin, vascular dementia, pulmonary HTN, dyslipidemia, HTN, prior TIA, prior bladder CA, BPH, and other history as outlined below who presents to the ED today with diarrhea x 1 week, increased lethargy, confusion, and weakness since yesterday. History obtained from patient's due to pt's confusion and dementia. She reports that about a week ago, pt started having diarrhea with incontinence. Pt typically has BMs at night, not during the day. For the last week, he has been having 3-4 episodes of diarrhea with incontinence nightly, which is unusual for him. She has not noticed any blood in the stools. No associated vomiting or complaint of abdominal pain. His appetite is decreased at baseline, and his does not think that it has been significantly worse than usual. No recent antibiotics. She has also noticed that pt has had a cough and runny nose for the last 1-2 weeks. Initially, she thought this was due to allergies so she gave him Claritin and Flonase, which seemed to help. However, over the last few days, the cough has been deeper sounding, like it is in his chest. No hemoptysis. Cough may be productive. Rhinorrhea has been clear. Pt has not complained of dysphagia. His does not notice any coughing or rosmery aspiration when he eats. Allergies Allergy/AdvReac Type Severity Reaction Status Date / Time No Known Allergies Allergy Verified 01/12/23 20:14 Home Medications Medication Instructions Recorded Confirmed Type ascorbic acid (vitamin C) 500 mg 500 mg PO QAM 09/02/18 05/20/23 History tablet (Vitamin C) omega-3 fatty acids-fish oil 360 1 cap PO QAM 09/02/18 05/20/23 History mg-1,200 mg capsule (Fish Oil) dutasteride 0.5 mg capsule 0.5 mg PO DAILY #90 caps 09/05/21 05/20/23 Rx donepezil 10 mg tablet 10 mg PO QDD 01/12/23 05/20/23 History furosemide 20 mg tablet 20 mg PO [id number] 01/12/23 05/20/23 History metoprolol succinate 25 mg 37.5 mg PO DAILY 01/12/23 05/20/23 History tablet,extended release 24 hr [id number] tablet 1 tab PO DAILY 01/12/23 05/20/23 History spironolactone 25 mg tablet 12.5 mg PO DAILY 01/12/23 05/20/23 History rosuvastatin 20 mg tablet (Crestor) 40 mg (2 x 20 mg) PO QDD 30 days 01/14/23 05/20/23 Rx #60 tabs aspirin 81 mg tablet,delayed 81 mg PO PM 05/20/23 05/20/23 History release thiamine HCl (vitamin B1) 100 mg 100 mg PO DAILY 05/20/23 05/20/23 History tablet vitamin B complex 1 tab PO DAILY 05/20/23 05/20/23 History warfarin 2.5 mg tablet 1.25 mg PO UD 05/20/23 05/20/23 History warfarin 2.5 mg tablet (Jantoven) 2.5 mg PO UD 05/20/23 05/20/23 History Past Med/Surg History Medical History Vascular dementia Pulmonary hypertension Dyslipidemia halfway current use of anticoagulant therapy Reactive airway disease TIA (transient ischemic attack) Bladder cancer Elevated PSA BPH (benign prostatic hyperplasia) Cataract Hypertension Atrial fibrillation Surgical History History of bladder surgery CANCEROUS LESION REMOVED History of prostate surgery 2017 History of colonoscopy Hx of hernia repair X2 History of adenoidectomy History of tonsillectomy Family History Father Cancer Other Heart disease Hypertension Social History Smoking Status: Smoker, status unknown Second Hand Exposure: No; Do You Dip or Chew Tobacco: No; Hx Alcohol Use: Yes Alcohol type: wine Hx Substance Use: No Preferred Language: Mongolian Communication Ability: Impaired Communication Ability Comment: [facility] Hand Potter Required: No Beliefs That Will Affect Care: None Current Living Situation: Spouse Current Living Situation Comment: home with spouse current occupational status: retired Other Information That Helps Us Care for You: No Feels Safe at Home: Yes Safety Concerns: Feels Safe At This Time Assistive Devices: Hearing Aid - Bilateral Review of Systems Review of Systems: Unobtainable due to cognitive status (dementia) Physical Exam Physical Exam: General: resting comfortably but arouses to verbal stimulation, hard of hearing HEENT: no scleral icterus Neck: supple, trachea midline Heart: irregularly irregular Lungs: diminished BS but poor inspiratory effort Abdomen: soft, NT, +BS Extremities: no pedal edema Neurologic: not oriented to place or time, pleasant, no dysarthria noted, moving all extremities Results & Data Results & Data Vital Signs (Past 12 Hours) Vital Signs Temp Pulse Pulse Resp BP BP Pulse Ox 05/20/23 07:12 37.5 C 92 H 22 127/80 92 05/20/23 06:45 97 H 28 H 92 05/20/23 06:35 116 H 05/20/23 06:35 37.5 C 94 H 28 H 125/88 93 O2 Del Method 05/20/23 07:12 Room Air 05/20/23 06:45 Room Air 05/20/23 06:35 05/20/23 06:35 Room Air Laboratory Results Laboratory Results - last 24 hr 05/20/23 05/20/23 06:42 07:37 WBC 5.04 RBC 5.01 Hgb 15.4 Hct 46.8 MCV 93.4 MCH 30.7 MCHC 32.9 RDW Std Deviation 44.0 RDW Coeff of [place] 12.8 Plt Count 122 L MPV 10.6 Immature Gran % (Auto) 0.4 Neut % (Auto) 90.4 Lymph % (Auto) 5.2 [place] % (Auto) 4.0 Eos % (Auto) 0.0 Baso % (Auto) 0.0 Neut # (Auto) 4.56 Lymph # (Auto) 0.26 L [place] # (Auto) 0.20 Eos # (Auto) 0.00 Baso # (Auto) 0.00 Immature Gran # (Auto) 0.02 Polychromasia 1+ PT 22.1 H INR 2.1 H Sodium 138 Potassium 3.7 Chloride 103 Carbon Dioxide 24 Anion Gap 11 BUN 23 Creatinine 1.19 Est Cr Clr Drug Dosing 43.2 Est GFR ( Amer) 62.8 Est GFR (Non-Af Amer) 54.2 BUN/Creatinine Ratio 19.3 Glucose 92 Calcium 9.3 Total Bilirubin 0.5 AST 94 H ALT 90 H Alkaline Phosphatase 45 Total Protein 7.6 Albumin 4.1 Globulin 3.5 Albumin/Globulin Ratio 1.2 Lipase 57 Urine Color Yellow Urine Appearance Clear Urine pH 5.0 Ur Specific [place] >= 1.030 Urine Protein 2+ H Urine Glucose (UA) Negative Urine Ketones 1+ H Urine Blood 1+ H Urine Nitrite Negative Urine Bilirubin Negative Urine Urobilinogen Negative Ur Leukocyte Esterase Negative Urine RBC 5-10 H Urine WBC 5-10 H Ur Epithelial Cells 5-10 H Amorphous Sediment Present A Urine Bacteria Negative Hyaline Casts 0-5 Urine Mucus Present A Diagnostic Findings Abdomen/Pelvis CT 05/20/23 06:[address] WITH IV CONTRAST CT DOSE: 543.53 mGy.cm HISTORY: Generalized abdominal pain. TECHNIQUE: Multiaxial CT images of the abdomen and pelvis were performed following the use of intravenous contrast. A dose lowering technique was utilized adhering to the principles of ALARA. COMPARISON STUDY: Abdomen and pelvis CT 06/16/2016. FINDINGS: The right middle lobe airspace opacity. There is also groundglass airspace opacity within the base of the left lower lobe with partial opacification of the distal left lower lobe bronchi. Additional small groundglass airspace opacities within the lingula. These findings are consistent with a multifocal pneumonia and could be due to prior aspiration. No pneumoperitoneum. No pneumatosis. No suspicious lytic are blastic osseous lesions. There is a small hiatal hernia. The heart is mildly enlarged. Evidence for prior bilateral inguinal hernia repair. Tiny fat-containing supraumbilical hernia. No hepatic or splenic masses. The adrenal glands and gallbladder are unremarkable. Hypodense focus within the pancreatic head remain stable and may represent a duodenal diverticulum or cystic lesion such as a serous cystadenoma or side branch intraductal papillary mucinous neoplasm. This measures 1.8 cm and remains stable. Therefore, this is of doubtful clinical significance. Otherwise, the pancreas is unremarkable. The kidneys enhance normally. There is mild bilateral perinephric edema. There is mild fullness within the bilateral renal collecting system without rosmery hydronephrosis. This is likely secondary to the distended bladder. There are few punctate stones within the bladder. No bladder wall thickening. The main portal vein is patent. Moderate calcified plaque within the aorta and iliac arteries. No retroperitoneal or pelvic lymphadenopathy. No pelvic free fluid. Mildly enlarged and heterogeneous prostate gland. Colonic diverticulosis. No evidence for acute diverticulitis. No bowel wall thickening or obstruction. Normal appendix. Fluid-filled nondilated loops of large and small bowel seen throughout the abdomen. This suggests a gastroenteritis/diarrheal illness. IMPRESSION: 1. Bibasilar airspace opacities as described above consistent with a multifocal pneumonia. This could be due to aspiration. 2. No bowel wall thickening or obstruction. 3. Fluid filled nondilated loops of large and small bowel seen throughout the abdomen. This suggests a gastroenteritis/diarrheal illness. 4. Mild fullness within the bilateral renal collecting systems without rosmery hydronephrosis. This is likely due to the distended bladder. Recommend Strong catheterization for decompression. 5. A few small bladder stones. 6. Additional findings as described above. ACT 112: Negative or not required by law. Electronically signed by: Nemesio Henderson M.D. 05/20/2023 8:27 AM Chest X-Ray 05/20/23 07:01 XR chest 1V portable HISTORY: weakness COMPARISON: Chest 01/12/2023. FINDINGS: No pneumothorax. The heart remains borderline enlarged. No pleural effusions. Mild interstitial thickening within the right medial lung base. Otherwise, lungs are clear. No evidence for pulmonary edema. No acute fractures. IMPRESSION: Mild interstitial thickening within the right medial lung base which may be due to vascular crowding. This will be assessed on the same day abdomen and pelvis CT. Otherwise, no acute process within the chest. ACT 112: Negative or not required by law. Electronically signed by: Nemesio Henderson M.D. 05/20/2023 7:59 AM Medications Administered Discontinued Medications Sodium Chloride (Nss) 1,000 mls @ 999 mls/hr IV .Q1H1M ONE Stop: 05/20/23 07:36 Last Admin: 05/20/23 07:05 Dose: 999 mls/hr Documented By: CHERYL Ioversol (Optiray 320 100ml) 94 ml IV ONCE ONE Stop: 05/20/23 08:03 Last Admin: 05/20/23 08:02 Dose: 94 ml Documented By: LUDWIN Supervising Physician Co-Signing Physician Notes Patient was seen and examined independently at bedside. Chart reviewed. Case discussed with Beatrice Carbajal PA-C and agree with the documentation above. In summary, this is a 87 year old male who presented to the ED from home with diarrhea with blood, dehydration and not feeling well. He is AAOx2 during my encounter and did not know why he was brought to the hospital. Afebrile, hemodynamically stable. Labs show no leucocytosis, CBC normal, INR 2.1, Electrolytes normal, AST/ALT 94/90 otherwise normal LFT, abnormal UA. CT shows multifocal PNA with gastroenteritis/diarrheal illness and distended blader with few small bladder stones. 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 Continue empiric antibiotics for PNA, follow GI panel and sputum clx, continue IVF, PT OT eval. Follow up LFT in am, if worsening hold statin. Other chronic medical condition stable. On exam- General: Lying comfortably in bed, not in distress, on room air HEENT: EOMI, SHAJI, MMM Chest: Clear breath sounds bilaterally, no wheezes or crackles CVS: Regular rate and rhythm, normal heart sounds, no murmur Abdomen: Soft, non tender, not distended, normal bowel sounds Neuro: Awake, alert, orientedx2, conversing ok, non focal Extremities: No cyanosis, clubbing or edema Rest as per the note above. (2) Diarrhea Diarrhea type: unspecified type Qualified Code(s): R19.7 - Diarrhea, unspecified (4) Vascular dementia Dementia behavioral or psychological symptom: without behavioral, psychotic, or mood disturbance or anxiety Dementia severity: unspecified severity Qualified Code(s): F01.50 - Vascular dementia, unspecified severity, without b ehavioral disturbance, psychotic disturbance, mood disturbance, and anxiety (5) Hypertension Hypertension type: primary hypertension Qualified Code(s): I10 - Essential (primary) hypertension (8) Atrial fibrillation Atrial fibrillation type: unspecified chronic Qualified Code(s): I48.20 - Chronic atrial fibrillation, unspecified (9) BPH (benign prostatic hyperplasia) Lower urinary tract symptom detail: urinary retention Lower urinary tract symptom presence: symptoms present Qualified Code(s): N40.1 - Benign prostatic hyperplasia with lower urinary tract symptoms; R33.8 - Other retention of urine
[2023-05-20] MEDS: cefTRIAXone SODIUM 2,000 MG/50 ML BAG IV STA (09:26)
[2023-05-20] MEDS: AZITHROMYCIN 500 MG in DEXTROSE 5% 250 ML IV ONE (10:32)
[2023-05-20] MEDS: metroNIDAZOLE 500 MG/100 ML BAG IV SCH (10:37)
[2023-05-20] MEDS: FINASTERIDE 5 MG TAB PO SCH (12:52)
[2023-05-20] MEDS: METOPROLOL SUCC 25MG EXT REL TAB PO SCH (12:52)
[2023-05-20] MEDS: SODIUM CHLORIDE 0.9% 1,000 ML IV SCH (14:20)
[2023-05-20] MEDS: ACETAMINOPHEN 325 MG TAB PO PRN (15:54)
[2023-05-20] MEDS: ROSUVASTATIN CALCIUM 20 MG TAB PO SCH (15:55)
[2023-05-20] MEDS: WARFARIN SOD 1 MG TAB PO SCH (15:55)
[2023-05-20] MEDS: DONEPEZIL HCL 10 MG TAB PO SCH (15:55)
[2023-05-20] MEDS ORDERED: WARFARIN SOD 2.5 MG TAB PO SCH (16:00)
[2023-05-20] MEDS: ASPIRIN 81 MG ECTAB PO SCH (20:21)
[2023-05-21 07:31] LABS: Hematocrit (blood only) 37.5 % (42.0-52.0); Hemoglobin 12.3 g/dl (14.0-18.0); Mean Corpuscular Hemoglobin 30.5 pg (25.0-34.0); Mean Corpuscular Hgb Conc 32.8 g/dL (32.0-36.0); Mean Corpuscular Volume 93.1 fL (80.0-100.0); Mean Platelet Volume 10.9 fL (9.4-12.4); Platelet Count 94 K/uL (130-400); RDW Coefficient of Variation 13.3 % (11.5-14.5); RDW Standard Deviation 45.1 fL (36.4-46.3); Red Blood Count 4.03 M/uL (4.70-6.10)
[2023-05-21 07:39] LABS: Albumin Level 2.9 gm/dl (3.4-5.0); BUN Creatinine Ratio 18.6 (10-20); Bilirubin Direct 0.1 mg/dl (0-0.2); Bilirubin,Total 0.5 mg/dl (0.2-1.0); Calcium 8.2 mg/dl (8.6-10.3); Creatinine Clr Calc Pharmacy 47.4 ml/min; Est GFR (African American) 75.7 ml/min; Est GFR (Non-African American) 65.3 ml/min; INR 3.1 (0.9-1.1); Potassium 3.7 mmol/L (3.5-5.1); Prothrombin Time 31.8 Seconds (9.0-12.0); Total Protein 5.4 gm/dl (6.0-8.3)
[2023-05-21 07:42] LABS: Basophils # (auto) 0.01 K/uL (0.00-0.20); Basophils % (auto) 0.1 %; Echinocytes 1+; Immature Granulocytes # (auto) 0.12 K/uL (0.01-0.20); Immature Granulocytes % (auto) 1.1 %; Lymphocytes # (auto) 1.16 K/uL (1.20-3.40); Lymphocytes % (auto) 10.8 %; Monocytes # (auto) 0.25 K/uL (0.11-0.59); Monocytes % (auto) 2.3 %; Neutrophils # (auto) 9.16 K/uL (1.40-6.50); Neutrophils % (auto) 85.7 %
[2023-05-21] MEDS: cefTRIAXone SODIUM 2,000 MG in DEXTROSE 5 % MINI-B 50 ML IV SCH (08:11)
[2023-05-21] MEDS: THIAMINE HCL 100 MG TAB PO SCH (08:13)
[2023-05-21] MEDS: VITAMIN B COMPLEX TAB PO SCH (08:13)
[2023-05-21] MEDS: ASCORBIC ACID 500 MG TAB PO SCH (08:14)
[2023-05-21] MEDS: ADVANCED PROBIOTIC 625 MG CAPSULE PO SCH (10:08)
[2023-05-21] MEDS: NSS + 20MEQ KCL 20 MEQ/1,000 ML BAG IV ONE (10:10)
[2023-05-21 13:02] LABS: Adenovirus PCR Not Detected (NotDetected); Bordetella parapertussis PCR Not Detected (NotDetected); Bordetella pertussis PCR Not Detected (NotDetected); Chlamydia pneumoniae PCR Not Detected (NotDetected); Coronavirus 229E PCR Not Detected (NotDetected); Coronavirus CoV-2 (COVID19)PCR Not Detected (NotDetected); Coronavirus HKU1 PCR Not Detected (NotDetected); Coronavirus NL63 PCR Not Detected (NotDetected); Coronavirus OC43PCR Not Detected (NotDetected); Human Metapneumovirus PCR Not Detected (NotDetected); Influenza A PCR Not Detected (NotDetected); Influenza B PCR DETECTED (NotDetected); Mycoplasma pneumoniae PCR Not Detected (NotDetected); Parainfluenza Virus 1 PCR Not Detected (NotDetected); Parainfluenza Virus 2 PCR Not Detected (NotDetected); Parainfluenza Virus 3 PCR Not Detected (NotDetected); Parainfluenza Virus 4 PCR Not Detected (NotDetected); Respiratory Syncytial VirusPCR Not Detected (NotDetected); Rhinovirus/Enterovirus PCR Not Detected (NotDetected)
--- NOTE | 2023-05-21 15:41 | Hospitalist Progress Note ---
Date of Service May 21, 2023 Assessment & Plan (1) Multifocal pneumonia: Plan: This is an 87 y/o male with chronic afib, on chronic AC w/ warfarin, vascular dementia, pulmonary HTN, dyslipidemia, HTN, prior TIA, prior bladder CA, BPH, and other history as outlined below who presents to the ED today with diarrhea x 1 week, increased lethargy, confusion, and weakness since yesterday. He has also had a productive cough for the last 1-2 weeks. Work-up in the ED seems most consistent with multifocal pneumonia with possible aspiration, and presumed infectious diarrhea. He was also noted to have urinary retention on CT. Multifocal pneumonia Influenza Possible enteritis --CT:Bibasilar airspace opacities as described above consistent with a multifocal pneumonia. This could be due to aspiration. No bowel wall thickening or obstruction. Fluid filled nondilated loops of large and small bowel seen throughout the abdomen. This suggests a gastroenteritis/diarrheal illness. -- BioFire positive for influenza type B --Nasal MRSA negative -- Stool studies pending --Check procalcitonin Empirically on Rocephin, Flagyl Continue IV fluids Aspiration precautions Started on Tamiflu Speech therapy eval Saturating well on room air Suspected UTI Urine culture pending On Rocephin as above Urinary retention CT showed:Mild fullness within the bilateral renal collecting systems without rosmery hydronephrosis. This is likely due to the distended bladder. Recommend Strong catheterization for decompression. A few small bladder stones Continue Strong catheter for now Voiding trial as able (2) Diarrhea: Plan: Management as above (3) Weakness: Plan: Due to above - PT/OT evaluations - Fall precautions Thrombocytopenia Likely secondary to acute illness No acute bleeding issues Monitor platelet count Acute metabolic encephalopathy In setting of dementia Secondary to infection Reorient frequently to minimize delirium (4) Vascular dementia: Plan: - Continue donepezil (5) Hypertension: Plan: Chronic, stable BP low Continue home medications with holding parameters Home diuretics on hold (6) Dyslipidemia: Plan: Continue statin (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: Plan: On chronic anticoagulation with warfarin due to chronic afib, hx TIA INR 3.1 Adjust Coumadin dose as needed Monitor INR (8) Atrial fibrillation: Plan: Continue metoprolol Continue Coumadin (9) BPH (benign prostatic hyperplasia): Plan: Continue Strong for now Voiding trial as able Plan DVT prophylaxis On Coumadin Code Status: Full code Disposition PT OT prior to discharge Admission and Anticipated Discharge Date Admission Date: May 20, 2023 Subjective Patient is seen and examined at bedside Admits to have some cough but denies any chest pain, dyspnea, abdominal pain Noted to have stool incontinence per family Discussed with patient's son at bedside No other complaints Review of Systems Review of Systems: All systems reviewed & are unremarkable except as noted in Subjective Physical Exam Physical Exam: Physical Exam: Vitals signs as noted above General Appearance:Moderately built and nourished, no apparent distress Head: normocephalic, Atraumatic Eyes: normal inspection, EOMI Neck: supple, Trachea midline Respiratory/Chest: Decreased breath sounds, CTA, No accessory muscle use Cardiovascular: Irregularly irregular, no murmur Abdomen/GI:Soft, Non tender, mildly distended, bowel sounds present Extremities/Musculoskeletal:normal inspection, no edema Neurologic/Psych:AAOX2, grossly no focal neurological deficits, decreased hearing, +Dementia Skin: normal color, warm Results & Data Results & Data Vital Signs (Past 12 Hours) Vital Signs Temp Pulse Pulse Resp BP Pulse Ox Pulse Ox 05/21/23 13:00 95 05/21/23 12:13 36.7 C 69 16 99/53 L 95 05/21/23 08:15 05/21/23 08:11 36.8 C 80 16 99/59 L 96 05/21/23 08:05 109/66 05/21/23 07:33 68 05/21/23 04:00 36.5 C 80 18 102/63 94 O2 Del Method O2 Del Method 05/21/23 13:00 Room Air 05/21/23 12:13 Room Air 05/21/23 08:15 Room Air 05/21/23 08:11 Room Air 05/21/23 08:05 05/21/23 07:33 05/21/23 04:00 Room Air Laboratory Results Short CBC 05/21/23 Range/Units 06:36 WBC 10.70 (4.8-10.8) K/ul Hgb 12.3 L D (14.0-18.0) g/dl Hct 37.5 L (42.0-52.0) % Plt Count 94 L (130-400) K/uL BMP 05/21/23 06:36 Sodium 141 Potassium 3.7 Chloride 110 H Carbon Dioxide 27 BUN 19 Creatinine 1.02 Glucose 96 Calcium 8.2 L Liver Function 05/21/23 Range/Units 06:36 Total Bilirubin 0.5 (0.2-1.0) mg/dl Direct Bilirubin 0.1 (0-0.2) mg/dl AST 46 H (13-39) U/L ALT 48 (7-52) U/L Alkaline Phosphatase 28 L (34-104) U/L Albumin 2.9 L (3.4-5.0) gm/dl (2) Diarrhea Diarrhea type: unspecified type Qualified Code(s): R19.7 - Diarrhea, unspecified (4) Vascular dementia Dementia severity: unspecified severity Dementia behavioral or psychological symptom: without behavioral, psychotic, or mood disturbance or anxiety Qualified Code(s): F01.50 - Vascular dementia, unspecified severity, without behavioral disturbance, psychotic disturbance, mood disturbance, and anxiety (5) Hypertension Hypertension type: primary hypertension Qualified Code(s): I10 - Essential (primary) hypertension (8) Atrial fibrillation Atrial fibrillation type: unspecified chronic Qualified Code(s): I48.20 - Chronic atrial fibrillation, unspecified (9) BPH (benign prostatic hyperplasia) Lower urinary tract symptom presence: symptoms present Lower urinary tract symptom detail: urinary retention Qualified Code(s): N40.1 - Benign prostatic hyperplasia with lower urinary tract symptoms; R33.8 - Other retention of urine
[2023-05-21] MEDS ORDERED: WARFARIN SOD 1.25 MG TAB PO SCH (16:00)
[2023-05-21] MEDS: OSELTAMIVIR PHOSPHATE SUSP 30 MG/5 ML UDP PO STA (16:11)
[2023-05-21] MEDS: OSELTAMIVIR PHOSPHATE SUSP 30 MG/5 ML UDP PO SCH (20:54)
[2023-05-22 07:01] LABS: Hematocrit (blood only) 37.6 % (42.0-52.0); Hemoglobin 12.4 g/dl (14.0-18.0); Mean Corpuscular Hemoglobin 31.2 pg (25.0-34.0); Mean Corpuscular Volume 94.5 fL (80.0-100.0); Mean Platelet Volume 10.9 fL (9.4-12.4); Platelet Count 100 K/uL (130-400); Red Blood Count 3.98 M/uL (4.70-6.10)
[2023-05-22 07:18] LABS: Albumin Globulin Ratio 1.1 (0.9-2); Albumin Level 2.9 gm/dl (3.4-5.0); BUN Creatinine Ratio 17.6 (10-20); Bilirubin,Total 0.4 mg/dl (0.2-1.0); Calcium 8.2 mg/dl (8.6-10.3); Creatinine Clr Calc Pharmacy 52.4 ml/min; Est GFR (African American) 86.3 ml/min; Est GFR (Non-African American) 74.5 ml/min; Globulin 2.6 gm/dl (2.5-4.0); Magnesium 1.8 mg/dl (1.7-2.4); Potassium 3.7 mmol/L (3.5-5.1); Total Protein 5.5 gm/dl (6.0-8.3)
[2023-05-22 07:22] LABS: INR 2.9 (0.9-1.1); Prothrombin Time 29.6 Seconds (9.0-12.0)
[2023-05-22 10:34] LABS: Adenovirus F 40/41 PCR Not Detected (NotDetected); Astrovirus PCR Not Detected (NotDetected); Campylobacter PCR Not Detected (NotDetected); Cryptosporidium PCR Not Detected (NotDetected); Cyclospora cayetanensis PCR Not Detected (NotDetected); Entamoeba histolytica PCR Not Detected (NotDetected); Enteroaggregative E.coli(EAEC) Not Detected (NotDetected); Enteropathogenic E.coli (EPEC) Not Detected (NotDetected); Enterotoxigenic E.coli (ETEC) Not Detected (NotDetected); Giardia lamblia PCR Not Detected (NotDetected); Norovirus GI/GII PCR Not Detected (NotDetected); Plesiomonas shigelloides PCR Not Detected (NotDetected); Rotavirus A PCR Not Detected (NotDetected); Salmonella PCR Not Detected (NotDetected); Sapovirus PCR Not Detected (NotDetected); Shiga-like Toxin E.coli (STEC) Not Detected (NotDetected); Shigella/Enteroinvasive E.coli Not Detected (NotDetected); Vibrio cholerae PCR Not Detected (NotDetected); Vibrio species PCR Not Detected (NotDetected); Yersinia enterocolitica PCR Not Detected (NotDetected)
--- NOTE | 2023-05-22 10:54 | Hospitalist Progress Note ---
Date of Service May 22, 2023 Assessment & Plan (1) Multifocal pneumonia: Plan: Mr. Thompson is an 88 year old gentleman with with chronic afib, on chronic AC w/ warfarin, vascular dementia, pulmonary HTN, dyslipidemia, HTN, prior TIA, prior bladder CA, BPH, and other history as outlined below who was admitted on 05/19 due to diarrhea x 1 week, increased lethargy, confusion, and weakness . He has also had a productive cough for the last 1-2 weeks. Work-up in the ED seems most consistent with multifocal pneumonia with possible aspiration, and presumed infectious diarrhea. He was also noted to have urinary retention on CT. #Acute metabolic encephalopathy #Vascular dementia Worse short term memory per reports, but overall better today Continue rosuvastatin 40mg daily Continue warfarin Continue donepezil b12 and folate in am #Multifocal pneumonia #Influenza --CT:Bibasilar airspace opacities as described above consistent with a multifocal pneumonia. This could be due to aspiration. No bowel wall thickening or obstruction. Fluid filled nondilated loops of large and small bowel seen throughout the abdomen. This suggests a gastroenteritis/diarrheal illness. -- BioFire positive for influenza type B --Nasal MRSA negative --Procal 2.74 Continue on Rocephin, Flagyl Discontinue IVF encourage PO Continue Tamiflu Speech therapy eval: no overt signs of aspiration -Easy chew diet with aspiration/reflux precautions, no VFSS at this time Saturating well on room air #Diarrhea, c/f diarrheal illness #Stool incontinence .CT ABD/P on admission with Fluid filled nondilated loops of large and small bowel seen throughout the abdomen. This suggests a gastroenteritis/diarrheal illness. -Stool pcr negative Probiotics #Chronic atrial fibrillation Continue home metoprolol 37.5mg Continue home warfarin #Chronic HFpEF Holding home Aldactone 12.5 and lasix 3xwk Resume above as able #Prior TIA #HLD Continue statin and ASA #Urinary retention #History of papillary urothelial neoplasm #Abnormal UA, no culture growth CT showed:Mild fullness within the bilateral renal collecting systems without rosmery hydronephrosis. This is likely due to the distended bladder. Recommend Gallegos catheterization for decompression. A few small bladder stones Continue Gallegos catheter for now Consult Urology for now, due for cysto; given history discuss timing of void trial Continue finasteride DVT warfarin plan for rehab (2) Diarrhea: Plan: Management as above (3) Weakness: Plan: Due to above - PT/OT evaluations - Fall precautions Thrombocytopenia Likely secondary to acute illness No acute bleeding issues Monitor platelet count Acute metabolic encephalopathy In setting of dementia Secondary to infection Reorient frequently to minimize delirium (4) Vascular dementia: Plan: - Continue donepezil (5) Hypertension: Plan: Chronic, stable BP low Continue home medications with holding parameters Home diuretics on hold (6) Dyslipidemia: Plan: Continue statin (7) FDC current use of anticoagulant therapy: Plan: On chronic anticoagulation with warfarin due to chronic afib, hx TIA INR 3.1 Adjust Coumadin dose as needed Monitor INR (8) Atrial fibrillation: Plan: Continue metoprolol Continue Coumadin (9) BPH (benign prostatic hyperplasia): Plan: Continue Gallegos for now Voiding trial as able Plan DVT prophylaxis On Coumadin Code Status: Full code Disposition PT OT prior to discharge Admission and Anticipated Discharge Date Admission Date: May 20, 2023 Subjective NAEO Denies any localizing concerns--no fevers, no concerns with gallegos, no abdominal pain, alert to self and knows he is in hospital, but not necessarily situation at bedside, reports continued decline overall with fecal incontinence. Physical Exam Constitutional: WD/WN, vitals as above Respiratory: normal respiratory effort, lungs clear to auscultation Cardiovascular: irregular, normal rate, no mumur, no edema Gastrointestinal (Abdomen): slightly protuberant, but soft, nontender Results & Data Results & Data Vital Signs (Past 12 Hours) Vital Signs Temp Pulse Pulse Resp BP Pulse Ox O2 Del Method 05/22/23 08:07 36.5 C 74 16 113/70 98 Room Air 05/22/23 07:43 81 05/22/23 03:37 36.9 C 77 16 109/67 92 Room Air 05/21/23 23:37 82 05/21/23 23:09 36.9 C 82 20 107/68 93 Room Air Laboratory Results Short CBC 05/22/23 Range/Units 06:22 WBC 8.10 (4.8-10.8) K/ul Hgb 12.4 L (14.0-18.0) g/dl Hct 37.6 L (42.0-52.0) % Plt Count 100 L (130-400) K/uL BMP 05/22/23 06:22 Sodium 140 Potassium 3.7 Chloride 109 H Carbon Dioxide 24 BUN 16 Creatinine 0.91 Glucose 80 Calcium 8.2 L Liver Function 05/22/23 Range/Units 06:22 Total Bilirubin 0.4 (0.2-1.0) mg/dl AST 48 H (13-39) U/L ALT 43 (7-52) U/L Alkaline Phosphatase 32 L (34-104) U/L Albumin 2.9 L (3.4-5.0) gm/dl Medications Administered Home Medications Medication Instructions Recorded Confirmed Last Taken ascorbic acid (vitamin C) 500 mg 500 mg PO QAM 09/02/18 05/20/23 05/19/23 tablet (Vitamin C) omega-3 fatty acids-fish oil 360 1 cap PO QAM 09/02/18 05/20/23 01/12/23 mg-1,200 mg capsule (Fish Oil) dutasteride 0.5 mg capsule 0.5 mg PO DAILY #90 caps 09/05/21 05/20/23 05/19/23 donepezil 10 mg tablet 10 mg PO QDD 01/12/23 05/20/23 05/19/23 furosemide 20 mg tablet 20 mg PO 3XWK 01/12/23 05/20/23 05/17/23 metoprolol succinate 25 mg 37.5 mg PO DAILY 01/12/23 05/20/23 05/19/23 tablet,extended release 24 hr nqsngcikskki-xvcmhvjw-fbnezr tablet 1 tab PO DAILY 01/12/23 05/20/23 05/19/23 spironolactone 25 mg tablet 12.5 mg PO DAILY 01/12/23 05/20/23 05/19/23 rosuvastatin 20 mg tablet (Crestor) 40 mg (2 x 20 mg) PO QDD 30 days 01/14/23 05/20/23 05/19/23 #60 tabs aspirin 81 mg tablet,delayed 81 mg PO PM 05/20/23 05/20/23 05/19/23 release thiamine HCl (vitamin B1) 100 mg 100 mg PO DAILY 05/20/23 05/20/23 05/19/23 tablet vitamin B complex 1 tab PO DAILY 05/20/23 05/20/23 05/19/23 warfarin 2.5 mg tablet 1.25 mg PO UD 05/20/23 05/20/23 05/19/23 warfarin 2.5 mg tablet (Jantoven) 2.5 mg PO UD 05/20/23 05/20/23 05/17/23 Active Medications Generic Name Dose Route Start Last Admin Trade Name Freq PRN Reason Stop Dose Admin Acetaminophen 650 mg 05/20/23 10:21 05/20/23 20:20 Acetaminophen 325 Mg Tab PO 06/19/23 10:20 650 mg Q4H PRN Administration Pain or Fever Ascorbic Acid 500 mg 05/21/23 09:00 05/22/23 09:11 Ascorbic Acid 500 Mg Tab PO 06/20/23 08:59 500 mg QAM THUY Administration Aspirin 81 mg 05/20/23 21:00 05/21/23 20:54 Aspirin 81 Mg Ectab PO 06/19/23 20:59 81 mg PM THUY Administration Donepezil HCl 10 mg 05/20/23 16:30 05/21/23 16:12 Donepezil Hcl 10 Mg Tab PO 06/19/23 16:29 10 mg QDD THUY Administration Finasteride 5 mg 05/20/23 10:45 05/22/23 09:11 Finasteride 5 Mg Tab PO 06/19/23 10:44 5 mg DAILY THUY Administration Metronidazole 500 mg in 100 mls @ 100 mls/hr 05/20/23 10:30 05/22/23 10:02 Flagyl IV 05/27/23 10:29 100 mls/hr Q8H THUY Administration Protocol Ceftriaxone Sodium 2,000 mg/ 50 mls @ 100 mls/hr 05/21/23 09:00 05/22/23 09:47 Dextrose IV 05/28/23 08:59 Infused Q24H THUY Infusion Protocol Lactobacillus Acidophilus 1,250 mg 05/21/23 09:00 05/22/23 09:10 Advanced Probiotic 625 Mg Capsule PO 06/20/23 08:59 1,250 mg DAILY THUY Administration Metoprolol Succinate 37.5 mg 05/20/23 10:30 05/22/23 09:11 Metoprolol Succ 25mg Ext Rel Tab PO 06/19/23 10:29 37.5 mg DAILY THUY Administration Oseltamivir Phosphate 30 mg 05/21/23 22:00 05/22/23 09:10 Oseltamivir Phosphate Susp 30 Mg/5 Ml Udp PO 05/26/23 21:59 30 mg BID THUY Administration Protocol Rosuvastatin Calcium 40 mg 05/20/23 16:30 05/21/23 16:12 Rosuvastatin Calcium 20 Mg Tab PO 06/19/23 16:29 40 mg QDD THUY Administration Thiamine HCl 100 mg 05/21/23 09:00 05/22/23 09:12 Thiamine Hcl 100 Mg Tab PO 06/20/23 08:59 100 mg DAILY THUY Administration Vitamin B Complex 1 tab 05/21/23 09:00 05/22/23 09:11 Vitamin B Complex Tab PO 06/20/23 08:59 1 tab DAILY THUY Administration Warfarin Sodium 1 mg 05/20/23 16:00 05/21/23 16:12 Warfarin Sod 1 Mg Tab PO 06/19/23 15:59 1 mg DAILY@1600 THUY Administration (2) Diarrhea Diarrhea type: unspecified type Qualified Code(s): R19.7 - Diarrhea, unspecified (4) Vascular dementia Dementia severity: unspecified severity Dementia behavioral or psychological symptom: without behavioral, psychotic, or mood disturbance or anxiety Qualified Code(s): F01.50 - Vascular dementia, unspecified severity, without behavioral disturbance, psychotic disturbance, mood disturbance, and anxiety (5) Hypertension Hypertension type: primary hypertension Qualified Code(s): I10 - Essential (primary) hypertension (8) Atrial fibrillation Atrial fibrillation type: unspecified chronic Qualified Code(s): I48.20 - Chronic atrial fibrillation, unspecified (9) BPH (benign prostatic hyperplasia) Lower urinary tract symptom presence: symptoms present Lower urinary tract symptom detail: urinary retention Qualified Code(s): N40.1 - Benign prostatic hyperplasia with lower urinary tract symptoms; R33.8 - Other retention of urine
--- NOTE | 2023-05-22 11:22 | Urology Consultation ---
Date of Consultation May 22, 2023 Assessment & Plan (1) BPH (benign prostatic hyperplasia): (2) Urinary retention: 88 yo/M admitted for multifocal pneumonia, influenza and diarrheal illness; also noted to have urinary retention Urology is consulted for urinary retention, history of bladder cancer Patient is afebrile with stable vitals Today's labscreatinine 0.91, WBC 8.10, hemoglobin 12.4 Urinalysis showed 5-10 RBC, negative bacteria Urine culture showed no growth CT A/P notable for mild fullness within the bilateral renal collecting systems without rosmery hydronephrosis, bladder is distended, a few small bladder stones noted Imaging reviewed and discussed with patient and spouse Strong catheter in place for management of urinary retention, draining appropriately Recommend keep Strong catheter for approximately 7 to 14 days for maximum drainage Can arrange voiding trial at his rehab facility or through our office Continue with 5-DELILAH for BPH We discussed moving up his office cystoscopy within the next few weeks for further evaluation of possible bladder outlet obstruction, history of bladder cancer and bladder stones They are agreeable and all questions answered to apparent satisfaction will sign off, please contact our service with any additional questions or concerns History of Present Illness Reason for Consultation: retention, hx of pap.uro neoplasm; timing of void Requesting Physician: Dr. Parks Attending Physician: Ewelina Parks MD History of Present Illness This is an 88-year-old male with past medical history dementia, atrial fibrillation, chronic anticoagulation, TIA, BPH, and bladder cancer who presented to the emergency department on 05/20/2023 with increased confusion, weakness and diarrhea with blood in his stool for a few days prior to arrival. On arrival, he was afebrile and hemodynamically stable. Labs reviewed and showed WBC 5.04, hemoglobin 15.4, creatinine 1.19. Respiratory PCR was positive for influenza B. Urinalysis showed 2+ protein, 5-10 RBC, 5-10 WBC, 5-10 epithelial cells, negative for bacteria. He had workup with CT abdomen and pelvis which noted by basilar airspace opacities consistent with a multifocal pneumonia, fluid-filled nondilated loops of large and small bowel throughout the abdomen and mild fullness within the bilateral renal collecting systems without rosmery hydronephrosis, likely due to distended bladder; a few small bladder stones. A Strong catheter was placed. He was admitted to the hospital medicine service for multifocal pneumonia with possible aspiration, presumed infectious diarrhea. Urology is consulted for urinary retention, history of bladder cancer and timing of voiding trial. Patient known to [facility], follows with Dr. 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 He has been followed with surveillance cystoscopies, next cystoscopy is scheduled in September. Patient seen and examined at bedside. He is awake, alert and sitting up in bedside chair playing Scrabble with his , Lianne. Denies pain. Strong patent and draining appropriately. Denies gross hematuria. Denies constipation. Reports diarrhea for the past several days. No fever or chills. Today's labs Creatinine 0.91, WBC 8.10, hemoglobin 12.4 Urine culture 05/19 showed no growth Allergies Allergy/AdvReac Type Severity Reaction Status Date / Time No Known Allergies Allergy Verified 01/12/23 20:14 Home Medications Medication Instructions Recorded Confirmed Type ascorbic acid (vitamin C) 500 mg 500 mg PO QAM 09/02/18 05/20/23 History tablet (Vitamin C) omega-3 fatty acids-fish oil 360 1 cap PO QAM 09/02/18 05/20/23 History mg-1,200 mg capsule (Fish Oil) dutasteride 0.5 mg capsule 0.5 mg PO DAILY #90 caps 09/05/21 05/20/23 Rx donepezil 10 mg tablet 10 mg PO QDD 01/12/23 05/20/23 History furosemide 20 mg tablet 20 mg PO 3XWK 01/12/23 05/20/23 History metoprolol succinate 25 mg 37.5 mg PO DAILY 01/12/23 05/20/23 History tablet,extended release 24 hr owbennfgdvjg-birxeqok-wkeqmc tablet 1 tab PO DAILY 01/12/23 05/20/23 History spironolactone 25 mg tablet 12.5 mg PO DAILY 01/12/23 05/20/23 History rosuvastatin 20 mg tablet (Crestor) 40 mg (2 x 20 mg) PO QDD 30 days 01/14/23 05/20/23 Rx #60 tabs aspirin 81 mg tablet,delayed 81 mg PO PM 05/20/23 05/20/23 History release thiamine HCl (vitamin B1) 100 mg 100 mg PO DAILY 05/20/23 05/20/23 History tablet vitamin B complex 1 tab PO DAILY 05/20/23 05/20/23 History warfarin 2.5 mg tablet 1.25 mg PO UD 05/20/23 05/20/23 History warfarin 2.5 mg tablet (Jantoven) 2.5 mg PO UD 05/20/23 05/20/23 History Patient History Medical History Vascular dementia Pulmonary hypertension Dyslipidemia prison current use of anticoagulant therapy Reactive airway disease TIA (transient ischemic attack) Bladder cancer Elevated PSA BPH (benign prostatic hyperplasia) Cataract Hypertension Atrial fibrillation Surgical History History of bladder surgery CANCEROUS LESION REMOVED History of prostate surgery 2017 History of colonoscopy Hx of hernia repair X2 History of adenoidectomy History of tonsillectomy Family History Father Cancer Other Heart disease Hypertension Social History Smoking Status: Smoker, status unknown Second Hand Exposure: No; Do You Dip or Chew Tobacco: No; Hx Alcohol Use: Yes Alcohol type: wine Hx Substance Use: No Preferred Language: Bahraini Communication Ability: Effective Communication Ability Comment: [facility] Locomotive Firer/Fireman Required: No Beliefs That Will Affect Care: None Current Living Situation: Spouse Current Living Situation Comment: home with spouse current occupational status: retired Other Information That Helps Us Care for You: No Feels Safe at Home: Yes Safety Concerns: Feels Safe At This Time Assistive Devices: None Review of Systems Review of Systems: ROS was performed with pertinent positives noted as above; all other systems negative Physical Exam Constitutional: no acute distress Respiratory: normal respiratory effort; no respiratory distress and no labored breathing Gastrointestinal (Abdomen): Inspection/Auscultation: abdomen normal to inspection Musculoskeletal: Head/Neck/Chest: normocephalic Neurologic: moves all extremities and awake Psychiatric: Orientation: alert and oriented x 3 Genitourinary: Strong patent and draining appropriately with clear light tianna/tea colored urine Results & Data Vital Signs (Past 12 Hours) Vital Signs Temp Pulse Pulse Resp BP Pulse Ox O2 Del Method 05/22/23 08:07 36.5 C 74 16 113/70 98 Room Air 05/22/23 07:45 Room Air 05/22/23 07:43 81 05/22/23 03:37 36.9 C 77 16 109/67 92 Room Air 05/21/23 23:37 82 PG Care Time/CCT Total # of Minutes Spent Total Time Spent with Patient: Total time spent is greater than 50% in coordination of care (as documented) at patient's floor/unit and/or counseling patient: Coding Level of Care Code 41055 INT INP/OBS CARE 2/55MIN Diagnoses Benign prostatic hyperplasia with urinary retention N40.1; R33.8 Lower urinary tract symptom detail: urinary retention Lower urinary tract symptom presence: symptoms present Urinary retention R33.9 (1) BPH (benign prostatic hyperplasia) Lower urinary tract symptom detail: urinary retention Lower urinary tract symptom presence: symptoms present Qualified Code(s): N40.1 - Benign prostatic hyperplasia with lower urinary tract symptoms; R33.8 - Other retention of urine
[2023-05-22] MEDS: LACTATED RINGER'S 1,000 ML IV SCH (17:54)
[2023-05-22] MEDS: PSYLLIUM or GUAR GUM FIBER 4GM PACKET PO SCH (21:52)
[2023-05-23 06:10] LABS: Hematocrit (blood only) 35.2 % (42.0-52.0); Hemoglobin 11.8 g/dl (14.0-18.0); Mean Corpuscular Hgb Conc 33.5 g/dL (32.0-36.0); Mean Corpuscular Volume 92.4 fL (80.0-100.0); Mean Platelet Volume 11.1 fL (9.4-12.4); Platelet Count 121 K/uL (130-400); RDW Standard Deviation 44.1 fL (36.4-46.3); Red Blood Count 3.81 M/uL (4.70-6.10); White Blood Count 5.99 K/ul (4.8-10.8)
[2023-05-23 06:23] LABS: Creatinine Clr Calc Pharmacy 55.4 ml/min; Est GFR (African American) 89.1 ml/min; Est GFR (Non-African American) 76.9 ml/min; Magnesium 1.7 mg/dl (1.7-2.4); Potassium 3.5 mmol/L (3.5-5.1)
[2023-05-23 06:37] LABS: INR 3.5 (0.9-1.1); Prothrombin Time 35.8 Seconds (9.0-12.0)
[2023-05-23 06:46] LABS: Folate (Folic Acid),Ser orPlas 15.68 ng/ml (>5.38)
--- NOTE | 2023-05-23 14:12 | Hospitalist Progress Note ---
Date of Service May 23, 2023 Assessment & Plan (1) Multifocal pneumonia: (2) Diarrhea: (3) Weakness: (4) Vascular dementia: (5) Hypertension: (6) Dyslipidemia: (7) half-way current use of anticoagulant therapy: (8) Atrial fibrillation: (9) BPH (benign prostatic hyperplasia): Plan Mr. Thompson is an 88 year old gentleman with with chronic afib, on chronic AC w/ warfarin, vascular dementia, pulmonary HTN, dyslipidemia, HTN, prior TIA, prior bladder CA, BPH, and other history as outlined below who was admitted on 05/19 due to diarrhea x 1 week, increased lethargy, confusion, and weakness . He has also had a productive cough for the last 1-2 weeks. Work-up in the ED seems most consistent with multifocal pneumonia with possible aspiration, and presumed infectious diarrhea. He was also noted to have urinary retention on CT. #Acute metabolic encephalopathy #Vascular dementia Worse short term memory per reports, but overall better today Continue rosuvastatin 40mg daily Continue warfarin Discontinue donepezil -Given GI symptoms, urinary retention and no noted cognitive improvement, spoke with neurology who recommended discontinuation b12 and folate WNL #Multifocal pneumonia #Influenza --CT:Bibasilar airspace opacities as described above consistent with a multifocal pneumonia. This could be due to aspiration. No bowel wall thickening or obstruction. Fluid filled nondilated loops of large and small bowel seen throughout the abdomen. This suggests a gastroenteritis/diarrheal illness. -- BioFire positive for influenza type B --Nasal MRSA negative --Procal 2.74 Continue on Rocephin, Flagyl Discontinue IVF encourage PO Continue Tamiflu Speech therapy eval: no overt signs of aspiration -Easy chew diet with aspiration/reflux precautions, no VFSS at this time Saturating well on room air #Diarrhea, c/f diarrheal illness #Stool incontinence .CT ABD/P on admission with Fluid filled nondilated loops of large and small bowel seen throughout the abdomen. This suggests a gastroenteritis/diarrheal illness. -Stool pcr negative Probiotics #Chronic atrial fibrillation Continue home metoprolol 37.5mg Continue home warfarin #Chronic HFpEF Holding home Aldactone 12.5 and lasix 3xwk Resume above as able #Prior TIA #HLD Continue statin and ASA #Hematuria 2/2 traumatic gallegos removal #Urinary retention #History of papillary urothelial neoplasm #Abnormal UA, no culture growth CT showed:Mild fullness within the bilateral renal collecting systems without rosmery hydronephrosis. This is likely due to the distended bladder. Recommend Gallegos catheterization for decompression. A few small bladder stones Continue Gallegos catheter for now Consult Urology for now, due for cysto; given history discuss timing of void trial Continue finasteride DVT warfarin plan for rehab DVT prophylaxis On Coumadin Code Status: Full code Disposition PT OT prior to discharge Admission and Anticipated Discharge Date Admission Date: May 20, 2023 Subjective NAEO Denies any localizing concerns--no fevers, no concerns with gallegos, no abdominal pain, alert to self and knows he is in hospital, but not necessarily situation Evaluated patient this am, playing scrabble with later in afternoon, Patient did attempt to go to bathroom and forgot to bring gallegos along, thus inadvertantly removing gallegos with subsequent bleeding noted from penis; patient denied any pain and gallegos replaced by urology Physical Exam Constitutional: WD/WN, vitals as above Respiratory: normal respiratory effort, lungs clear to auscultation Cardiovascular: RRR, no murmur, no edema Gastrointestinal (Abdomen): Gallegos with hematuria 2/2 traumatic removal Results & Data Results & Data Vital Signs (Past 12 Hours) Vital Signs Temp Pulse Resp BP BP Pulse Ox O2 Del Method 05/23/23 11:51 36.7 C 53 L 16 110/67 93 Room Air 05/23/23 07:38 36.7 C 75 16 131/84 95 Room Air 05/23/23 03:03 36.5 C 75 20 124/82 95 Room Air Laboratory Results Short CBC 05/23/23 Range/Units 05:29 WBC 5.99 (4.8-10.8) K/ul Hgb 11.8 L (14.0-18.0) g/dl Hct 35.2 L (42.0-52.0) % Plt Count 121 L (130-400) K/uL BMP 05/23/23 05:29 Sodium 138 Potassium 3.5 Chloride 109 H Carbon Dioxide 24 BUN 12 Creatinine 0.86 Glucose 82 Calcium 8.0 L Medications Administered Home Medications Medication Instructions Recorded Confirmed Last Taken ascorbic acid (vitamin C) 500 mg 500 mg PO QAM 09/02/18 05/20/23 05/19/23 tablet (Vitamin C) omega-3 fatty acids-fish oil 360 1 cap PO QAM 09/02/18 05/20/23 01/12/23 mg-1,200 mg capsule (Fish Oil) dutasteride 0.5 mg capsule 0.5 mg PO DAILY #90 caps 09/05/21 05/20/23 05/19/23 donepezil 10 mg tablet 10 mg PO QDD 01/12/23 05/20/23 05/19/23 furosemide 20 mg tablet 20 mg PO 3XWK 01/12/23 05/20/23 05/17/23 metoprolol succinate 25 mg 37.5 mg PO DAILY 01/12/23 05/20/23 05/19/23 tablet,extended release 24 hr raoieorforqi-wyjpdery-fhvzjz tablet 1 tab PO DAILY 01/12/23 05/20/23 05/19/23 spironolactone 25 mg tablet 12.5 mg PO DAILY 01/12/23 05/20/23 05/19/23 rosuvastatin 20 mg tablet (Crestor) 40 mg (2 x 20 mg) PO QDD 30 days 01/14/23 05/20/23 05/19/23 #60 tabs aspirin 81 mg tablet,delayed 81 mg PO PM 05/20/23 05/20/23 05/19/23 release thiamine HCl (vitamin B1) 100 mg 100 mg PO DAILY 05/20/23 05/20/23 05/19/23 tablet vitamin B complex 1 tab PO DAILY 05/20/23 05/20/23 05/19/23 warfarin 2.5 mg tablet 1.25 mg PO UD 05/20/23 05/20/23 05/19/23 warfarin 2.5 mg tablet (Jantoven) 2.5 mg PO UD 05/20/23 05/20/23 05/17/23 L.acidop,casei,lactis,rham-B.lact,phuong 1 cap PO DAILY #30 caps 05/23/23 Unknown 625 mg (10 billion cell) capsule (Advanced Probiotic) PSYLLIUM or GUAR GUM FIBER SUP 4 g PO QAM #30 pkgs 05/23/23 Unknown [METAMUCIL or NUTRISOURCE FIBER SUPPLEMENT] amoxicillin 875 mg-potassium 1 tab PO BID #10 tabs 05/23/23 Unknown clavulanate 125 mg tablet oseltamivir 6 mg/mL oral 30 mg (5 mL) PO BID 5 days #50 mL 05/23/23 Unknown suspension (Tamiflu) warfarin 1 mg tablet (Jantoven) 1 mg PO DAILY@1600 #30 tabs 05/23/23 Unknown Active Medications Generic Name Dose Route Start Last Admin Trade Name Freq PRN Reason Stop Dose Admin Acetaminophen 650 mg 05/20/23 10:21 05/20/23 20:20 Acetaminophen 325 Mg Tab PO 06/19/23 10:20 650 mg Q4H PRN Administration Pain or Fever Ascorbic Acid 500 mg 05/21/23 09:00 05/23/23 09:01 Ascorbic Acid 500 Mg Tab PO 06/20/23 08:59 500 mg QAM THUY Administration Aspirin 81 mg 05/20/23 21:00 05/22/23 21:52 Aspirin 81 Mg Ectab PO 06/19/23 20:59 81 mg PM THUY Administration Donepezil HCl 10 mg 05/20/23 16:30 05/22/23 16:38 Donepezil Hcl 10 Mg Tab PO 06/19/23 16:29 10 mg QDD THUY Administration Finasteride 5 mg 05/20/23 10:45 05/23/23 09:00 Finasteride 5 Mg Tab PO 06/19/23 10:44 5 mg DAILY THUY Administration Ceftriaxone Sodium 2,000 mg/ 50 mls @ 100 mls/hr 05/21/23 09:00 05/23/23 10:12 Dextrose IV 05/28/23 08:59 Infused Q24H THUY Infusion Protocol Lactobacillus Acidophilus 1,250 mg 05/21/23 09:00 05/23/23 09:03 Advanced Probiotic 625 Mg Capsule PO 06/20/23 08:59 1,250 mg DAILY THUY Administration Metoprolol Succinate 37.5 mg 05/20/23 10:30 05/23/23 09:00 Metoprolol Succ 25mg Ext Rel Tab PO 06/19/23 10:29 37.5 mg DAILY THUY Administration Oseltamivir Phosphate 30 mg 05/21/23 22:00 05/23/23 09:19 Oseltamivir Phosphate Susp 30 Mg/5 Ml Udp PO 05/26/23 21:59 30 mg BID THUY Administration Protocol Psyllium Hydrophilic Mucilloid 4 gm 05/22/23 19:15 05/23/23 09:00 Psyllium Or Guar Gum Fiber 4gm Packet PO 06/21/23 19:14 4 gm QAM THUY Administration Rosuvastatin Calcium 40 mg 05/20/23 16:30 05/22/23 16:38 Rosuvastatin Calcium 20 Mg Tab PO 06/19/23 16:29 40 mg QDD THUY Administration Thiamine HCl 100 mg 05/21/23 09:00 05/23/23 09:02 Thiamine Hcl 100 Mg Tab PO 06/20/23 08:59 100 mg DAILY THUY Administration Vitamin B Complex 1 tab 05/21/23 09:00 05/23/23 09:03 Vitamin B Complex Tab PO 06/20/23 08:59 1 tab DAILY THUY Administration Warfarin Sodium 1 mg 05/20/23 16:00 05/22/23 16:38 Warfarin Sod 1 Mg Tab PO 06/19/23 15:59 1 mg DAILY@1600 THUY Administration (2) Diarrhea Diarrhea type: unspecified type Qualified Code(s): R19.7 - Diarrhea, unspecified (4) Vascular dementia Dementia severity: unspecified severity Dementia behavioral or psychological symptom: without behavioral, psychotic, or mood disturbance or anxiety Qualified Code(s): F01.50 - Vascular dementia, unspecified severity, without behavioral disturbance, psychotic disturbance, mood disturbance, and anxiety (5) Hypertension Hypertension type: primary hypertension Qualified Code(s): I10 - Essential (primary) hypertension (8) Atrial fibrillation Atrial fibrillation type: unspecified chronic Qualified Code(s): I48.20 - Chronic atrial fibrillation, unspecified (9) BPH (benign prostatic hyperplasia) Lower urinary tract symptom presence: symptoms present Lower urinary tract symptom detail: urinary retention Qualified Code(s): N40.1 - Benign prostatic hyperplasia with lower urinary tract symptoms; R33.8 - Other retention of urine
--- NOTE | 2023-05-23 14:28 | Urology Progress Note ---
Date of Service May 23, 2023 Assessment & Plan (1) Chronic retention of urine: Plan Patient traumatically removed previous catheter Strong catheter replaced at bedside, patient tolerating well, draining appropriately Some bleeding noted around catheter likely from trauma, patient is on warfarin, nursing is aware continue to monitor bleeding Nursing may gently hand irrigate as needed Maintain Strong catheter for max drainage as previously discussed Continue supportive care medical management per primary team Urology will sign off, please call with any questions or concerns Admission and Anticipated Discharge Date Admission Date: May 20, 2023 Supervising Physician Co-Signing Physician Notes I have discussed MR. Thompson's case with BRIANNA Okeefe and agree with the above documentation. Strong catheter should be in good position, continue to monitor output. Okay to gently hand irrigate if it becomes clogged. -Scout Huerta MD. Subjective Urology asked to reassess patient after he traumatically removed his Storng catheter. Patient resting comfortably, denies pain, no acute distress, Blood noted around the meatus Review of Systems Constitutional: Per HPI Genitourinary: + as per Subjective / HPI Physical Exam Constitutional: + thin and cooperative; no acute distres s Respiratory: normal respiratory effort Cardiovascular: Well-perfused Skin: no rashes, warm and dry + turgor decreased Psychiatric: Orientation: oriented to person and cooperative Genitourinary: Uncircumcised penis, blood clot noted at the meatus which was removed. After prepping patient using sterile technique, a well-lubricated 16 Polish catheter, inserted per urethra, balloon inflated to 10 cc, catheter draining draining barrios red urine, foreskin was replaced to anatomical position, blood noted around catheter, patient tolerated procedure well. Results & Data Vital Signs (Past 12 Hours) Vital Signs Temp Pulse Resp BP BP Pulse Ox O2 Del Method 05/23/23 11:51 36.7 C 53 L 16 110/67 93 Room Air 05/23/23 07:38 36.7 C 75 16 131/84 95 Room Air 05/23/23 03:03 36.5 C 75 20 124/82 95 Room Air PG Care Time/CCT Total # of Minutes Spent Total Time Spent with Patient: Total time spent is greater than 50% in coordination of care (as documented) at patient's floor/unit and/or counseling patient: Coding Level of Care Code 13085 SUB INP/OBS CARE 03/07MIN Diagnoses Chronic retention of urine R33.9 CPT Codes Insertion of temporary indwelling bladder catheter - 32103 ([id number])
--- NOTE | 2023-05-23 15:48 | Communication Note ---
Date of Service: May 23, [address] Parks, given the poor literature efficacy of aricept, it is very reasonable to stop this medication in the setting of diarrhea and urinary retention.
[2023-05-23] MEDS: AMOXICILLIN/CLAVULANATE 875 MG TAB PO SCH (16:08)
[2023-05-24 07:38] LABS: Hematocrit (blood only) 34.5 % (42.0-52.0); Hemoglobin 11.4 g/dl (14.0-18.0); Mean Corpuscular Hemoglobin 30.5 pg (25.0-34.0); Mean Corpuscular Volume 92.2 fL (80.0-100.0); Mean Platelet Volume 10.6 fL (9.4-12.4); Platelet Count 159 K/uL (130-400); RDW Coefficient of Variation 12.9 % (11.5-14.5); RDW Standard Deviation 43.9 fL (36.4-46.3); Red Blood Count 3.74 M/uL (4.70-6.10)
[2023-05-24 08:08] LABS: BUN Creatinine Ratio 13.8 (10-20); Calcium 8.2 mg/dl (8.6-10.3); Creatinine Clr Calc Pharmacy 61.1 ml/min; Est GFR (African American) 91.8 ml/min; Est GFR (Non-African American) 79.2 ml/min; Potassium 3.7 mmol/L (3.5-5.1)
[2023-05-24 08:14] LABS: INR 4.3 (0.9-1.1); Prothrombin Time 43.1 Seconds (9.0-12.0)
--- NOTE | 2023-05-24 12:47 | Hospitalist Progress Note ---
Date of Service May 24, 2023 Assessment & Plan (1) Multifocal pneumonia: (2) Diarrhea: (3) Weakness: (4) Vascular dementia: (5) Hypertension: (6) Dyslipidemia: (7) snf current use of anticoagulant therapy: (8) Atrial fibrillation: (9) BPH (benign prostatic hyperplasia): Plan Mr. Thompson is an 88 year old gentleman with with chronic afib, on chronic AC w/ warfarin, vascular dementia, pulmonary HTN, dyslipidemia, HTN, prior TIA, prior bladder CA, BPH, and other history as outlined below who was admitted on 05/19 due to diarrhea x 1 week, increased lethargy, confusion, and weakness . He has also had a productive cough for the last 1-2 weeks. Work-up in the ED seems most consistent with multifocal pneumonia with possible aspiration, and presumed infectious diarrhea. He was also noted to have urinary retention on CT. Patient doing well at this time. No acute concerns Awaiting bed at [facility]. #Gross hematuria *improving #Traumatic removal of gallegos -Gallegos replaced 05/22, will need 7-10 days -Plan for Urology follow up and void trial ~05/29 Hgb stable #Acute metabolic encephalopathy #Vascular dementia Worse short term memory per reports, but overall better today Continue rosuvastatin 40mg daily Continue warfarin Discontinue donepezil -Given GI symptoms, urinary retention and no noted cognitive improvement, spoke with neurology who recommended discontinuation b12 and folate WNL #Multifocal pneumonia #Influenza --CT:Bibasilar airspace opacities as described above consistent with a multifocal pneumonia. This could be due to aspiration. No bowel wall thickening or obstruction. Fluid filled nondilated loops of large and small bowel seen throughout the abdomen. This suggests a gastroenteritis/diarrheal illness. -- BioFire positive for influenza type B --Nasal MRSA negative --Procal 2.74 Continue on Rocephin, Flagyl Discontinue IVF encourage PO Continue Tamiflu Speech therapy eval: no overt signs of aspiration -Easy chew diet with aspiration/reflux precautions, no VFSS at this time Saturating well on room air #Diarrhea, c/f diarrheal illness #Stool incontinence .CT ABD/P on admission with Fluid filled nondilated loops of large and small bowel seen throughout the abdomen. This suggests a gastroenteritis/diarrheal illness. -Stool pcr negative Probiotics #Chronic atrial fibrillation Continue home metoprolol 37.5mg Continue home warfarin #Chronic HFpEF Holding home Aldactone 12.5 and lasix 3xwk Resume above as able #Prior TIA #HLD Continue statin and ASA #Hematuria 2/2 traumatic gallegos removal #Urinary retention #History of papillary urothelial neoplasm #Abnormal UA, no culture growth CT showed:Mild fullness within the bilateral renal collecting systems without rosmery hydronephrosis. This is likely due to the distended bladder. Recommend Gallegos catheterization for decompression. A few small bladder stones Continue Gallegos catheter for now Consult Urology for now, due for cysto; given history discuss timing of void trial Continue finasteride DVT warfarin plan for rehab DVT prophylaxis On Coumadin Code Status: Full code Disposition Plan for dispo to [facility], awaiting bed for transfer Admission and Anticipated Discharge Date Admission Date: May 20, 2023 Subjective NAEO Denies any concerns at beside today; no irrtation at catheter site Physical Exam Constitutional: WD/WN, vitals as above Respiratory: normal respiratory effort, lungs clear to auscultation Cardiovascular: RRR, no murmur, no edema Results & Data Results & Data Vital Signs (Past 12 Hours) Vital Signs Temp Pulse Pulse Resp BP BP Pulse Ox 05/24/23 11:24 36.2 C L 85 20 123/79 93 05/24/23 09:51 05/24/23 07:54 37 C 87 17 114/69 93 05/24/23 07:17 73 05/24/23 03:59 36.6 C 79 17 116/72 95 O2 Del Method 05/24/23 11:24 Room Air 05/24/23 09:51 Room Air 05/24/23 07:54 Room Air 05/24/23 07:17 05/24/23 03:59 Room Air Laboratory Results Short CBC 05/24/23 Range/Units 07:06 WBC 6.50 (4.8-10.8) K/ul Hgb 11.4 L (14.0-18.0) g/dl Hct 34.5 L (42.0-52.0) % Plt Count 159 (130-400) K/uL BMP 05/24/23 07:06 Sodium 138 Potassium 3.7 Chloride 109 H Carbon Dioxide 23 BUN 11 Creatinine 0.80 Glucose 80 Calcium 8.2 L Medications Administered Home Medications Medication Instructions Recorded Confirmed Last Taken ascorbic acid (vitamin C) 500 mg 500 mg PO QAM 07/23/19 04/08/24 04/07/24 tablet (Vitamin C) omega-3 fatty acids-fish oil 360 1 cap PO QAM 09/02/18 05/20/23 01/12/23 mg-1,200 mg capsule (Fish Oil) dutasteride 0.5 mg capsule 0.5 mg PO DAILY #90 caps 09/05/21 05/20/23 05/19/23 donepezil 10 mg tablet 10 mg PO QDD 01/12/23 05/20/23 05/19/23 furosemide 20 mg tablet 20 mg PO 3XWK 01/12/23 05/20/23 05/17/23 metoprolol succinate 25 mg 37.5 mg PO DAILY 01/12/23 05/20/23 05/19/23 tablet,extended release 24 hr zpldsmdyxjzc-rdzszgyf-emyulw tablet 1 tab PO DAILY 01/12/23 05/20/23 05/19/23 spironolactone 25 mg tablet 12.5 mg PO DAILY 01/12/23 05/20/23 05/19/23 rosuvastatin 20 mg tablet (Crestor) 40 mg (2 x 20 mg) PO QDD 30 days 01/14/23 05/20/23 05/19/23 #60 tabs aspirin 81 mg tablet,delayed 81 mg PO PM 05/20/23 05/20/23 05/19/23 release thiamine HCl (vitamin B1) 100 mg 100 mg PO DAILY 05/20/23 05/20/23 05/19/23 tablet vitamin B complex 1 tab PO DAILY 05/20/23 05/20/23 05/19/23 warfarin 2.5 mg tablet 1.25 mg PO UD 05/20/23 05/20/23 05/19/23 warfarin 2.5 mg tablet (Jantoven) 2.5 mg PO UD 05/20/23 05/20/23 05/17/23 L.acidop,casei,lactis,rham-B.lact,phuong 1 cap PO DAILY #30 caps 05/23/23 Unknown 625 mg (10 billion cell) capsule (Advanced Probiotic) PSYLLIUM or GUAR GUM FIBER SUP 4 g PO QAM #30 pkgs 05/23/23 Unknown [METAMUCIL or NUTRISOURCE FIBER SUPPLEMENT] amoxicillin 875 mg-potassium 1 tab PO BID #10 tabs 05/23/23 Unknown clavulanate 125 mg tablet oseltamivir 6 mg/mL oral 30 mg (5 mL) PO BID 5 days #50 mL 05/23/23 Unknown suspension (Tamiflu) warfarin 1 mg tablet (Jantoven) 1 mg PO DAILY@1600 #30 tabs 05/23/23 Unknown Active Medications Generic Name Dose Route Start Last Admin Trade Name Freq PRN Reason Stop Dose Admin Acetaminophen 650 mg 05/20/23 10:21 05/20/23 20:20 Acetaminophen 325 Mg Tab PO 06/19/23 10:20 650 mg Q4H PRN Administration Pain or Fever Ascorbic Acid 500 mg 05/21/23 09:00 05/24/23 07:47 Ascorbic Acid 500 Mg Tab PO 06/20/23 08:59 500 mg QAM THUY Administration Aspirin 81 mg 05/20/23 21:00 05/23/23 19:37 Aspirin 81 Mg Ectab PO 06/19/23 20:59 81 mg PM THUY Administration Finasteride 5 mg 05/20/23 10:45 05/24/23 07:47 Finasteride 5 Mg Tab PO 06/19/23 10:44 5 mg DAILY THUY Administration Lactobacillus Acidophilus 1,250 mg 05/21/23 09:00 05/24/23 07:45 Advanced Probiotic 625 Mg Capsule PO 06/20/23 08:59 1,250 mg DAILY THUY Administration Metoprolol Succinate 37.5 mg 05/20/23 10:30 05/24/23 09:24 Metoprolol Succ 25mg Ext Rel Tab PO 06/19/23 10:29 37.5 mg DAILY THUY Administration Psyllium Hydrophilic Mucilloid 4 gm 05/22/23 19:15 05/24/23 07:47 Psyllium Or Guar Gum Fiber 4gm Packet PO 06/21/23 19:14 4 gm QAM THUY Administration Rosuvastatin Calcium 40 mg 05/20/23 16:30 05/23/23 16:18 Rosuvastatin Calcium 20 Mg Tab PO 06/19/23 16:29 40 mg QDD THUY Administration Thiamine HCl 100 mg 05/21/23 09:00 05/24/23 07:47 Thiamine Hcl 100 Mg Tab PO 06/20/23 08:59 100 mg DAILY THUY Administration Vitamin B Complex 1 tab 05/21/23 09:00 05/24/23 07:47 Vitamin B Complex Tab PO 06/20/23 08:59 1 tab DAILY THUY Administration Warfarin Sodium 1 mg 05/20/23 16:00 05/22/23 16:38 Warfarin Sod 1 Mg Tab PO 06/19/23 15:59 1 mg DAILY@1600 THUY Administration (2) Diarrhea Diarrhea type: unspecified type Qualified Code(s): R19.7 - Diarrhea, unspecified (4) Vascular dementia Dementia severity: unspecified severity Dementia behavioral or psychological symptom: without behavioral, psychotic, or mood disturbance or anxiety Qualified Code(s): F01.50 - Vascular dementia, unspecified severity, without behavioral disturbance, psychotic disturbance, mood disturbance, and anxiety (5) Hypertension Hypertension type: primary hypertension Qualified Code(s): I10 - Essential (primary) hypertension (8) Atrial fibrillation Atrial fibrillation type: unspecified chronic Qualified Code(s): I48.20 - Chronic atrial fibrillation, unspecified (9) BPH (benign prostatic hyperplasia) Lower urinary tract symptom presence: symptoms present Lower urinary tract symptom detail: urinary retention Qualified Code(s): N40.1 - Benign prostatic hyperplasia with lower urinary tract symptoms; R33.8 - Other retention of urine
[2023-05-25 07:53] LABS: Hematocrit (blood only) 34.3 % (42.0-52.0); Hemoglobin 11.4 g/dl (14.0-18.0); Mean Corpuscular Hemoglobin 30.6 pg (25.0-34.0); Mean Corpuscular Hgb Conc 33.2 g/dL (32.0-36.0); Mean Corpuscular Volume 92.2 fL (80.0-100.0); Mean Platelet Volume 10.3 fL (9.4-12.4); Platelet Count 191 K/uL (130-400); RDW Coefficient of Variation 12.9 % (11.5-14.5); RDW Standard Deviation 42.9 fL (36.4-46.3); Red Blood Count 3.72 M/uL (4.70-6.10); White Blood Count 5.33 K/ul (4.8-10.8)
[2023-05-25 08:21] LABS: INR 4.7 (0.9-1.1); Prothrombin Time 46.6 Seconds (9.0-12.0)
--- NOTE | 2023-05-25 10:01 | Discharge Summary ---
Discharge Summary Date of Service May 25, 2023 Notes For Next Care Provider -Follow INR daily, discuss risk/benefits of continued anticoagulation -Void trial between 05/29-06/01 Pending follow up with Urology for cystoscopy Medication Changes From Visit Holding Warfarin 2/2 supratherapeutic INR Discontinue Donepezil 2/2 urinary retention/diarrhea Admission HPI Per Admitting Provider This is an 87 y/o male with chronic afib, on chronic AC w/ warfarin, vascular dementia, pulmonary HTN, dyslipidemia, HTN, prior TIA, prior bladder CA, BPH, and other history as outlined below who presents to the ED today with diarrhea x 1 week, increased lethargy, confusion, and weakness since yesterday. History obtained from patient's due to pt's confusion and dementia. She reports that about a week ago, pt started having diarrhea with incontinence. Pt typically has BMs at night, not during the day. For the last week, he has been having 3-4 episodes of diarrhea with incontinence nightly, which is unusual for him. She has not noticed any blood in the stools. No associated vomiting or complaint of abdominal pain. His appetite is decreased at baseline, and his does not think that it has been significantly worse than usual. No recent antibiotics. She has also noticed that pt has had a cough and runny nose for the last 1-2 weeks. Initially, she thought this was due to allergies so she gave him Claritin and Flonase, which seemed to help. However, over the last few days, the cough has been deeper sounding, like it is in his chest. No hemoptysis. Cough may be productive. Rhinorrhea has been clear. Pt has not complained of dysphagia. His does not notice any coughing or rosmery aspiration when he eats. Admission Exam Per Admitting Provider General: resting comfortably but arouses to verbal stimulation, hard of hearing HEENT: no scleral icterus Neck: supple, trachea midline Heart: irregularly irregular Lungs: diminished BS but poor inspiratory effort Abdomen: soft, NT, +BS Extremities: no pedal edema Neurologic: not oriented to place or time, pleasant, no dysarthria noted, moving all extremities Principal Dx & Hospital Course #1 = Principal Diagnosis (1) Multifocal pneumonia: (2) Diarrhea: (3) Weakness: (4) Vascular dementia: (5) Hypertension: (6) Dyslipidemia: (7) care home current use of anticoagulant therapy: (8) Atrial fibrillation: (9) BPH (benign prostatic hyperplasia): Plan Mr. Thompson is an 88 year old gentleman with with chronic afib, on chronic AC w/ warfarin, vascular dementia, pulmonary HTN, dyslipidemia, HTN, prior TIA, prior bladder CA, BPH, and other history as outlined below who was admitted on 05/19 due to diarrhea x 1 week, increased lethargy, confusion, and weakness . He has also had a productive cough for the last 1-2 weeks. Work-up in the ED seems most consistent with multifocal pneumonia with possible aspiration, and presumed infectious diarrhea. He was also noted to have urinary retention on CT. Patient doing well at this time. No acute concerns Patient denied any acute concerns. Ready for discharge to [facility] for rehab. #Gross hematuria *resolved #Traumatic removal of gallegos -Gallegos replaced 05/22, will need 7-10 days -Plan for Urology follow up and void trial ~05/29-06/01 Hgb stable #Acute metabolic encephalopathy *improved #Vascular dementia Worse short term memory per reports, but overall better today Continue rosuvastatin 40mg daily Hold warfarin 2/2 supratherapeutic INR Discontinue donepezil -Given GI symptoms, urinary retention and no noted cognitive improvement, spoke with neurology who recommended discontinuation b12 and folate WNL #Multifocal pneumonia #Influenza --CT:Bibasilar airspace opacities as described above consistent with a multifocal pneumonia. This could be due to aspiration. No bowel wall thickening or obstruction. Fluid filled nondilated loops of large and small bowel seen throughout the abdomen. This suggests a gastroenteritis/diarrheal illness. -- BioFire positive for influenza type B --Nasal MRSA negative --Procal 2.74 Completed course of IV abx and tamiflu Discontinued IVF encourage PO Speech therapy eval: no overt signs of aspiration -Easy chew diet with aspiration/reflux precautions, no VFSS at this time Saturating well on room air #Diarrhea, c/f diarrheal illness #Stool incontinence .CT ABD/P on admission with Fluid filled nondilated loops of large and small bowel seen throughout the abdomen. This suggests a gastroenteritis/diarrheal illness. -Stool pcr negative Probiotics and fiber Discontinued donepezil #Supratherapeutic INR #Chronic atrial fibrillation Continue home metoprolol 37.5mg Hold home warfarin, discuss utility in future for continuation #Chronic HFpEF Resume home Aldactone 12.5 and lasix 3xwk Resume above as able #Prior TIA #HLD Continue statin and ASA #Urinary retention #History of papillary urothelial neoplasm #Abnormal UA, no culture growth CT showed:Mild fullness within the bilateral renal collecting systems without rosmery hydronephrosis. This is likely due to the distended bladder. Recommend Gallegos catheterization for decompression. A few small bladder stones Continue Gallegos catheter for now Consult Urology for now, due for cysto; void trial 05/29-06/01 Continue finasteride Discharge Exam Respiratory normal respiratory effort, lungs clear to auscultation Cardiovascular irregularly irregular, no murmur Gastrointestinal (Abdomen) normal bowel sounds, soft, nontender, no hepatosplenomegaly Updated Medication List Medication Instructions Recorded Confirmed Type ascorbic acid (vitamin C) 500 mg 500 mg PO QAM 09/02/18 05/20/23 History tablet (Vitamin C) omega-3 fatty acids-fish oil 360 1 cap PO QAM 09/02/18 05/20/23 History mg-1,200 mg capsule (Fish Oil) dutasteride 0.5 mg capsule 0.5 mg PO DAILY #90 caps 09/05/21 05/20/23 Rx donepezil 10 mg tablet 10 mg PO QDD 01/12/23 05/20/23 History furosemide 20 mg tablet 20 mg PO 3XWK 01/12/23 05/20/23 History metoprolol succinate 25 mg 37.5 mg PO DAILY 01/12/23 05/20/23 History tablet,extended release 24 hr mfznplmducax-qeamivjn-eaiidi tablet 1 tab PO DAILY 01/12/23 05/20/23 History spironolactone 25 mg tablet 12.5 mg PO DAILY 01/12/23 05/20/23 History rosuvastatin 20 mg tablet (Crestor) 40 mg (2 x 20 mg) PO QDD 30 days 01/14/23 05/20/23 Rx #60 tabs aspirin 81 mg tablet,delayed 81 mg PO PM 05/20/23 05/20/23 History release thiamine HCl (vitamin B1) 100 mg 100 mg PO DAILY 05/20/23 05/20/23 History tablet vitamin B complex 1 tab PO DAILY 05/20/23 05/20/23 History warfarin 2.5 mg tablet 1.25 mg PO UD 05/20/23 05/20/23 History warfarin 2.5 mg tablet (Jantoven) 2.5 mg PO UD 05/20/23 05/20/23 History L.acidop,casei,lactis,rham-B.lact,phuong 1 cap PO DAILY #30 caps 05/23/23 Rx 625 mg (10 billion cell) capsule (Advanced Probiotic) PSYLLIUM or GUAR GUM FIBER SUP 4 g PO QAM #30 pkgs 05/23/23 Rx [METAMUCIL or NUTRISOURCE FIBER SUPPLEMENT] Hospital Stay Data Consultations 05/20/23 09:21 ED Decision to Admit Stat 05/22/23 10:46 Consult Urology Routine Diagnostic Imagining Performed 05/20/23 06:36 CT abd pelvis IV con only Stat Pending Results Patient Have Any Pending Studies at Discharge: No Discharge Instructions Given to Patient (Per Discharging Provider) You were admitted for concerns of worsening dementia, diarrhea, and cough. You were found to be positive for influenza type B with concerns for superimposed pneumonia. You were treated with antibiotics and completed a short course. You experienced diarrhea and urinary retention. Your stool was negative for infectious cause. Your case was discussed with Neurology and it was felt that holding donepizil would be acceptable, as urine retention and diarrhea are often side effects. You had a gallegos catheter placed on admission and once more after traumatic removal on 05/22. You can do a void trial between 05/29-06/01 at rehab. We are working to coordinate a follow up for cystoscopy with Urology given history of bladder cancer and to evaluate for other reasons behind obstruction. Given course of antibiotics and bleeding, your Coumadin was held as the INR was supratherapeutic (too high). Please follow up with Cardiology to discuss the risks and benefits of continuing or disocontinuing warfarin. In the interim, please follow INR at facility and resume if appropriate per physician recommendations. Total Time Total Time Spent Total Time Spent (In Minutes): 45
== END 2023-05-25 13:26 | DRG 193 ==
LOC: ED 06:29 → SUATTDRO 09:56 → EDINP 09:56 → 2N 10:55